=== PATIENT | female | born 1985 | race Caucasian/White ===

== ENCOUNTER 2021-02-13 16:19 | Outpatient (RCR) | payer OTHER, SELFPAY | END 2021-03-13 23:59 | LOC: DC 16:19 | PROVIDERS: PCP Family Medicine; Visit Provider Obstetrics & Gynecology | DX: O24.414 Gestational diabetes mellitus in pregnancy, insulin controlled (principal); Z3A.00 Weeks of gestation of pregnancy not specified | CPT/HCPCS: G0108 ==

== ENCOUNTER 2021-03-19 15:42 | Outpatient (RCR) | payer OTHER, SELFPAY | END 2021-04-13 23:59 | LOC: NS 15:42 | PROVIDERS: PCP Family Medicine; Visit Provider Obstetrics & Gynecology | DX: O24.414 Gestational diabetes mellitus in pregnancy, insulin controlled (principal); Z3A.00 Weeks of gestation of pregnancy not specified | CPT/HCPCS: 97802 ==

== ENCOUNTER 2021-07-22 02:25 | Inpatient (IN) | payer BC, SELFPAY ==
[2021-07-22] VITALS (96 sets, daily range): BP systolic 52–187; BP diastolic 29–99; PULSE 8–118; RESP 14–18; TEMP 36.3–37.1; O2SAT 80–100; BMI 39.7
[2021-07-22 01:26] LABS: Bedside Glucose 70 mg/dL (70-110)
[2021-07-22] MEDS: Lactated Ringers 1,000 ML 200 ML IV (02:47)
[2021-07-22] MEDS: Lactated Ringers 500 ML 999 ML IV (02:57)
[2021-07-22 03:03] LABS: Absolute Lymphocyte Count 1.79 X10^3/uL (0.83-4.51); Absolute Neutrophil Count 5.5 X10^3/uL (2.0-7.7); Basophil# 0.03 X10^3/uL; Basophil% 0.4 % (0-1); Eosinophil# 0.05 X10^3/uL; Eosinophils% 0.6 % (0-5); Hematocrit 38.3 % (37-47); Hemoglobin 12.8 g/dL (12.0-15.0); Lymphocyte # 1.79 X10^3/ul (0.83-4.51); Lymphocyte % 22.4 % (19-41); Mean Corp Hgb Conc 33.4 g/dL (32-36); Mean Corpuscular Hgb 28.4 pg (27.0-32.0); Mean Corpuscular Volume 85.1 fL (81-99); Mean Platelet Vol. 10.4 fl (6.2-12.0); Monocyte% 7.5 % (0-10); NRBC Flagged by Analyzer 0 % (0-5); Neutrophil # 5.48 X10^3/uL (2.7-7.7); Neutrophil % 68.6 % (47-70); Platelet Count 202 K/mm3 (150-450); RBC Distribution Width CV 14.3 % (11.6-14.6); RBC Distribution Width SD 44.2 fl (35.1-43.9)
[2021-07-22 03:06] LABS: Bedside Glucose 80 mg/dL (70-110)
[2021-07-22] MEDS: fentaNYL-bupivacaine (epidural) 100 ML BAG EPIDURAL (03:44)
[2021-07-22 04:41] LABS: Bedside Glucose 86 mg/dL (70-110)
[2021-07-22] MEDS: Oxytocin 30 units/NS 500 ml 30 UNITS/500 ML IV.SOLN 334 UNITS IV (05:12)
--- NOTE | 2021-07-22 05:38 | PCM.HP.OB ---
HPI - General General Date of Admission: 07/22/21 HPI Narrative TONG SUNSHINE, 35-year-old 4 para 3 who presented at 38-2/7 weeks gestation with EDC of 08/02/2021 complaining contractions. She has a history of 2 previous vaginal deliveries and 1 section. She denied any vaginal bleeding. She had good movement. The contractions woke her up and gotten progressively worse. She arrived to labor and delivery was found in labor. Past medical history is significant for depression. She had insulin controlled gestational diabetes this . She had vaginal bleeding early in the and received RhoGam. She also had pruritic urticarial papules and plaques of . She also is advanced maternal age. She also has a history of abnormal Pap smear 2014 Maternal Data Information Final JOSE: 08/02/21 Gestational age: 38 3/7 PFSH PFSH Home Medications Prenatabs FA 1 tab PO DAILY 11/14/16 [History Last Taken 07/21/21] Aspir-81 81 mg DAILY 07/22/21 [History Last Taken 07/21/21] sertraline 80 mg DAILY 07/22/21 [History Last Taken 07/21/21] Allergy/AdvReac Type Severity Reaction Status Date / Time No Known Allergies Allergy Verified 07/22/21 01:54 Social History Smoking Status: Never smoker History Elective abortions Hx Para 3 Spontaneous abortions Hx # Term Pregnancies Ectopic pregnancies Hx # Pregnancies Multiple births # of living children ROS Constitutional Constitutional: Denies fatigue, fever(s) or malaise Eyes Eyes: Denies change in vision ENT HEENT: Denies dizziness or headache(s) Cardiovascular Cardiovascular: Denies chest pain, dyspnea or lightheadedness Respiratory/Chest Respiratory/Chest: Denies cough or dyspnea Gastrointestinal Gastrointestinal: Denies change in bowel habits Genitourinary Genitourinary: Denies burning urination or genital lesions Integumentary Integumentary: Denies rash Neurologic Neurologic: Denies confusion, dizziness, headache(s), numbness or weakness Vital Signs Vital Signs Vital Signs: 07/22/21 00:47 07/22/21 00:50 07/22/21 03:00 Temperature 98.3 F Temperature Source Temporal Pulse Rate 89 87 93 Blood Pressure 139/89 H 187/94 H BP Systolic 139 187 BP Diastolic 89 94 Pulse Ox 97 07/22/21 03:02 07/22/21 03:07 07/22/21 03:12 Temperature 97.5 F L Temperature Source Temporal Pulse Rate 96 87 89 Blood Pressure 169/99 H BP Systolic 169 BP Diastolic 99 Pulse Ox 97 99 100 07/22/21 03:17 07/22/21 03:18 07/22/21 03:22 Temperature Temperature Source Pulse Rate 88 93 92 Blood Pressure 136/95 H BP Systolic 136 BP Diastolic 95 Pulse Ox 99 100 07/22/21 03:23 07/22/21 03:27 07/22/21 03:32 Temperature Temperature Source Pulse Rate 89 96 96 Blood Pressure BP Systolic BP Diastolic Pulse Ox 88 99 97 07/22/21 03:37 07/22/21 03:38 07/22/21 03:42 Temperature Temperature Source Pulse Rate 91 90 92 Blood Pressure 173/94 H BP Systolic 173 BP Diastolic 94 Pulse Ox 98 98 07/22/21 03:47 07/22/21 03:52 07/22/21 03:57 Temperature Temperature Source Pulse Rate 94 105 H 104 H Blood Pressure 126/67 H 141/72 H 134/72 H BP Systolic 126 141 134 BP Diastolic 67 72 72 Pulse Ox 99 99 99 07/22/21 04:02 07/22/21 04:03 07/22/21 04:07 Temperature Temperature Source Pulse Rate 101 H 102 H 98 Blood Pressure 116/56 L BP Systolic 116 BP Diastolic 56 Pulse Ox 100 100 07/22/21 04:10 07/22/21 04:15 07/22/21 04:18 Temperature Temperature Source Pulse Rate 100 105 H 113 H Blood Pressure 106/56 L BP Systolic 106 BP Diastolic 56 Pulse Ox 80 100 91 07/22/21 04:20 07/22/21 04:36 07/22/21 04:41 Temperature Temperature Source Pulse Rate 107 H 94 93 Blood Pressure BP Systolic BP Diastolic Pulse Ox 100 100 100 07/22/21 04:46 07/22/21 04:51 07/22/21 04:57 Temperature Temperature Source Pulse Rate 102 H 100 105 H Blood Pressure BP Systolic BP Diastolic Pulse Ox 100 100 99 07/22/21 05:02 07/22/21 05:04 07/22/21 05:11 Temperature Temperature Source Pulse Rate 97 89 76 Blood Pressure BP Systolic BP Diastolic Pulse Ox 94 88 82 Weight Weight: 89.358 kg Body Mass Index (BMI) 39.7 Physical Exam Const alert and no apparent distress General Appearance: cooperative HEENT normocephalic Resp normal respiratory effort Cardio regular rate GI soft to palpation GI Narrative: gravid, nontender, appropriate for gestational age Extremity no calf tenderness General Extremity: edema Skin no wounds Rashes: No rashes noted Psych activity/motor behavior normal Labs Labs Labs: Blood Type O NEGATIVE Antibody Screen NEGATIVE Hct 38.3 % (37-47) Hgb 12.8 g/dL (12.0-15.0) Group B Strep DNA POSITIVE (Negative) H Rhogam given: Yes Assessment & Plan (1) 38 weeks gestation of : (2) Active labor: PLAN: Patient admitted in labor for trial of labor after section. Pelvis clinically adequate. Estimated weight is less than 4000 g. Has had 2 previous vaginal deliveries before. Risk benefits and alternatives to trial of labor were discussed with the patient, her consent was signed in the office. Reviewed this today and she desires to proceed. GBS prophylaxis initiated. May have epidural as needed. Artificial rupture membranes was performed with return of moderate amount of clear fluid. IUPC was placed. (3) Previous delivery affecting : (4) Advanced maternal age during in third trimester: (5) Supervision of other high risk pregnancies, third trimester: (6) Gestational diabetes mellitus in , insulin controlled: (7) GBS (group B Streptococcus carrier), +RV culture, currently :
--- NOTE | 2021-07-22 05:42 | EX.PCM.OBRPT ---
Maternal Data Information Final JOSE: 08/02/21 Gestational age: 38 3/7 Vaginal Delivery Maternal Presentation Maternal Presentation: Active Labor Operative Information Date of Procedure: 07/22/21 Pre-Operative Diagnosis: labor Post-Operative Diagnosis: same Surgery / Procedure Performed: Type of Anesthesia: Epidural and Local with 1% Lidocaine (10 cc) Drain: Figueredo to straight drain (removed immediately before delivery) Estimated Blood Loss: 600 Time of Delivery: 05:10 Findings Description of Procedure: A vigorous male was delivered JERRI over a small second-degree perineal laceration. The remainder the was delivered with maternal pushing and gentle traction only in less than 15 seconds. The Pitocin infusion was initiated for active management of the third stage. The cord was clamped and cut after 1 minute. The infant was attended to by the waiting nursing staff. The placenta was delivered spontaneously and intact. The cervix and vagina were intact. The second-degree perineal laceration was repaired with 3-0 Vicryl suture in a running standard fashion. The left vaginal laceration was repaired with 3-0 Vicryl Rapide suture sponge and needle counts were correct. A vaginal sweep was completed by me. I was called back to see the patient because she was hypotensive. She felt lethargic. She denied headache, chest pain or shortness of breath. She had no pain other than abdominal cramping. I ordered a stat set of labs, 2 units of packed red blood cells to be typed and crossed and held, an attempt was made to start a second IV line by nursing. They have trouble getting a second line in. I then asked anesthesia to come to the room to help evaluate the patient. A second IV line was started. The patient had 2 bags of LR running at this time. Anesthesia also gave her a small amount of ephedrine to help with her blood pressure. Blood sugar, pulse and O2 sats were stable. Patient was given some oxygen because she was in shock. I ordered the 2 units of blood to be transfused because clinically the most likely situation where she was acutely anemic. After the fluid started to catch up with the patient and she was given ephedrine, her blood pressure recovered pretty quickly. The blood was canceled. I had ordered a CAT scan to rule out retroperitoneal hematoma. May cancel that as well if patient continues to do well and just do serial blood counts. Presentation: JERRI Amniotic Membrane Rupture Type: Spontaneous Amniotic Fluid Description: Clear Placental Delivery Description: Spontaneous Placenta Disposition: [facility] Cord Vessel Description: 3 Vessels Cord Entanglement: None A Gender: Male (1 minute): 7 (5 minute): 9 Delayed Cord Clamping: Yes Post Vaginal Delivery Medications Given After Delivery: IV Pitocin Episiotomy Description: None Laceration: 2nd degree (and left vaginal) Admit VTE Documentation VTE Present on Admission: No
[2021-07-22 05:57] LABS: Hematocrit 30.3 % (37-47); Hemoglobin 10.3 g/dL (12.0-15.0); Mean Corpuscular Hgb 29.7 pg (27.0-32.0); Mean Corpuscular Volume 87.3 fL (81-99); Mean Platelet Vol. 10.6 fl (6.2-12.0); Platelet Count 189 K/mm3 (150-450); RBC Distribution Width CV 14.5 % (11.6-14.6); RBC Distribution Width SD 46.1 fl (35.1-43.9); Red Blood Count 3.47 M/mm3 (4.2-5.4); White Blood Count 10.4 K/mm3 (4.4-11.0)
[2021-07-22 06:21] LABS: Bedside Glucose 101 mg/dL (70-110)
[2021-07-22 06:22] LABS: International Normalized Ratio 1.1; Prothrombin Time (Protime)PT. 13.3 SECONDS (11.7-14.9)
[2021-07-22 06:23] LABS: Fibrinogen 452 mg/dl (203-444); Partial Thromboplast Time 28.7 Seconds (24.1-36.2)
--- NOTE | 2021-07-22 06:44 | NURSING ---
Staff called to room to respond to low blood pressure. Patient post delivery at 0510. Patient has GDM. Following times reflect actual time. Staff at bedside: Juma Morataya RN 0550 BGT 101; Physician at bedside. Figueredo inserted. BP 52/29. CBC and coags drawn and sent to lab. Patient drowsy, wakes with stimulation. 0552 BP 79/41, HR 106, SpO2 99%. IV bolus of lactated ringers started. 0554 Ultrasound brought to room; hemorrhage cart at bedside. 0555 BP 58/32. Temperature 98 degrees F. SpO2 94%. Ultrasound done at bedside. 0557 BP 56/30 0558 patient placed in trendelenberg. Oxygen applied via nonrebreather mask. patient very drowsy and difficult to wake. [address] second IV. 0609 Zackery Mcclelland CRNA at bedside to evaluate patient per physician request. 0616 2nd 18 gauge IV placed per Zackery Mcclelland CRNA in left antecubital. respirations 24. 0617 10mg ephedrine given per Jerod BURNS 0619 Second IV LR bolus hung per second IV line via pressure bag. 2 units PRBC's ordered to be cross matched and transfused, CT ordered via Dr López. 0620 BP 95/56, HR 103, SpO2 100%. 0622 BP 103/57, HR 98, SpO2 100% via nonrebreather. 0623 Patient remains drowsy. Will answer questions with stimulation. Denies chest pain or headache upon questioning. Provider out of room. 0627 BP 114/57, HR 105, SpO2 100%. Patient appearing less drowsy, spontaneous waking and asking about . 0630 coagulation labs returned. Fundus firm. 0632 patient remains awake, interacting with support person and . BP 120/62, HR 97, SpO2 100%. 0634 Jerod BURNS out of room. oxygen discontinued. 0636 patient taken out of Trendelenburg and placed in low fowlers. Provider returned to bedside to review plan of care. 0637 BP 125/66, HR 91, SpO2 100% on room air. 0638 Provider out of room. Patient remains well appearing. Blood order and CT to be held at this time.
[2021-07-22] MEDS: Ibuprofen 600 MG Tablet PO ×2 (08:20→16:35)
[2021-07-22] MEDS: Benzocaine/Lanolin/Aloe Vera 1 SPRAY EACH TOPICAL (08:21)
[2021-07-22] MEDS: FLUoxetine 20 MG Capsule 80 MG PO (08:48)
[2021-07-22 13:10] LABS: Hematocrit 27.2 % (37-47); Hemoglobin 9.2 g/dL (12.0-15.0); Mean Corp Hgb Conc 33.8 g/dL (32-36); Mean Corpuscular Volume 85.8 fL (81-99); Mean Platelet Vol. 10.5 fl (6.2-12.0); Platelet Count 175 K/mm3 (150-450); RBC Distribution Width CV 14.6 % (11.6-14.6); RBC Distribution Width SD 45.5 fl (35.1-43.9); Red Blood Count 3.17 M/mm3 (4.2-5.4); White Blood Count 15.7 K/mm3 (4.4-11.0)
--- NOTE | 2021-07-22 13:13 | NURSING ---
Epidural catheter removed at this time. Tip intact, patient tolerated well.
--- NOTE | 2021-07-22 16:08 | CASEMGMT ---
Social Work Labor and Delivery Social work consult received and noted for maternal history fo depression, anxiety, OCD, and depression. Medical records reviewed. Spoke with RN caring for patient today. Patient is reported as tired and not sleeping for 20 hours. Based this report, will plan to see MOB on 07.23.2021 in order to allow MOB more time to get some sleep. Plan: See MOB on 07.23.2021 for assessment and determination of resource needs. -EKTA Buitrago, PERSONNEL ASSOCIATE
[2021-07-22] MEDS: Acetaminophen 500 MG Tablet 1000 MG PO (21:24)
[2021-07-23 03:22] VITALS: BP 140/76; PULSE 89; RESP 18; TEMP 36.8
[2021-07-23 05:55] LABS: Bedside Glucose 96 mg/dL (70-110)
[2021-07-23 06:10] LABS: Hematocrit 26.2 % (37-47); Hemoglobin 8.8 g/dL (12.0-15.0); Mean Corp Hgb Conc 33.6 g/dL (32-36); Mean Corpuscular Hgb 29.5 pg (27.0-32.0); Mean Corpuscular Volume 87.9 fL (81-99); Mean Platelet Vol. 10.6 fl (6.2-12.0); Platelet Count 176 K/mm3 (150-450); RBC Distribution Width CV 14.9 % (11.6-14.6); Red Blood Count 2.98 M/mm3 (4.2-5.4); White Blood Count 11.7 K/mm3 (4.4-11.0)
[2021-07-23] MEDS: Ibuprofen 600 MG Tablet PO ×2 (07:02→13:56)
[2021-07-23 07:48] VITALS: BP 128/77; PULSE 87; RESP 16; TEMP 36.4; O2SAT 98
[2021-07-23] MEDS: FLUoxetine 20 MG Capsule 80 MG PO (11:35)
[2021-07-23] MEDS: Senna/Docusate Sodium 1 Tablet PO (11:35)
[2021-07-23 11:54] LABS: Hematocrit 26.9 % (37-47); Hemoglobin 8.9 g/dL (12.0-15.0); Mean Corp Hgb Conc 33.1 g/dL (32-36); Mean Corpuscular Hgb 28.9 pg (27.0-32.0); Mean Corpuscular Volume 87.3 fL (81-99); Mean Platelet Vol. 10.3 fl (6.2-12.0); Platelet Count 183 K/mm3 (150-450); RBC Distribution Width CV 15.2 % (11.6-14.6); RBC Distribution Width SD 47.9 fl (35.1-43.9); Red Blood Count 3.08 M/mm3 (4.2-5.4); White Blood Count 12.5 K/mm3 (4.4-11.0)
--- NOTE | 2021-07-23 13:08 | PCM.PN.OB ---
Subjective Subjective Patient doing well. Pain well controlled. She is ambulating voiding without difficulty. She denies chest pain, shortness of breath, presyncope, lightheadedness, dizziness. Lochia is normal. She is breast-feeding. She desires to go home today. No leg pain. Objective Data Objective Data Vital Signs: Vital Signs Temp Pulse Resp BP Pulse Ox 97.6 F L 87 16 128/77 H 98 07/23/21 07:48 07/23/21 07:48 07/23/21 07:48 07/23/21 07:48 07/23/21 07:48 Oxygen Delivery Method Room Air Weight: 197 lb Body Mass Index (BMI) 39.7 Intake & Output: Intake and Output for Last 24 Hours 07/21/21 07/22/21 07/23/21 23:59 23:59 23:59 Intake Total 2105.00 / 2105.00 Output Total 400 / 400 Balance 1705.00 / 1705.00 Lab / Micro Data Result Diagrams: 07/23/21 11:40 Labs: Laboratory Results - last 24 hr 07/22/21 13:00: WBC 15.7 H, RBC 3.17 L, Hgb 9.2 L, Hct 27.2 L, MCV 85.8, MCH 29.0, MCHC 33.8, RDW Std Deviation 45.5 H, RDW Coeff of Jerel 14.6, Plt Count 175, MPV 10.5 07/23/21 05:47: POC Glucose 96 07/23/21 05:50: WBC 11.7 H, RBC 2.98 L, Hgb 8.8 L, Hct 26.2 L, MCV 87.9, MCH 29.5, MCHC 33.6, RDW Std Deviation 48.0 H, RDW Coeff of Jerel 14.9 H, Plt Count 176, MPV 10.6 07/23/21 11:40: WBC 12.5 H, RBC 3.08 L, Hgb 8.9 L, Hct 26.9 L, MCV 87.3, MCH 28.9, MCHC 33.1, RDW Std Deviation 47.9 H, RDW Coeff of Jerel 15.2 H, Plt Count 183, MPV 10.3 Micro: Microbiology 07/22/21 03:00 Nasal Secretion SARS-CoV-2 Antigen (Rapid) - Final Physical Exam Const alert and no apparent distress General Appearance: comfortable Resp normal respiratory effort Assessment & Plan (1) Active labor: (2) Previous delivery affecting : (3) Advanced maternal age during in third trimester: (4) Supervision of other high risk pregnancies, third trimester: (5) Gestational diabetes mellitus in , insulin controlled: (6) , delivered: PLAN: - Pt doing well and desires discharge today. Hgb stable and no symptoms of anemia. Recommend iron supplementation. Reviewed discharge instructions
--- NOTE | 2021-07-23 13:14 | PCM.DC ---
Discharge Instructions Diet Discharge Diet: No restrictions Activity Discharge Activity: May Shower May resume sexual activity in: 6 weeks Ice area for (Minutes): 15 Weight Bearing Status: Weight bearing as tolerated Lifting Restrictions: nothing heavier than baby Additional Activity Instructions:: Take Iron with a half a glass of orange juice at night every other day, and avoid calcium containing supplements at time of taking iron Dressing / Incision Call your doctor if you observe: Fever of 101 or Higher, Coldness, Increased Pain, Numbness or Tingling, Change in Color, Inability to urinate, Inability to have a bowel movement, Using more than 1 pad per hour, Shortness of breath, Dizziness, Fainting spells, Swelling in the ankles, Chest pain, Increased palpitations (irregular heartbeat), Calf discomfort and Uncontrolled pain Follow Up Care When: 6 week Test Results: Test results from this visit will be discussed in further detail at your follow-up appointment, if applicable. Discharge Plan Admission Admit Date/Time: 07/22/21 02:25 Primary Reason for Your Visit: delivery Attending Provider: Dina López Primary Care Provider: Suresh Aceves Discharge Orders/Prescriptions Prescriptions: New ferrous sulfate 325 mg (65 mg iron) tablet 325 mg PO QODAY Qty: 60 RF: 0 docusate sodium [Stool Softener] 100 mg capsule 100 mg PO BID Qty: 60 RF: 0 Continued Prenatabs FA 1 TABLET tablet 1 tab PO DAILY RF: 0 fluoxetine 20 mg capsule 80 mg DAILY RF: 0 Discontinued Aspir-81 81 mg DAILY RF: 0 Referrals / Follow Up: Suresh Aceves DO [Primary Care Provider] - Disposition Disposition (needs filled in before D/C Order can be placed): Home, Self Care
[2021-07-23 13:49] VITALS: BP 133/81; PULSE 97; RESP 16; TEMP 36.3
--- NOTE | 2021-07-23 16:05 | CASEMGMT ---
Social Work Labor and Delivery MOB was seen and assessed today. Assessment note to follow. Resources given and okay for MOB and baby to discharge from SW standpoint. -EKTA Buitrago, FLORICULTURIST
== END 2021-07-23 17:49 | disposition home or self-care (01) | DRG 806 ==
LOC: WPOUT 02:27 → WP 02:27
PROVIDERS: Advanced Practice Midwife; Obstetrics & Gynecology; Admitting Provider Obstetrics & Gynecology; PCP Family Medicine; Visit Provider Obstetrics & Gynecology
PROC: (CPT 59514; principal; 2021-07-28 11:45)
DX: O34.219 Maternal care for unspecified type scar from previous cesarean delivery (principal); Z37.0 Single live birth; O99.43 Diseases of the circulatory system complicating the puerperium; I95.9 Hypotension, unspecified; O24.424 Gestational diabetes mellitus in childbirth, insulin controlled; Z3A.38 38 weeks gestation of pregnancy; O70.1 Second degree perineal laceration during delivery; O99.820 Streptococcus B carrier state complicating pregnancy; O99.344 Other mental disorders complicating childbirth; F32.A Depression, unspecified; Z79.899 Other long term (current) drug therapy; O26.86 Pruritic urticarial papules and plaques of pregnancy (PUPPP)
CPT/HCPCS: 59025; 59050; 82962; 85025; 85027; 85384; 85461; 85610; 85730; 86850; 86900; 86901; 86920; 86922; 87426; 90384; 99218; J7120; G0378; J2790

== ENCOUNTER 2022-03-30 13:21 | Outpatient (RCR) | payer BC, SELFPAY | END 2022-04-13 23:59 | LOC: NS 13:21 | PROVIDERS: PCP Family Medicine; Referring Provider Family Medicine; Visit Provider Family Medicine | DX: Z71.3 Dietary counseling and surveillance (principal); E66.9 Obesity, unspecified | CPT/HCPCS: 97802 ==

== ENCOUNTER 2023-04-12 10:08 | Outpatient (RCR) | payer BC, SELFPAY | END 2023-04-13 23:59 | LOC: NS 10:08 | PROVIDERS: PCP Family Medicine; Referring Provider Family Medicine; Visit Provider Family Medicine | DX: Z71.3 Dietary counseling and surveillance (principal); E66.09 Other obesity due to excess calories; Z68.35 Body mass index [BMI] 35.0-35.9, adult | CPT/HCPCS: 97802 ==

== ENCOUNTER 2023-05-12 14:00 | Outpatient (RCR) | payer BC, SELFPAY | END 2023-05-13 23:59 | LOC: NS 14:00 | PROVIDERS: PCP Family Medicine; Referring Provider Family Medicine; Visit Provider Family Medicine | DX: Z71.3 Dietary counseling and surveillance (principal); E66.09 Other obesity due to excess calories; Z68.35 Body mass index [BMI] 35.0-35.9, adult | CPT/HCPCS: 97803 ==

== ENCOUNTER 2024-07-10 11:25 | Emergency (ER) | payer BC, SELFPAY ==
[2024-07-10 11:26] VITALS: BP 163/104; PULSE 83; RESP 16; TEMP 36.4; O2SAT 97
--- NOTE | 2024-07-10 12:04 | EX.ED.VIS.PS ---
HPI HPI - Psych History of Present Illness Chief Complaint: Suicidal Informant: patient and family Narrative Narrative: 46-year-old female following with Dr. Wolf for depression, attempted to commit suicide this morning by taking the propranolol she is prescribed. This occurred about 2 hours prior to evaluation, around 10 AM according to family who intervene and stopped her from taking the pills. She states she had already taken 6 of them, 10 mg each. She is prescribed them 3 times daily, as they are the immediate release form that she is prescribed for anxiety as needed. She states she was taking them in hopes that her heart would stop and she would . She states she feels weak all over, she has had no syncopal episodes or trouble breathing. She has a headache right now. She denies any coingestants including [id number] medications, alcohol, or illicit substance. She states she took her usual morning medications of fluoxetine and lamotrigine as prescribed and did not take more than that. [facility] Medical History History of depression MDD (major depressive disorder) , delivered Anxiety Obsessive compulsive disorder Gestational diabetes depression Depression Gestational diabetes mellitus in , insulin controlled Home Medications ?Medication ?Instructions ?Recorded ?Last Taken ?Type fluoxetine 40 mg capsule (Prozac) 80 mg (2 x 40 mg) PO QDAY 90 days 03/02/24 Unknown Rx #180 caps lamotrigine 100 mg tablet 100 mg PO QDAY 90 days #90 tabs 03/02/24 Unknown Rx (Lamictal) rosuvastatin 20 mg tablet 20 mg PO QHS 05/18/24 Unknown History propranolol 10 mg tablet 10 mg PO TID PRN anxiety #60 tabs 07/07/24 Unknown Rx Allergy/AdvReac Type Severity Reaction Status Date / Time sertraline AdvReac Mild Increased Verified 07/10/24 11:32 depression Surgical History [place] teeth extracted Previous section Previous delivery affecting Social History Smoking Status: Never smoker alcohol intake: never substance use type: does not use what type of physical activity do you participate in: walking frequency: 5-6 times per week ROS ROS ED Constitutional Constitutional ED: Reports malaise; Denies chills or fever(s) Eyes Eyes: Denies change in vision or diplopia ENT ENT ED: Denies rhinorrhea or sore throat Cardiovascular Cardiovascular: Denies chest pain or palpitations Respiratory/Chest Respiratory/Chest: Denies cough or dyspnea Gastrointestinal Gastrointestinal: Reports nausea and other Details: Nauseated earlier but gone now ; Denies abdominal pain, diarrhea or vomiting Genitourinary Genitourinary ED: Denies dysuria or hematuria Musculoskeletal Musculoskeletal: Denies back pain or neck pain Integumentary Denies abscess or rash Neurologic Neurologic: Reports headache(s); Denies paresthesias or weakness Psychiatric Psychiatric: Reports depression, suicidal ideation and suicidal thoughts; Denies homicidal ideation EXAM Physical Exam Const Vital Signs: 07/10/24 11:26 07/10/24 13:00 07/10/24 14:00 Temperature 97.5 F L Temperature Source Temporal Pulse Rate 83 72 83 Respiratory Rate 16 16 14 Blood Pressure 163/104 H 138/68 H Blood Pressure Mean 123 91 Pulse Ox 97 96 99 Oxygen Delivery Method Room Air Room Air Positive well nourished and well developed General Appearance ED: well developed and NAD HEENT Reports moist mucous membranes normocephalic and atraumatic Eyes PERRL and EOMs intact bilaterally General Eye ED: Negative for scleral icterus Neck no lymphadenopathy and supple Resp normal respiratory effort and clear to auscultation bilaterally Cardio no murmurs Rate: regular rate Rhythm: regular rhythm GI non-tender and non-distended Auscultation: normoactive bowel sounds Palpation: soft Back/Spine no CVA tenderness and normal ROM Extremity normal to inspection General Extremety ED: Negative for edema General Extremity: Negative for edema Neuro oriented x3, CN's II-XII intact bilaterally, no sensory deficits noted and gait normal Sensorium / Orientation: alert Motor Exam: strength 5/5 throughout Psych mental status grossly normal, thought process normal, cooperative, activity/motor behavior normal and denies homicidal ideation Speech: slow and soft Mood & Affect: depressed Thought Content: suicidality Skin Lesions: no lesions Rashes: no rashes MDM MDM MDM Narrative Medical decision making narrative: Patient took 60 mg of propranolol hydrochloride, immediate release form. This is still well within the therapeutic range. She is not bradycardic and her EKG is normal, pulse in the 80s 2 hours after taking the pills. Given all of this, I did do a metabolic test while we the monitored her, testing for coingestions including alcohol, illicit drugs, acetaminophen, salicylates. This was all negative. With observation she developed no bradycardia. She is medically cleared for psychiatric evaluation. Social work saw her in the emergency department with whom I spoke, they agree with placement, we are able to get accepting to [place]. Lab Data Attestation: I reviewed the patient's lab results. Labs: Laboratory Results - last 24 hr 07/10/24 07/10/24 12:34 13:20 WBC 12.1 H RBC 4.92 Hgb 13.8 Hct 41.4 MCV 84.1 MCH 28.0 MCHC 33.3 RDW Std Deviation 39.7 RDW Coeff of Jerel 13.0 Plt Count 347 MPV 9.1 Immature Gran % (Auto) 0.400 Neut % (Auto) 79.3 H Lymph % (Auto) 15.5 L Emmet % (Auto) 4.1 Eos % (Auto) 0.3 Baso % (Auto) 0.4 Absolute Neuts (auto) 9.6 H Absolute Lymphs (auto) 1.88 Nucleated RBC % 0 Sodium 139 Potassium 3.8 Chloride 107 Carbon Dioxide 26.0 Anion Gap 6 BUN 10 Creatinine 0.50 L Est GFR (MDRD) Af Amer 177 Est GFR (MDRD) Non-Af 147 BUN/Creatinine Ratio 20.2 H Glucose 110 H Calcium 9.0 Total Bilirubin 0.30 AST 13 L ALT 23 Alkaline Phosphatase 52 Total Protein 7.3 Albumin 3.9 Globulin 3.4 Albumin/Globulin Ratio 1.1 Serum , Qual NEGATIVE Salicylates < 1.7 L Urine Opiates Screen NEGATIVE Urine Methadone Screen NEGATIVE Acetaminophen < 2.0 L Ur Barbiturates Screen NEGATIVE Ur Phencyclidine Scrn NEGATIVE Ur Amphetamines Screen NEGATIVE MDMA (Ecstasy) Screen NEGATIVE U Benzodiazepines Scrn NEGATIVE Urine Cocaine Screen NEGATIVE U Cannabinoids Screen NEGATIVE Ur Drug Screen Comment Ethyl Alcohol < 3.0 Management Discussion w/another healthcare provider: Behavioral health Discharge Plan Triage Chief Complaint: Suicidal ED Provider: Mohan Sorensen Dx/Rx/DC Orders Clinical Impression: Suicide gesture, MDD (major depressive disorder) Prescriptions: No Action fluoxetine [Prozac] 40 mg capsule 80 mg PO QDAY 90 Days Qty: 180 1RF lamotrigine [Lamictal] 100 mg tablet 100 mg PO QDAY 90 Days Qty: 90 1RF rosuvastatin 20 mg tablet 20 mg PO QHS propranolol 10 mg tablet 10 mg PO TID PRN (Reason: anxiety) Qty: 60 1RF Primary Care Provider: Ash Lozoya Referrals: Ash Lozoya MD [Primary Care Provider] - Print Language: [place] Disposition Disposition: Psychiatric Hospital or Unit
[2024-07-10] MEDS: Ibuprofen 600 MG Tablet PO (12:24)
[2024-07-10 12:42] LABS: Absolute Lymphocyte Count 1.88 X10^3/uL (0.83-4.51); Absolute Neutrophil Count 9.6 X10^3/uL (2.0-7.7); Basophil# 0.05 X10^3/uL; Basophil% 0.4 % (0-1); Eosinophil# 0.04 X10^3/uL; Eosinophils% 0.3 % (0-5); Hematocrit 41.4 % (37-47); Hemoglobin 13.8 g/dL (12.0-15.0); Lymphocyte # 1.88 X10^3/ul (0.83-4.51); Lymphocyte % 15.5 % (19-41); Mean Corp Hgb Conc 33.3 g/dL (32-36); Mean Corpuscular Volume 84.1 fL (81-99); Mean Platelet Vol. 9.1 fl (6.2-12.0); Monocyte% 4.1 % (0-10); NRBC Flagged by Analyzer 0 % (0-5); Neutrophil % 79.3 % (47-70); Platelet Count 347 K/mm3 (150-450); RBC Distribution Width SD 39.7 fl (35.1-43.9); Red Blood Count 4.92 M/mm3 (4.2-5.4); White Blood Count 12.1 K/mm3 (4.4-11.0)
[2024-07-10 12:55] LABS: Internal QC Validated? YES +Cl - CLEAR BKGD
[2024-07-10 12:56] LABS: Pregnancy, Serum, hCG Quali. NEGATIVE Negative
[2024-07-10 13:00] VITALS: BP 138/68; PULSE 72; RESP 16; O2SAT 96
[2024-07-10 13:02] LABS: ALB/GLOB Ratio 1.1 RATIO (0.9-2.4); AST(SGOT) 13 U/L (15-37); Alanine Aminotransfer ALT/SGPT 23 U/L (13-56); Albumin, Serum 3.9 g/dL (3.2-5.0); Alkaline Phosphatase 52 U/L (45-117); Anion Gap 6 (5-15); BUN 10 mg/dL (7-18); BUN/Creat Ratio 20.2 RATIO (10-20); Chloride 107 mmol/L (98-107); EST Glomerular Filtration Rate 147 mL/min (>60); Est Glom Filt Rate - Afr Amer 177 mL/min (>60); Globulin 3.4 g/dL (2.2-4.2); Glucose 110 mg/dL (74-106); Potassium 3.8 mmol/L (3.5-5.1); Protein, Total 7.3 g/dL (6.4-8.2); Sodium Level 139 mmol/L (136-145)
[2024-07-10 13:04] LABS: Acetaminophen (Tylenol) Level < 2.0 ug/mL (10.0-30.0); Alcohol, Blood (Medical)-Serum < 3.0 mg/dL; Salicylate < 1.7 mg/dL (2.8-20.0)
[2024-07-10 13:39] LABS: Amphetamine Urine NEGATIVE (<1000 ng/mL); Barbiturate Urine VISTA NEGATIVE (< 200 ng/mL); Benzodiazepine Urine VISTA NEGATIVE (< 200 ng/mL); Cocaine Urine VISTA NEGATIVE (< 300 ng/mL); Ecstacy Urine VISTA NEGATIVE (< 500 ng/mL); Methadone Urine VISTA NEGATIVE (< 300 ng/mL); PCP Urine VISTA NEGATIVE (< 25 ng/mL); THC Urine VISTA NEGATIVE (< 50 ng/mL); Vista UDS pH Range 7
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
[2024-07-10 14:00] VITALS: PULSE 83; RESP 14; O2SAT 99
[2024-07-10 14:28] VITALS: PULSE 82; RESP 14; O2SAT 99
--- NOTE | 2024-07-10 14:30 | EKG12_ITS ---
Test Reason : CP Blood Pressure : */* mmHG Vent. Rate : 80 BPM Atrial Rate : 80 BPM P-R Int : 174 ms QRS Dur : 82 ms QT Int : 378 ms P-R-T Axes : 26 8 40 degrees QTcB Int : 435 ms Normal sinus rhythm Normal ECG Confirmed by ANDREW QUINN, ADELITA ([id number]), associate professor physician HIRAL WHITE ([id number]) on 07/12/2024 6:23:14 AM Referred By: BB/ANDREW Confirmed By: ADELITA MORALES MD
--- NOTE | 2024-07-10 15:25 | ED.RN ---
ACCEPTED @ [facility] @ [id number]
--- NOTE | 2024-07-10 15:40 | ED.RN ---
PHYSICIANS CALLED AND TRIED TO OUT SOURCE THE TRIP, SAID NO ONE WAS ABLE TO TAKE IT.
[2024-07-10 18:18] VITALS: BP 129/83; PULSE 88; RESP 18; TEMP 36.4; O2SAT 98
[2024-07-10 18:28] VITALS: BMI 34.5
--- NOTE | 2024-07-10 21:35 | CM.ED ---
Social Work Referral sent to [facility]. Patient was accepted at same. Patient and family notified. Plan: Inpatient psychiatric admission.
[2024-07-10 22:28] VITALS: BP 127/78; PULSE 78; RESP 16; TEMP 36.6; O2SAT 97
--- NOTE | 2024-07-11 08:57 | CM.ED ---
Social work This SW received a call from Amee Paredes, patient's mother, this morning. Amee stated knowing patient was in [facility] ED yesterday and sent to [place]. Amee reported receiving a voicemail from patient today stating that patient did not have patient's clothing. This SW explained the process that occurs when a patient arrives who is a safety risk to self (personal belongings are removed and locked up); this SW explained that patient's transportation to [place] would have received patient's belongings. This SW encouraged Amee to call [place] to see if patient could have more of patient's clothing as this could be what patient was referring to on the voicemail. Amee stated understanding and reported no further needs at this time. Celestina Lala, NURSE MIDWIFE, COMPOSITION ROOFER
== END 2024-07-11 01:53 ==
LOC: ED 12:18
PROVIDERS: Emergency Provider Emergency Medicine; PCP Family Medicine; Visit Provider Emergency Medicine
DX: T44.7X2A Poisoning by beta-adrenoreceptor antagonists, intentional self-harm, initial encounter (principal); F32.9 Major depressive disorder, single episode, unspecified; Z79.899 Other long term (current) drug therapy
CPT/HCPCS: 36415; 80053; 80143; 80179; 80307; 82077; 84703; 85025; 93005; 99284

== ENCOUNTER → 2024-09-01 | Outpatient (CLI) | payer BC, SELFPAY ==
[2024-09-01 18:04] LABS: Free T3 2.7 pg/mL (2.18-3.98)
== END | disposition home or self-care (01) ==
LOC: LAB 15:46
PROVIDERS: PCP Family Medicine; Referring Provider Student in an Organized Health Care Education/Training Program; Visit Provider Student in an Organized Health Care Education/Training Program
DX: F32.9 Major depressive disorder, single episode, unspecified (principal)
CPT/HCPCS: 36415; 84439; 84443; 84481

== ENCOUNTER → 2024-11-20 | Outpatient (CLI) | payer BC, SELFPAY ==
--- NOTE | 2024-11-20 06:37 | MRI_ITS ---
PROCEDURE: BRAIN W/WO CONTRAST 11/20/2024 REASON FOR EXAM: DIZZINESS TECHNIQUE: Routine brain MRI without and with intravenous contrast. Multiplanar and multisequence images were obtained. CONTRAST: Clariscan VOLUME: 16 mL COMPARISON: None. FINDINGS: There is a normal sulcal pattern and gyral configuration. There is no evidence of acute intracranial hemorrhage or infarction. The rizvi-white differentiation is well preserved. There is no evidence of restricted diffusion. The ventricles and basilar cisterns are normal. There are normal flow voids demonstrated in the recognized intracranial vessels. The cerebellum and brainstem are unremarkable. The cerebellar pontine angles are normal. The craniovertebral junction is normal. The sella and suprasellar regions are normal. The orbits and retro-orbital regions are unremarkable. The nasal septum is midline. The paranasal sinuses are clear. The mastoid air cells are clear. There is normal bone marrow signal in the skull base and calvarium. MRI/Brain W/WO Contrast IMPRESSION: Normal MR imaging of the brain with and without IV contrast. Reading Location: [place] [id number]
--- OUTSIDE RECORDS SUMMARY | 2024-11-20 07:19 | XMS RPT_ITS | CCD ---
Author Organization [facility] ion [facility] Care Team Providers Care Bingo Cashier Name Role Phone Unavailable Primary Care Provider UnavailSuresh Snyder DO Primary Care Provider [phone] Ash King MD Primary Care Provider Unavailable Primary Care Provider UnavailAsh Lamb MD Primary Care Provider DR SURESH ACEVES DO Primary Care Physician DR SURESH ACEVES DO Primary Care Unavailab LEANDRO oClón Attending Lucina vailable CHRISTINE, ASH Primary Care Unavailable DAVEY HSU Admitting Unavailable RYAN ANDINO Attending Unavailable CHRISTINE, ASH Primary Care Unavailable ROLY WILDER Admitting Unavailable CHRISTIANO NEGRETE Attending Unavailable CHRISTINE, ASH Attending Unavailable CHRISTINE, ASH Primary Care Unavailable CHRISTINE, ASH Primary Care Unavailable O'COLLEEN CHARMAINE Attending Unavailable CHRISTINE, ASH Primary Care Unavailable O'COLLEENCHARMAINE Attending Unavailable CHRISTINE, ASH Primary Care Unavailable EMS, MARIA VICTORIA Attending Unavailable LEONEL PERALES Attending Unavailable CHRISTINE, ASH Primary Care Unavailable CHRISTINE, ASH Primary Care Unavailable BRIDENTHAL, PRISCILLA Attending Unavailable CHRISTINE, ASH Attending Unavailable CHRISTINE, ASH Primary Care Unavailable CHRISTINE, ASH Primary Care Unavailable BRIDENTHAL, PRISCILLA Attending Unavailable CHRISTINE, ASH Primary Care Unavailable EMS, MARIA VICTORIA Attending Unavailable CHRISTINE, ASH Primary Care Unavailable EMS, MARIA VICTORIA Attending Unavailable Christine, Ash Stephane Primary Care Provider [phone] SELF Referring Unavailable ASA BETANCUR Referring Unavailable ASA BETANCUR Attending Unavailable Mohan Sorensen Attending Unavailable Christine, Ash Primary Care Unavailable Seese, Roque L Attending Unavailable [facility] Primary Care Unavailable Roque Wolf Attending Unavailable [facility] Primary Care Unavailable Roque Wolf Attending Unavailable [facility] Ash Referring Unavailable [facility] Primary Care Unavailable [facility], Ash Primary Care Unavailable Roque Wolf Attending Unavailable [facility] Primary Care Unavailable Roque Wolf Attending Unavailable [facility] Primary Care Unavailable Christine, Ash Referring Unavailable Roque Wolf Attending Unavailable [facility] Primary Care Unavailable Roque Wolf Referring Unavailable Roque Wolf Attending Unavailable Prasanna Alberto Attending UnavailPrasanna Head [facility] Allergies Allergy Classification Reported Allergen(s) Allergy Type Date of Onset Reaction(s) Facility (19 sources) Sertraline; Translations: [SERTRALINE] Drug Allergy 4 Other, Other: See Comments [facility] (1 source) Cetirizine Drug Allergy 4 [facility] (1 source) Cetirizine Drug Allergy 4 [facility] (1 source) Sertraline Drug Allergy 5 [facility] Medications Current Medications Medication Drug Class(es) Dates Sig (Normalized) Sig (Original) acetaminophen 325 mg oral capsule (1 source) Start: 03-09-2019 Tylenol 325 mg oral capsule Dose : 650 mg =, Oral, q4h, PRN Pain, scale 1-3, 0 Refill(s) Start Date: 03/09/19 Status: Ordered amoxicillin 500 mg oral capsule (2 sources) Penicillin-class Antibacterial Start: 09-05-2023 End: 09-15-2023 take 1 capsule by mouth twice daily amoxicillin (AMOXIL) 500 mg capsule Take 1 capsule by mouth two times a day for 10 days. 20 capsule 0 09/05/2023 09/15/2023 Active Comment on above: Take 1 capsule by mo [facility] two times a day for 10 days. benzonatate 200 mg oral capsule (5 sources) Non-narcotic Antitussive Start: 10-25-2023 End: 11-04-2023 take 1 capsule by mouth three times daily as needed for cough benzonatate (Tessalon) 200 MG capsule Take 1 capsule (200 mg) by mouth 3 times daily as needed for cough for up to 10 days. Do not crush or chew. 30 capsule 0 10/25/2023 11/04/2023 Active cephalexin 500 mg oral capsule (5 sources) Cephalosporin Antibacterial Start: 10-25-2023 End: 11-04-2023 take 1 capsule by mouth three times daily cephalexin (Keflex) 500 MG capsule Take 1 capsule (500 mg) by mouth 3 times daily for 10 days. 30 capsule 0 10/25/2023 11/04/2023 Active docusate sodium 100 mg oral capsule (1 source) Start: 07-23-2021 take 1 capsule by mouth twice daily Docusate Sodium (Stool Softener) 100 mg capsule Active 100 MG PO TWICE A DAY 60 July 23, 2021 1:00am FLUoxetine 40 mg oral capsule (20 sources) Serotonin Reuptake Inhibitor Start: 08-30-2023 End: 02-20-2024 take 2 capsules by mouth once daily FLUoxetine (PROzac) 40 MG capsule Indications: Depression , Obsessive Compulsive Disorder Take 2 capsules (80 mg) by mouth daily. 60 capsule 1 2023 Active Start: 07-28-2023 End: 01-24-2024 take 1 capsule by mouth once daily FLUoxetine (PROzac) 40 MG capsule Indications: Severe episode of recurrent major depressive disorder, without psychotic features (HCC) Take 1 capsule (40 mg) by mouth daily. 30 capsule 5 07/28/2023 08/05/2023 Discontinued (Dose adjustment) Start: 12-21-2022 take 1 capsule by [facility] once daily FLUoxetine (PROzac) 40 MG capsule Indications: Severe episode of recurrent major depressive disorder, without psychotic features (HCC) take 1 capsule by mouth TOGETHER with 20 milligram capsule FOR A TOTAL DOSE OF 60 milligrams once daily 30 capsule 1 12/21/2022 Active Start: 12-21-2022 End: 03-03-2023 take 1 capsule by mouth once daily FLUoxetine (PROzac) 20 MG capsule Indications: Severe episode of recurrent major depressive disorder, without psychotic features (HCC) take 1 capsule by mouth TOGETHER with 40 milligram capsule FOR A TOTAL DOSE OF 60 milligrams once daily 30 capsule 1 12/21/2022 03/03/2023 Discontinued (Therapy completed) Start: 06-29-2022 End: 08-21-2022 take 1 capsule by mouth once daily FLUoxetine (PROzac) 20 MG capsule Indications: Severe episode of recurrent major depressive disorder, without psychotic features (HCC) Take 1 capsule (20 mg) by mouth daily. Take with 40 mg for total of 60 mg daily 30 capsule 1 06/29/2022 08/21/2022 Discontinued (Dose adjustment) Start: 07-22-2021 Fluoxetine Act salo 80 MG DAILY July 22, 2021 1:00am Start: 03-05-2019 End: 10-20-2022 take 1 capsule by mouth once daily FLUoxetine (PROzac) 40 MG capsule Indications: Severe episode of recurrent major depressive disorder, without psychotic features (HCC) Take 1 capsule (40 mg) by mouth daily. Take with 20 mg for total of 60 mg daily 30 capsule 1 06/29/2022 08/28/2022 Active fluoxetine HCl ( PROZAC ORAL) Take 80 mg by mouth. Active fluoxetine HCl ( PROZAC ORAL) Take 60 mg by mouth. 0 Active fluoxetine HCl ( PROZAC ORAL) Take 80 mg by mouth. 0 Active Comment on above: Take 80 mg by mouth. Take 60 mg by mouth. ibuprofen 600 mg oral tablet (1 source) Nonsteroidal Anti-inflammatory Drug Start: 9 Motrin Dose : 600 mg = 1 tab(s), Oral, q6h, PRN Pain, scale 1-3, 0 Refill(s) Start Date: 03/09/19 Status: Ordered lamoTRIgine 100 mg oral tablet (9 sources) Mood Stabilizer, Anti-epileptic Agent Start: take 1 tablet by mouth once lamoTRIgine (LAMICTAL) 100 mg tablet Take 1 tablet by mouth every afternoon. 03/17/2024 Active Start: 01-03-2024 End: 03-03-2024 take 1 tablet by mouth once daily lamoTRIgine (LaMICtal) 100 MG tablet Take 1 tablet (100 mg) by mouth daily. 30 tablet 1 01/03/2024 Active Start: 10-15-2023 End: 11-14-2023 take 2 tablets by mouth once daily lamoTRIgine (LaMICtal) 25 MG tablet Take 2 tablets (50 mg) by mouth daily. 60 tablet 0 10/15/2023 11/14/2023 Active melatonin 5 mg oral tablet (1 source) Start: 08-30-2023 End: 09-29-2023 take 1 tablet by mouth once daily as needed melatonin 5 MG tablet Indications: Insomnia Take 1 tablet (5 mg) by mouth Nightly as needed (Insomnia). 30 tablet 0 08/30/2023 09/29/2023 Active metFORMIN hydrochloride 850 mg oral tablet (1 source) Biguanide Start: 03-05-2019 metFORMIN 850 mg oral tablet Dose : 850 mg = 1 tab(s), Oral, BID, # 180 tab(s), 0 Refill(s) Start Date: 03/05/19 Status: Ordered methylPREDNISolone (1 source) Corticosteroid Start: 08-06-2022 End: 08-13-2022 methylPREDNISolone (Medrol Dospak) 4 MG tablets Take as directed on package. 21 tablet 0 08/06/2022 08/13/2022 Active Multivitamins (1 source) Start: 03-05-2019 take 1 tablet by mouth once daily Multivitamins Dose = 1 tab(s), Oral, qDay, 0 Refill(s) Start Date: 03/05/19 Status: Ordered Vit,[id number] (Prenatabs Fa) 1 TABLET tablet (1 source) Start: 11-14-2016 take 1 tablet by mouth once daily Vit,[id number] (Prenatabs Fa) 1 TABLET tablet Active 1 TABLET PO DAILY November 14, 2016 12:00am QUEtiapine 25 mg oral tablet (1 source) Atypical Antipsychotic Start: 09-07-2023 End: 10-07-2023 take 1 tablet by mouth once daily QUEtiapine (SEROquel) 25 MG tablet Indications: Obsessive-compulsive disorder, unspecified type , Severe episode of recurrent major depressive disorder, without psychotic features (HCC) Take 1 tablet (25 mg) by mouth Nightly. 30 tablet 0 09/07/2023 10/07/2023 Active rosuvastatin calcium 20 mg oral tablet (15 sources) HMG-CoA Reductase Inhibitor Start: 08-03-2023 End: 05-01-2024 take 1 tablet by mouth once rosuvastatin (CRESTOR) 20 mg tablet Take 1 tablet by mouth every afternoon. 08/03/2023 Active Comment on above: Take 1 tablet by rigoberto th every afternoon. Completed/Discontinued Medications Medication Drug Class(es) Dates Sig (Normalized) Sig (Original) Aspir-81 (1 source) Start: 07-22-2021 End: 07-23-2021 Aspir-81 Discontinued 81 MG DAILY July 22, 2021 1:00am July 23, 2021 2:10pm cetirizine hydrochloride 10 mg oral tablet (3 sources) Histamine-1 Receptor Antagonist End: 03-03-2023 cetirizine (ZyrTEC) 10 MG tablet Take by mouth. 0 03/03/2023 Discontinued (Therapy completed) cholecalciferol 0.25 mg oral capsule (18 sources) Vitamin D End: 07-06-2024 Cholecalciferol, Vitamin D3, 250 mcg (10,000 unit) cap Take by mouth. 07/06/2024 Discontinued (Course of therapy completed) Comment on above: Take by mouth. ferrous sulfate 325 mg oral tablet (4 sources) Start: 07-23-2021 End: 08-06-2022 take 1 tablet by mouth every other day FeroSul 325 (65 Fe) MG tablet Take 1 tablet by mouth every other day. 0 07/23/2021 08/06/2022 Discontinued (Therapy completed) fluticasone propionate 0.05 mg/actuat metered dose nasal spray (6 sources) Corticosteroid Start: 10-15-2022 End: 08-02-2023 take 1 spray(s) nasal route twice daily fluticasone (Flonase) 50 MCG/ACT nasal spray SPRAY 1 SPRAY INTO EACH NOSTRIL TWICE A DAY 0 10/15/2022 08/02/2023 Discontinued (Therapy completed) hydrOXYzine pamoate 25 mg oral capsule (8 sources) Antihistamine Start: 09-03-2023 End: 10-25-2023 take 1 capsule by mouth once daily as needed for anxiety hydrOXYzine pamoate (Vistaril) 25 MG capsule Indications: Obsessive-compuls salo disorder, unspecified type Take 1 capsule (25 mg) by mouth daily as needed for anxiety. 0 09/03/2023 10/25/2023 Discontinued (Therapy completed) Start: 08-02-2023 End: 08-17-2023 take 1 tablet by mouth three times daily hydrOXYzine HCl (Atarax) 25 MG tablet Indications: Anxiety Take 1 tablet (25 mg) by mouth 3 times daily for 15 days. 45 tablet 0 08/02/2023 08/17/2023 Active meclizine hydrochloride 25 mg oral tablet (3 sources) Antiemetic Start: 09-30-2022 End: 03-03-2023 take 1 tablet by mouth three times daily as needed for dizziness meclizine (Antivert) 25 MG tablet Take 1 tablet (25 mg) by mouth 3 times daily as needed for dizziness. 30 tablet 0 09/30/2022 03/03/2023 Discontinued (Therapy completed) Multiple Vitamin (multivitamin) capsule (3 sources) End: 03-03-2023 take 1 capsule by mouth once daily Multiple Vitamin (multivitamin) capsule Take 1 capsule by mouth daily. 0 03/03/2023 Discontinued (Therapy completed) take 1 capsule by mouth once sergio ly Multiple Vitamin (multivitamin) capsule Take 1 capsule by mouth daily. 0 Active nystatin, bulk, 100 million unit powd (2 sources) Start: 02-13-2022 End: 07-23-2022 nystatin, bulk, 100 million unit powd 1 application three times daily. 1 Each 1 02/13/2022 07/23/2022 Discontinued (Other) Start: 02-13-2022 nystatin, bulk , 100 million unit powd 1 application three times daily. 1 Each 1 02/13/2022 Active Comment on above: 1 application three times daily. phentermine hydrochloride 37.5 mg oral tablet (4 sources) Sympathomimetic Amine Anorectic Start: End: take 35-35.9 tablets by mouth once daily before breakfast phentermine (Adipex-P) 37.5 MG tablet Indications: Class 2 obesity due to excess calories without serious comorbidity with body mass index (BMI) of 35.0 to 35.9 in adult Take 1 tablet (37.5 mg) by mouth every morning (before breakfast). 30 tablet 0 03/19/2023 08/02/2023 Discontinued (Therapy completed) vit calc,iron,folic ( VITAMIN ORAL) (4 sources) End: 023 vit calc,iron,folic ( VITAMIN ORAL) Take by mouth. 0 07/23/2022 Discontinued (Other) vit conor c,iron,folic ( VITAMIN ORAL) Take by mouth. 0 Active Comment on above: Take by mouth. Probiotic Product (PROBIOTIC DAILY PO) (7 sources) End: 08-02-2023 Probiotic Product (PROBIOTIC DAILY PO) Take by mouth. 0 08/02/2023 Discontinued (Therapy completed) Probiotic Produc t (PROBIOTIC DAILY PO) Take by mouth. 0 Active Semaglutide-Weight Managemen t (Wegovy) 0.25 MG/0.5ML solution auto-injector (6 sources) Start: 10-27-2023 End: 02-02-2024 Semaglutide-Weight Managemen t (Wegovy) 0.25 MG/0.5ML solution auto-injector Inject 0.5 mL (0.25 mg) under the skin every 7 days. 2 mL 10/27/2023 02/02/2024 Discontinued (Cost of medication) Start: 10-27-2023 Semaglutide-We ight Management (Wegovy) 0.25 MG/0.5ML solution auto-injector Inject 0.5 mL (0.25 mg) under the skin every 7 days. 2 mL 0 10/27/2023 Active Start: 03-03-2023 Semaglutide-We ight Management (Wegovy) 0.25 MG/0.5ML solution auto-injector Inject 0.5 mL (0.25 mg) under the skin every 7 days. 2 mL 0 03/03/2023 Active Problems Active Problems Problem Classification Problem Date Documented Date Episodic/Chronic Anxiety disorders (20 sources) Obsessive-compulsive disorder; Translations: [Obsessive-compulsiv e disorder, unspecified] Onset: 11-26-2021 03-30-2022 Chronic Conditions associated with dizziness or vertigo (20 sources) Meniere's disease; Translations: [Meniere's disease, unspecified ear] Onset: 10-22-2017 03-30-2022 Chronic Conditions associated with dizziness or vertigo (19 sources) Benign paroxysmal positional vertigo; Translations: [Benign paroxysmal vertigo, unspecified ear] Onset: 09-30-2022 09-30-2022 Episodic Disorders of lipid metabolism (20 sources) Hypercholesterolemia ; Translations: [Pure hypercholesterolemia , unspecified] Onset: 09-19-2017 Resolved: 05-02-2024 03-30-2022 Chronic Genitourinary symptoms and ill-defined conditions (2 sources) Urgent desire to urinate; Translations: [Urgency of urination] 07-06-2024 Episodic Malaise and fatigue (19 sources) Fatigue; Translations: [Chronic fatigue, unspecified] Onset: 09-30-2022 09-30-2022 Chronic Menstrual disorders (1 source) Mid-cycle bleeding; Translations: [Ovulation bleeding] 09-07-2023 Chronic Mood disorders (20 sources) Severe recurrent major depression without psychotic features; Translations: [Major depressive disorder, recurrent severe without psychotic features] Onset: 11-26-2021 Chronic Other female genital disorders (1 source) Abnormal uterine bleeding; Translations: [Abnormal uterine and vaginal bleeding, unspecified] Chronic Other nutritional; endocrine; and metabolic disorders (17 sources) Obesity; Translations: [Obesity, unspecified] Onset: 03-03-2023 07-30-2023 Chronic Residual codes; unclassified (17 sources) Hypersomnia; Translations: [Hypersomnia, unspecified] Onset: 09-30-2022 09-30-2022 Chronic Residual codes; unclassified (1 source) Gestation period, 38 weeks; Translations: [38 weeks gestation of ] 07-31-2021 Episodic Unclassified (1 source) Breast feeding (infant) (observable entity) 03-07-2019 Comment on above: System added from do cumentation. Breast feeding Status documented as Yes on Admission Unclassified (1 source) Streptococcus agalactiae (organism) 03-05-2019 Past or Other Problems Problem Classification Problem Date Documented Date Episodic/Chronic Diabetes mellitus without complication (16 sources) Prediabetes; Translations: [Prediabetes] Onset: 10-25-2023 10-25-2023 Episodic Diabetes or abnormal glucose tolerance complicating ; childbirth; or the puerperium (10 sources) Gestational diabetes mellitus, class A>2< ; Translations: [Gestational diabetes mellitus in , insulin controlled] Onset: 01-30-2021 03-04-2021 Episodic Headache; including migraine (1 source) Acute headache; Translations: [Acute nonintractable headache, unspecified headache type] Episodic Hemorrhage during ; abruptio placenta; placenta previa (4 sources) Antepartum hemorrhage; Translations: [Hemorrhage in early , unspecified] Onset: 01-30-2021 Resolved: 07-23-2022 01-30-2021 Episodic Impulse control disorders, NEC (2 sources) Homicidal ideations; Translations: [Homicidal ideations] Onset: 08-08-2023 Episodic Malaise and fatigue (4 sources) Malaise and fatigue; Translations: [Other malaise] Onset: 09-07-2023 Episodic Mood disorders (17 sources) Mood disorders Onset: 09-30-2022 Resolved: 10-25-2023 09-30-2022 Other complications of ; puerperium affecting management of mother (16 sources) Advanced maternal age ; Translations: [Advanced maternal age during in third trimester] Onset: 07-30-2023 Resolved: 08-02-2023 07-31-2021 Episodic Other complications of (4 sources) Maternal obesity complicating , childbirth and the puerperium, antepartum; Translations: [Obesity complicating , second trimester] Onset: 02-03-2021 Resolved: 07-23-2022 02-03-2021 Chronic Other complications of (4 sources) Multigravida of advanced maternal age; Translations: [Supervision of elderly multigravida, third trimester] Onset: 01-30-2021 Resolved: 07-23-2022 05-15-2021 Episodic Other complications of (19 sources) High risk ; Translations: [Supervision of high risk , unspecified, second trimester] Onset: 04-10-2021 Resolved: 08-02-2023 04-29-2021 Episodic Other complications of (3 sources) Pruritic urticarial papules and plaques of ; Translations: [Pruritic urticarial papules and plaques of (PUPPP)] Onset: 06-11-2021 06-11-2021 Episodic Other complications of (15 sources) Group B Streptococcus carrier; Translations: [Streptococcus B carrier state complicating ] Onset: 07-30-2023 Resolved: 08-02-2023 07-31-2021 Episodic Other complications of (1 source) Pruritic urticarial papules and plaques of (PUPPP); Translations: [Other specified complications of , unspecified as to episode of care or not applicable] Onset: 06-11-2021 Resolved: 07-23-2022 07-23-2022 Episodic Other connective tissue disease (1 source) Dysfunction of posterior tibial tendon of right foot; Translations: [Posterior tibial tendinitis, right leg] Episodic Other injuries and conditions due to external causes (2 sources) Personal history of other (healed) physical injury and trauma; Translations: [Personal history of other (healed) physical injury and trauma] Onset: 09-24-2023 Episodic Other nutritional; endocrine; and metabolic disorders (3 sources) Obesity caused by energy imbalance; Translations: [Other obesity due to excess calories] Onset: 02-03-2021 Resolved: 02-03-2021 03-03-2023 Chronic Other nutritional; endocrine; and metabolic disorders (20 sources) H/O: hypothyroidism; Translations: [Personal history of other endocrine, nutritional and metabolic disease] Onset: 10-22-2017 03-30-2022 Episodic Other screening for suspected conditions (not mental disorders or infectious disease) (20 sources) Patient encounter status; Translations: [Encounter for screening for diabetes mellitus] Onset: 08-02-2023 08-02-2023 Episodic Other upper respiratory infections (14 sources) Streptococcal sore throat; Translations: [Streptococcal pharyngitis] Onset: 10-25-2023 Resolved: 02-02-2024 09-05-2023 Episodic Previous (8 sources) ; Translations: [Maternal care for unspecified type scar from previous delivery] Onset: 01-30-2021 Resolved: 07-23-2022 02-03-2021 Episodic Residual codes; unclassified (20 sources) Family history of malignant neoplasm of breast in first degree relative; Translations: [Family history of malignant neoplasm of breast] Onset: 11-26-2021 03-30-2022 Episodic Residual codes; unclassified (20 sources) Family history of malignant neoplasm of cervix uteri; Translations: [Family history of malignant neoplasm of other genital organs] Onset: 11-26-2021 03-30-2022 Episodic Residual codes; unclassified (20 sources) Family history of diabetes mellitus; Translations: [Family history of diabetes mellitus] Onset: 11-26-2021 03-30-2022 Episodic Residual codes; unclassified (1 source) Personal history of other complications of , childbirth and the puerperium; Translations: [Personal history of other complications of , childbirth and the puerperium] Onset: 07-27-2024 Episodic Screening and history of mental health and substance abuse codes (7 sources) H/O: depression; Translations: [Personal history of other mental and behavioral disorders] Onset: 01-30-2021 Resolved: 07-23-2022 02-03-2021 Episodic Suicide and intentional self-inflicted injury (12 sources) Suicidal thoughts; Translations: [Suicidal ideations] Onset: 08-08-2023 Resolved: 02-02-2024 08-08-2023 Episodic Unclassified (1 source) Labor finding; Translations: [Active labor] 07-31-2021 Urinary tract infections (2 sources) Cystitis, unspecified without hematuria; Translations: [Cystitis, unspecified without hematuria] Onset: 08-25-2023 Episodic Results Test Name Value Interpretation Reference Range Facility MR/BMSSusanneBPon 10-09-2024 MR/BMSSusanne[address], [place] [address] OFFICE VISIT Date of Service: 10/09/24 MR#: [id number] Acct: [id number] Name: TONG SUNSHINE Rep #: [id number] : 1985 Provider: Dr. Roque Herrera se, Age/Sex: 38/F Location: [facility] Status: Signed Intake Vital Signs 09/12/24 14:02 10/09/24 15:22 Height 4 ft 11 in 4 ft 11 in BP Intake Visit Reasons: Follow up Allergies sertraline Adverse Reaction (Mild, Verified 08/15/24 15:25) [facility] History History of depression MDD (major depressive disorder) , delivered Anxiety Obsessive compulsive disorder Gestational diabetes depression Depression Gestational diabetes mellitus in , insulin controlled Surgical History [place] teeth extracted Previous section Previous delivery affecting Social History Smoking Status: Never smoker alcohol intake: never substance use type: does not use what type of physical activity do you participate in: walking frequency: 5-6 times per week HPI History of Present Illness History provided by: patient Chief complaint: OCD/anxiety HPI: Tong Sunshine is a 38 year old female who presents today for follow up evaluation via virtual visit. Patient reports that she has been feeling pretty good. Has been feeling somewhat dizzy and nauseous over the past few days. Has felt that Auvelity is easier to tolerate since backing down to once a day. Does not take any type of control, but does feel like her mood shifts in the luteal phase of her menstrual cycle. Anxiety has been fairly good. Has had some OCD flares. Has been doing some OCD therapy, including exposure therapy. Sleep has been pretty good. Appetite is somewhat reduced but is able to eat by forcing self. Weight has stayed stable. Motivation and energy is improved. This tele-medicine visit was performed via audio/video technology. Review of Systems Constitutional Denies: fever(s), chills, change in weight or fatigue Eyes Denies: change in vision or blurry vision Ears, Nose, Mouth, Throat Denies: throat pain, neck pain or change in hearing Cardiovascular Denies: chest pain, palpitations or dyspnea Respiratory Denies: dyspnea, cough or wheezing Gastrointestinal Denies: abdominal pain, nausea, vomiting or diarrhea Genitourinary Denies: dysuria or urinary frequency Musculoskeletal Denies: back pain, neck pain, joint pain or muscle weakness Integumentary/Breast Denies: rash or new lesions Neurological Denies: headache(s), dizziness or confusion Endocrine Denies: fatigue or excessive sweating Hematologic/Lymphatic Denies: easy bruising or easy bleeding Allergic/Immunologic Denies: wheezing Exam Mental Status Exam - Psych Appearance casually dressed and no apparent distress Attitude cooperative and calm Activity/Motor Behavior MSE activity/motor behavior finding no adventitious movements Speech regular rate, regular volume and regular prosody Mood OK Affect congruent Thought Process linear, logical and coherent Thought Content no delusions and no hallucinations Suicidal Ideation none Homicidal Ideation none Attention intact Concentration intact Sensorium/Orientation awake, alert and oriented x3 Memory/Cognition other (appropriate for stated age) Insight fair Judgement good Assessment Plan Assessment Plan (1) MDD (major depressive disorder): Plan: - continue fluoxetine 80 mg every day - continue lamotrigine - Has found Auvelity beneficial however can only tolerate once a day, as such we will continue taking daily but ideally would like to try to titrate in the future if possible ??? PMDD? (2) History of depression: Plan: Stable Coding Level of Care Code Est Sync Audio-Video Mod 30min Diagnoses MDD (major depressive disorder) F32.9 History of depression Z87.59; Z86.59 10/10/24 0632 Date Roque Bentleyignkim Signature: Date (if applicable) CC: [facility] MR/BMS.BPon 09-12-2024 MR/BMS.BP [address], [address] [place] [address] OFFICE VISIT Date of Service: 09/12/24 MR#: [id number] Acct: [id number] Name: TONG SUNSHINE Rep #: [id number] : 1985 Provider: Dr. Roque Herrera se, DO Age/Sex: 38/F Location: [facility] [place].BP Status: Signed Intake Vital Signs 08/15/24 15:21 09/12/24 14:02 Height 4 ft 11 in 4 ft 11 in Weight: 173 lb BMI 34.9 BP 130/87 H Blood Pressure Location Lt brachial Position Sitting Respiration 16 Pulse 90 Pulse Source Monitor BP Intake Visit Reasons: 1 M FU Accompanied by: Self Allergies sertraline Adverse Reaction (Mild, Verified 08/15/24 15:25) Increased depression Medications ???Medication ???Instructions ???Recorded ???Confirmed ???Type rosuvastatin 20 mg tablet 20 mg PO QHS 05/18/24 09/12/24 His tory fluoxetine 40 mg capsule (Prozac) 80 mg (2 x 40 mg) PO QDAY 90 days 08/15/24 09/12/24 Rx #180 caps lamotrigine 100 mg tablet 100 mg PO QDAY 90 days #90 tabs 09/12/24 Rx (Lamictal) magnesium glycinate 300 mg PO 08/15/24 09/12/24 Histor y dextromethorphan IR 45 1 tab PO BID 30 days #60 ea 09/12/24 Rx mg-bupropion ER 105 mg biphasic tablet (Auvelity) dietary supplement cap PO 09/12/24 09/12/24 History PFSH Medical History History of depression MDD (major depressive disorder) , delivered Anxiety Obsessive compulsive disorder Gestational diabetes depression Depression Gestational diabetes mellitus in , insulin controlled Surgical History [place] teeth extracted Previous section Previous delivery affecting Social History Smoking Status: Never smoker alcohol intake: never substance use type: does not use what type of physical activity do you participate in: walking frequency: 5-6 times per week HPI History of Present Illness History provided by: patient HPI: Tong Sunhsine is a 38 year old female who presents today for follow up evaluation. Patient reports that she has been doing not great. Does feel like she has been functioning, but motivation and energy has been low. Does feel like she often times wishes to withdraw from things. Yesterday had an episode where she just cried for an hour without any significant reason. Initially noticed some benefit from wellbutrin, but it has not seemed to continue to provide benefit past the first week or 2. Is able to fall asleep fairly easily. Gets about 4 hours before waking up, so energy has been low. Has been eating too much per self report, and has gained weight. Review of Systems Constitutional Denies: fever(s), chills, change in weight or fatigue Eyes Denies: change in vision or blurry vision Ears, Nose, Mouth, Throat Denies: throat pain, neck pain or change in hearing Cardiovascular Denies: chest pain, palpitations or dyspnea Respiratory Denies: dyspnea, cough or wheezing Gastrointestinal Reports: constipation; Denies: abdominal pain, nausea, vomiting or diarrhea Genitourinary Denies: dysuria or urinary frequency Musculoskeletal Denies: back pain, neck pain, joint pain or muscle weakness Integumentary/Breast Denies: rash or new lesions Neurological Denies: headache(s), dizziness or confusion Endocrine Denies: fatigue or excessive sweating Hematologic/Lymphatic Denies: easy bruising or easy bleeding Allergic/Immunologic Denies: wheezing Exam Mental Status Exam - Psych Appearance casually dressed and no apparent distress Attitude cooperative and calm Activity/Motor Behavior MSE activity/motor behavior finding no adventitious movements Speech regular rate, regular volume and regular prosody Mood depressed and anxious Affect congruent Thought Process linear, logical and coherent Thought Content no delusions and no hallucinations Suicidal Ideation none Homicidal Ideation none Attention intact Concentration intact Sensorium/Orientation awake, alert and oriented x3 Memory/Cognition other (appropriate for stated age) Insight fair Judgement good Assessment Plan Assessment Plan (1) MDD (major depressive disorder): Plan: - continue fluoxetine 80 mg every day - continue lamotrigine -We will change Wellbutrin to Auvelity in time to better control mood symptoms -Aware of the risk benefits and possible side effects of medications (2) History of depression: Plan: Stable Medications: New dextromethorphan-buprop ion 45-105 mg ER (Auvelity) 1 TAB PO BID 60 ea 1RF 30 days F32.9 - Major depressive disorder, single episode, unspecified Discontinued (more content not included)... Normal [facility] Free T3on 09-01-2024 Free T3 [Mass/Vol] 2.7 pg/mL Normal 2.18-3.98 [facility] Comment on above: Performed By: #### L 501.09709, L501.9520, L506.0400 ####[facility] [address] [place], [place], [id number] T4 Free Directon 09-01-2024 T4 FREE DIRECT 1.10 ng/dL Normal 0.76-1.46 [facility] Comment on above: Performed By: #### L 501.49970, L501.9520, L506.0400 ####[facility] [id number] [facility] [place], [place], [id number] Thyroid Stim Hormone (TSH)on 09-01-2024 TSH 1.090 uIU/mL Normal 0.300-4.200 [facility] Comment on above: Performed By: #### L 501.63070, L501.9520, L506.0400 ####[facility] [id number] [place], [address] MR/BMS.BPon 08-15-2024 MR/BMS.BP [facility] [address] [place] [address], [address] [place], [place] [address] OFFICE VISIT Date of Service: 08/15/24 MR#: [id number] Acct: [id number] Name: TONG SUNSHINE Rep #: [id number] : 1985 Provider: Dr. Roque Herrera se, DO Age/Sex: 38/F Location: [facility] [place].BP Status: Signed Intake Vital Signs 05/18/24 07:08 07/26/24 08:37 08/15/24 15:21 Height 4 ft 11 in 4 ft 11 in 4 ft 11 in Weight: 173 lb BMI 34.9 BP 130/87 H Blood Pressure Location Lt brachial Position Sitting Respiration 16 Pulse 90 Pulse Source Monitor BP Intake Visit Reasons: 3 M FU Accompanied by: Self Allergies sertraline Adverse Reaction (Mild, Verified 08/15/24 15:25) Increased depression Medications ???Medication ???Instructions ???Recorded ???Confirmed ???Type rosuvastatin 20 mg tablet 20 mg PO QHS 05/18/24 08/15/24 His tory bupropion HCl 150 mg 24 hr tablet, 150 mg PO QAM 30 days #30 tabs 0 08/15/24 08/15/24 Rx extended release fluoxetine 40 mg capsule (Prozac) 80 mg (2 x 40 mg) PO QDAY 90 days 08/15/24 08/15/24 Rx #180 caps lamotrigine 100 mg tablet 100 mg PO QDAY 90 days #90 tabs 08/15/24 Rx (Lamictal) magnesium glycinate 300 mg PO 08/15/24 08/15/24 Histor y [facility] Medical History History of depression MDD (major depressive disorder) , delivered Anxiety Obsessive compulsive disorder Gestational diabetes depression Depression Gestational diabetes mellitus in , insulin controlled Surgical History [place] teeth extracted Previous section Previous delivery affecting Social History Smoking Status: Never smoker alcohol intake: never substance use type: does not use what type of physical activity do you participate in: walking frequency: 5-6 times per week HPI History of Present Illness History provided by: patient HPI: Tong Sunshine is a 38 year old female who presents today for follow up evaluation. Has completely discontinued Vraylar secondary to side effects. Has been feeling nervous all day which has been going on since hospitalization. Has been functioning, but doesn't have much in the way of motivation. Denies any current suicidal ideation. Has found it hard to sit still and also difficulty with concentration/focus. Does have concern that fluoxetine may have lost some efficacy over time as usually she has a level of decompensation when tapering off her SSRI. Has been trying to build a social support network through her christianity. Has been following through [facility]. Review of Systems Constitutional Denies: fever(s), chills, change in weight or fatigue Eyes Denies: change in vision or blurry vision Ears, Nose, Mouth, Throat Denies: throat pain, neck pain or change in hearing Cardiovascular Denies: chest pain, palpitations or dyspnea Respiratory Denies: dyspnea, cough or wheezing Gastrointestinal Reports: constipation; Denies: abdominal pain, nausea, vomiting or diarrhea Genitourinary Denies: dysuria or urinary frequency Musculoskeletal Denies: back pain, neck pain, joint pain or muscle weakness Integumentary/Breast Denies: rash or new lesions Neurological Denies: headache(s), dizziness or confusion Endocrine Denies: fatigue or excessive sweating Hematologic/Lymphatic Denies: easy bruising or easy bleeding Allergic/Immunologic Denies: wheezing Exam Mental Status Exam - Psych Appearance casually dressed and no apparent distress Attitude cooperative and calm Activity/Motor Behavior MSE activity/motor behavior finding no adventitious movements Speech regular rate, regular volume and regular prosody Mood other (Nervous) Affect congruent Thought Process linear, logical and coherent Thought Content no delusions and no hallucinations Suicidal Ideation none Homicidal Ideation none Attention intact Concentration intact Sensorium/Orientation awake, alert and oriented x3 Memory/Cognition other (appropriate for stated age) Insight good Judgement good Assessment Plan Assessment Plan (1) MDD (major depressive disorder): Plan: - continue fluoxetine 80 mg every day - continue lamotrigine -Has discontinued Vraylar about 1 week ago ??? We will add Wellbutrin 150 mg every day as an adjunct to treatment for depression ??? Could consider adjusting fluoxetine in the future pending response ??? Briefly discussed Auvelity as a possible option (2) History of depression: Plan: Stable Medications: New bupropion HCl XL 150 mg PO QAM 30 tabs 2RF 30 days F32.9 - Major depressi (more content not included)... Normal [facility] MR/BMS.BPon 07-26-2024 MR/BMS.[address] [place] [address] OFFICE VISIT Date of Service: 07/26/24 MR#: [id number] Acct: [id number] Name: TONG SUNSHINE Rep #: [id number] : 1985 Provider: Dr. Roque Herrera se, DO Age/Sex: 38/F Location: [facility] [place].[facility] Status: Signed Intake Vital Signs 07/10/24 11:26 07/26/24 08:37 Height 4 ft 11 in 4 ft 11 in BP Intake Visit Reasons: Hospital FU Allergies sertraline Adverse Reaction (Mild, Verified 07/10/24 11:32) Increased depression PFSH Medical History History of depression MDD (major depressive disorder) , delivered Anxiety Obsessive compulsive disorder Gestational diabetes depression Depression Gestational diabetes mellitus in , insulin controlled Surgical History [place] teeth extracted Previous section Previous delivery affecting Social History Smoking Status: Never smoker alcohol intake: never substance use type: does not use what type of physical activity do you participate in: walking frequency: 5-6 times per week HPI History of Present Illness History provided by: patient Chief complaint: med concerns HPI: Tong Sunshine is a 38 year old female who presents today for follow up evaluation via virtual visit. Patient was recently admitted to [facility] after having endorsed being suicidal. Was labeled bipolar, hypomania. Was started on olanzapine and felt like she had more energy and restless. Started at 2.5 mg and titrated to 5 mg. Admits that she would wake up feeling anxious on medication. Was having some tremors on medication, but because she didn't want to be there forever continued to take so she could be discharged. Took aripiprazole short term, and felt that she tolerated well, but eventually discontinued. Denies any current SI/HI or AVH. This tele-medicine visit was performed via audio/video technology. Review of Systems Constitutional Denies: fever(s), chills, change in weight or fatigue Eyes Denies: change in vision or blurry vision Ears, Nose, Mouth, Throat Denies: throat pain, neck pain or change in hearing Cardiovascular Denies: chest pain, palpitations or dyspnea Respiratory Denies: dyspnea, cough or wheezing Gastrointestinal Reports: constipation; Denies: abdominal pain, nausea, vomiting or diarrhea Genitourinary Denies: dysuria or urinary frequency Musculoskeletal Denies: back pain, neck pain, joint pain or muscle weakness Integumentary/Breast Denies: rash or new lesions Neurological Denies: headache(s), dizziness or confusion Endocrine Denies: fatigue or excessive sweating Hematologic/Lymphatic Denies: easy bruising or easy bleeding Allergic/Immunologic Denies: wheezing Exam Mental Status Exam - Psych Appearance casually dressed and no apparent distress Attitude cooperative and calm Activity/Motor Behavior MSE activity/motor behavior finding no adventitious movements Speech regular rate, regular volume and regular prosody Mood OK Affect congruent Thought Process linear, logical and coherent Thought Content no delusions and no hallucinations Suicidal Ideation none Homicidal Ideation none Attention intact Concentration intact Sensorium/Orientation awake, alert and oriented x3 Memory/Cognition other (appropriate for stated age) Insight good Judgement good Assessment Plan Assessment Plan (1) MDD (major depressive disorder): Plan: - continue fluoxetine 80 mg every day - continue lamotrigine - will stop olanzapine secondary to side effects - start vraylar 1.5 mg every day - Patient was informed of the risk, benefits, and possible side effects of antipsychotics medications. Side effects of these medications can include but are not limited to orthostatic hypotension (low blood pressure), weight gain, metabolic side effects, extrapyramidal side effects, and tardive dyskinesia. If you notice any abnormal movements including involuntary movement of muscles of face, lips, torso or legs please contact the office immediately. - Bipolar? - still concern for OCD (2) History of depression: Plan: Stable Medications: New cariprazine (Vraylar) 1.5 mg PO QDAY 30 caps 2RF F32.9 - Major depressive disorder, single episode, unspecified Refilled fluoxetine (Prozac) 80 mg (2 x 40 mg) PO QDAY 90 days 180 caps 1RF F32.9 - Major depressive disorder, single episode, unspecified lamotrigine (Lamictal) 100 mg PO QDAY 90 days 90 tabs 1RF Discontinued propranolol Discontinued Reason: Order Completed 10 mg PO TID PRN 60 tabs 1RF anxiety Visit Details Com (more content not included)... Normal [facility] 12 Lead EKGon 07-10-[address] [facility] [address] [place] [address] 12 Lead EKG 07/10/24 1141 MR#: [id number] Acct: [id number] Name: TONG SUNSHINE Rep #: [id number] : 1985 38 From: Daniel Clancy MD Attending Dr: Status: DEP ER Ordering Dr: Mohan Sorensen MD Date: 07/10/24 Location: ED Sex: F C Admitted: Test Reason : CP Blood Pressure : */* mmHG Vent. Rate : 80 BPM Atrial Rate : 80 BPM P-R Int : 174 ms QRS Dur : 82 ms QT Int : 378 ms P-R-T Axes : 26 8 40 degrees QTcB Int : 435 ms Normal sinus rhythm Normal ECG Confirmed by ANDREW QUINN, ADELITA ([id number]), fashion editor HIRAL WHITE ([id number]) on 07/12/2024 6:23:14 AM Referred By: RICA/ANDREW Confirmed By: ADELITA CLANCY MD 07/12/24 0623 Date Daniel Clancy MD CC: Dr. Mohan Sorensen MD; Dr. Ash King MD Signed Normal [facility] Acetaminophen (Tylenol) Tyree rios 07-10-2024 Acetaminophen [Mass/Vol] ug/mL Low 10.0-30.0 [facility] Comment on above: Performed By: #### L 501.8300, L501.8400, L505.5000, L501.9100, L700.6800, L500.4050, L100.0100 #### [facility] [address] [place], [place], [id number] Alcohol, Blood (Medical)-Ser umon 07-10-2024 SERUM ETOH < 3.0 Normal [facility] Comment on above: Result Comment: The serum:whole blood ethanol ratio is approximately 1.14 and varies slightly with hematocrit. Medical Alcohol reference interval and critical value in non-tolerant individuals; 50 - 100 Impairment 100 Intoxication 100 - 250 Severe Poisoning 250 - 400 Deep/possible fatal coma Performed By: #### L 501.8300, L501.8400, L505.5000, L501.9100, L700.6800, L500.4050, L100.0100 #### [facility] [address] [place], [place], [id number] CBC W/Diff, Automatedon 06-15 Absolute Lymph 1.88 X10 3/uL Normal 0.83-4.51 [facility] Comment on above: Performed By: #### L 501.8300, L501.8400, L505.5000, L501.9100, L700.6800, L500.4050, L100.0100 #### [facility] [address] [place], [place], [id number] Absolute Neut 9.6 X10 3/uL High 2.0-7.7 [facility] Comment on above: Performed By: #### L 501.8300, L501.8400, L505.5000, L501.9100, L700.6800, L500.4050, L100.0100 #### [facility] [address] [place], [address] Basophils/100 WBC (Bld) 0.4 % Normal 0-1 [facility] Comment on above: Performed By: #### L 501.8300, L501.8400, L505.5000, L501.9100, L700.6800, L500.4050, L100.0100 #### [facility] [address] [place], [address] Eosinophils/100 WBC (Bld) 0.3 % Normal 0-5 [facility] Comment on above: Performed By: #### L 501.8300, L501.8400, L505.5000, L501.9100, L700.6800, L500.4050, L100.0100 #### [facility] [address] [place], [address] Erythrocyte distribution width (RBC) [Ratio] 13.0 % Normal 11.6-14.6 [facility] Comment on above: Performed By: #### L 501.8300, L501.8400, L505.5000, L501.9100, L700.6800, L500.4050, L100.0100 #### [facility] [address] [place], [address] Hematocrit (Bld) [Volume fraction] 41.4 % Normal 37-47 [facility] Comment on above: Performed By: #### L 501.8300, L501.8400, L505.5000, L501.9100, L700.6800, L500.4050, L100.0100 #### [facility] [address] [place], [address] Hemoglobin (Bld) [Mass/Vol] 13.8 g/dL Normal 12.0-15.0 [facility] Comment on above: Performed By: #### L 501.8300, L501.8400, L505.5000, L501.9100, L700.6800, L500.4050, L100.0100 #### [facility] [address] [place], [address] IG% 0.400 Normal 0.0-0.9 [facility] Comment on above: Result Comment: IG% - Immature Granulocytes (promyelocytes, myelocytes and metamyelocytes) > 1% indicates that a LEFT SHIFT is Present. Performed By: #### L 501.8300, L501.8400, L505.5000, L501.9100, L700.6800, L500.4050, L100.0100 #### [facility] [address] [place], [address] Lymphocytes/100 WBC (Bld) 15.5 % Low 19-41 [facility] Comment on above: Performed By: #### L 501.8300, L501.8400, L505.5000, L501.9100, L700.6800, L500.4050, L100.0100 #### [facility] [address] [place], [address] MCH (RBC) [Entitic mass] 28.0 pg Normal 27.0-32.0 [facility] Comment on above: Performed By: #### L 501.8300, L501.8400, L505.5000, L501.9100, L700.6800, L500.4050, L100.0100 #### [facility] [address] [place], [address] MCHC (RBC) [Mass/Vol] 33.3 g/dL Normal 32-36 [facility] Comment on above: Performed By: #### L 501.8300, L501.8400, L505.5000, L501.9100, L700.6800, L500.4050, L100.0100 #### [facility] [address] [place], [address] MCV (RBC) [Entitic vol] 84.1 fL Normal 81-99 [facility] Comment on above: Performed By: #### L 501.8300, L501.8400, L505.5000, L501.9100, L700.6800, L500.4050, L100.0100 #### [facility] [address] [place], [address] Monocytes/100 WBC (Bld) 4.1 % Normal 0-10 [facility] Comment on above: Performed By: #### L 501.8300, L501.8400, L505.5000, L501.9100, L700.6800, L500.4050, L100.0100 #### [facility] [address] [place], [address] Neutrophils/100 WBC (Bld) 79.3 % High 47-70 [facility] Comment on above: Performed By: #### L 501.8300, L501.8400, L505.5000, L501.9100, L700.6800, L500.4050, L100.0100 #### [facility] [address] [place], [address] Nucleated RBC (Bld) [#/Vol] 0 10*3/uL Normal 0-5 [facility] Comment on above: Performed By: #### L 501.8300, L501.8400, L505.5000, L501.9100, L700.6800, L500.4050, L100.0100 #### [facility] [address] [place], [address] Platelet mean volume (Bld) [Entitic vol] 9.1 fL Normal 6.2-12.0 [facility] Comment on above: Performed By: #### L 501.8300, L501.8400, L505.5000, L501.9100, L700.6800, L500.4050, L100.0100 #### [facility] [address] [place], [address] Platelets (Bld) [#/Vol] 347 10*3/uL Normal 150-450 [facility] Comment on above: Performed By: #### L 501.8300, L501.8400, L505.5000, L501.9100, L700.6800, L500.4050, L100.0100 #### [facility] [address] [place], [address] RBC (Bld) [#/Vol] 4.92 10*6/uL Normal 4.2-5.4 [facility] Comment on above: Performed By: #### L 501.8300, L501.8400, L505.5000, L501.9100, L700.6800, L500.4050, L100.0100 #### [facility] [address] [place], [address] RDW SD 39.7 fl Normal 35.1-43.9 [facility] Comment on above: Performed By: #### L 501.8300, L501.8400, L505.5000, L501.9100, L700.6800, L500.4050, L100.0100 #### [facility] [address] [place], [address] WBC (Bld) [#/Vol] 12.1 10*3/uL High 4.4-11.0 [facility] Comment on above: Performed By: #### L 501.8300, L501.8400, L505.5000, L501.9100, L700.6800, L500.4050, L100.0100 #### [facility] [address] [place], [address] Comprehensive Metabolic Prof [facility] 07-10-2024 Albumin [Mass/Vol] 3.9 g/dL Normal 3.2-5.0 [facility] Comment on above: Performed By: #### L 501.8300, L501.8400, L505.5000, L501.9100, L700.6800, L500.4050, L100.0100 #### [facility] [address] [place], [address] Albumin/Globulin [Mass ratio] 1.1 {ratio} Normal 0.9-2.4 [facility] Comment on above: Performed By: #### L 501.8300, L501.8400, L505.5000, L501.9100, L700.6800, L500.4050, L100.0100 #### [facility] [address] [place], [address] ALK P 52 U/L Normal 45-117 [facility] Comment on above: Performed By: #### L 501.8300, L501.8400, L505.5000, L501.9100, L700.6800, L500.4050, L100.0100 #### [facility] [address] [place], [address] ALT [Catalytic activity/Vol] 23 U/L Normal 13-56 [facility] Comment on above: Performed By: #### L 501.8300, L501.8400, L505.5000, L501.9100, L700.6800, L500.4050, L100.0100 #### [facility] [address] [place], [address] AST [Catalytic activity/Vol] 13 U/L Low 15-37 [facility] Comment on above: Performed By: #### L 501.8300, L501.8400, L505.5000, L501.9100, L700.6800, L500.4050, L100.0100 #### [facility] [address] [place], [address] Bilirubin [Mass/Vol] 0.30 mg/dL Normal 0.20-1.00 [facility] Comment on above: Result Comment: For patients on eltrombopag therapy, use of Dimension Mosca TBIL is not recommended. Performed By: #### L 501.8300, L501.8400, L505.5000, L501.9100, L700.6800, L500.4050, L100.0100 #### [facility] [address] [place], [address] BUN/CRE 20.2 RATIO High 10-20 [facility] Comment on above: Performed By: #### L 501.8300, L501.8400, L505.5000, L501.9100, L700.6800, L500.4050, L100.0100 #### [facility] [address] [place], [address] CA,Total 9.0 mg/dL Normal 8.5-10.1 [facility] Comment on above: Performed By: #### L 501.8300, L501.8400, L505.5000, L501.9100, L700.6800, L500.4050, L100.0100 #### [facility] [address] [place], [address] Chloride [Moles/Vol] 107 mmol/L Normal 98-107 [facility] Comment on above: Performed By: #### L 501.8300, L501.8400, L505.5000, L501.9100, L700.6800, L500.4050, L100.0100 #### [facility] [address] [place], [address] CO2 [Moles/Vol] 26.0 mmol/L Normal 21.0-32.0 [facility] Comment on above: Performed By: #### L 501.8300, L501.8400, L505.5000, L501.9100, L700.6800, L500.4050, L100.0100 #### [facility] [address] [place], [place], [id number] Creatinine [Mass/Vol] 0.50 mg/dL Low 0.55-1.02 [facility] Comment on above: Result Comment: The validity of the calculated GFR GFRAA in patients over 70 years has not been determined. Clinical correlation is essential. Performed By: #### L 501.8300, L501.8400, L505.5000, L501.9100, L700.6800, L500.4050, L100.0100 #### [facility] [address] [place], [place], [id number] (724) EST GFR - AA 177 mL/min Normal >60 [facility] Comment on above: Result Comment: Afri can [place] GFR Calc Performed By: #### L 501.8300, L501.8400, L505.5000, L501.9100, L700.6800, L500.4050, L100.0100 #### [facility] [address] [place], [address] GAP 6 Normal 5-15 [facility] Comment on above: Performed By: #### L 501.8300, L501.8400, L505.5000, L501.9100, L700.6800, L500.4050, L100.0100 #### [facility] [address] [place], [place], [id number] (244) GFR/1.73 sq M.predicted among non-blacks MDRD (S/P/Bld) [Vol rate/Area] 147 mL/min/{1.73_m2} Normal >60 [facility] Comment on above: Result Comment: Non- GFR Calc Performed By: #### L 501.8300, L501.8400, L505.5000, L501.9100, L700.6800, L500.4050, L100.0100 #### [facility] [address] [place], [address] Globulin (S) [Mass/Vol] 3.4 g/dL Normal 2.2-4.2 [facility] Comment on above: Performed By: #### L 501.8300, L501.8400, L505.5000, L501.9100, L700.6800, L500.4050, L100.0100 #### [facility] [address] [place], [address] Glucose [Mass/Vol] 110 mg/dL High 74-106 [facility] Comment on above: Result Comment: Fast ing Glucose result from 100 to 125 mg/dL suggests IMPAIRED HOMEOSTASIS per A.D.A. criteria. Performed By: #### L 501.8300, L501.8400, L505.5000, L501.9100, L700.6800, L500.4050, L100.0100 #### [facility] [address] [place], [address] Potassium [Moles/Vol] 3.8 mmol/L Normal 3.5-5.1 [facility] Comment on above: Performed By: #### L 501.8300, L501.8400, L505.5000, L501.9100, L700.6800, L500.4050, L100.0100 #### [facility] [address] [place], [address] Sodium [Moles/Vol] 139 mmol/L Normal 136-145 [facility] Comment on above: Performed By: #### L 501.8300, L501.8400, L505.5000, L501.9100, L700.6800, L500.4050, L100.0100 #### [facility] [address] [place], [address] T PROT 7.3 g/dL Normal 6.4-8.2 [facility] Comment on above: Performed By: #### L 501.8300, L501.8400, L505.5000, L501.9100, L700.6800, L500.4050, L100.0100 #### [facility] [address] [place], [address] Urea nitrogen [Mass/Vol] 10 mg/dL Normal 7-18 [facility] Comment on above: Performed By: #### L 501.8300, L501.8400, L505.5000, L501.9100, L700.6800, L500.4050, L100.0100 #### [facility] [address] [facility] [place], [address] Emergency Department Summary on 07-10-2024 Emergency Department Summary [facility] Medical Records Department [address] [place] [address] Emergency Department Summary 07/10/24 MR#: [id number] Acct: [id number] Name: TONG SUNSHINE Rep #: [id number] : 1985 38 From: Mohan Sorensen MD PCP: Dr. Ash King MD Status:REG ER Location: ED HPI HPI - Psych History of Present Illness Chief Complaint: Suicidal Informant: patient and family Narrative Narrative: 46-year-old female following with Dr. Wolf for depression, attempted to commit suicide this morning by taking the propranolol she is prescribed. This occurred about 2 hours prior to evaluation, around 10 AM according to family who intervene and stopped her from taking the pills. She states she had already taken 6 of them, 10 mg each. She is prescribed them 3 times daily, as they are the immediate release form that she is prescribed for anxiety as needed. She states she was taking them in hopes that her heart would stop and she would . She states she feels weak all over, she has had no syncopal episodes or trouble breathing. She has a headache right now. She denies any coingestants including [id number]-[id number] medications, alcohol, or illicit substance. She states she took her usual morning medications of fluoxetine and lamotrigine as prescribed and did not take more than that. [facility] Medical History History of depression MDD (major depressive disorder) , delivered Anxiety Obsessive compulsive disorder Gestational diabetes depression Depression Gestational diabetes mellitus in , insulin controlled Home Medications ???Medication ???Instructions ???Recorded ???Last Taken ???Type fluoxetine 40 mg capsule (Prozac) 80 mg (2 x 40 mg) PO QDAY 90 days 03/02/24 Unknown Rx #180 caps lamotrigine 100 mg tablet 100 mg PO QDAY 90 days #90 tabs 03/02/24 Unknown Rx (Lamictal) rosuvastatin 20 mg tablet 20 mg PO QHS 05/18/24 Unknown History propranolol 10 mg tablet 10 mg PO TID PRN anxiety #60 tabs 07/07/24 Unknown Rx Allergy/AdvReac Type Severity Reaction Status Date / Time sertraline AdvReac Mild Increased Verified 07/10/24 11:32 depression Surgical History Nerstrand teeth extracted Previous section Previous delivery affecting Social History Smoking Status: Never smoker alcohol intake: never substance use type: does not use what type of physical activity do you participate in: walking frequency: 5-6 times per week ROS ROS ED Constitutional Constitutional ED: Reports malaise; Denies chills or fever(s) Eyes Eyes: Denies change in vision or diplopia ENT ENT ED: Denies rhinorrhea or sore throat Cardiovascular Cardiovascular: Denies chest pain or palpitations Respiratory/Chest Respiratory/Chest: Denies cough or dyspnea Gastrointestinal Gastrointestinal: Reports nausea and other Details: Nauseated earlier but gone now ; Denies abdominal pain, diarrhea or vomiting Genitourinary Genitourinary ED: Denies dysuria or hematuria Musculoskeletal Musculoskeletal: Denies back pain or neck pain Integumentary Denies abscess or rash Neurologic Neurologic: Reports headache(s); Denies paresthesias or weakness Psychiatric Psychiatric: Reports depression, suicidal ideation and suicidal thoughts; Denies homicidal ideation EXAM Physical Exam Const Vital Signs: 07/10/24 11:26 07/10/24 13:00 07/10/24 14:00 Temperature 97.5 F L Temperature Source Temporal Pulse Rate 83 72 83 Respiratory Rate 16 16 14 Blood Pressure 163/104 H 138/68 H Blood Pressure Mean 123 91 Pulse Ox 97 96 99 Oxygen Delivery Method Room Air Room Air Positive well nourished and well developed General Appearance ED: well developed and NAD HEENT Reports moist mucous membranes normocephalic and atraumatic Eyes PERRL and EOMs intact bilaterally General Eye ED: Negative for scleral icterus Neck no lymphadenopathy and supple Resp normal respiratory effort and clear to auscultation bilaterally Cardio no murmurs Rate: regular rate Rhythm: regular rhythm GI non-tender and non-distended Auscultation: normoactive bowel sounds Palpation: soft Back/Spine no CVA tenderness and normal ROM Extremity normal to inspection General Extremety ED: Negative for edema General Extremity: Negative for edema Neuro oriented x3, CN's II-XII intact bilaterally, no sensory deficits noted and gait normal Sensorium / Orientation: alert Motor Exam: strength 5/5 throughout Psych mental status grossly normal, thought process normal, cooperative, activity/motor behavior normal and denies homicidal ideation Speech: (more content not included)... Normal [facility] ,Serum,hCG Quali.on 07-10-2024 HCG, SERUM QUAL Negative Normal [facility] Comment on above: Performed By: #### L 501.8300, L501.8400, L505.5000, L501.9100, L700.6800, L500.4050, L100.0100 #### [facility] [address] [place], [address] Salicylateon 07-10-2024 SALICYLATE < 1.7 Low 2.8-20.0 [facility] Comment on above: Performed By: #### L 501.8300, L501.8400, L505.5000, L501.9100, L700.6800, L500.4050, L100.0100 #### [facility] [address] [place], [place], [id number] Urine Drug Screen (VISTA)on 07-10-2024 AMPHETAMINES Negative Normal <1000 ng/mL [facility] Comment on above: Performed By: #### L 501.8300, L501.8400, L505.5000, L501.9100, L700.6800, L500.4050, L100.0100 #### [facility] [address] [place], [address] BARBITIURATES Negative Normal < 200 ng/mL [facility] Comment on above: Performed By: #### L 501.8300, L501.8400, L505.5000, L501.9100, L700.6800, L500.4050, L100.0100 #### [facility] [address] [place], [place], [facility] BENZODIAZIPINE Negative Normal < 200 ng/mL [facility] Comment on above: Performed By: #### L 501.8300, L501.8400, L505.5000, L501.9100, L700.6800, L500.4050, L100.0100 #### [facility] [place], [place], [facility] COCAINE Negative Normal < 300 ng/mL [facility] Comment on above: Performed By: #### L 501.8300, L501.8400, L505.5000, L501.9100, L700.6800, L500.4050, L100.0100 #### [facility] [place], [place], [facility] ECSTACY Negative Normal < 500 ng/mL [facility] Comment on above: Performed By: #### L 501.8300, L501.8400, L505.5000, L501.9100, L700.6800, L500.4050, L100.0100 #### [facility] [address] [place], [place], [facility] METHADONE Negative Normal < 300 ng/mL [facility] Comment on above: Performed By: #### L 501.8300, L501.8400, L505.5000, L501.9100, L700.6800, L500.4050, L100.0100 #### [facility] [address] [place], [address] OPIATES Negative Normal < 300 ng/mL [facility] Comment on above: Performed By: #### L 501.8300, L501.8400, L505.5000, L501.9100, L700.6800, L500.4050, L100.0100 #### [facility] [address] [place], [address] PCP Negative Normal < 25 ng/mL [facility] Comment on above: Performed By: #### L 501.8300, L501.8400, L505.5000, L501.9100, L700.6800, L500.4050, L100.0100 #### [facility] [address] [place], [address] THC Negative Normal < 50 ng/mL [facility] Comment on above: Performed By: #### L 501.8300, L501.8400, L505.5000, L501.9100, L700.6800, L500.4050, L100.0100 #### [facility] [address] [place], [address] VISTA UDS PH 7 Normal [facility] Comment on above: Performed By: #### L 501.8300, L501.8400, L505.5000, L501.9100, L700.6800, L500.4050, L100.0100 #### [facility] [address] [place], [address] Bacteria Ur Culton 5 Bacteria identified Cx Nom (U) ORGANISM ID: 1 10,000 -<50,000 CFU/ml Normal urogenital thuy Streptococcus agalactiae (Group B streptococcus) was identified in this specimen, which is clinically relevant if the individual is . Normal [facility] Comment on above: Performed By: #### 6 30-4 #### [facility] CLIA [id number] [address] [place] [address] [place] [address] [place] CNOVon 07-06-2024 CNOV Office Visit ([place] ) TONG SUNSHINE ([id number]) 1985 F Date Time Provider Department 07/06/24 6:05 PM JOVANI FLOR During your visit today, we recorded the following information about you: Temperature Pulse Respiration Blood pressure 97.9 degrees 88/minute 18/minute 150/89 Weight Height 77.5 kg 1.499 m Jovani Flor PA-C 07/06/2024 7:06 PM Signed Subjective Tong Sunshine is a 38 year old female with a past medical history of Meniere's disease, OCD, and anxiety who presents to express care today for evaluation of fatigue, urinary frequency, and urinary urgency x 6 days. No fevers. Review of Systems Constitutional: Negative for chills, diaphoresis and fever. Genitourinary: Positive for frequency and urgency. Negative for difficulty urinating, dysuria and flank pain. Skin: Negative for rash and wound. All other systems reviewed and are negative. Objective LMP 08/19/2023 Physical Exam Vitals reviewed. Constitutional: General: She is not in acute distress. Appearance: Normal appearance. She is normal weight. She is not ill-appearing or toxic-appearing. Comments: The patient appears to be non-toxic, in no acute distress, and resting comfortably on the table. HENT: Head: Normocephalic and atraumatic. Eyes: Extraocular Movements: Extraocular movements intact. Cardiovascular: Rate and Rhythm: Normal rate and regular rhythm. Heart sounds: Normal heart sounds. No murmur heard. No friction rub. No gallop. Pulmonary: Effort: Pulmonary effort is normal. No respiratory distress. Breath sounds: Normal breath sounds. No wheezing. Abdominal: Tenderness: There is no right CVA tenderness or left CVA tenderness. Musculoskeletal: General: Normal range of motion. Cervical back: Normal range of motion. Skin: General: Skin is warm and dry. Findings: No erythema or rash. Neurological: General: No focal deficit present. Mental Status: She is alert and oriented to person, place, and time. Mental status is at baseline. Psychiatric: Mood and Affect: Mood normal. Behavior: Behavior normal. Thought Content: Thought content normal. Assessment and Plan UA shows no signs of infection. Urine culture obtained. Results discussed with patient. Patient counseled regarding suspected diagnosis and advised to follow-up with primary care as needed for any new or worsening symptoms. ASSESSMENT/PLAN: 1. Fatigue, unspecified type - ICD9: 780.79, ICD10: R53.83 (primary diagnosis) - UA DIP, URINE (POC) - BACTERIAL CULTURE, URINE 2. Urinary urgency - ICD9: 788.63, ICD10: R39.15 - BACTERIAL CULTURE, URINE 3. Urinary frequency - ICD9: 788.41, ICD10: R35.0 - BACTERIAL CULTURE, URINE Medical Decision Making: Problems: Low: Acute, uncomplicated illness or injury Risk: Minimal: Minimal risk from testing/treatment Moderate: Drug management Medical Decision Making Level: 3 - Low I spent a total of 20 minutes on the date of the service which included preparing to see the patient, noyr-sj-ysae patient care, completing clinical documentation, performing a medically appropriate examination, counseling and educating the patient/family/caregive r, and ordering medications, tests, or procedures. FAVIOLA Bran Ariana P, PA-C 07/06/2024 6:49 PM Signed Please follow-up with your primary care provider as needed. Referring Provider: SELF [200] Allergies As of Date: 07/06/2024 Noted Allergy Reaction SERTRALINE 08/02/2023 14 - Other: See Comments Comments: SI thoughts. Date Reviewed: 07/06/2024 Reviewed by: Jovani Flor PA-C - Fully Assessed Reason for Visit: UTI [116] Cmt: Extremely tired, lower back pain that wraps around to pelvis going on since Wednesday, frequency, urgency, no hx of kidney stones, possibly odor, has taken ibuprofen, mood changes of anxiety and depression[place] [facility] [place] [facility] [place] has CGM due to being prediabetic, has done UTI test at home + for leuks and neg for nitrates Primary Visit Diagnosis:Fatigue, unspecified type [R53.83] Other Visit Diagnoses:Urinary urgency [R39.15] Urinary frequency [R35.0] Order(s):UA DIP, URINE (POC) [3194356] Order #: [id number]. #:[id number] BACTERIAL CULTURE, URINE [SQURCUL] Order #: [id number]. #:[id number] Prescriptions as of 07/06/2024 - lamoTRIgine (LAMICTAL) 100 mg tablet Take 1 tablet by mouth every afternoon. - rosuvastatin (CRESTOR) 20 mg tablet Take 1 tablet by mouth every afternoon. - fluoxetine HCl (PROZAC ORAL) Take 80 mg by mouth. Problem List As Of Date 07/06/2024 Noted Resolved with care elsewhere, antepar*01/30/2021 07/23/2022 History of depression [Z86.59] 01/30/2021 07/23/2022 Multigravida of advanced maternal age in third *01/30/2021 07/23/2022 with history of section, ant*01/30/2021 07/23/2022 Gestat (more content not included)... Normal [facility] UA DIP, URINE (POC)on 2024 BILIRUBIN UA (POCT) Negative Negative [facility] CLARITY UA (POCT) Clear [facility] COLOR UA (POCT) Light yellow [facility] GLUCOSE UA (POCT) Negative Negative mg/dL [facility] Hemoglobin Ql (U) Trace-intact Abnormal Negative [facility] Interpretation and review of laboratory results Abnormal [facility] KETONE UA (POCT) Negative Negative mg/dL [facility] LEUKOCYTES UA (POCT) Negative Negative [facility] NITRITE UA (POCT) Negative Negative [facility] PH UA (POCT) 7.0 4.5 - 8.0 [facility] Protein Ql (U) Negative Negative mg/dL [facility] SPECIFIC GRAVITY UA (POCT) 1.010 1.005 - 1.030 [facility] UROBILINOGEN UA (POCT) 0.2 Normal E.U./dL [facility] Location:[facility], [address] [place] [address], [address] [place] [address] POINT OF CARE [facility] MR/BMSSusanneBPon 05-18-2024 MR/BMS.BP [facility] [address] [place] [address], [address] [place] [address] OFFICE VISIT Date of Service: 05/18/24 MR#: [id number] Acct: [id number] Name: TONG SUNSHINE Rep #: [id number] : 1985 Provider: Dr. Roque Herrera se, DO Age/Sex: 38/F Location: [facility] [place] Status: Signed Intake Vital Signs 03/02/24 07:52 05/18/24 07:08 Height 4 ft 11 in 4 ft 11 in BP 129/84 H Blood Pressure Location Rt brachial Position Sitting Respiration 16 Pulse 78 Pulse Source Monitor BP Intake Visit Reasons: Follow up Accompanied by: Self Allergies sertraline Adverse Reaction (Mild, Verified 05/18/24 07:12) Increased depression Medications ???Medication ???Instructions ???Recorded ???Confirmed ???Type fluoxetine 40 mg capsule (Prozac) 80 mg (2 x 40 mg) PO QDAY 90 days 03/02/24 05/18/24 Rx #180 caps lamotrigine 100 mg tablet 100 mg PO QDAY 90 days #90 tabs 03/02/24 05/18/24 Rx (Lamictal) rosuvastatin 20 mg tablet 20 mg PO QHS 05/18/24 05/18/24 [facility] History (Updated 03/06/24 @ 06:[address] Roque Wolf DO) History of depression MDD (major depressive disorder) , delivered Anxiety Obsessive compulsive disorder Gestational diabetes depression Depression Gestational diabetes mellitus in , insulin controlled Surgical History Nerstrand teeth extracted Previous section Previous delivery affecting Social History Smoking Status: Never smoker alcohol intake: never substance use type: does not use what type of physical activity do you participate in: walking frequency: 5-6 times per week HPI History of Present Illness History provided by: patient HPI: Tong Sunshine is a 38 year old female who presents today for follow up evaluation. Patient reports that she has been doing pretty good. Has had a few stretches where she feels sad which she thinks is partially related to weather. Has not been crying which is good for her. Will be following at [facility] in [place] for therapy. Sleep has been fair, getting about 7 hours at night. Feels like fluoxetine and lamotrigine are working well without any significant side effects. Will be going to [place] for [place]. Review of Systems Constitutional Denies: fever(s), chills, change in weight or fatigue Eyes Denies: change in vision or blurry vision Ears, Nose, Mouth, Throat Denies: throat pain, neck pain or change in hearing Cardiovascular Denies: chest pain, palpitations or dyspnea Respiratory Denies: dyspnea, cough or wheezing Gastrointestinal Reports: constipation; Denies: abdominal pain, nausea, vomiting or diarrhea Genitourinary Denies: dysuria or urinary frequency Musculoskeletal Denies: back pain, neck pain, joint pain or muscle weakness Integumentary/Breast Denies: rash or new lesions Neurological Denies: headache(s), dizziness or confusion Endocrine Denies: fatigue or excessive sweating Hematologic/Lymphatic Denies: easy bruising or easy bleeding Allergic/Immunologic Denies: wheezing Exam Mental Status Exam - Psych Appearance casually dressed and no apparent distress Attitude cooperative and calm Activity/Motor Behavior MSE activity/motor behavior finding no adventitious movements Speech regular rate, regular volume and regular prosody Mood OK Affect congruent Thought Process linear, logical and coherent Thought Content no delusions and no hallucinations Suicidal Ideation none Homicidal Ideation none Attention intact Concentration intact Sensorium/Orientation awake, alert and oriented x3 Memory/Cognition other (appropriate for stated age) Insight good Judgement good Assessment Plan Assessment Plan (1) MDD (major depressive disorder): Plan: - largely stable with prozac and lamotrigine - still concern for OCD (2) History of depression: Plan: Stable Coding Level of Care Code Off vis,est,level 4 Diagnoses MDD (major depressive disorder) F32.9 History of depression Z87.59; Z86.59 12/11/04 737 Date Roque Moreno Signature: Date (if applicable) CC: Normal [facility] Office Visiton 05-02-2024 Follow-up visit [id number] Tnog Sunshine 1985 F Date Provider Department Center 05/02/2024 [id number] KING [facility] Family History Problem Relation Age of Onset Diabetes type II Brother Cancer Father Comments: age 71 fall 2020 of Bile duct [place] Diabetes Mother 60.00 Comments: acutely during CABG, age 60 in 2013 Breast cancer Sister 29.00 Coronary artery disease Mother Hypertension Sister Diabetes type II Sister Comments: diet controlled Family Status - Relation Status Age at Brother Alive Father Mother 61 Sister Alive Level of Service:03545 [place] OFFICE/OUTPATIENT ESTABLISHED MOD MDM 30 MIN Reason for Visit and Comments: Depression [32] - Managed by psychiatrist Anxiety [9] - Managed by psychiatrist Other [0] - Prediabetes Asking for information to help prevent diabetes Hyperlipidemia [182] - Pt wants to know if she can cut cholesterol med in half Medication Check [[id number]] - Pt has form to be filled out for work Health Maintenance [872] - Pap- sees [facility] - pap not done this year - last appt 08/2023 Mammogram- [facility] ordered but not done Flu vaccine- refuse 3rd covid vaccine- not done Normal [facility] Progress Noteon 05-02-2024 Progress Note Remission, continue fluoxetine 80 mg daily and Lamictal 100 mg daily Normal [facility] Progress Note Remission, continue fluoxetine 80 mg daily and Lamictal 100 mg daily Normal [facility] Progress Note Remission, continue fluoxetine 80 mg daily and Lamictal 100 mg daily Normal [facility] Progress Note Controlled, continue rosuvastatin 20 mg daily [facility] Progress Note 05/02/2024 Tong Sunshine (: 1985) is a 38 y.o. female , Established patient, here for evaluation of the following chief complaint(s): Depression (Managed by psychiatrist ), Anxiety (Managed by psychiatrist ), Other (Prediabetes /Asking for information to help prevent diabetes ), Hyperlipidemia (Pt wants to know if she can cut cholesterol med in half), Medication Check (Pt has form to be filled out for work), and Health Maintenance (Pap- sees [facility] - pap not done this year - last appt 08/2023/Mammogram- [facility] ordered but not done/Flu vaccine- refuse/3rd covid vaccine- not done) ASSESSMENT/PLAN: 1. Hypercholesterolemia Assessment & Plan: Controlled, continue rosuvastatin 20 mg daily Orders: - rosuvastatin (Crestor) 20 MG tablet; Take 1 tablet (20 mg) by mouth daily., Starting Tu05/02/2024, Normal 2. Severe episode of recurrent major depressive disorder, without psychotic features (HCC) Assessment & Plan: Remission, continue fluoxetine 80 mg daily and Lamictal 100 mg daily 3. Obsessive-compulsive disorder, unspecified type Assessment & Plan: Remission, continue fluoxetine 80 mg daily and Lamictal 100 mg daily 4. Anxiety Assessment & Plan: Remission, continue fluoxetine 80 mg daily and Lamictal 100 mg daily Follow up in about 6 months (around 10/30/2024) for annual. SUBJECTIVE/OBJECTIVE: MALA Kuhn comes in today for 6-month follow-up on her hyperlipidemia, depression anxiety and obsessive-compulsive disorder. Cholesterol seems to be well-controlled on her rosuvastatin and she is seeing psychiatry for her depression and anxiety and OCD. These seem to be well-controlled on her current medications Review of Systems Constitutional: Negative for chills and fever. Respiratory: Negative for shortness of breath. Cardiovascular: Negative for chest pain and palpitations. Gastrointestinal: Negative for abdominal pain, blood in stool, constipation and diarrhea. Genitourinary: Negative for dyspareunia, dysuria, frequency, hematuria and urgency. Neurological: Negative for weakness and numbness. Psychiatric/Behavioral: Negative for dysphoric mood. The patient is not nervous/anxious. Vitals: 05/02/24 0724 BP: 113/74 Pulse: 78 SpO2: 98% Weight: 162 lb 9.6 oz (73.8 kg) Height: 4' 11 (1.499 m) Physical Exam Vitals and nursing note reviewed. Constitutional: General: She is not in acute distress. Appearance: Normal appearance. She is obese. HENT: Head: Normocephalic. Right Ear: Tympanic membrane, ear canal and external ear normal. Left Ear: Tympanic membrane, ear canal and external ear normal. Mouth/Throat: Mouth: Mucous membranes are moist. Pharynx: Oropharynx is clear. Eyes: Extraocular Movements: Extraocular movements intact. Pupils: Pupils are equal, round, and reactive to light. Neck: Thyroid: No thyromegaly. Vascular: No carotid bruit. Cardiovascular: Rate and Rhythm: Normal rate and regular rhythm. Heart sounds: Normal heart sounds. No murmur heard. Pulmonary: Effort: Pulmonary effort is normal. Breath sounds: Normal breath sounds. Abdominal: General: Bowel sounds are normal. Palpations: Abdomen is soft. Musculoskeletal: General: Normal range of motion. Cervical back: Normal range of motion. Lymphadenopathy: Cervical: No cervical adenopathy. Skin: General: Skin is warm and dry. Neurological: General: No focal deficit present. Mental Status: She is alert and oriented to person, place, and time. Psychiatric: Mood and Affect: Mood normal. An electronic signature was used to authenticate this note. Ash King MD 05/02/2024 8:31 AM [facility] Progress Note Patient verified by last name and date of . Normal [facility] 36on 04-24-2024 [address] Chuck alvarez 04/25/24 7:15 arrive 15 min early with ins card and id Normal [facility] MR/BMS.BPon 03-02-2024 MR/BMS.BP [facility] [address] [place] [address], [address] [place] [address] OFFICE VISIT Date of Service: 03/02/24 MR#: [id number] Acct: [id number] Name: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 [address] [place] Hematocrit (Bld) [Volume fraction] 42.5 % Normal 36.0-46.0 [facility] Comment on above: Order Comment: Speci men Type: BLOOD SPECIMEN Ordering Facility: [facility] Address: [address] [place] [address] Performed By: #### 5 8410-2 #### [facility] CLIA [id number] [address] [place] [address] [place] Hemoglobin (Bld) [Mass/Vol] 14.2 g/dL Normal 11.5-15.5 [facility] Comment on above: Order Comment: Speci men Type: BLOOD SPECIMEN Ordering Facility: [facility] Address: [address] [place] [address] Performed By: #### 5 8410-2 #### [facility] CLIA [id number] [address] [place] [address] [place] MCH (RBC) [Entitic mass] 28.6 pg Normal 26.0-34.0 [facility] Comment on above: Order Comment: Speci men Type: BLOOD SPECIMEN Ordering Facility: [facility] Address: [address] [place] [address] Performed By: #### 5 8410-2 #### [facility] CLIA [id number] [address] [place] [address] [place] MCHC (RBC) [Mass/Vol] 33.4 g/dL Normal 30.5-36.0 [facility] Comment on above: Order Comment: Speci men Type: BLOOD SPECIMEN Ordering Facility: [facility] Address: [address] [place] [address] Performed By: #### 5 8410-2 #### [facility] CLIA [id number] [address] [place] [address] [place] MCV (RBC) [Entitic vol] 85.5 fL Normal 80.0-100.0 [facility] Comment on above: Order Comment: Speci men Type: BLOOD SPECIMEN Ordering Facility: [facility] Address: [address] [place] [address] Performed By: #### 5 8410-2 #### [facility] CLIA [id number] [address] [place] [address] [place] Nucleated RBC (Bld) [#/Vol] 10*3/uL Normal <0.01 [facility] Comment on above: Order Comment: Speci men Type: BLOOD SPECIMEN Ordering Facility: [facility] Address: [address] [place] [address] Performed By: #### 5 8410-2 #### [facility] CLIA [id number] [address] [place] [address] [place] Platelet mean volume (Bld) [Entitic vol] 10.1 fL Normal 9.0-12.7 [facility] Comment on above: Order Comment: Speci men Type: BLOOD SPECIMEN Ordering Facility: [facility] Address: [address] [place] [address] Performed By: #### 5 8410-2 #### [facility] CLIA [id number] [address] [place] [address] [place] Platelets (Bld) [#/Vol] 333 10*3/uL Normal 150-400 [facility] Comment on above: Order Comment: Speci men Type: BLOOD SPECIMEN Ordering Facility: [facility] Address: [address] [place] [address] Performed By: #### 5 8410-2 #### [facility] CLIA [id number] [address] [place] [address] [place] RBC (Bld) [#/Vol] 4.97 10*6/uL Normal 3.90-5.20 [facility] Comment on above: Order Comment: Speci men Type: BLOOD SPECIMEN Ordering Facility: [facility] Address: [address] [place] [address] Performed By: #### 5 8410-2 #### [facility] CLIA [id number] [address] [place] [address] [place] WBC (Bld) [#/Vol] 12.40 10*3/uL High 3.70-11.[address] [facility] Comment on above: Order Comment: Speci men Type: BLOOD SPECIMEN Ordering Facility: [facility] Address: [address] [place] [address] Performed By: #### 5 8410-2 #### [facility] CLIA [id number] [address] [place] [address] [place] CNOVon 09-07-2023 CNOV Office Visit (OBGYWM ) TONG SUNSHINE ([id number]) 1985 F Date Time Provider Department 09/07/23 3:40 PM ASA BETANCUR OBGYWM During your visit today, we recorded the following information about you: Blood pressure Weight Height Last Period 126/80 76.7 kg 1.499 m 08/19/23 Asa Betancur MD 09/07/2023 3:56 PM Signed Fire Systems Inspector offered: Patient declines. Tong is a 37 year old who presents for an annual gynecologic exam. Patient reports feeling fatigued and not sleeping well. Her pcp put her back on an antidepressant. She has recently been hospitalized for depression. Menses: cycles every 28-30 and 5-7 days of flow. Over the past year she's began to have intermenstrual spotting. Contraception: vasectomy HPV vaccine: No Last Pap: 02/06/2021 normal HPV: 02/04/2021 negative History of abnormal pap: Yes - abnormal in her early 20's Last mammogram: never OB History T4 L4 SAB0 IAB0 Ectopic0 Multiple0 Live Births4 [employer] Officer History LMP: 08/19/2023, Having periods Age at Menarche: Age at First : Age at Menopause: [employer] Officer History Comments: Sexual Activity: Yes; Male Contraception: Vasectomy PAST MEDICAL HISTORY Diagnosis Date Abnormal glandular Papanicolaou smear of cervix 2014 Anxiety state/depression Gestational diabetes History of depression 01/30/2021 01/31/2021 Discussed r/b/a to medications. SW 01/30/2021 Pt has a history of depression/anxiety/OCD diagnosed 4 years ago and treated by a nurse practitioner in psychiatry Leeanne Cronin. She states that she had tried to change her medication 1 month ago and had suicidal thoughts that required a hospitalization. Denies any suicidal thoughts since then. Does admit to depression after her OCD (obsessive compulsive disorder) depression PAST SURGICAL HISTORY Procedure Laterality Date DELIVERY ONLY REVISE MEDIAN N/CARPAL TUNNEL SURG Bilateral 02/2022 VAGINOSCOPY FAMILY HISTORY Problem Relation Age of Onset Diabetes Mother Depression Mother Anxiety disorder Mother Heart Mother Heart Father Anxiety disorder Father Depression Father COPD Father Emphysema Father Hypertension Sister Hypertension Brother Diabetes Brother Diabetes Maternal Grandmother Schizophrenia Maternal Grandfather Heart Attack Paternal Grandmother Hypertension Paternal Grandfather Stroke Paternal Grandfather No Known Problems Daughter No Known Problems Daughter No Known Problems Son SOCIAL HISTORY Social History Tobacco Use Smoking status: Never Smokeless tobacco: Never Vaping Use Vaping Use: Never used Substance Use Topics Alcohol use: Not Currently Drug use: Never REVIEW OF SYSTEMS Abdomen: No abdominal pain, nausea, vomiting, diarrhea, or constipation. No bloating, early satiety, indigestion, or increased flatulence. Bladder: No dysuria, gross hematuria, urinary urgency, or incontinence; positive urinary frequency. Breast: No breast lumps, nipple d/c, overlying skin changes, redness or skin retraction. Allergies and current medication updated:Yes EXAM: BP 126/80 Ht 4' 11 (1.50m) Wt 169 lb (76.7kg) LMP 08/19/2023 BMI 34.12 kg/(m2). GENERAL: pleasant, female in no apparent distress BREAST: soft, non-tender, symmetric, no dominant mass, normal nipple-areolar complex, no lymphadenopathy, and no nipple discharge CHEST: Normal inspiratory effort ABDOMEN: soft, non-tender, and no masses PELVIC: external genitalia normal, normal Bartholin's glands, urethra, Hypericum's glands, no vulvar lesions, no cervical lesions, good vaginal support, physiologic discharge present, normal appearing perineal body and perianal region BIMANUAL: uterus normal size, shape and consistency, no adnexal masses, and non-tender RECTOVAGINAL: deferred. NEURO: alert and oriented x3,exam grossly non-focal EXTREMITIES: normal ASSESSMENT/PLAN: 1) Health maintenance: Pap/HPV up to date. Mammogram ordered. Nutrition, exercise and routine health maintenance exams reviewed. 2) Contraception: vasectomy. Contraceptive options reviewed and information provided. 3) Fatigue - likely due to depression. Labs ordered. 4) Follow up one year or sooner as needed 5) Intermenstrual spotting - check pelvic US Asa Betancur MD Allergies As of Date: 09/07/2023 Noted Allergy Reaction SERTRALINE 08/02/2023 14 - Other: See Comments Comments: SI thoughts. Date Reviewed: 09/07/2023 Reviewed by: Asa Betancur MD - Fully Assessed Reason for Visit: Well Woman [[id number]] Primary Visit Diagnosis:Encounter for gynecological examination (general) (routine) without abnormal findings [Z01.419] Other Visit Diagnoses:Encounter for screening mammogram for breast cancer [Z12.31] Other fatigue [R53.83] Intermenstrual spotting [N92.3] Order(s):GLORIA SCREENING [[id number]] Order #: [id number] (more content not included)... Normal [facility] TSH BLDon 09-07-2023 TSH Qn 1.090 m[IU]/L 0.270 - 4.200 mIU/L [facility] TSH SerPl-aCncon 09-07-2023 TSH Qn 1.090 m[IU]/L Normal 0.270-4.200 [facility] Comment on above: Order Comment: Speci men Type: BLOOD SPECIMEN Ordering Facility: [facility] Address: [address] [place] [address] Result Comment: If t he patient is , TSH reference range varies by gestational period: First Trimester (weeks 9-12): 0.180-2.990 mIU/L Second Trimester: 0.110-3.980 mIU/L Third Trimester: 0.480-4.710 mIU/L Bayron Winn et al. A Practical Approach for the Verifications and Determination of Site- and Trimester-Specific Reference Intervals for Thyroid Function tests in . Thyroid, 2019:29:3:412-420. Louis Kruse, et al. 2017 Guidelines of the [place] Thy[employer] for the Diagnosis and Management of Thyroid Disease during and the . Thyroid, 2017:27:3:315-389. Performed By: #### 3 016-3 #### [facility] CLIA [id number] [address] [place], [place] [address] [address] [place] VITAMIN D 25 HYDROXYon 09-06 25-hydroxyvitamin D3 [Mass/Vol] 52.5 ng/mL 31.0 - 80.0 ng/mL [facility] 36on 09-06-2023 36 noted Normal [facility] 36 Spoke with patient, rescheduled for 09/17/2023, patient stated she has been using her Mac computer to complete visits, recommended patient to download [employer]4 Mobile olivia and try it that way. Normal [facility] CNOVon 09-05-2023 [facility] TONG SUNSHINE ([id number]) 1985 F Date Time Provider Department 09/05/23 8:45 AM MACHO KLINE [facility] During your visit today, we recorded the following information about you: Temperature Pulse Respiration Blood pressure 98.2 degrees 85/minute 18/minute 124/84 Weight 76.7 kg Eliud MachoFABIAN mullins.SIDNEY 09/05/2023 9:10 AM Signed Subjective HPI Nontoxic-appearing female presents urgent care chief plaint pharyngitis fatigue. Duration of symptoms 1 day. Associated symptoms listed above. States individuals in her house recently tested positive for strep throat. Patient states she did have a UTI. Finished antibiotics on Wednesday of last week. Sore throat started 1 day ago. Was on Keflex. No difficulty swallowing and secretions decreased range of motion of neck. Denies any fever body aches chills productive cough chest pain shortness of breath pleuritic pain hemoptysis nausea vomiting abdominal pain change in bowel or bladder habits. Past medical history prescription medication use and allergies reviewed. .Patient presents with: Sore Throat: Fatigue x1 day, strep exposure PAST MEDICAL HISTORY Diagnosis Date Abnormal glandular Papanicolaou smear of cervix 2014 Anxiety state/depression Gestational diabetes History of depression 01/30/2021 01/31/2021 Discussed r/b/a to medications. SW 01/30/2021 Pt has a history of depression/anxiety/OCD diagnosed 4 years ago and treated by a nurse practitioner in psychiatry Leeanne Cronin. She states that she had tried to change her medication 1 month ago and had suicidal thoughts that required a hospitalization. Denies any suicidal thoughts since then. Does admit to depression after her OCD (obsessive compulsive disorder) depression PAST SURGICAL HISTORY Procedure Laterality Date DELIVERY ONLY REVISE MEDIAN N/CARPAL TUNNEL SURG Bilateral 02/2022 VAGINOSCOPY ALLERGIES Sertraline MEDICATIONS rosuvastatin (CRESTOR) 20 mg tablet Take 1 tablet by mouth every afternoon. Cholecalciferol, Vitamin D3, 250 mcg (10,000 unit) cap Take by mouth. fluoxetine HCl (PROZAC ORAL) Take 80 mg by mouth. FAMILY HISTORY Problem Relation Age of Onset Diabetes Mother Depression Mother Anxiety disorder Mother Heart Mother Heart Father Anxiety disorder Father Depression Father COPD Father Emphysema Father Hypertension Sister Hypertension Brother Diabetes Brother Diabetes Maternal Grandmother Schizophrenia Maternal Grandfather Heart Attack Paternal Grandmother Hypertension Paternal Grandfather Stroke Paternal Grandfather No Known Problems Daughter No Known Problems Daughter No Known Problems Son Social History Tobacco Use Smoking status: Never Smokeless tobacco: Never Vaping Use Vaping Use: Never used Substance Use Topics Alcohol use: Not Currently Drug use: Never BP 124/84 Pulse 85 Temp 36.8 ?C (98.2 ?F) Resp 18 Wt 76.7 kg (169 lb 1.5 oz) LMP 07/13/2022 SpO2 98% BMI 34.15 kg/m? Review of Systems Constitutional: Positive for malaise/fatigue. Negative for chills and fever. HENT: Positive for sore throat. Negative for congestion, ear discharge, ear pain and sinus pain. Eyes: Negative for blurred vision, pain, discharge and redness. Respiratory: Negative for cough, hemoptysis, sputum production, shortness of breath, wheezing and stridor. Cardiovascular: Negative for chest pain. Gastrointestinal: Negative for abdominal pain, diarrhea, nausea and vomiting. Musculoskeletal: Positive for myalgias. Skin: Negative for itching and rash. Neurological: Negative for dizziness and headaches. Objective Physical Exam Constitutional: General: She is not in acute distress. Appearance: She is not diaphoretic. HENT: Head: Normocephalic. Jaw: No trismus, tenderness, swelling or pain on movement. Mouth/Throat: Mouth: Mucous membranes are moist. Pharynx: Oropharynx is clear. Uvula midline. Posterior oropharyngeal erythema present. No pharyngeal swelling, oropharyngeal exudate or uvula swelling. Tonsils: No tonsillar exudate or tonsillar abscesses. Eyes: Conjunctiva/sclera: Conjunctivae normal. Pupils: Pupils are equal, round, and reactive to light. Cardiovascular: Rate and Rhythm: Normal rate and regular rhythm. Heart sounds: Normal heart sounds. Pulmonary: Effort: Pulmonary effort is normal. No tachypnea, accessory muscle usage or respiratory distress. Breath sounds: Normal breath sounds. No stridor. No wheezing, rhonchi or rales. Abdominal: General: There is no distension. Palpations: Abdomen is soft. Tenderness: There is no abdominal tenderness. There is no guarding or rebound. Musculoskeletal: Cervical back: Normal range of motion and neck supple. No edema, erythema, rigidity or tenderness. No pain with movement. Normal range (more content not included)... Normal [facility] STREP A MOLECULAR (POC)on Procedural Control Valid [facility] Strep A (POCT) Positive Abnormal Negative [facility] 36on 09-03-2023 36 Please cancel this day's appt - could not hear pt. Please call and schedule her for in 2 weeks. Thank you. [facility] 36 Call to pt as unable to hear for telehealth. Wednesday pt felt pretty good as well as Wednesday. Yesterday mid morning anxiety and today she is anxious. Patient feels she has nervous anxiety. She is very tired today. Is not sleeping very well. Melatonin helped her to get to sleep last night. She is now functioning and out of the bed however. Today she took a hydroxyzine from prior rx and is more comfortable with that then clonazepam. Intrusive thoughts are better. Still feels in a brain fog and it is hard to concentrate. No SI/ HI. Taken clonazepam once since discharge. She is leery of clonazepam. And it numbs her and she uses hydroxyzine instead from prior rx - this is agreeable to stop clonazapm and use vistaril (interactions reviewed). Patient is staring counseling September 21. Patient is reading the body keeps the score - feels she has been in fight or flight for yrs. Consider buspirone in time to come discussed. Agreed that further acclimating to prozac is appropriate given recent titration and amount of such. Pt to schedule for 2 weeks and to call prn. [facility] CARECOORDon 08-30-2023 CARECOORD limehouse worker met wi th patient. She denied suicidal ideations. She denied access to weapons. She is going home. Her will pick her up. She will follow up with Jaimee. [facility] GROUPNOTEon 08-30-2023 GROUPNOTE Department: [facility] Group Topic: Self-awareness Group Date: 08/30/2023 Start Time: 1300 End Time: 1350 Facilitators: BRYAN Dennison Number of Participants: 4 Group Name: dual diagnosis Treatment Modality: Psychoeducation and Skills Training Purpose: enhance coping skills and increase insight or knowledge Summary: review of the Abdelrahman Window. Patients answered question for each window: What parts of your personality do people know about? What parts are you hiding? I don't know, but you Do? I don't know and you don;t know? Name: Tong Sunshine Date of : 1985 MR: [id number] Mental Status Exam: Appearance: Appropriately dressed and groomed Mood: Euthymic Affect: Congruent with mood Behavior: Pleasant Alertness: Alert Speech: Appropriate Cognition: Intact Thought Process: Goal-directed Thought Content: No evidence of psychosis/delusions Level/Quality of Participation: active Interactions with others: gave feedback Interventions utilized were Psychoeducation and Modeling/skills training Patient's Response to Intervention: Pt was Actively Engaged and Receptive. Pt was Able to verbalize current knowledge/experience, Able to verbalize/acknowledge new learning, Able to retain information and Capable of insight. Pt reported they learned, more self-awareness Progress Towards Goal(s): Moderate Additional Comments: na Next Step: Continue with current services Patients Problems: Patient Active Problem List Diagnosis Family history of breast cancer in sister Family history of cervical cancer Family history of diabetes mellitus Hypercholesterolemia Severe episode of recurrent major depressive disorder, without psychotic features (HCC) Meniere disease History of hypothyroidism Obsessive-compulsive disorder BPPV (benign paroxysmal positional vertigo) Chronic fatigue Hypersomnolence Obesity, unspecified Anxiety Suicidal ideation OCD (obsessive compulsive disorder) [facility] GROUPNOTE Department: [facility] ACTIVITIES THERAPY Group Topic: Other Group Date: 08/30/2023 Start Time: 1025 End Time: 1110 Facilitators: Rosa Allred Number of Participants: 7 Group Name: Leisure Treatment Modality: Activity Therapy Purpose: enhance coping skills, express feelings, and reinforce self-care Summary: Chat pack- Patient will focus on game playing activities a game that is organized and meant to enhance the therapeutic experience patient will learn games ,skills and techniques Q&A. Object of game is to prompt conversations a fun way to get participants to engage with the group, enhance coping skills and encourage listening skills. Name: Tong Sunshine Date of : 1985 MR: [id number] Appearance: Appropriately dressed and groomed Affect: Appropriate Behavior: Pleasant Alertness: Alert Speech: Appropriate Level/Quality of Participation: active Interactions with others: supportive Interventions utilized were Building rapport and engagement Patient's Response to Intervention: Patient actively engaged in group promoting relaxation. Will continue to offer groups and encourage participation face mask worn at all times during patient interations. Patients Problems: Patient Active Problem List Diagnosis Family history of breast cancer in sister Family history of cervical cancer Family history of diabetes mellitus Hypercholesterolemia Severe episode of recurrent major depressive disorder, without psychotic features (HCC) Meniere disease History of hypothyroidism Obsessive-compulsive disorder BPPV (benign paroxysmal positional vertigo) Chronic fatigue Hypersomnolence Obesity, unspecified Anxiety Suicidal ideation OCD (obsessive compulsive disorder) [facility] GROUPNOTE Department: [facility] ACTIVITIES THERAPY Group Topic: Other Group Date: 08/30/2023 Start Time: 809 End Time: 849 Facilitators: Rosa Allred Number of Participants: 7 Group Name:Setting Goals Treatment Modality: Activity Therapy Purpose: enhance coping skills, express feelings, and reinforce self-care Summary: Patient will focus on setting daily goals identifying positive steps to wellness resources and steps to complete. Discussion benefits of receiving support and encouragement. Name: Tong Sunshine Date of : 1985 MR: [id number] Appearance: Appropriately dressed and groomed Affect: Appropriate Behavior: Pleasant Alertness: Alert Speech: Appropriate Level/Quality of Participation: active Interactions with others: supportive Interventions utilized were Building rapport and engagement Patient's Response to Intervention: Patient actively engaged in group promoting relaxation. Patient actively engaged connects group material with personal experience. Patient participated in group answering questions appropriately. Patient actively engaged in group social on task supportive of peers. Patient meet expectations of group setting a goal to reinforce self care. Will continue to offer groups and encourage participation face mask worn at all times during patient interations. Patient's Response to Intervention: Patient meet expectations of group setting a goal to reinforce self care. Will continue to offer groups and encourage participation face mask worn at all times during patient interations. Patients Problems: Patient Active Problem List Diagnosis Family history of breast cancer in sister Family history of cervical cancer Family history of diabetes mellitus Hypercholesterolemia Severe episode of recurrent major depressive disorder, without psychotic features (HCC) Meniere disease History of hypothyroidism Obsessive-compulsive disorder BPPV (benign paroxysmal positional vertigo) Chronic fatigue Hypersomnolence Obesity, unspecified Anxiety Suicidal ideation OCD (obsessive compulsive disorder) [facility] IDNon 08-30-2023 IDN Problem: Potential f or Harm to Self or Others Goal: Cooperates with admission process Outcome: Adequate for Discharge Goal: Participates in unit activities Outcome: Adequate for Discharge Goal: Patient/Family participate in treatment and discharge plans Outcome: Adequate for Discharge Goal: Identifies deescalation techniques Outcome: Adequate for Discharge Goal: Understands least restrictive measures Outcome: Adequate for Discharge Goal: Identifies stressors that lead to harmful behaviors Outcome: Adequate for Discharge Goal: Denies harm toward self or others Outcome: Adequate for Discharge [facility] Nursing Noteon 08-30-2023 Nursing Note Pt denies Si,Hi,AVH. Pt compliant with care. Attends group, social with peers. Euthymic mood, pleasant and calm. No concerns and eager for discharge. [facility] Progress Noteon 08-30-2023 Progress Note Pt calm and cooperat salo on the unit. Mood is brighter and affect is appropriate. Voicing no SI and social with her peers. Compliant with medications and prn Melatonin po given with good effect. Pt looking forward to being hopefully discharged in the morning. Emotional support given. [facility] GROUPNOTEon 08-29-2023 GROUPNOTE Department: [facility] ACTIVITIES THERAPY Group Topic: Other Group Date: 08/29/2023 Start Time: 1404 End Time: 1420 Facilitators: Pham Nascimento Number of Participants: 2 Group Name: Gentle Stretch Treatment Modality: Recreation Therapy Purpose: reinforce self-care and mind/body connection Summary: Gentle Stretch - To allow Patients the opportunity to engage in gentle stretching from a chair. During the intervention Patients are encouraged to be present in the movements as a means to connect mind and body. Patients are expected to practice self-care by not pushing they're limits and instead working within them. Support is offered as needed to meet this expectation. Name: Tong Sunshine Date of : 1985 MR: [id number] Appearance: Good eye contact Affect: Appropriate Behavior: Pleasant Alertness: Alert Speech: Appropriate Level/Quality of Participation: attentive Interactions with others: supportive Interventions utilized were Modeling/skills training Patient's Response to Intervention: Patient was able to meet expectations for group without support required. Patient denied any discomfort following the intervention. Patient reported improvement compared to the start of group and the ability to respect physical limits. Patient supported in practicing another form of self care today. Continue to engage Patient in groups to address stated treatment goals and objectives. Patients Problems: Patient Active Problem List Diagnosis Family history of breast cancer in sister Family history of cervical cancer Family history of diabetes mellitus Hypercholesterolemia Severe episode of recurrent major depressive disorder, without psychotic features (HCC) Meniere disease History of hypothyroidism Obsessive-compulsive disorder BPPV (benign paroxysmal positional vertigo) Chronic fatigue Hypersomnolence Obesity, unspecified Anxiety Suicidal ideation OCD (obsessive compulsive disorder) [facility] GROUPNOTE Department: [facility] ACTIVITIES THERAPY Group Topic: Other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 ([facility])[address] [place] [address] DRUGS OF ABUSEon 08-25-2023 AMPHETAMINE SCREEN Negative Normal [facility] Comment on above: Performed By: #### L [id number] ####Funeral Sales Manager: IKER PARRA ([phone])[facility] ([facility])[address] [place] [address] BARBITURATES SCREEN Negative Normal [facility] Comment on above: Performed By: #### L [id number] ####Funeral Sales Manager: IKER PARRA ([phone])[facility] ([facility])[address] [place] [address] [place] BENZODIAZEPINE SCREEN Negative Normal [facility] Comment on above: Performed By: #### L [id number] ####Funeral Sales Manager: IKER PARRA ([id number])[facility] ([facility])[address] [place] [address] [place] COCAINE METAB. SCREEN Negative Normal [facility] Comment on above: Performed By: #### L [id number] ####Funeral Sales Manager: IKER PARRA ([phone])[facility] ([facility])[address] [place] [address] METHADONE SCREEN Negative Normal [facility] Comment on above: Performed By: #### L [id number] ####Funeral Sales Manager: IKER PARRA ([phone])[facility] ([facility])[address] [place] [address] OPIATES SCREEN Negative Normal [facility] Comment on above: Performed By: #### L [id number] ####Funeral Sales Manager: IKER PARRA ([phone])[facility] ([facility])[address] [place] [address] OXYCODONE SCREEN Negative Normal [facility] Comment on above: Performed By: #### L [id number] ####Funeral Sales Manager: IKER PARRA ([id number])[facility] ([facility])[address] [place] [address] PHENCYCLIDINE SCREEN Negative Normal [facility] Comment on above: Result Comment: VILMA R COMMENTS: The expected value for all of the drugs listed above is Negative. The following drugs or drug groups have been screened for by Immunoassay at the following thresholds: Amphetamine class (1000 ng/mL) Barbiturates (200 ng/mL) Benzodiazepines (200 ng/mL) Cocaine (300 ng/mL) Methadone (300 ng/mL) Opiates (300 ng/mL) Oxycodone (100 ng/mL) PCP (25 ng/mL) NOTE: These results are for medical treatment only. Analysis performed using non-forensic procedures. POSITIVE results are NOT confirmed by a more specific alternative method unless requested. If confirmation is needed, request confirmation under separate order. Performed By: #### L [id number] ####Funeral Sales Manager: IKER PARRA ([phone])[facility] ([facility])[address] [place] [address] ECG 12-LEADon 08-25-2023 ECG 12-LEAD IMPRESSION: Sinus tachycardia Electronically Signed On 08-25-2023 21:17:49 EDT by Car Jimenez [facility] ED Nursing Noteon 08-25-2023 ED Nursing Note Pt is leaving. Jyothi Rashid 08/25/23 1626 [facility] ED Nursing Note Protective Services and Transportation Dept at the pt bedside with a wheel chair to transport the pt to [address] Jyothi Rashid 08/25/23 1626 [facility] ED Nursing Note Report called to [place] [id number]. Eugenia Snow RN 08/25/23 1601 [facility] ED Nursing Note Nursing staff Haja Christopher is in the room talking with the pt. Jyothi Rashid 08/25/23 1502 [facility] ED Nursing Note EKG Dept at the pt's bedside. Jyothi Rashid 08/25/23 1445 [facility] ED Nursing Note Lunch ordered. Meggan Clup 08/25/23 1242 [facility] ED Nursing Note equine pharmacology technician Meggna Christopher orde red the pt a dietary tray. Jyothi Nogueiraoway 08/25/23 1245 [facility] ED Nursing Note Nursing staff Malena Day walked visitor's x 2 to the pt's room. Jyothi Rashid 08/25/23 1133 [facility] ED Provider Noteon ED Provider Note Emergency Department Encounter [facility] EMERGENCY DEPT Patient: Tong Sunshine : 1985 Date of Evaluation: 08/25/2023 ED Supervising Physician: Maverick Boone MD I independently examined and evaluated Tong Sunshine. This will serve as my Supervisory note and shared attestation. I did perform a substantive portion of the visit including all aspects of the Medical Decision Making. I wore appropriate PPE for the entirety of this encounter. In brief, Tong Sunshine is a 37 y.o. that presents to the emergency department with suicidal ideation. She has a history of depression. She also reports not eating despite having an appetite. Additionally, she reports a headache and not feeling well. She denies any current plan. Focused exam: Zlpviod-egfv-pjqtheovk, no acute distress, nontoxic-appearing HEENT- atraumatic, normocephalic Neck- no meningismus, no obvious masses Respiratory- bilateral breath sounds, no respiratory distress Cardiovascular-tachycar dic, well perfused Abdomen- soft, non-tender, no rebound or guarding MSK- normal muscle bulk, no gross deformities Skin- non-diaphoretic, no obvious rashes or lesions Neuro- alert, answering questions appropriately, CN2-12 grossly intact, moving all extremities Psych- calm, cooperative. Sad affect. EKG interpreted by me: 08-25-2023. Time 1447. Rate 103 sinus tachycardia. Normal axis. TX interval 156, QRS 83, QTc 461. No STEMI. Medical conditions affecting care: Depression Discussion of care with other providers, I discussed the case with: Psych Escalation of care, appropriate for: Admission to psych Brief ED course/MDM: 37-year-old female with suicidal ideation in the setting of depression. Her lab work was unremarkable. I had a low suspicion for medical cause of her presentation. She did have finding suggestive of urinary tract infection. She was nontoxic-appearing. I had a low suspicion for sepsis. I recognize that her SIRS criteria are positive. However, I believe her tachycardia was related to her mental health. I ordered Keflex for her. Psychiatry evaluated the patient. She will be admitted to psych for further care. All diagnostic, treatment, and disposition decisions were made by myself in conjunction with the Resident. I also supervised sigala portions of any procedures performed by the Resident. For all further details of the patient's emergency department visit, please see their documentation. (Comment: Please note this report has been produced using speech recognition software and may contain errors related to that system including errors in grammar, punctuation, and spelling, as well as words and phrases that may be inappropriate. If there are any questions or concerns please feel free to contact the dictating provider for clarification.) Maverick Boone MD [employer] Maverick Boone MD 08/25/23 1512 [facility] ED Provider Note EMERGENCY DEPARTMENT ENCOUNTER Pt Name: Tong Sunshine Birthdate 1985 Date of evaluation: 08/25/2023 ED Provider: Jed Hall, DO CHIEF COMPLAINT Chief Complaint Patient presents with ? Depression Pt states that she has had worsening depression over the past 3 days, pt states that she has thoughts of hopelessness and is unable to care for herself or her children at this time. Pt states, I don't really care to live. Pt denies HI. HISTORY OF PRESENT ILLNESS (Location/Symptom, Timing/Onset, Context/Setting, Quality, Duration, Modifying Factors, Severity) Note limiting factors. I wore appropriate PPE for the entirety of this encounter. HPI Tong Sunshine is a 37 y.o. female who presents to the emergency department for SI. Patient reports she was recently discharged with a change in her medication, including abilify and prozac. She reports she has been taking them as prescribed. She reports after her last discharge last week, she started having increasing anxiety, which progressed to insomnia and SI. Reports no plan or intent. Reports she has attempted in the past (a few weeks ago, about 5-6 cuts on left wrist over ulnar side of wrist, scars present). Does have intrusive thoughts that God wants someone to hurt her children. Denies HI. Reports no new changes in her home life since her last visit. Reports no other needs at this time. Nursing Notes were reviewed. Limitations to history: None Outside historians: None REVIEW OF SYSTEMS Review of Systems Constitutional: Negative. HENT: Negative. Respiratory: Negative. Cardiovascular: Negative. Gastrointestinal: Negative. Genitourinary: Negative. Neurological: Negative. Psychiatric/Behavioral: Positive for suicidal ideas. PAST MEDICAL HISTORY Past Medical History: Diagnosis Date ? Bulging lumbar disc 2006 ? 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 Family history of breast cancer in sister ? Family history of cervical cancer ? Family history of diabetes mellitus parents ? History of depression 2010 ? Hx gestational diabetes 2018 ? Hypercholesterolemia ? Meniere disease Dr Foss, ENT in [place] ? depression 2016 rx per OB ? Visit for routine rn gynecology exam Angela Lowe SURGICAL HISTORY Past Surgical History: Procedure Laterality Date ? CARPAL TUNNEL RELEASE Bilateral 2021 Dr. Ivan ? SECTION (HISTORICAL) ? WISDOM TOOTH EXTRACTION CURRENT MEDICATIONS Previous Medications ARIPIPRAZOLE (ABILIFY) 2 MG TABLET Take 1 tablet (2 mg) by mouth daily. FAMCICLOVIR (FAMVIR) 500 MG TABLET Take 1 tablet (500 mg) by mouth 2 times daily for 13 doses. FLUOXETINE (PROZAC) 40 MG CAPSULE Take 2 capsules (80 mg) by mouth daily. ROSUVASTATIN (CRESTOR) 20 MG TABLET Take 1 tablet (20 mg) by mouth daily. ALLERGIES Sertraline FAMILY HISTORY Family History Problem Relation Name Age of Onset ? Diabetes type II Brother ? Cancer Father age 71 fall 2020 of Bile duct CA ? Diabetes Mother 60.00 acutely during CABG, age 60 in 2014 ? Breast cancer Sister 29.00 ? Coronary artery disease Mother ? Hypertension Sister ? Diabetes type II Sister diet controlled SOCIAL HISTORY Social History Socioeconomic History ? Marital status: Tobacco Use ? Smoking status: Never ? Smokeless tobacco: Never Substance and Sexual Activity ? Alcohol use: Never Alcohol/week: 0.0 standard drinks of alcohol ? Drug use: Never Social History Narrative . to Ruddy since 04/28. (Raised in [place] and met on [place]). One son Anthony 02/26, first daughter, Patricia born 11/28. second dtr, Malou in 2018. Second son Shakeel born in 08/05. 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 Social Determinants of Health Financial Resource Strain: Low Risk (08/08/2023) Overall Financial Resource Strain (CARDIA) ? Difficulty of Paying Living Expenses: Not hard at all Food Insecurity: No Food Insecurity (08/08/2023) Hunger Vital Sign ? Worried About Running Out of Food in the Last Year: Never true ? Ran Out of Food in the Last Year: Never true Transportation Needs: No Transportation Needs (08/08/2023) PRAPARE - Transportation ? Lack of Transportation (Medical): No ? Lack of Transportation (Non-Medical): No Physical Activity: Sufficiently Active (08/08/2023) Exercise Vital Sign ? Days of Exercise per Week: 5 days ? Minutes of Exercise per Session: 30 min Stress: Stress Concern Present (08/08/2023) [employer] [place] [employer] - Occupational Stress Questionnaire ? Feeling of Stress : To some extent Social Connections: Moderately Isolated (08/08/2023) Social Connection and Isolation Panel [NHANES] ? Frequency of Communication with Friends and Family: Once a week ? Frequency of Social Gatherings with Friends and Family: Once a week ? Attends Hindu Services: More than 4 times per year (more content not included)... Normal [facility] ETHANOLon 08-25-2023 ETHANOL IN SER/PLAS <0.010 Normal 0.000-0.010 [facility] Comment on above: Result Comment: ORDE R COMMENTS: NOTE: This result is for medical treatment only. Analysis performed using non-forensic procedures. Performed By: #### L AB17, LAB46 ####Funeral Sales Manager: IKER PARRA ([phone])[facility] ([facility])[address] [place] [address] HCG QUALITATIVE URINEon 08-12 Beta HCG ( test) Ql (U) Negative Normal Negative [facility] Comment on above: Result Comment: Qiana french note: Very dilute urine specimens, as indicated by a low specific gravity, may not contain account executive sales representative levels of hCG. If is still suspected, a first morning urine specimen should be collected 48 hours later and tested. ORDER COMMENTS: is the most common reason for HCG in urine, although choriocarcinoma, hydatidiform mole, and certain nontrophoblastic malignancies also result in detectable urinary HCG levels. Sensitivity = 20mIU/mL. Performed By: #### L [id number] ####Funeral Sales Manager: IKER PARRA ([phone])[facility] [place] [address] IDNon 08-25-2023 IDN Problem: Potential f or Harm to Self or Others Goal: Cooperates with admission process 08/25/20231744 by Sonja Fuller RN Outcome: Progressing 08/25/2023 1710 by Sonja Fuller RN Outcome: Progressing Goal: Participates in unit activities Outcome: Progressing Goal: Patient/Family participate in treatment and discharge plans Outcome: Progressing Goal: Identifies deescalation techniques Outcome: Progressing Goal: Understands least restrictive measures 08/25/2023 174 by Sonja Fuller RN Outcome: Progressing 08/25/2023 1710 by Sonja Fuller RN Outcome: Progressing Goal: Identifies stressors that lead to harmful behaviors 08/25/2023 174 by Sonja Fuller RN Outcome: Progressing 08/25/2023 1710 by Sonja Fuller RN Outcome: Progressing Goal: Denies harm toward self or others 08/25/2023 174 by Sonja Fuller RN Outcome: Progressing 08/25/2023 1710 by Sonja Fuller RN Outcome: Progressing Normal [facility] IDN Problem: Potential f or Harm to Self or Others Goal: Cooperates with admission process Outcome: Progressing Goal: Participates in unit activities Outcome: Progressing Goal: Patient/Family participate in treatment and discharge plans Outcome: Progressing Goal: Identifies deescalation techniques Outcome: Progressing Goal: Understands least restrictive measures Outcome: Progressing Goal: Identifies stressors that lead to harmful behaviors Outcome: Progressing Goal: Denies harm toward self or others Outcome: Progressing Normal [facility] Progress Noteon 08-25-2023 Progress Note Pt arrived on unit f rom [facility] ED. Pt oriented to room and unit. Pt ate dinner. Skin assessment completed; no open areas. Pt has 5 faint healed scars on Left wrist from past self injury. Pt denies active SI; no intent. Pt states, ' I just wish I wouldn't wake up. Pt reports poor sleep; maybe 6 hrs a night but broken. Pt states, I haven't been showering or eating. Pt lost 6 lbs since 08/18; dietary consult ordered. and her in- laws are supportive. Affect blunted; sad facial expression; pt reports anxiety/depressive symptoms are high. Pt states, I have been taking my prozac and abilify daily but it's not working. Pt admits she had thoughts yesterday to overdose on meds and was researching how to complete. Much support offered; pt receptive. Pt out in milieu calling . [facility] SARS-COV-2 ANTIGENon 024 SARS-COV-2 ANTIGEN SARS-COV-2 ANTIGEN -BINAX Reference Negative Negative A negative result does not rule out the possibility of SARS-CoV-2 infection. NAAT-based methods should be considered for symptomatic patients presenting greater than seven days after onset of symptoms. Method: Lateral flow immunoassay. Fact sheets for healthcare providers and patients can be found at the following sites: https://www.fda.gov/med ia/466100/download https://www.fda.gov/med ia/330558/download [facility] Comment on above: Performed By: #### L [id number] ####Funeral Sales Manager: IKER PARRA ([phone])[address] 36on 08-23-2023 36 Spoke w pnt. She is a current pnt w Charmaine Lundberg. She'd like a MD psychiatrist. She just had a hospital stay where she was DX w OCD. She is scheduled w Dr Boone on 10/01/23 at 1100. She is keeping her appt w Charmaine this month. [facility] 36 Name of Caller: Tong Sunshine Contact Reason for Appointment: patient is considering switching to another provider within . Patient was seen in-patient with Dr. Andino. Can we check to see who he recommends the patient to see? Patient is open to seeing a resident, Dr. Andino's recommendation, and Dr. Fran Garcia if appropriate for her concerns with OCD and anxiety. Please contact patient to advise and assist with scheduling. Office Name: Medication Refills need, if any: n/a Medication Name: n/a [facility] GROUPNOTEon 08-19-2023 GROUPNOTE Department: [facility] ACTIVITIES THERAPY Group Topic: Other Group Date: 08/19/2023 Start Time: 1330 End Time: 1400 Facilitators: Leo Mathis Number of Participants: 5 Group Name: Trivia Treatment Modality: Leisure Development Purpose: express feelings, improve communication skills, and reinforce self-care Summary: Pts will engage in trivia surrounding several areas of pop culture. After each question and answer, pts are encouraged to discuss their relation to the topic, where they were when such and such happened, when they first heard a song, their first impressions of a movie etc. Name: Tong Sunshine Date of : 1985 MR: [id number] Appearance: Appropriately dressed and groomed Mood: Euthymic Affect: Appropriate Behavior: Pleasant Alertness: Alert Speech: Appropriate Level/Quality of Participation: active Interactions with others: supportive Interventions utilized were Building rapport and engagement and Empathic listening Patient's Response to Intervention: Pt voiced improvement Next Step: Continue with current services Patients Problems: Patient Active Problem List Diagnosis Family history of breast cancer in sister Family history of cervical cancer Family history of diabetes mellitus Hypercholesterolemia Severe episode of recurrent major depressive disorder, without psychotic features (HCC) Meniere disease History of hypothyroidism Obsessive-compulsive disorder BPPV (benign paroxysmal positional vertigo) Chronic fatigue Hypersomnolence Obesity, unspecified Anxiety Suicidal ideation [facility] Nursing Noteon 08-19-2023 Nursing Note Patient was discharg e at this time all paperwork and belongings went with picked up Normal [facility] Nursing Note Went over follow up and discharge orders with patient stating understanding on all reports no SI, hI or A/V 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 Asked by Nursing to see pt regarding pt withcold sores requesting relief. The pt has no other complaints. Pharmacy does not have anything topical for treatment of oralabial herpes simplex. We will initiate Famvir 500 mg twice daily for 7 days and order benzocaine ointment for topical relief of pain. Nonbillable visit [facility] CARECOORDon 08-18-2023 CAR[place]OORD Call received from Jenny Murrieta of [facility]. She confirms case has been screened in for intake. Requested confirmation of the 's phone number so she can follow-up with children in the community. [facility] GROUPNOTEon 08-18-2023 GROUPNOTE Department: [facility] ACTIVITIES THERAPY Group Topic: Other Group Date: 08/18/2023 Start Time: 929 End Time: 1000 Facilitators: Leo Mathis Number of Participants: 3 Group Name: Jukebox Treatment Modality: Leisure Development Purpose: express feelings, improve communication skills, and reinforce self-care Summary: Pts will choose a song from a given list. Pts will share how the song has impacted their life or how the song is meaningful to them. Pts will have the opportunity to listen, sing, or otherwise perform the song with the therapist if they desire. Name: Tong Sunshine Date of : 1985 MR: [id number] Appearance: Appropriately dressed and groomed Mood: Euthymic Affect: Appropriate Behavior: Pleasant Alertness: Alert Speech: Appropriate Level/Quality of Participation: active Interactions with others: supportive Interventions utilized were Building rapport and engagement and Empathic listening Patient's Response to Intervention: Pt voiced improvement Next Step: Continue with current services Patients Problems: Patient Active Problem List Diagnosis Family history of breast cancer in sister Family history of cervical cancer Family history of diabetes mellitus Hypercholesterolemia Severe episode of recurrent major depressive disorder, without psychotic features (HCC) Meniere disease History of hypothyroidism Obsessive-compulsive disorder BPPV (benign paroxysmal positional vertigo) Chronic fatigue Hypersomnolence Obesity, unspecified Anxiety Suicidal ideation [facility] GROUPNOTE Department: [facility] Dual Diagnosis Unit 6 Group Topic: Defense Mechanisms Group Date: 08/18/2023 Start Time: 1030 End Time: 111 Facilitators: BRYAN Farah Number of Participants: 4 Group Name: Dual Diagnosis Treatment Modality: Cognitive Behavioral Therapy Purpose: enhance coping skills Summary: The group members each introduced themselves and shared one goal they were working on today. The group read a meditation from the Language of Letting Go book on denial and how safety and loving kindness can help a person with acceptance. The group read the children's story There is No Such thing as a Dragon which teaches that denial of issues or problems can cause them to grow and become more unmanageable. Each group member was asked what they believed the dragon represented in their life. The group discussed why it is hard to see our own problems and why we use denial to cope with life. Name: Tong Sunshine Date of : 1985 MR: [id number] Mental Status Exam: Appearance: Appropriately dressed and groomed Mood: Anxious and Depressed Affect: Full Behavior: Cooperative Alertness: Alert Speech: Appropriate Cognition: Intact Thought Process: Goal-directed Thought Content: No evidence of psychosis/delusions Level/Quality of Participation: attentive Interactions with others: gave feedback Interventions utilized were Building rapport and engagement, Empathic listening, and Cognitive Behavioral Therapy (CBT) Patient's Response to Intervention: Pt came to group and was attentive. Pt reported that the dragon represented her mental health issues Progress Towards Goal(s): Minimal Additional Comments: N/A Next Step: Continue with current services Patients Problems: Patient Active Problem List Diagnosis Family history of breast cancer in sister Family history of cervical cancer Family history of diabetes mellitus Hypercholesterolemia Severe episode of recurrent major depressive disorder, without psychotic features (HCC) Meniere disease History of hypothyroidism Obsessive-compulsive disorder BPPV (benign paroxysmal positional vertigo) Chronic fatigue Hypersomnolence Obesity, unspecified Anxiety Suicidal ideation [facility] IDNon 08-18-2023 IDN Problem: Potential f or Harm to Self or Others Goal: Participates in unit activities Outcome: Progressing Goal: Patient/Family participate in treatment and discharge plans Outcome: Progressing Goal: Identifies deescalation techniques Outcome: Progressing Goal: Understands least restrictive measures Outcome: Progressing Goal: Identifies stressors that lead to harmful behaviors Outcome: Progressing Goal: Notifies staff when experiencing harmful thoughts toward self/others Outcome: Progressing Goal: Denies harm toward self or others Outcome: Progressing Goal: Free from restraint events Outcome: Progressing Problem: Ineffective Coping Goal: Identifies ineffective coping skills Outcome: Progressing Goal: Identifies healthy coping skills Outcome: Progressing Goal: Demonstrates healthy coping skills Outcome: Progressing Goal: Participates in unit activities Outcome: Progressing Problem: Anxiety Goal: Attempts to manage anxiety with help Outcome: Progressing Goal: Verbalizes ways to manage anxiety Outcome: Progressing Goal: Implements measures to reduce anxiety Outcome: Progressing Problem: Problem Interventions Goal: Dietary Supplements Outcome: Progressing [facility] Nursing Noteon 08-18-2023 Nursing Note Patient was in her room, working on a [employer], at the time of assessment. Patient appears friendly, calm, cooperative, and med compliant. Patient denies SI, HI, AVH at this time. Patient reports eating breakfast and states she had a hard time falling asleep. Patient reports sleeping well once she was able to fall asleep. Patient reports that she felt jittery yesterday after taking an increased dose of Prozac. Patient reports It lasted about two hours, but then I was fine. Patient instructed to seek staff if she feels jittery with this dose. Patient states she feels she may be ready to go home today as she thinks about everything she needs to start getting done with work and around the house. Patient stated she will speak to her doctor to see what he thinks. Patient denies needs or concerns at this time but is encouraged to seek staff should one arise. Will continue to monitor. [facility] Progress Noteon 08-18-2023 Progress Note Pt was in common are a when approached by RN during assessment. Pt appeared anxious but was cooperative during interaction. Pt denies any SI/HI and denies AH/VH at this time. Pt states she's been eating and sleeping fine. Pt is med compliant. Pt did request PRN klonopin for anxiety. PRN klonopin was administered. Pt is encouraged to see staff with any questions or concerns. Plan of care ongoing. No further concerns at this time. [facility] Progress Note Pt is calm and cooperative. She is social out on the unit. She is compliant with medications. She denies SI/HI/AVH and pain. She voices no complaints. She reports sleeping well and a good appetite. She reported some anxiety at start of shift but it resolved without the need for additional prn medication. Will continue to monitor and provide support as needed. [facility] CARECOORDon 08-17-2023 [facility] limehouse worker met wi th patient. It was explained that treatment team believed a B call would need to be made based on patient's intrusive thoughts of wanting to harm her children. During previous admission several years ago a similar action was taken. She states at that point in time she had a paymaster of purses come out of the house once and then followed up with several phone calls. She states her case was subsequently closed. She confirms that children in the home are: Bobby aged 8, Patricia age 6, and age 4, and Shakeel age 2. They are currently being cared for by their father, grandmother and another family member while patient is hospitalized. She states her Ruddy [phone] is not specifically supportive of mental health and asked if social work could in fact call to inform him of the above. limehouse worker will make that phone call., [facility] was informed of the above. Attempted to contact patient's . VM left requesting a call back. [facility] IDNon 08-17-2023 IDN Problem: Potential f or Harm to Self or Others Goal: Participates in unit activities Outcome: Progressing Goal: Patient/Family participate in treatment and discharge plans Outcome: Progressing Goal: Identifies deescalation techniques Outcome: Progressing Goal: Understands least restrictive measures Outcome: Progressing Goal: Identifies stressors that lead to harmful behaviors Outcome: Progressing Goal: Notifies staff when experiencing harmful thoughts toward self/others Outcome: Progressing Goal: Denies harm toward self or others Outcome: Progressing Goal: Free from restraint events Outcome: Progressing Problem: Ineffective Coping Goal: Identifies ineffective coping skills Outcome: Progressing Goal: Identifies healthy coping skills Outcome: Progressing Goal: Demonstrates healthy coping skills Outcome: Progressing Goal: Participates in unit activities Outcome: Progressing Problem: Anxiety Goal: Attempts to manage anxiety with help Outcome: Progressing Goal: Verbalizes ways to manage anxiety Outcome: Progressing Goal: Implements measures to reduce anxiety Outcome: Progressing [facility] IDN Problem: Potential f or Harm to Self or Others Goal: Participates in unit activities Outcome: Progressing Problem: Potential for Harm to Self or Others Goal: Denies harm toward self or others Outcome: Progressing Problem: Ineffective Coping Goal: Demonstrates healthy coping skills Outcome: Progressing Problem: Anxiety Goal: Implements measures to reduce anxiety Outcome: Progressing [facility] IDN Problem: Potential f or Harm to Self or Others Goal: Participates in unit activities Outcome: Progressing Goal: Patient/Family participate in treatment and discharge plans Outcome: Progressing Goal: Identifies deescalation techniques Outcome: Progressing Goal: Understands least restrictive measures Outcome: Progressing Goal: Identifies stressors that lead to harmful behaviors Outcome: Progressing Goal: Notifies staff when experiencing harmful thoughts toward self/others Outcome: Progressing Goal: Denies harm toward self or others Outcome: Progressing Goal: Free from restraint events Outcome: Progressing Problem: Anxiety Goal: Attempts to manage anxiety with help Outcome: Progressing Goal: Verbalizes ways to manage anxiety Outcome: Progressing Goal: Implements measures to reduce anxiety Outcome: Progressing Problem: Problem Interventions Goal: Dietary Supplements Outcome: Progressing [facility] Progress Noteon 08-17-2023 Progress Note Nutrition update completed. Chart reviewed. Patient continues as a level 1. [facility] Progress Note Pt was seen for morn ing assessment out in the common area while watching TV. Pt was pleasant and cooperative throughout the entire interaction and denied having any thoughts of SI/HI or AH/VH while speaking to this nurse. Pt was compliant with taking her scheduled morning dose of medication without issue and has not requested any prn medications so far today. Pt stated she slept pretty good last night and ate her entire breakfast tray. Pt has been seen sitting out in the common area watching TV and socializing with her peers. Pt was encouraged to seek out a staff member or come to the net front end developer with any questions or concerns throughout the day. Will continue to monitor the pt in order to maintain safety while on the unit. Proper PPE was worn throughout the entire pt interaction. Normal [facility] Progress Note Pt calm and cooperative. Compliant with medication. Denies SI/HI/AVH. Voices no complaints. She has slept well through the night. Will continue to monitor and provide support as needed. [facility] Behavioral Health Treatment Planon 08-16-2023 Behavioral Health Treatment Plan Denies SI/HI/AVH. Reports intrusive thoughts to harm her babies on Wednesday. Medication complaint. Follow up with Charmaine Lundberg. IOP encouraged. Normal [facility] GROUPNOTEon 08-16-2023 GROUPNOTE Department: [facility] ACTIVITIES THERAPY Group Topic: Other Group Date: 08/16/2023 Start Time: 1330 End Time: 1400 Facilitators: Rosa Allred Number of Participants: 3 Group Name: Setting Goals Treatment Modality: Activity Therapy Purpose: enhance coping skills and express feelings Summary: Patient will focus on setting daily goals identifying positive steps to wellness resources and steps to complete. Discussion benefits of receiving support and encouragement. Name: Tong Sunshine Date of : 1985 MR: [id number] Appearance: Appropriately dressed and groomed Affect: Appropriate Behavior: Pleasant Alertness: Alert Speech: Appropriate Level/Quality of Participation: active Interactions with others: supportive Interventions utilized were Building rapport and engagement and Empathic listening Patient's Response to Intervention: Patient meet expectations of group setting a goal to reinforce self care. Will continue to offer groups and encourage participation face mask worn at all times during patient interations. Patients Problems: Patient Active Problem List Diagnosis Family history of breast cancer in sister Family history of cervical cancer Family history of diabetes mellitus Hypercholesterolemia Severe episode of recurrent major depressive disorder, without psychotic features (HCC) Meniere disease History of hypothyroidism Obsessive-compulsive disorder BPPV (benign paroxysmal positional vertigo) Chronic fatigue Hypersomnolence Obesity, unspecified Anxiety Suicidal ideation Normal [facility] GROUPNOTE Department: [facility] Dual Diagnosis Unit 6 Group Topic: Check-in Group Date: 08/16/2023 Start Time: 1045 End Time: 1130 Facilitators: BRYAN Farah Number of Participants: 5 Group Name: Dual Diagnosis Treatment Modality: Cognitive Behavioral Therapy Purpose: enhance coping skills Summary: Group members were each given the opportunity to check in. Each group member shared their name, a goal they were working on while in the hospital, and how they are currently feeling about their progress toward that goal. Name: Tong Sunshine Date of : 1985 MR: [id number] Mental Status Exam: Appearance: Appropriately dressed and groomed Mood: Anxious and Depressed Affect: Full Behavior: Cooperative Alertness: Alert Speech: Appropriate Cognition: Intact Thought Process: Goal-directed Thought Content: No evidence of psychosis/delusions Level/Quality of Participation: attentive Interactions with others: gave feedback Interventions utilized were Building rapport and engagement, Empathic listening, and Cognitive Behavioral Therapy (CBT) Patient's Response to Intervention: Pt came to group and was attentive. Pt shared that she is struggling with obsessive thoughts. Pt reported that she plans on seeing a therapist after discharge. Progress Towards Goal(s): Minimal Additional Comments: N/A Next Step: Continue with current services Patients Problems: Patient Active Problem List Diagnosis Family history of breast cancer in sister Family history of cervical cancer Family history of diabetes mellitus Hypercholesterolemia Severe episode of recurrent major depressive disorder, without psychotic features (HCC) Meniere disease History of hypothyroidism Obsessive-compulsive disorder BPPV (benign paroxysmal positional vertigo) Chronic fatigue Hypersomnolence Obesity, unspecified Anxiety Suicidal ideation [facility] GROUPNOTE Department: [facility] ACTIVITIES THERAPY Group Topic: Art Therapy Group Date: 08/16/2023 Start Time: 0900 End Time: 1030 Facilitators: BRYAN Birmingahm Number of Participants: 4 Group Name: Art Therapy: Letting Go Boats; Acceptance Treatment Modality: Art Therapy and Patient-Centered Therapy Purpose: enhance coping skills, explore maladaptive thinking, express feelings, regain self-worth, and reinforce self-care Summary: Therapist facilitated group discussion of knowing what and when to let go (i.e. Acceptance). Therapist facilitated art therapy task: Create an origami boat symbolic of Letting Go and include what/who you would like to let go of that is not serving you well. Therapist facilitated processing of completed boat art work. Name: Tong Sunshine Date of : 1985 MR: [id number] Mental Status Exam: Appearance: Appropriately dressed and groomed Mood: Euthymic Affect: Appropriate Behavior: Pleasant, Cooperative, Engaging, and Interactive Alertness: Alert and tired and drowsy when not making art, especially when she finished art before other patients finished their art Speech: Appropriate Cognition: Intact Thought Process: Goal-directed Thought Content: No evidence of psychosis/delusions Level/Quality of Participation: active, attentive, cooperative, engaged, and motivated Interactions with others: Sociable and supportive Interventions utilized were Building rapport and engagement, Empathic listening, Psychoeducation, Art therapy, Motivational interviewing techniques, and Expressive therapy Patient's Response to Intervention: Patient appropriately participated in discussion of to let go of. Patient actively participated in creating boat art. Patient actively engaged processing their individual boat art with the group. Patient stated she will let go of obsessive thoughts and stated there is a stream in the park where she walks with her family and will let the boat go there. Progress Towards Goal(s): Moderate Additional Comments: None Next Step: Continue with current services Patients Problems: Patient Active Problem List Diagnosis Family history of breast cancer in sister Family history of cervical cancer Family history of diabetes mellitus Hypercholesterolemia Severe episode of recurrent major depressive disorder, without psychotic features (HCC) Meniere disease History of hypothyroidism Obsessive-compulsive disorder BPPV (benign paroxysmal positional vertigo) Chronic fatigue Hypersomnolence Obesity, unspecified Anxiety Suicidal ideation Normal [facility] Progress Noteon 08-16-2023 Progress Note Patient was observed watching TV in the day area this morning. Patient is calm and cooperative with staff. Takes scheduled medication without issue. Denies thoughts of SI/HI and hallucinations. Patient is hopeful that they will be discharged today. Will continue to monitor. Encouraged pt to seek staff with any concerns. Normal [facility] GROUPNOTEon 08-15-2023 GROUPNOTE Department: [facility] ACTIVITIES THERAPY Group Topic: Other Group Date: 08/15/2023 Start Time: 1230 End Time: 1257 Facilitators: Pham Nascimento Number of Participants: 4 Group Name: Gentle Stretch Treatment Modality: Recreation Therapy Purpose: reinforce self-care and mind/body connection Summary: Gentle Stretch - To allow Patients the opportunity to engage in gentle stretching from a chair. During the intervention Patients are encouraged to be present in the movements as a means to connect mind and body. Patients are expected to practice self-care by not pushing they're limits and instead working within them. Support is offered as needed to meet this expectation. Name: Tong Sunshine Date of : 1985 MR: [id number] Appearance: Good eye contact Affect: Flat Behavior: Cooperative Alertness: Alert Speech: Appropriate Level/Quality of Participation: attentive Interactions with others: na Interventions utilized were Modeling/skills training Patient's Response to Intervention: Patient was able to meet expectations for group without support required. Patient denied any discomfort following the intervention. Patient reported feeling the same compared to the start of group and the ability to respect physical limits. Patient supported in practicing another form of self care today. Continue to engage Patient in groups to address stated treatment goals and objectives. Patients Problems: Patient Active Problem List Diagnosis Family history of breast cancer in sister Family history of cervical cancer Family history of diabetes mellitus Hypercholesterolemia Severe episode of recurrent major depressive disorder, without psychotic features (HCC) Meniere disease History of hypothyroidism Obsessive-compulsive disorder BPPV (benign paroxysmal positional vertigo) Chronic fatigue Hypersomnolence Obesity, unspecified Anxiety Suicidal ideation Normal [facility] IDNon 08-15-2023 IDN Problem: Potential f or Harm to Self or Others Goal: Participates in unit activities Outcome: Progressing Goal: Patient/Family participate in treatment and discharge plans Outcome: Progressing Goal: Identifies deescalation techniques Outcome: Progressing Goal: Understands least restrictive measures Outcome: Progressing Goal: Identifies stressors that lead to harmful behaviors Outcome: Progressing Goal: Notifies staff when experiencing harmful thoughts toward self/others Outcome: Progressing Goal: Denies harm toward self or others Outcome: Progressing Goal: Free from restraint events Outcome: Progressing Problem: Ineffective Coping Goal: Identifies ineffective coping skills Outcome: Progressing Goal: Identifies healthy coping skills Outcome: Progressing Goal: Demonstrates healthy coping skills Outcome: Progressing Goal: Participates in unit activities Outcome: Progressing Problem: Anxiety Goal: Attempts to manage anxiety with help Outcome: Progressing Goal: Verbalizes ways to manage anxiety Outcome: Progressing Goal: Implements measures to reduce anxiety Outcome: Progressing Problem: Problem Interventions Goal: Dietary Supplements Outcome: Progressing Normal [facility] Progress Noteon 08-15-2023 Progress Note Pt was in common are a when approached by RN during assessment. Pt appeared anxious but was cooperative during interaction. Pt denies any SI/HI and denies any AH/VH at this time. Pt states she's been eating and sleeping good. Pt is med compliant. Pt requested to take PRN vistaril for anxiety over the klonopin this evening. Pt states she just feels better after taking the vistaril verses the klonopin for anxiety. PRN vistaril was administered. Pt is encouraged to see staff with any questions or concerns. Plan of are ongoing. No further concerns at this time. [facility] Progress Note Chief Complaints: Unspecified mood disorder, OCD Target Symptoms: Mood and anxiety symptoms Interval history: The patient was admitted on August 08, 2023. Her symptoms are severe in intensity and intermittent in nature. They have been present for the last several years. The patient states that she is not doing well today. She continues to have anxiety and depression but her intrusive thoughts are better. She slept fair. She is eating fair. She denied any current suicidal or homicidal ideations, intent or plan. She was withdrawn to her room this morning. She denied any symptoms of leti or psychosis. No binging, purging or restricting behavior. Labs: Admission on 08/08/2023 Component Date Value Ref Range Status SODIUM 08/08/2023 138 135 - 145 mmol/L Final POTASSIUM 08/08/2023 3.9 3.5 - 5.1 mmol/L Final CHLORIDE 08/08/2023 104 98 - 107 mmol/L Final CARBON DIOXIDE 08/08/2023 25 22 - 30 mmol/L Final ANION GAP 08/08/2023 9 3 - 13 mmol/L Final UREA NITROGEN 08/08/2023 9 7 - 17 mg/dL Final CREATININE 08/08/2023 0.47 (L) 0.52 - 1.04 mg/dL Final GLUCOSE 08/08/2023 125 (H) 70 - 100 mg/dL Final CALCIUM 08/08/2023 9.5 8.4 - 10.4 mg/dL Final AST (SGOT) 08/08/2023 24 15 - 46 U/L Final ALT 08/08/2023 21 0 - 34 U/L Final ALKALINE PHOSPHATASE 08/08/2023 63 38 - 126 U/L Final ALBUMIN 08/08/2023 4.8 3.5 - 5.0 g/dL Final BILIRUBIN, TOTAL 08/08/2023 0.6 0.2 - 1.3 mg/dL Final TOTAL PROTEIN 08/08/2023 8.8 (H) 6.3 - 8.2 g/dL Final eGFR 08/08/2023 >90.0 >60.0 mL/min/1.73m*2 Final Calculation based on the Chronic Kidney Disease Epidemiology Collaboration (CKD-EPI) equation refit without adjustment for race Auto WBC 08/08/2023 11.1 (H) 3.6 - 10.7 10*3/uL Final RBC 08/08/2023 5.33 (H) 3.8 - 5.20 10*6/uL Final Hemoglobin 08/08/2023 15.0 11.7 - 16.0 g/dL Final Hematocrit 08/08/2023 44.6 35.0 - 47.0 % Final MCV 08/08/2023 83.6 80.0 - 98.0 fL Final MCH 08/08/2023 28.0 26.0 - 34.0 pg Final MCHC 08/08/2023 33.5 32.0 - 36.0 % Final RDW 08/08/2023 13.6 11.5 - 14.5 % Final Platelets 08/08/2023 326 140 - 440 10*3/uL Final MPV 08/08/2023 7.6 7.4 - 12.4 fL Final nRBC 08/08/2023 0.0 0.0 - 2.0 /100 WBCs Final Neutrophils Relative 08/08/2023 74.9 40.0 - 80.0 % Final Lymphocytes Relative 08/08/2023 19.8 (L) 20.0 - 40.0 % Final Monocytes Relative 08/08/2023 4.6 2.0 - 10.0 % Final Eosinophils Relative 08/08/2023 0.1 (L) 1.0 - 6.0 % Final Basophils Relative 08/08/2023 0.6 0.0 - 2.0 % Final Neutrophils Absolute 08/08/2023 8.3 (H) 1.8 - 7.0 10*3/uL Final Lymphocytes Absolute 08/08/2023 2.2 1.0 - 4.3 10*3/uL Final Monocytes Absolute 08/08/2023 0.5 0.0 - 0.8 10*3/uL Final Eosinophils Absolute 08/08/2023 0.0 0.0 - 0.5 10*3/uL Final Basophils Absolute 08/08/2023 0.1 0.0 - 0.2 10*3/uL Final SARS-CoV-2 Antigen 08/08/2023 Negative Negative Final A negative result does not rule out the possibility of SARS-CoV-2 infection. NAAT-based methods should be considered for symptomatic patients presenting greater than seven days after onset of symptoms. Method: Lateral flow immunoassay. Fact sheets for healthcare providers and patients can be found at the following sites: https://www.fda.gov/med ia/756563/download https://www.fda.gov/med ia/713565/download AMPHETAMINE SCREEN 08/08/2023 Negative Final BARBITURATES SCREEN 08/08/2023 Negative Final BENZODIAZEPINE SCREEN 08/08/2023 Negative Final COCAINE METAB. SCREEN 08/08/2023 Negative Final METHADONE SCREEN 08/08/2023 Negative Final OPIATES SCREEN 08/08/2023 Negative Final OXYCODONE SCREEN 08/08/2023 Negative Final PHENCYCLIDINE SCREEN 08/08/2023 Negative Final Color, Urine 08/08/2023 Light Yellow Lt. Yellow Final Clarity, Urine 08/08/2023 Clear Clear Final pH, Urine 08/08/2023 7.5 5.0 - 8.0 pH Final Leukocytes, Urine 08/08/2023 25 (A) Negative Riki/uL Final Nitrite, Urine 08/08/2023 Negative Negative Final Protein, Urine 08/08/2023 Negative Negative mg/dL Final Glucose, Urine 08/08/2023 Normal Normal (<70) mg/dL Final Bilirubin, Urine 08/08/2023 Negative Negative mg/dL Final Ketones, Urine 08/08/2023 Trace (A) Negative mg/dL Final Urobilinogen, Urine 08/08/2023 Normal Normal (0-1) mg/dL Final Blood, Urine 08/08/2023 Negative Negative mg/dL Final RBC, Urine 08/08/2023 0-2 0 - 2 /HPF Final WBC, Urine 08/08/2023 3-5 0 - 5 /HPF Final Squamous Epithelial, Urine 08/08/2023 3-5 3 - 5 /HPF Final Bacteria, Urine 08/08/2023 Negative Negative /HPF Final Hyaline Casts, Urine 08/08/2023 Negative Negative /LPF Final SPECIFIC GRAVITY OF URINE (NUMERIC) 08/08/2023 1.012 1.005 - 1.030 Final Heart Rate 08/08/2023 97 bpm Final QRSD Interval 08/08/2023 85 ms Final QT Interval 08/08/2023 344 ms Final QTC Interval 08/08/2023 438 ms Final P [place] 08/08/2023 0 degrees Final QRS [place] 08/08/2023 64 degrees Final T Wave [place] 08/08/2023 0 degrees Final TX Interval 08/08/2023 150 ms Final HEMOGLOBIN A1C 08/09/2023 5.8 (H) <5.7 % Final Normal less than 5.7% Pre (more content not included)... Normal [facility] Progress Note Pt was withdrawn to room this morning. She was compliant with AM medications. She denies SI/HI and hallucinations. She voices no concerns at this time. [facility] GROUPNOTEon 08-14-2023 GROUPNOTE Department: [facility] ACTIVITIES THERAPY Group Topic: Music Therapy Group Date: 08/14/2023 Start Time: 1230 End Time: 1300 Facilitators: Deidre Mccoy Number of Participants: 3 Group Name: Music and art Treatment Modality: Music therapy Purpose: enhance coping skills Summary: Pt was given the opportunity to share a song that has been helpful to them in a difficult time or makes them feel better with the group. Pt was asked to give feedback to peer choices. Discussed how music can be used as a coping skill and for emotional regulation and expression while coloring mandalas Name: Tong Sunhsine Date of : 1985 MR: [id number] Mental Status Exam: Appearance: Appropriately dressed and groomed Mood: Euthymic Affect: Full Behavior: Pleasant and Cooperative Alertness: Alert Speech: Appropriate Cognition: Intact Thought Process: Goal-directed Thought Content: No evidence of psychosis/delusions Level/Quality of Participation: active Interactions with others: gave feedback Interventions utilized were Building rapport and engagement Patient's Response to Intervention: Patient completed task appropriately Progress Towards Goal(s): Moderate Next Step: Continue with current services Patients Problems: Patient Active Problem List Diagnosis Family history of breast cancer in sister Family history of cervical cancer Family history of diabetes mellitus Hypercholesterolemia Severe episode of recurrent major depressive disorder, without psychotic features (HCC) Meniere disease History of hypothyroidism Obsessive-compulsive disorder BPPV (benign paroxysmal positional vertigo) Chronic fatigue Hypersomnolence Obesity, unspecified Anxiety Suicidal ideation Normal [facility] IDNon 08-14-2023 IDN Problem: Potential f or Harm to Self or Others Goal: Participates in unit activities Outcome: Progressing Goal: Patient/Family participate in treatment and discharge plans Outcome: Progressing Goal: Identifies deescalation techniques Outcome: Progressing Goal: Understands least restrictive measures Outcome: Progressing Goal: Identifies stressors that lead to harmful behaviors Outcome: Progressing Goal: Notifies staff when experiencing harmful thoughts toward self/others Outcome: Progressing Goal: Denies harm toward self or others Outcome: Progressing Goal: Free from restraint events Outcome: Progressing Problem: Ineffective Coping Goal: Identifies ineffective coping skills Outcome: Progressing Goal: Identifies healthy coping skills Outcome: Progressing Goal: Demonstrates healthy coping skills Outcome: Progressing Goal: Participates in unit activities Outcome: Progressing Problem: Anxiety Goal: Attempts to manage anxiety with help Outcome: Progressing Goal: Verbalizes ways to manage anxiety Outcome: Progressing Goal: Implements measures to reduce anxiety Outcome: Progressing Problem: Problem Interventions Goal: Dietary Supplements Outcome: Progressing Normal [facility] IDN Problem: Potential f or Harm to Self or Others Goal: Participates in unit activities Outcome: Progressing Goal: Patient/Family participate in treatment and discharge plans Outcome: Progressing Goal: Identifies deescalation techniques Outcome: Progressing Goal: Understands least restrictive measures Outcome: Progressing Goal: Identifies stressors that lead to harmful behaviors Outcome: Progressing Goal: Notifies staff when experiencing harmful thoughts toward self/others Outcome: Progressing Goal: Denies harm toward self or others Outcome: Progressing Goal: Free from restraint events Outcome: Progressing Problem: Ineffective Coping Goal: Identifies ineffective coping skills Outcome: Progressing Goal: Identifies healthy coping skills Outcome: Progressing Goal: Demonstrates healthy coping skills Outcome: Progressing Goal: Participates in unit activities Outcome: Progressing Problem: Anxiety Goal: Attempts to manage anxiety with help Outcome: Progressing Goal: Verbalizes ways to manage anxiety Outcome: Progressing Goal: Implements measures to reduce anxiety Outcome: Progressing [facility] Progress Noteon 08-14-2023 Progress Note Pt was in common are a when approached by RN during assessment. Pt appeared anxious and depressed during interaction. Pt denies any SI/HI and denies any AH/VH at this time. Pt states she's been eating and sleeping good. Pt is med compliant. Pt requested PRN vistaril for anxiety this evening. Pt stated that she wanted the vistaril instead of the klonopin at this time for her anxiety. PRN vistaril was administered. Pt is encouraged to see staff with any questions or concerns. Plan of care ongoing. No further concerns at this time. [facility] Progress Note Chief Complaints: Unspecified mood disorder, OCD Target Symptoms: Mood and anxiety symptoms Interval history: The patient was admitted on August 08, 2023. Her symptoms are severe in intensity and intermittent in nature. They have been present for the last several years. The patient states that she thought that she was getting better but then she got worse. She states that yesterday when she was told that she is was going to be discharged she got extremely anxious. Her intrusive thoughts of harming her babies came back. She got upset with herself, as to why she is thinking that way. She said that she loves her 4 kids. She denied any current suicidal or homicidal ideations, intent or plan. She denied any symptoms of leti or psychosis. No obsessions or compulsions. No binging, purging or restricting behavior. Labs: Admission on 08/08/2023 Component Date Value Ref Range Status SODIUM 08/08/2023 138 135 - 145 mmol/L Final POTASSIUM 08/08/2023 3.9 3.5 - 5.1 mmol/L Final CHLORIDE 08/08/2023 104 98 - 107 mmol/L Final CARBON DIOXIDE 08/08/2023 25 22 - 30 mmol/L Final ANION GAP 08/08/2023 9 3 - 13 mmol/L Final UREA NITROGEN 08/08/2023 9 7 - 17 mg/dL Final CREATININE 08/08/2023 0.47 (L) 0.52 - 1.04 mg/dL Final GLUCOSE 08/08/2023 125 (H) 70 - 100 mg/dL Final CALCIUM 08/08/2023 9.5 8.4 - 10.4 mg/dL Final AST (SGOT) 08/08/2023 24 15 - 46 U/L Final ALT 08/08/2023 21 0 - 34 U/L Final ALKALINE PHOSPHATASE 08/08/2023 63 38 - 126 U/L Final ALBUMIN 08/08/2023 4.8 3.5 - 5.0 g/dL Final BILIRUBIN, TOTAL 08/08/2023 0.6 0.2 - 1.3 mg/dL Final TOTAL PROTEIN 08/08/2023 8.8 (H) 6.3 - 8.2 g/dL Final eGFR 08/08/2023 >90.0 >60.0 mL/min/1.73m*2 Final Calculation based on the Chronic Kidney Disease Epidemiology Collaboration (CKD-EPI) equation refit without adjustment for race Auto WBC 08/08/2023 11.1 (H) 3.6 - 10.7 10*3/uL Final RBC 08/08/2023 5.33 (H) 3.8 - 5.20 10*6/uL Final Hemoglobin 08/08/2023 15.0 11.7 - 16.0 g/dL Final Hematocrit 08/08/2023 44.6 35.0 - 47.0 % Final MCV 08/08/2023 83.6 80.0 - 98.0 fL Final MCH 08/08/2023 28.0 26.0 - 34.0 pg Final MCHC 08/08/2023 33.5 32.0 - 36.0 % Final RDW 08/08/2023 13.6 11.5 - 14.5 % Final Platelets 08/08/2023 326 140 - 440 10*3/uL Final MPV 08/08/2023 7.6 7.4 - 12.4 fL Final nRBC 08/08/2023 0.0 0.0 - 2.0 /100 WBCs Final Neutrophils Relative 08/08/2023 74.9 40.0 - 80.0 % Final Lymphocytes Relative 08/08/2023 19.8 (L) 20.0 - 40.0 % Final Monocytes Relative 08/08/2023 4.6 2.0 - 10.0 % Final Eosinophils Relative 08/08/2023 0.1 (L) 1.0 - 6.0 % Final Basophils Relative 08/08/2023 0.6 0.0 - 2.0 % Final Neutrophils Absolute 08/08/2023 8.3 (H) 1.8 - 7.0 10*3/uL Final Lymphocytes Absolute 08/08/2023 2.2 1.0 - 4.3 10*3/uL Final Monocytes Absolute 08/08/2023 0.5 0.0 - 0.8 10*3/uL Final Eosinophils Absolute 08/08/2023 0.0 0.0 - 0.5 10*3/uL Final Basophils Absolute 08/08/2023 0.1 0.0 - 0.2 10*3/uL Final SARS-CoV-2 Antigen 08/08/2023 Negative Negative Final A negative result does not rule out the possibility of SARS-CoV-2 infection. NAAT-based methods should be considered for symptomatic patients presenting greater than seven days after onset of symptoms. Method: Lateral flow immunoassay. Fact sheets for healthcare providers and patients can be found at the following sites: https://www.fda.gov/med ia/513221/download https://www.fda.gov/med ia/769645/download AMPHETAMINE SCREEN 08/08/2023 Negative Final BARBITURATES SCREEN 08/08/2023 Negative Final BENZODIAZEPINE SCREEN 08/08/2023 Negative Final COCAINE METAB. SCREEN 08/08/2023 Negative Final METHADONE SCREEN 08/08/2023 Negative Final OPIATES SCREEN 08/08/2023 Negative Final OXYCODONE SCREEN 08/08/2023 Negative Final PHENCYCLIDINE SCREEN 08/08/2023 Negative Final Color, Urine 08/08/2023 Light Yellow Lt. Yellow Final Clarity, Urine 08/08/2023 Clear Clear Final pH, Urine 08/08/2023 7.5 5.0 - 8.0 pH Final Leukocytes, Urine 08/08/2023 25 (A) Negative Riki/uL Final Nitrite, Urine 08/08/2023 Negative Negative Final Protein, Urine 08/08/2023 Negative Negative mg/dL Final Glucose, Urine 08/08/2023 Normal Normal (<70) mg/dL Final Bilirubin, Urine 08/08/2023 Negative Negative mg/dL Final Ketones, Urine 08/08/2023 Trace (A) Negative mg/dL Final Urobilinogen, Urine 08/08/2023 Normal Normal (0-1) mg/dL Final Blood, Urine 08/08/2023 Negative Negative mg/dL Final RBC, Urine 08/08/2023 0-2 0 - 2 /HPF Final WBC, Urine 08/08/2023 3-5 0 - 5 /HPF Final Squamous Epithelial, Urine 08/08/2023 3-5 3 - 5 /HPF Final Bacteria, Urine 08/08/2023 Negative Negative /HPF Final Hyaline Casts, Urine 08/08/2023 Negative Negative /LPF Final SPECIFIC GRAVITY OF URINE (NUMERIC) 08/08/2023 1.012 1.005 - 1.030 Final Heart Rate 08/08/2023 97 bpm Final QRSD Interval 08/08/2023 85 ms Final QT Interval 08/08/2023 344 ms Final QTC Interval 08/08/2023 438 ms Final P [place] 08/08/2023 0 degrees Final QRS [place] 08/08/2023 64 (more content not included)... Normal [facility] Progress Note Pt seen in her room this morning. Pt flat and depressed during assessment. States, when I was told I was gonna go home on Wednesday I just freaked out and started having the bad thoughts again. I just don't know what to do. Pt tearful when discussing this and stated she would talk with her who is her main source of support. Denies SI/HI/AVH. Med compliant. Pt received PRN vistaril for anxiety with morning medication. Pt encouraged to seek out staff with any needs or concerns. Will continue to monitor. Normal [facility] GROUPNOTEon 08-13-2023 GROUPNOTE Department: [facility] ACTIVITIES THERAPY Group Topic: Music Therapy Group Date: 08/13/2023 Start Time: 0930 End Time: 1000 Facilitators: Deidre Mccoy Number of Participants: 1 Group Name: Song Share Treatment Modality: Music therapy Purpose: enhance coping skills Summary: Pt was given the opportunity to share a song that has been helpful to them in a difficult time or makes them feel better with the group. Pt was asked to give feedback to peer choices. Discussed how music can be used as a coping skill and for emotional regulation and expression. Name: Tong Sunshine Date of : 1985 MR: [id number] Patients Problems: Patient Active Problem List Diagnosis Family history of breast cancer in sister Family history of cervical cancer Family history of diabetes mellitus Hypercholesterolemia Severe episode of recurrent major depressive disorder, without psychotic features (HCC) Meniere disease History of hypothyroidism Obsessive-compulsive disorder BPPV (benign paroxysmal positional vertigo) Chronic fatigue Hypersomnolence Obesity, unspecified Anxiety Suicidal ideation Normal [facility] GROUPNOTE Department: [facility] ACTIVITIES THERAPY Group Topic: Art Therapy Group Date: 08/13/2023 Start Time: 1400 End Time: 1530 Facilitators: BRYAN [place] Number of Participants: 6 Group Name: Art Therapy: Mindfulness; [place] Treatment Modality: Art Therapy, Leisure Development, Psychoeducation, and Skills Training Purpose: enhance coping skills, express feelings, increase insight or knowledge, reinforce self-care, and mindfulness Summary: Facilitated group: [place] Art as Healthy coping Mechanism. Therapist facilitated group discussion of art and mindfulness as a healthy coping mechanism using art quote prompts. Therapist educated group on art of Zentangle and facilitated art therapy task: make zentangle art to music. Therapist facilitated proceess of art making eperience and individual mike art. Name: Tong Sunshine Date of : 1985 MR: [id number] Mental Status Exam: Appearance: Appropriately dressed and groomed Mood: Euthymic Affect: Appropriate Behavior: Pleasant, Cooperative, Engaging, and Interactive Alertness: Alert Speech: Appropriate Cognition: Intact Thought Process: Goal-directed Thought Content: No evidence of psychosis/delusions Level/Quality of Participation: active, attentive, cooperative, engaged, and motivated Interactions with others: Sociable and supportive Interventions utilized were Building rapport and engagement, Empathic listening, Psychoeducation, Art therapy, and Expressive therapy Patient's Response to Intervention: Patient appropriately discussed mindfulness and art as a healthy coping mechanism. Patient actively engaged in creating zentangle art to music. Patient appropriately processed art making experience. Patient actively processed individual zentangle art. Patient stated he had difficulty controlling her thoughts while making zentangle art and that her mind wondered most while coloring. Therapist suggested making art without color and focusing on just making lines as this was when she found her mind wondered the least. Progress Towards Goal(s): Moderate Additional Comments: Group performed a second, brief art therapy activity after processing a need to express anger. Patient scribbled on newsprint paper with markers and then ripping then newsprint paper in pieces. Next Step: Continue with current services Patients Problems: Patient Active Problem List Diagnosis Family history of breast cancer in sister Family history of cervical cancer Family history of diabetes mellitus Hypercholesterolemia Severe episode of recurrent major depressive disorder, without psychotic features (HCC) Meniere disease History of hypothyroidism Obsessive-compulsive disorder BPPV (benign paroxysmal positional vertigo) Chronic fatigue Hypersomnolence Obesity, unspecified Anxiety Suicidal ideation [facility] GROUPNOTE Department: [facility] Dual Diagnosis Unit 6 Group Topic: Emotional Regulation Skill Group Date: 08/13/2023 Start Time: 1030 End Time: 1100 Facilitators: Prasanna Salgado [facility] Number of Participants: 2 Group Name: Dual Diagnosis Treatment Modality: Cognitive Behavioral Therapy Purpose: enhance coping skills and increase insight or knowledge Summary: Started group out with a daily reading from The Language of Letting Go book that was about the importance of self care through approaching feelings and emotions with a curious and non-judgmental attitude. Each group member introduced themselves and shared one goal they were working on today. Discussed worksheet on the path to self-care in the areas of physical, mental, emotional/social and spiritual. Group members were asked to give specific examples of new self-care activities they can try after discharge. Name: Tong Sunshine Date of : 1985 MR: [id number] Mental Status Exam: Appearance: Appropriately dressed and groomed Mood: Anxious Affect: Full Behavior: Cooperative Alertness: Alert Speech: Appropriate Cognition: Intact Thought Process: Goal-directed Thought Content: No evidence of psychosis/delusions Level/Quality of Participation: attentive Interactions with others: gave feedback Interventions utilized were Building rapport and engagement, Empathic listening, and Cognitive Behavioral Therapy (CBT) Patient's Response to Intervention: Pt was attentive while in group. Pt shared that one goal she is working on is getting ready for discharge PT shared that she wants to work on meditating for self care activity. Progress Towards Goal(s): Minimal Additional Comments: N/A Next Step: Continue with current services Patients Problems: Patient Active Problem List Diagnosis Family history of breast cancer in sister Family history of cervical cancer Family history of diabetes mellitus Hypercholesterolemia Severe episode of recurrent major depressive disorder, without psychotic features (HCC) Meniere disease History of hypothyroidism Obsessive-compulsive disorder BPPV (benign paroxysmal positional vertigo) Chronic fatigue Hypersomnolence Obesity, unspecified Anxiety Suicidal ideation Normal [facility] IDNon 08-13-2023 IDN Problem: Potential f or Harm to Self or Others Goal: Participates in unit activities Outcome: Progressing Goal: Patient/Family participate in treatment and discharge plans Outcome: Progressing Goal: Notifies staff when experiencing harmful thoughts toward self/others Outcome: Progressing Goal: Denies harm toward self or others Outcome: Progressing Problem: Anxiety Goal: Attempts to manage anxiety with help Outcome: Progressing Normal [facility] Progress Noteon 08-13-2023 Progress Note Patient largely withdrawn to room in bed. Patient tearful, states she is sad. When asked why she is sad, states she misses her kids. Endorses heightened anxiety. Denies current SI/HI/AVH. Compliant with scheduled medication, PRN Klonopin given for anxiety. Encouraged to notify staff of any needs, questions, or concerns. Normal [facility] Progress Note Pt approached this nurse to inquire about discharge. Pt states that MD educated pt that discharge would be today. This nurse to secure chat MD to F/U if discharge was planned for today. MD confirmed this and stated that order would be placed after med-rec was completed. During this time pt phoned multiple times w/ excitement of going home. When pts stated he was at the facility, pt stated that the urges and thoughts came back when I knew he was here. Pt voiced concerns that maybe discharge was happening too soon. This nurse to provide emotional support. Pt states that pt knows the urges and thoughts are wrong but that pt cannot stop them from occurring since finding out arrived. This nurse to message MD to notify that pt felt that pt was not ready. No discharge order is placed at this time. On-coming shift notified of encounter. Normal [facility] Progress Note Patient was observed socializing in day area this morning. Patient is calm and cooperative with staff. Takes scheduled medication without issue. Patient denies thoughts of SI/HI and hallucinations. Patient is hopeful that she will be discharged today. Patient signed ZOFIA for , Ruddy. Placed in chart. Will continue to monitor. Encouraged pt to seek staff with any concerns. Normal [facility] Progress Note Pt up on evenings watching TV & social with peers. Pleasant & cooperative on approach. A&Ox4. Denies any SI/HI & hallucination. No c/o pain or other discomfort voiced. Sleeping well through the night. Maintained on q 15 min checks. Normal [facility] GROUPNOTEon 08-12-2023 GROUPNOTE Department: [facility] ACTIVITIES THERAPY Group Topic: Music Therapy Group Date: 08/12/2023 Start Time: 1300 End Time: 1330 Facilitators: Deidre Mccoy Number of Participants: 2 Group Name: Dario Wilder Treatment Modality: Music Therapy Purpose: enhance coping skills Summary: Pt was given the opportunity to share a song that has been helpful to them in a difficult time or makes them feel better with the group. Pt was asked to give feedback to peer choices. Discussed how music can be used as a coping skill and for emotional regulation and expression. Name: Tong Sunshine Date of : 1985 MR: [id number] Mental Status Exam: Appearance: Appropriately dressed and groomed Mood: Euthymic Affect: Full Behavior: Pleasant Alertness: Alert Speech: Appropriate Cognition: Intact Thought Process: Goal-directed Thought Content: No evidence of psychosis/delusions Level/Quality of Participation: active Interactions with others: gave feedback Interventions utilized were Building rapport and engagement Patient's Response to Intervention: Pt was given the opportunity to share a song that has been helpful to them in a difficult time or makes them feel better with the group. Pt was asked to give feedback to peer choices. Discussed how music can be used as a coping skill and for emotional regulation and expression. Progress Towards Goal(s): Moderate Next Step: Continue with current services Patients Problems: Patient Active Problem List Diagnosis Family history of breast cancer in sister Family history of cervical cancer Family history of diabetes mellitus Hypercholesterolemia Severe episode of recurrent major depressive disorder, without psychotic features (HCC) Meniere disease History of hypothyroidism Obsessive-compulsive disorder BPPV (benign paroxysmal positional vertigo) Chronic fatigue Hypersomnolence Obesity, unspecified Anxiety Suicidal ideation Normal [facility] HCG QUALITATIVE URINEon 07-16 Beta HCG ( test) Ql (U) Negative Normal Negative [facility] Comment on above: Result Comment: Plea se note: Very dilute urine specimens, as indicated by a low specific gravity, may not contain account executive sales representative levels of hCG. If is still suspected, a first morning urine specimen should be collected 48 hours later and tested. ORDER COMMENTS: is the most common reason for HCG in urine, although choriocarcinoma, hydatidiform mole, and certain nontrophoblastic malignancies also result in detectable urinary HCG levels. Sensitivity = 20mIU/mL. Performed By: #### L [id number] ####Funeral Sales Manager: IKER PARRA ([phone])[facility] ([address] IDNon 08-12-2023 IDN Consuming supplement s w/good appetite for meals. Normal [facility] Nursing Noteon 08-12-2023 Nursing Note Patient was in her room, awake, at the time of assessment. Patient appears slightly anxious, cooperative, and med compliant. Patient denies Si, Hi, Avh at this time. Patient stated she feels she may be ready for discharge tomorrow or Wednesday, depending on what her doctor thinks. Patient stated she began spotting when she came into the ER but since, the spotting has stopped and she hasn't had a cycle. Patient reports she is scared she may be . HCG urine ordered. Patient denies needs or concerns at this time but is encouraged to seek staff should one arise. Will continue to monitor. 1030: PT aware her urine test is negative. Normal [facility] Progress Noteon 08-12-2023 Progress Note Nutrition Assessment Type and Reason for Visit: Reassess Nutrition Recommendations/Plan: Will stop the Ensure Max and the Frankie fruit punch. Will assign level 1 referring to optomechanical technician to monitor. Malnutrition Assessment: Malnutrition Status: No malnutrition Nutrition Assessment: Per chart: 08/11 reports good appetite. Per pt.: has consumed the meals and supplements, ready for supplements stopped, good appetite, ready to go home Estimated Daily Nutrient Needs: Energy Requirements Based On: Kcal/kg Weight Used for Energy Requirements: Mobile Weight for Energy Calculation (kg): 44 kg Total Energy Requirements (kcals/day): 1100 - 1320 kcals Weight Used for Protein Requirements: Mobile Weight in Kg Used for Protein Requirements: 44 kg Estimated Total Protein (g/day): 53 - 57 gms protein Estimated Daily Total Fluid (ml/day): 1100 - 1320 mls Nutrition Related Findings: weight loss post , gestational DM, elevated HgbA1c/WBC, wound on left wrist self inflicted Wound Type: (shallow laceration left wrist) Current Nutrition Therapies: Adult diet Regular Current Oral Intake Average Meal Intake: 76-100% Average Supplements Intake: 76-100% Additional Calorie Sources Additional Calorie Sources: 1 Frankie bid, 1 Ensure Max @ 2p daily Anthropometric Measures: Height: 149.9 cm (4' 11) Current Body Weight: 73.5 kg (162 lb) Weight Source: Not Specified Admission Body Weight: 73.5 kg (162 lb) Usual Body Weight: 72.6 kg (160 lb) ([facility] 04/02/23 = 173# (post )) % Weight Change (Calculated): 1.3 Mobile Body Weight (lbs) (Calculated): 95 lbs Mobile Body Weight (Kg) (Calculated): 43 kg % Mobile Body Weight (Calculated): 170.5 % BMI (kg/m2) (Calculated): 32.7 Weight Adjustment For: No Adjustment BMI Categories: Obese Class 1 (BMI 30.0-34.9) Nutrition Diagnosis: Altered nutrition-related lab values, Unintended weight loss, In context of social or environmental circumstances, Increased nutrient needs, Overweight/Obese (08/08 Creat. .47, low, Glu 125, WBC 11.1, elevated, 08/09 HgbA1c 5.8, elevated) related to psychological cause or life stress, acute injury/trauma as evidenced by weight loss, wounds, lab values, BMI (est. 6% loss of UBW over 4 months getting closer to UBW pre-) Nutrition Interventions: Nutrition Education/Counseling: No recommendation at this time Coordination of Nutrition Care: Continue to monitor while inpatient, Coordination of Care (will assign level 1 referring to optomechanical technician to monitor) Plan of Care discussed with: pt. Goals: Previous Goal Met: Goal(s) Achieved Goals: PO intake 75% or greater Specify Other Goals: of supplement Nutrition Monitoring and Evaluation: Behavioral-Environmenta l Outcomes: Beliefs and Attitutes, Readiness for Change, Knowledge or Skill Food/Nutrient Intake Outcomes: Supplement Intake, Food and Nutrient Intake Physical Signs/Symptoms Outcomes: Biochemical Data, Hemodynamic Status, Meal Time Behavior, Nutrition Focused Physical Findings, Skin, Weight, GI Status, Fluid Status or Edema Discharge Planning: Assist with food insecurity, Continue current diet Karen Park RD Contact: via [employer] chat or office *[phone] [facility] GROUPNOTEon 08-11-2023 GROUPNOTE Department: [facility] ACTIVITIES THERAPY Group Topic: Other Group Date: 08/11/2023 Start Time: 1605 End Time: 1630 Facilitators: Pham Nascimento Number of Participants: 4 Group Name: Leisure Education Treatment Modality: Recreation Therapy Purpose: Build Leisure Awareness, Decrease Barriers Summary: Leisure Pyramid - Patients are challenged to fill in a block pyramid with various healthy leisure activities. Patients are given word challenges along the way, which simulate the difficulties that can arise when trying to think of heathy options for engagement and coping. Discussion focuses on the challenges and benefits of leisure pursuits. Name: Tong Sunshine Date of : 1985 MR: [id number] Appearance: Good eye contact Affect: Appropriate Behavior: Pleasant Alertness: Alert Speech: Appropriate Level/Quality of Participation: observed Interactions with others: na Interventions utilized were Building rapport and engagement and Empathic listening Patient's Response to Intervention: Patient came in toward the end of group and listened during closing. Patient was given strategies to decrease barriers to making positive choices in leisure pursuits. Continue to engage patient in groups to address stated treatment goals and objectives. Patients Problems: Patient Active Problem List Diagnosis Family history of breast cancer in sister Family history of cervical cancer Family history of diabetes mellitus Hypercholesterolemia Severe episode of recurrent major depressive disorder, without psychotic features (HCC) Meniere disease History of hypothyroidism Obsessive-compulsive disorder BPPV (benign paroxysmal positional vertigo) Chronic fatigue Hypersomnolence Obesity, unspecified Anxiety Suicidal ideation Normal [facility] GROUPNOTE Department: [facility] ACTIVITIES THERAPY Group Topic: Art Therapy Group Date: 08/11/2023 Start Time: 1400 End Time: 1530 Facilitators: BRYAN [place] Number of Participants: 6 Group Name: Art Therapy: Self Esteem; Mirror Frame Treatment Modality: Art Therapy, [place] Therapy, and Patient-Centered Therapy Purpose: enhance coping skills, explore maladaptive thinking, express feelings, and regain self-worth Summary: Facilitated group: Self-Esteem/Beauty Mirror Frame. Therapist engaged group in processingfinding oneself beautiful quotes. Therapist facilitated art therapy task: decorate a frame for a mirror paper insert. Therapist facilitated processing of art making experience. Therapist facilitated processing of completed mirror frame art. Name: Tong Sunshine Date of : 1985 MR: [id number] Mental Status Exam: Appearance: Appropriately dressed and groomed Mood: Euthymic Affect: Appropriate Behavior: Pleasant, Cooperative, Engaging, and Interactive Alertness: Alert Speech: Appropriate Cognition: Intact Thought Process: Goal-directed Thought Content: No evidence of psychosis/delusions Level/Quality of Participation: attentive, cooperative, engaged, and motivated Interactions with others: Sociable and supportive Interventions utilized were Building rapport and engagement, Empathic listening, Art therapy, Motivational interviewing techniques, and Expressive therapy Patient's Response to Intervention: Patient appropriately participated in discussion of finding oneself beautiful. Patient actively participated in creating mirror frame art. Patient appropriately engaged in processing their art making experience. Patient actively engaged in processing their mirror frame art with the group. Progress Towards Goal(s): Moderate Additional Comments: None Next Step: Continue with current services Patients Problems: Patient Active Problem List Diagnosis ? Family history of breast cancer in sister ? Family history of cervical cancer ? Family history of diabetes mellitus ? Hypercholesterolemia ? Severe episode of recurrent major depressive disorder, without psychotic features (HCC) ? Meniere disease ? History of hypothyroidism ? Obsessive-compulsive disorder ? BPPV (benign paroxysmal positional vertigo) ? Chronic fatigue ? Hypersomnolence ? Obesity, unspecified ? Anxiety ? Suicidal ideation Normal [facility] GROUPNOTE Department: [facility] [email or web address] THERAPY Group Topic: Other Group Date: 08/11/2023 Start Time: 0930 End Time: 1000 Facilitators: Leo Mathis Number of Participants: 5 Group Name: Jukebox Treatment Modality: Leisure Development Purpose: express feelings, improve communication skills, and reinforce self-care Summary: Pts will choose a song from a given list. Pts will share how the song has impacted their life or how the song is meaningful to them. Pts will have the opportunity to listen, sing, or otherwise perform the song with the therapist if they desire. Name: Tong Sunshine Date of : 1985 MR: [id number] Appearance: Appropriately dressed and groomed Mood: Euthymic Affect: Appropriate Behavior: Pleasant Alertness: Alert Speech: Appropriate Level/Quality of Participation: active Interactions with others: supportive Interventions utilized were Building rapport and engagement and Empathic listening Patient's Response to Intervention: Pt voiced improvement Next Step: Continue with current services Patients Problems: Patient Active Problem List Diagnosis Family history of breast cancer in sister Family history of cervical cancer Family history of diabetes mellitus Hypercholesterolemia Severe episode of recurrent major depressive disorder, without psychotic features (HCC) Meniere disease History of hypothyroidism Obsessive-compulsive disorder BPPV (benign paroxysmal positional vertigo) Chronic fatigue Hypersomnolence Obesity, unspecified Anxiety Suicidal ideation Normal [facility] GROUPNOTE Department: [facility] Dual Diagnosis Unit 6 Group Topic: Acceptance Group Date: 08/11/2023 Start Time: 1030 End Time: 1130 Facilitators: BRYAN Farah Number of Participants: 4 Group Name: Dual Diagnosis Treatment Modality: Cognitive Behavioral Therapy Purpose: increase insight or knowledge Summary: The group members each introduced themselves and shared one goal they were working on today. The group read a meditation from the Language of Letting Go book on acceptance of thoughts, feelings, and life circumstances. The group was asked what area is the hardest to move into acceptance, some group members offered answers. The group was given a Feelings Wheel and discussed ways to use it as a tool to identify and cope with feelings and emotions. Group members shared where they get stuck and group members gained insight into how to use the wheel to trigger opposite emotions as a way to get unstuck. Name: Tong Sunshine Date of : 1985 MR: [id number] Mental Status Exam: Appearance: Appropriately dressed and groomed Mood: Anxious Affect: Full Behavior: Cooperative Alertness: Alert Speech: Appropriate Cognition: Intact Thought Process: Goal-directed Thought Content: No evidence of psychosis/delusions Level/Quality of Participation: attentive Interactions with others: gave feedback Interventions utilized were Building rapport and engagement, Empathic listening, and Cognitive Behavioral Therapy (CBT) Patient's Response to Intervention: Pt came to group and was attentive. Pt shared that one goal she is working on today is to feel less anxious Pt reports that she struggles with acceptance of thoughts Progress Towards Goal(s): Minimal Additional Comments: N/A Next Step: Continue with current services Patients Problems: Patient Active Problem List Diagnosis Family history of breast cancer in sister Family history of cervical cancer Family history of diabetes mellitus Hypercholesterolemia Severe episode of recurrent major depressive disorder, without psychotic features (HCC) Meniere disease History of hypothyroidism Obsessive-compulsive disorder BPPV (benign paroxysmal positional vertigo) Chronic fatigue Hypersomnolence Obesity, unspecified Anxiety Suicidal ideation Normal [facility] GROUPNOTE Department: [facility] ACTIVITIES THERAPY Group Topic: Other Group Date: 08/10/2023 Start Time: 1600 End Time: 1635 Facilitators: Pham Nascimento Number of Participants: 5 Group Name: Recovery Strategies Treatment Modality: Recreation Therapy Purpose: reinforce self-care Summary: Self Care Plan -To allow Patients the opportunity to create a plan of self care that focuses on mental, physical and spiritual/emotional wellness. Name: Tong Sunshine Date of : 1985 MR: [id number] Appearance: Good eye contact Affect: Appropriate Behavior: Pleasant Alertness: Alert Speech: Appropriate Level/Quality of Participation: engaged Interactions with others: supportive Interventions utilized were Empathic listening Patient's Response to Intervention: Patient came in after group had started, she engaged fully in intervention and was able to identify multiple healthy strategies for self-care. Patient reports wanting to get back to morning routine of waking early to have down time and get exercise in her day. Patient was able to talk about their support system and goal they would like to work towards. Continue to engage patient in groups to address stated treatment goals and objectives. Patients Problems: Patient Active Problem List Diagnosis Family history of breast cancer in sister Family history of cervical cancer Family history of diabetes mellitus Hypercholesterolemia Severe episode of recurrent major depressive disorder, without psychotic features (HCC) Meniere disease History of hypothyroidism Obsessive-compulsive disorder BPPV (benign paroxysmal positional vertigo) Chronic fatigue Hypersomnolence Obesity, unspecified Anxiety Suicidal ideation [facility] IDNon 08-11-2023 IDN Problem: Potential f or Harm to Self or Others Goal: Participates in unit activities Outcome: Progressing Goal: Patient/Family participate in treatment and discharge plans Outcome: Progressing Goal: Identifies deescalation techniques Outcome: Progressing Goal: Understands least restrictive measures Outcome: Progressing Goal: Identifies stressors that lead to harmful behaviors Outcome: Progressing Goal: Notifies staff when experiencing harmful thoughts toward self/others Outcome: Progressing Goal: Denies harm toward self or others Outcome: Progressing Goal: Free from restraint events Outcome: Progressing Problem: Anxiety Goal: Attempts to manage anxiety with help Outcome: Progressing Goal: Verbalizes ways to manage anxiety Outcome: Progressing Goal: Implements measures to reduce anxiety Outcome: Progressing Normal [facility] IDN Problem: Potential f or Harm to Self or Others Goal: Participates in unit activities Outcome: Progressing Goal: Patient/Family participate in treatment and discharge plans Outcome: Progressing Goal: Identifies deescalation techniques Outcome: Progressing Goal: Understands least restrictive measures Outcome: Progressing Goal: Identifies stressors that lead to harmful behaviors Outcome: Progressing Goal: Notifies staff when experiencing harmful thoughts toward self/others Outcome: Progressing Goal: Denies harm toward self or others Outcome: Progressing Goal: Free from restraint events Outcome: Progressing Problem: Ineffective Coping Goal: Identifies ineffective coping skills Outcome: Progressing Goal: Identifies healthy coping skills Outcome: Progressing Goal: Demonstrates healthy coping skills Outcome: Progressing Goal: Participates in unit activities Outcome: Progressing Problem: Anxiety Goal: Attempts to manage anxiety with help Outcome: Progressing Goal: Verbalizes ways to manage anxiety Outcome: Progressing Goal: Implements measures to reduce anxiety Outcome: Progressing Problem: Problem Interventions Goal: Dietary Supplements Outcome: Progressing [facility] Progress Noteon 08-11-2023 Progress Note Pt out in day area watching tv when approached by RN. Pt friendly and cooperative during assessment. Denies SI/HI/AVH. Pt reports still having episodes of depression, but denies it being severe enough to be suicidal. Pt med compliant. Pt encouraged to seek out staff with any needs or concerns. Will continue to monitor. [facility] Progress Note Patient observed in her room for assessment and morning medications. Patient is cooperative and compliant with all medications. Patient denies SI/HI/AVH. Patient endorses anxiety and depression but reports mild symptoms. Patient report a good appetite and sleeping well at night. Patient agrees to seek out staff for any needs or concerns. 1010: patient request prn vistaril for anxiety. [facility] Progress Note Pt seen in the day a msasimo watching tv. Pt calm and cooperative during assessment. Denies SI/HI/AVH. Med compliant. Pt reports feeling better. Pt encouraged to seek out staff with any needs or concerns. [facility] GROUPNOTEon 08-10-2023 GROUPNOTE Department: [facility] t Dual Diagnosis Unit 6 Group Topic: Self-awareness Group Date: 08/10/2023 Start Time: 1030 End Time: 1100 Facilitators: BRYAN Dennison Number of Participants: 4 Group Name: dual diagnosis Treatment Modality: Cognitive Behavioral Therapy, Psychoeducation, and Skills Training Purpose: enhance coping skills, increase insight or knowledge, and reinforce self-care Summary: Group discussion on the basics of CBT. Reviewed worksheet, 'The Cognitive Model'. Explored how our interpretations of events impact emotions and behavior. Discussed the development of Core Beliefs (world/self/others) and emotions of fear/shame/guilt. Name: Tong Sunshine Date of : 1985 MR: [id number] Mental Status Exam: Appearance: Appropriately dressed and groomed Mood: Euthymic Affect: Congruent with mood Behavior: Pleasant Alertness: Alert Speech: Appropriate Cognition: Intact Thought Process: Goal-directed Thought Content: No evidence of psychosis/delusions Level/Quality of Participation: active Interactions with others: gave feedback Interventions utilized were Cognitive Behavioral Therapy (CBT) Patient's Response to Intervention: Pt was Actively Engaged and Receptive. Pt was Able to verbalize current knowledge/experience, Able to verbalize/acknowledge new learning, Able to retain information and Capable of insight. Pt reported a negative core belief they have is, I am in danger Progress Towards Goal(s): Moderate Additional Comments: na Next Step: Continue with current services Patients Problems: Patient Active Problem List Diagnosis Family history of breast cancer in sister Family history of cervical cancer Family history of diabetes mellitus Hypercholesterolemia Severe episode of recurrent major depressive disorder, without psychotic features (HCC) Meniere disease History of hypothyroidism Obsessive-compulsive disorder BPPV (benign paroxysmal positional vertigo) Chronic fatigue Hypersomnolence Obesity, unspecified Anxiety Suicidal ideation [facility] IDNon 08-10-2023 IDN Problem: Potential f or Harm to Self or Others Goal: Participates in unit activities Outcome: Progressing Goal: Patient/Family participate in treatment and discharge plans Outcome: Progressing Goal: Identifies deescalation techniques Outcome: Progressing Goal: Understands least restrictive measures Outcome: Progressing Goal: Identifies stressors that lead to harmful behaviors Outcome: Progressing Goal: Notifies staff when experiencing harmful thoughts toward self/others Outcome: Progressing Goal: Denies harm toward self or others Outcome: Progressing Goal: Free from restraint events Outcome: Progressing Problem: Ineffective Coping Goal: Identifies ineffective coping skills Outcome: Progressing Goal: Identifies healthy coping skills Outcome: Progressing Goal: Demonstrates healthy coping skills Outcome: Progressing Goal: Participates in unit activities Outcome: Progressing Problem: Anxiety Goal: Attempts to manage anxiety with help Outcome: Progressing Goal: Verbalizes ways to manage anxiety Outcome: Progressing Goal: Implements measures to reduce anxiety Outcome: Progressing Normal [facility] IDN Problem: Potential f or Harm to Self or Others Goal: Participates in unit activities Outcome: Progressing Goal: Patient/Family participate in treatment and discharge plans Outcome: Progressing Goal: Identifies deescalation techniques Outcome: Progressing Goal: Understands least restrictive measures Outcome: Progressing Goal: Identifies stressors that lead to harmful behaviors Outcome: Progressing Goal: Notifies staff when experiencing harmful thoughts toward self/others Outcome: Progressing Goal: Denies harm toward self or others Outcome: Progressing Goal: Free from restraint events Outcome: Progressing Problem: Ineffective Coping Goal: Identifies ineffective coping skills Outcome: Progressing Goal: Identifies healthy coping skills Outcome: Progressing Goal: Demonstrates healthy coping skills Outcome: Progressing Goal: Participates in unit activities Outcome: Progressing Problem: Anxiety Goal: Attempts to manage anxiety with help Outcome: Progressing Goal: Verbalizes ways to manage anxiety Outcome: Progressing Goal: Implements measures to reduce anxiety Outcome: Progressing Problem: Problem Interventions Goal: Dietary Supplements Outcome: Progressing Normal [facility] IDN Problem: Potential f or Harm to Self or Others Goal: Identifies stressors that lead to harmful behaviors Outcome: Progressing Goal: Notifies staff when experiencing harmful thoughts toward self/others Outcome: Progressing Goal: Denies harm toward self or others Outcome: Progressing Problem: Anxiety Goal: Attempts to manage anxiety with help Outcome: Progressing Normal [facility] Progress Noteon 08-10-2023 Progress Note Patient observed in her room for assessment and morning medications. Patient is cooperative and compliant with all medications. Patient denies SI/HI/AVH. Patient endorses anxiety and depression but reports mild symptoms. Patient report a good appetite and sleeping well at night. Patient agrees to seek out staff for any needs or concerns. Normal [facility] Progress Note Pt up on evenings watching TV with peers. Pleasant & cooperative on approach. A&Ox4. Denied SI/HI & Hallucinations. No c/o pain or other discomfort voiced. Sleeping well through the night. Remains on q 15 min checks. Normal [facility] CARECOORDon 08-09-2023 [facility] Psycho-Social Assessment (Social Work) Date: 08/09/2023 Patient Name: Tong Sunshine : 1985 Identifying Information: Patient is a 37 yr old m/w/f presented to ED with Presenting Problem: Patient presents to the ED complaining of suicidal ideations with some thoughts of harming others. She had recent become preoccupied with an article she had read about a woman who killed her children and she was wondering if that is what she was supposed to do. Patient has 4 children at home ages 8 through 2. Patient is not currently in formal mental health treatment and her primary care doctor has been prescribing. Psychiatric History: Patient was at [facility] in January 2021 with similar issues of intrusive thoughts about hurting her children relating to her lutheran preoccupation at the time. Patient's follow-up after her admission in 2020 was with [facility] psychiatry and Charmaine Richardson. Patient eventually just started seeing her PCP and change meds around on her own. Substance Abuse/Use: Denies any illegal substance abuse. Medical/Self-care Issues: Patient has M?ni?re's disease, reports prior to admission she had been having difficulty getting out of bed and doing daily functions. Legal/Trauma/ History: Denies any legal issues. Trauma history. Patient relates childhood growing up in [place] as she could not relate her feelings with her mother who she felt was struggling herself most of the time. Patient does not identify this as a trauma. Never served in the . Family Constellation/Childhood History: Patient grew up in [place] with her parents. Patient did go to a [employer] in [place] before meeting her and moving to [place]. Patient and her have 4 children ages 8, 6, 4, 2. Patient reports both of her parents are now . Education/Work: Patient has college degree in speech therapy .. 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 Reports works 3 days a week. Cultural/Spirituality/L eisure: Patient considers herself a Jew. Patient struggled in 2020 and again prior to this admission with her camelia in God and the messages in the Bible relating to sacrificing children. Support Systems/Collateral Information: Patient's is Ruddy Sunshine at [phone]. C-SSRS Actual Attempt (Past 3 Months): No Actual Attempt (Lifetime): No Interrupted Attempts (Past 3 Months): Yes (pt reports talking about overdosing and injeterjected and she scratched wrist) Interrupted Attempts (Lifetime): Yes Aborted or Self-Interrupted Attempt (Past 3 Months): No Aborted or Self-Interrupted Attempt (Lifetime): No Preparatory Acts or Behavior (Past 3 Months): No Preparatory Acts or Behavior (Lifetime): No Has subject engaged in non-suicidal self-injurious behavior? (Past 3 Months): Yes Has subject engaged in non-suicidal self-injurious behavior? (Lifetime): No Suicidal Ideation: Suicidal thoughts with method (but without specific plan or intent to act) Activating Events (Recent): Recent loss(es) or other significant negative event(s) (legal, financial, relationship, etc.) Describe:: patient had switched her medications and provider and starting having symptoms that led to inpt admit. Treatment History: Previous psychiatric diagnoses and treatments (Pt had been with [facility] provider and then was going to pcp, meds changed) Other Risk Factors: Pt has unresolved trauma from childhood, Clinical Status (Recent): Major depressive episode, Highly impulsive behavior Protective Factors (Recent): Identifies reasons for living, Responsibility to family or others and/or living with family, Engaged in work or school, Supportive social network or family Plan: Stabilize patient psychiatrically. Patient will have follow-up appointments with [facility] psychiatry and Charmaine Richardson. Patient also interested in [facility]'s IOP program. Patient did sign in with social work today voluntarily. Comment: Please note this report has been produced using speech recognition software and may contain errors related to that system including errors in grammar, punctuation, and spelling, as well as words and phrases that may be inappropriate. If there are any questions or concerns please feel free to contact the dictating provider for clarification. Normal [facility] HEMOGLOBIN A1Con 08-09-2023 Glucose [Mass/Vol] 120 mg/dL Normal [facility] Comment on above: Order Comment: If no t done within last 12 months Performed By: #### L [id number] ####Funeral Sales Manager: IKER PARRA ([id number])[address] HbA1c (Bld) [Mass fraction] 5.8 % High <5.7 [facility] Comment on above: Order Comment: If no t done within last 12 months Result Comment: Norm al less than 5.7% Prediabetes 5.7% to 6.4% Diabetes 6.5% or higher --HgbA1C levels may not be accurate in patients who have renal disease, received recent blood transfusions, are anemic, or who have dyshemoglobinemia. Performed By: #### L [id number] ####Funeral Sales Manager: IKER PARRA ([id number])[address] IDNon 08-09-2023 IDN Will admit to consum ing > 50% of supplements. 1 FP Frankie bid 10a/HS, 1 raúl. Ensure Max @ 2p Normal [facility] IDN Problem: Potential f or Harm to Self or Others Goal: Participates in unit activities Outcome: Progressing Goal: Patient/Family participate in treatment and discharge plans Outcome: Progressing Goal: Identifies deescalation techniques Outcome: Progressing Goal: Understands least restrictive measures Outcome: Progressing Goal: Identifies stressors that lead to harmful behaviors Outcome: Progressing Goal: Notifies staff when experiencing harmful thoughts toward self/others Outcome: Progressing Goal: Denies harm toward self or others Outcome: Progressing Goal: Free from restraint events Outcome: Progressing Problem: Ineffective Coping Goal: Identifies ineffective coping skills Outcome: Progressing Goal: Identifies healthy coping skills Outcome: Progressing Goal: Demonstrates healthy coping skills Outcome: Progressing Goal: Participates in unit activities Outcome: Progressing Problem: Anxiety Goal: Attempts to manage anxiety with help Outcome: Progressing Goal: Verbalizes ways to manage anxiety Outcome: Progressing Goal: Implements measures to reduce anxiety Outcome: Progressing [facility] Progress Noteon 08-09-2023 Progress Note Nutrition Assessment Type and Reason for Visit: Initial, Positive Nutrition Screen Nutrition Recommendations/Plan: Will initiate: 1 FP Frankie bid 10a/HS, 1 Ensure Max @ 2p daily. Will monitor po intake. Malnutrition Assessment: Malnutrition Status: No malnutrition Nutrition Assessment: Per chart: had baby 03/03/. 08/08 obsession over work and spiritual situations, decreased appetite, shallow self inflicted w/scissors laceration left wrist. Per pt.: fair appetite today, pre- weight is 160#, has been having trouble eating in the a.m. then it picks up as the day progresses, willing to try supplements Estimated Daily Nutrient Needs: Energy Requirements Based On: Kcal/kg Weight Used for Energy Requirements: Mobile Weight for Energy Calculation (kg): 44 kg Total Energy Requirements (kcals/day): 1100 - 1320 kcals Weight Used for Protein Requirements: Mobile Weight in Kg Used for Protein Requirements: 44 kg Estimated Total Protein (g/day): 53 - 57 gms protein Estimated Daily Total Fluid (ml/day): 1100 - 1320 mls Nutrition Related Findings: weight loss post , gestational DM, elevated HgbA1c/WBC, wound on left wrist self inflicted Wound Type: (shallow laceration left wrist) Current Nutrition Therapies: Adult diet Regular Current Oral Intake Average Meal Intake: 26-50% Anthropometric Measures: Height: 149.9 cm (4' 11) Current Body Weight: 73.5 kg (162 lb) Weight Source: Not Specified Admission Body Weight: 73.5 kg (162 lb) Usual Body Weight: 72.6 kg (160 lb) ([facility] 04/02/23 = 173# (post )) % Weight Change (Calculated): 1.3 Mobile Body Weight (lbs) (Calculated): 95 lbs Mobile Body Weight (Kg) (Calculated): 43 kg % Mobile Body Weight (Calculated): 170.5 % BMI (kg/m2) (Calculated): 32.7 Weight Adjustment For: No Adjustment BMI Categories: Obese Class 1 (BMI 30.0-34.9) Nutrition Diagnosis: Altered nutrition-related lab values, Unintended weight loss, In context of social or environmental circumstances, Increased nutrient needs, Overweight/Obese (08/08 Creat. .47, low, Glu 125, WBC 11.1, elevated, 08/09 HgbA1c 5.8, elevated) related to psychological cause or life stress, acute injury/trauma as evidenced by weight loss, wounds, lab values, BMI (est. 6% loss of UBW over 4 months getting closer to UBW pre-) Nutrition Interventions: Nutrition Education/Counseling: Counseling initiated (discussed how Frankie may help w/ wound healing) Coordination of Nutrition Care: Continue to monitor while inpatient, Coordination of Care Plan of Care discussed with: pt. Goals: Goals: PO intake 50% or greater, other (specify) Specify Other Goals: of supplement Nutrition Monitoring and Evaluation: Behavioral-Environmenta l Outcomes: Beliefs and Attitutes, Readiness for Change, Knowledge or Skill Food/Nutrient Intake Outcomes: Supplement Intake, Food and Nutrient Intake Physical Signs/Symptoms Outcomes: Biochemical Data, Hemodynamic Status, Meal Time Behavior, Nutrition Focused Physical Findings, Skin, Weight, GI Status, Fluid Status or Edema Discharge Planning: Assist with food insecurity, Continue current diet, Continue Oral Nutrition Supplement Karen Park RD Contact: via [facility] chat or office *[phone] [facility] Progress Note ACTIVITY THERAPY ASSESSMENT Met with patient for activity therapy assessment. Reviewed diagnosis, presenting complaint, current living situation, cultural/spiritual preferences, education level, vocational status and mental status at time of this assessment. Diagnosis (per chart review): ocd, depression, anxiety Presenting Problem: Suicidal Ideation Does the patient identify any cultural/spiritual influences that may impact patient participation with programs offered by the Activities team? Yes If Yes, describe: jainism Review of Recreation Therapy Involvement/Interests Identify types of leisure activities patient reports doing in their free time? Cook, bake, clean, organize, time with kids and , write Is patient satisfied with current leisure lifestyle? Yes Leisure Barriers: mental health symptoms (depression, anxiety) and time constraints Review of Music Therapy Involvement/Interests Favorite Band/Artist: pippa jara Musical Preferences: Country and jainism Music Experiences/Skills: None Identified Use of Music: Dances to Music Level of recent/current engagement in musical activities identified above: Almost everyday Music Triggers/Adverse reactions: None Identified Review of Other Diversionary Activities/Interests Identify any additional activities/hobbies/even ts in which patient participates on a regular basis: None Identified Is patient able to identify the wellness benefits of engaging in recreation, music, or other diversionary activities? Yes If Yes, describe: usually feel a little bit more energetic If No, is patient willing to consider participating in programming offered by the Activities team to experience the potential wellness benefits? na Was Patient provided information on unit programming, including types of activities and program schedule for the unit? Yes Activities Therapy Treatment Plan Goal(s): Symptom Management Objective(s): Pt will identify 2 coping strategies to use when symptomatic. Intervention: Pt will be offered 1 music or recreation therapy group daily and 2 general milieu therapy groups daily. Signature Pham Nascimento, FEATHER EDGER [facility] Progress Note Patient resting in b ed upon RN arrival. Pt compliant with taking AM medications. Pt stated she was feeling anxious, PRN Vistaril given. When RN asked pt what brought her to the hospital, pt stated Im just not myself. Emotional support provided by RN. Pt denies SI, HI, A/VH, and pain. Patient stated This is what happens when I stop taking my medication. I think I am fine, so I stop taking it. RN educated pt on the importance of taking medications consistently. Pt verbalized understanding. Pt agreed to seek staff with any problems. [facility] Progress Note Pt is calm and cooperative. She is compliant with her medications. She denies SI/HI. Endorses depression and anxiety and some hallucinations she didn't describe. She is guarded and withdrawn. She has been asleep through the night. Will continue to monitor and provide support as needed. [facility] CBC WITH AUTO DIFFERENTIALon 02-25-2024 Basophils (Bld) [#/Vol] 0.1 10*3/uL Normal 0.0-0.2 [facility] Comment on above: Performed By: #### L [id number] ####Funeral Sales Manager: IKER PARRA ([id number])[facility])[address] [place] [address] Basophils/100 WBC (Bld) 0.6 % Normal 0.0-2.0 [facility] Comment on above: Performed By: #### L [id number] ####Funeral Sales Manager: IKER PARRA ([id number])[facility])[address] [place] [address] Eosinophils (Bld) [#/Vol] 0.0 10*3/uL Normal 0.0-0.5 [facility] Comment on above: Performed By: #### L [id number] ####Funeral Sales Manager: IKER PARRA ([id number])[facility] ([facility])[address] [place] [address] Eosinophils/100 WBC (Bld) 0.1 % Low 1.0-6.0 [facility] Comment on above: Performed By: #### L [id number] ####Funeral Sales Manager: IKER PARRA ([id number])[facility])[address] [place] [address] Erythrocyte distribution width (RBC) [Ratio] 13.6 % Normal 11.5-14.5 [facility] Comment on above: Performed By: #### L [id number] ####Funeral Sales Manager: IKER PARRA ([id number])[facility])[address] [place] [address] ERYTHROCYTE MEAN CORPUSCULAR HEMOGLOBIN CONCENTRATION (G/DL) BY AUTOMATED 33.5 % Normal 32.0-36.0 [facility] Comment on above: Performed By: #### L [id number] ####Funeral Sales Manager: IKER PARRA ([id number])[facility])[address] [place] [address] Hematocrit (Bld) [Volume fraction] 44.6 % Normal 35.0-47.0 [facility] Comment on above: Performed By: #### L [id number] ####Funeral Sales Manager: IKER PARRA ([id number])[facility])[address] [place] [address] Hemoglobin (Bld) [Mass/Vol] 15.0 g/dL Normal 11.7-16.0 [facility] Comment on above: Performed By: #### L [id number] ####Funeral Sales Manager: IKER PARRA ([id number])[facility])[address] [place] [address] Lymphocytes (Bld) [#/Vol] 2.2 10*3/uL Normal 1.0-4.3 [facility] Comment on above: Performed By: #### L [id number] ####Funeral Sales Manager: IKER PARRA ([id number])[facility])[address] [place] [address] Lymphocytes/100 WBC (Bld) 19.8 % Low 20.0-40.0 [facility] Comment on above: Performed By: #### L [id number] ####Funeral Sales Manager: IKER PARRA ([id number])[facility])[address] [place] [address] MCH (RBC) [Entitic mass] 28.0 pg Normal 26.0-34.0 [facility] Comment on above: Performed By: #### L [id number] ####Funeral Sales Manager: IKER PARRA ([id number])[facility])[address] [place] [address] MCV (RBC) [Entitic vol] 83.6 fL Normal 80.0-98.0 [facility] Comment on above: Performed By: #### L [id number] ####Funeral Sales Manager: IKER PARRA ([id number])[facility])[address] [place] [address] Monocytes (Bld) [#/Vol] 0.5 10*3/uL Normal 0.0-0.8 [facility] Comment on above: Performed By: #### L [id number] ####Funeral Sales Manager: IKER PARRA ([id number])[facility])[address] [place] [address] Monocytes/100 WBC (Bld) 4.6 % Normal 2.0-10.0 [facility] Comment on above: Performed By: #### L [id number] ####Funeral Sales Manager: IKER PARRA ([id number])[facility])[address] [place] [address] Neutrophils (Bld) [#/Vol] 8.3 10*3/uL High 1.8-7.0 [facility] Comment on above: Performed By: #### L [id number] ####Funeral Sales Manager: IKER PARRA ([id number])[facility])[address] [place] [address] Neutrophils/100 WBC (Bld) 74.9 % Normal 40.0-80.0 [facility] Comment on above: Performed By: #### L [id number] ####Funeral Sales Manager: IKER PARRA ([id number])[facility])[address] [place] [address] NRBC (PER 100 WBCS) BY AUTOMATED COUNT 0.0 /100 WBCs Normal 0.0-2.0 [facility] Comment on above: Performed By: #### L [id number] ####Funeral Sales Manager: IKER PARRA ([id number])[facility])[address] [place] [address] Platelet mean volume (Bld) [Entitic vol] 7.6 fL Normal 7.4-12.4 [facility] Comment on above: Performed By: #### L [id number] ####Funeral Sales Manager: IKER PARRA ([id number])[facility])[address] [place] [address] Platelets (Bld) [#/Vol] 326 10*3/uL Normal 140-440 [facility] Comment on above: Performed By: #### L [id number] ####Funeral Sales Manager: IKER PARRA ([id number])[facility] ([facility])[address] [place] [address] RBC (Bld) [#/Vol] 5.33 10*6/uL High 3.8-5.20 [facility] Comment on above: Performed By: #### L [id number] ####Funeral Sales Manager: IKER PARRA ([phone])[facility] ([facility])[address] [place] [address] WBC (Bld) [#/Vol] 11.1 10*3/uL High 3.6-10.7 [facility] Comment on above: Performed By: #### L [id number] ####Funeral Sales Manager: IKER PARRA ([phone])[facility] ([facility])[address] [place] [address] COMPLETE URINALYSISon 2023 BACTERIA (#/HPF) IN URINE Negative Normal Negative [facility] Comment on above: Performed By: #### L [id number] ####Funeral Sales Manager: IKER PARRA ([phone])[facility] ([facility])[address] [place] [address] BILIRUBIN, TOTAL PRESENCE IN URINE Negative Normal Negative [facility] Comment on above: Performed By: #### L [id number] ####Funeral Sales Manager: IKER PARRA ([id number])[facility] ([facility])[address] [place] [address] Clarity (U) Clear Normal Clear [facility] Comment on above: Performed By: #### L [id number] ####Funeral Sales Manager: IKER PARRA ([phone])[facility])[address] [place] [address] Color (U) Light Yellow Normal Lt. Yellow [facility] Comment on above: Performed By: #### L [id number] ####Funeral Sales Manager: IKER PARRA ([phone])[facility] ([facility])[address] [place] [address] GLUCOSE (MG/DL) IN URINE Normal Normal Normal (<70) [facility] Comment on above: Performed By: #### L [id number] ####Funeral Sales Manager: IKER PARRA ([phone])[facility])[address] [place] [address] HEMOGLOBIN PRESENCE IN URINE Negative Normal Negative [facility] Comment on above: Performed By: #### L [id number] ####Funeral Sales Manager: IKER PARRA ([phone])[facility] ([facility])[address] [place] [address] HYALINE CASTS (#/LPF) IN URINE SEDIMENT BY MICROSCOPY Negative Normal Negative [facility] Comment on above: Performed By: #### L [id number] ####Funeral Sales Manager: IKER PARRA ([phone])[facility] ([facility])[address] [place] [address] Ketones Ql (U) Trace Abnormal Negative [facility] Comment on above: Performed By: #### L [id number] ####Funeral Sales Manager: IKER PARRA ([phone])[facility] ([facility])[address] [place] [address] LEUKOCYTE ESTERASE PRESENCE IN URINE BY TEST STRIP 25 Riki/uL Abnormal Negative [facility] Comment on above: Performed By: #### L [id number] ####Funeral Sales Manager: IKER PARRA ([phone])[facility] ([facility])[address] [place] [address] NITRITE PRESENCE IN URINE Negative Normal Negative [facility] Comment on above: Performed By: #### L [id number] ####Funeral Sales Manager: IKER PARRA ([phone])[facility] ([facility])[address] [place] [address] pH (U) 7.5 [pH] Normal 5.0-8.0 [facility] Comment on above: Performed By: #### L [id number] ####Funeral Sales Manager: IKER PARRA ([id number])[facility] ([facility])[address] [place] [address] Protein (U) [Mass/Vol] Negative Normal Negative [facility] Comment on above: Performed By: #### L [id number] ####Funeral Sales Manager: IKER PARRA ([phone])[facility])[address] [place] [address] RBC (#/HPF) IN URINE SEDIMENT 0-2 Normal 0-2 [facility] Comment on above: Performed By: #### L [id number] ####Funeral Sales Manager: IKER PARRA ([phone])[facility])[address] [place] [address] Specific gravity (U) [Rel density] 1.012 Normal 1.005-1.030 [facility] Comment on above: Performed By: #### L [id number] ####Funeral Sales Manager: IKER PARRA ([phone])[facility])[address] [place] [address] SQUAMOUS EPITHELIAL CELLS (#/HPF) IN URINE SEDIMENT 3-5 Normal 3-5 [facility] Comment on above: Performed By: #### L [id number] ####Funeral Sales Manager: IKER PARRA ([phone])[facility])[address] [place] [address] UROBILINOGEN (MG/DL) IN URINE Normal Normal Normal (0-1) [facility] Comment on above: Performed By: #### L [id number] ####Funeral Sales Manager: IKER PARRA ([phone])[facility])[address] [place] [address] WBC (LEUKOCYTE) (#/HPF) IN URINE SEDIMENT 3-5 Normal 0-5 [facility] Comment on above: Performed By: #### L [id number] ####Funeral Sales Manager: IKER PARRA ([id number])[facility])[address] [place] [address] COMPREHENSIVE METABOLIC PANE Rios 08-08-2023 Albumin [Mass/Vol] 4.8 g/dL Normal 3.5-5.0 [facility] Comment on above: Performed By: #### L [id number] ####Funeral Sales Manager: IKER PARRA ([id number])[facility] [place] [address] [place] ALP [Catalytic activity/Vol] 63 U/L Normal 38-126 [facility] Comment on above: Performed By: #### L [id number] ####Funeral Sales Manager: IKER PARRA ([phone])[facility] ([facility])[address] [place] [address] [place] ALT [Catalytic activity/Vol] 21 U/L Normal 0-34 [facility] Comment on above: Performed By: #### L [id number] ####Funeral Sales Manager: IKER PARRA ([phone])[facility] ([facility])[address] [place] [address] Anion gap [Moles/Vol] 9 mmol/L Normal 3-13 [facility] Comment on above: Performed By: #### L [id number] ####Funeral Sales Manager: IKER PARRA ([phone])[facility] ([facility])[address] [place] [address] AST [Catalytic activity/Vol] 24 U/L Normal 15-46 [facility] Comment on above: Performed By: #### L [id number] ####Funeral Sales Manager: IKER PARRA ([phone])[facility] ([facility])[address] [place] [address] Bilirubin [Mass/Vol] 0.6 mg/dL Normal 0.2-1.3 [facility] Comment on above: Performed By: #### L [id number] ####Funeral Sales Manager: IKER PARRA ([phone])[facility] ([facility])[address] [place] [address] [place] Calcium [Mass/Vol] 9.5 mg/dL Normal 8.4-10.4 [facility] Comment on above: Performed By: #### L [id number] ####Funeral Sales Manager: IKER PARRA ([phone])[facility] ([facility])[address] [place] [address] [place] Chloride [Moles/Vol] 104 mmol/L Normal 98-107 [facility] Comment on above: Performed By: #### L [id number] ####Funeral Sales Manager: IKER PARRA ([id number])[facility])[address] [place] [address] CO2 [Moles/Vol] 25 mmol/L Normal 22-[address] [facility] Comment on above: Performed By: #### L [id number] ####Funeral Sales Manager: IKER PARRA ([phone])[facility])[address] [place] [address] Creatinine [Mass/Vol] 0.47 mg/dL Low 0.52-1.04 [facility] Comment on above: Performed By: #### L [id number] ####Funeral Sales Manager: IKER PARRA ([id number])[facility])[address] [place] [address] GLOMERULAR FILTRATION RATE ML/MIN/1.73 SQ M.PREDICTED >90.0 Normal >60.0 [facility] Comment on above: Result Comment: Calc ulation based on the Chronic Kidney Disease Epidemiology Collaboration (CKD-EPI) equation refit without adjustment for race Performed By: #### L [id number] ####Funeral Sales Manager: IKER PARRA ([id number])[facility])[address] [place] [address] Glucose [Mass/Vol] 125 mg/dL High 70-100 [facility] Comment on above: Performed By: #### L [id number] ####Funeral Sales Manager: IKER PARRA ([id number])[address] Potassium [Moles/Vol] 3.9 mmol/L Normal 3.5-5.1 [facility] Comment on above: Performed By: #### L [id number] ####Funeral Sales Manager: IKER PARRA ([phone])[facility])[address] [place] [address] Protein [Mass/Vol] 8.8 g/dL High 6.3-8.2 [facility] Comment on above: Performed By: #### L [id number] ####Funeral Sales Manager: IKER [id number])[facility] [place] [address] Sodium [Moles/Vol] 138 mmol/L Normal 135-145 [facility] Comment on above: Performed By: #### L [id number] ####Funeral Sales Manager: IKER PARRA ([id number])[facility] [place] [address] Urea nitrogen [Mass/Vol] 9 mg/dL Normal 7-17 [facility] Comment on above: Performed By: #### L [id number] ####Funeral Sales Manager: IKER PARRA ([phone])[facility] ([facility])[address] [place] [address] DRUGS OF ABUSEon 08-08-2023 AMPHETAMINE SCREEN Negative Normal [facility] Comment on above: Performed By: #### L [id number] ####Funeral Sales Manager: IKER PARRA ([id number])[facility] ([facility])[address] [place] [address] BARBITURATES SCREEN Negative Normal [facility] Comment on above: Performed By: #### L [id number] ####Funeral Sales Manager: IKER PARRA ([id number])[facility] ([facility])[address] [place] [address] BENZODIAZEPINE SCREEN Negative Normal [facility] Comment on above: Performed By: #### L [id number] ####Funeral Sales Manager: IKER PARRA ([id number])[facility] ([facility])[address] [place] [address] COCAINE METAB. SCREEN Negative Normal [facility] Comment on above: Performed By: #### L [id number] ####Funeral Sales Manager: IKER PARRA ([phone])[facility] ([facility])[address] [place] [address] METHADONE SCREEN Negative Normal [facility] Comment on above: Performed By: #### L [id number] ####Funeral Sales Manager: IKER PARRA ([id number])[facility] ([facility])[address] [place] [address] OPIATES SCREEN Negative Normal [facility] Comment on above: Performed By: #### L [id number] ####Funeral Sales Manager: IKER PARRA ([id number])[facility] ([facility])[address] [place] [address] OXYCODONE SCREEN Negative Normal [facility] Comment on above: Performed By: #### L [id number] ####Funeral Sales Manager: IKER PARRA ([id number])[facility] ([facility])[address] [place] [address] PHENCYCLIDINE SCREEN Negative Normal [facility] Comment on above: Result Comment: ORDE R COMMENTS: The expected value for all of the drugs listed above is Negative. The following drugs or drug groups have been screened for by Immunoassay at the following thresholds: Amphetamine class (1000 ng/mL) Barbiturates (200 ng/mL) Benzodiazepines (200 ng/mL) Cocaine (300 ng/mL) Methadone (300 ng/mL) Opiates (300 ng/mL) Oxycodone (100 ng/mL) PCP (25 ng/mL) NOTE: These results are for medical treatment only. Analysis performed using non-forensic procedures. POSITIVE results are NOT confirmed by a more specific alternative method unless requested. If confirmation is needed, request confirmation under separate order. Performed By: #### L [id number] ####Funeral Sales Manager: IKER PARRA ([phone])[facility] ([facility])[address] [place] [address] ECG 12-LEADon 08-08-2023 ECG 12-LEAD IMPRESSION: Sinus rhythm Consider anterior infarct Nonspecific T abnormalities, lateral leads Electronically Signed On 08-08-2023 20:51:50 EST by [facility] ED Nursing Noteon 08-08-2023 ED Nursing Note PATIENT ON HER WAY T O T[place] SHE GAVE PERMISSION TO TAKE PURSE AND CELL PHONE WITH HIM Yulisa Fox 08/08/23 1620 [facility] ED Nursing Note Patient waiting to b e transfered Yulisa Fox 08/08/23 1612 [facility] ED Nursing Note Patient is using her cell phone in the room to use [employer] to call off work. Family is in room with her I gave her permission to do so. Fran Amaya RN 08/08/23 1607 [facility] ED Nursing Note Report given to Chelsy serra RN. Fran Amaya RN 08/08/23 1552 [facility] ED Nursing Note In for transport Fran Amaya RN 08/08/23 1549 [facility] ED Nursing Note EVELIA River is in the lianne m talking with the pt and the visitor's. Jyothi Rashid 08/08/23 1454 [facility] ED Nursing Note is in the r oom talking with the pt. Jyothi Rashid 08/08/23 1448 [facility] ED Nursing Note EKG Dept at the pt's bedside. Jyothi Rashid 08/08/23 1429 [facility] ED Nursing Note Visitor requesting water for the pt/Protective Services at the bedside giving the pt water. Jyothi Rashid 08/08/23 1423 [facility] ED Nursing Note is leaving t he pt's room. Registration Dept has entered the room and his talking with the pt and the pt's visitor's. Jyothi Rashid 08/08/23 1418 [facility] ED Nursing Note is in the ro om talking with the pt. Nursing staff Fran Hannon is standing with the visitor's x [address]. Jyothi Rashid 08/08/23 1408 [facility] ED Nursing Note equine pharmacology technicianella Hannon assisted the pt's visitor's x 2 to the pt's room. Jyothi Rashid 08/08/23 1345 [facility] ED Nursing Note The was changed into hospital gowns and slippers. The pt has 1 (one) belonging bag and was wanded by Protective Services. Jyothi Rashid 08/08/23 1344 [facility] ED Nursing Note equine pharmacology technician Lulu Hannon assisted the pt to Rm 50 from the bathroom. Jyothi Rashid 08/08/23 1341 [facility] ED Nursing Note equine pharmacology technician Lulu kempd the pt to the bathroom from Rm 47. Jyothi Herminia Rachid 08/08/23 1339 Normal [facility] ED Nursing Note Pt sitting in Rm 47 with the equine pharmacology technician Lulu Hannon who is drawing the pt's labs/blood. Nursing staff Mirtha Guo is in the room talking with the pt Jyothi J. Rachid 08/08/23 1336 Jyothi Rashid 08/08/23 1424 Normal [facility] ED Provider Noteon ED Provider Note EMERGENCY DEPARTMENT ENCOUNTER Pt Name: Tong Sunshine Birthdate 1985 Date of evaluation: 08/08/2023 ED Provider: Vincent Grijalva, DO CHIEF COMPLAINT Chief Complaint Patient presents with ? Suicidal Pt came from home via self and family. Pt states that she started to have an obsession with work and anxiety 3 weeks ago and then within the past 3-4 days increased depression and SI thoughts. Pt stated that she felt triggered when she read an article about a mom killing her kids. Pt is afraid she'll hurt her kids. Pt then took scissors and started to make shallow lacerations on her L wrist. Pt is not currently bleeding. Pt is A&OX3 and alert. Pt has even and unlabored breathing. HISTORY OF PRESENT ILLNESS (Location/Symptom, Timing/Onset, Context/Setting, Quality, Duration, Modifying Factors, Severity) Note limiting factors. I wore appropriate PPE for the entirety of this encounter. HPI Tong Sunshine is a 37 y.o. with a past medical history of with a past medical history of hyperlipidemia, OCD, M?ni?re's disease presents to the ED with concern for suicidal ideations. Patient states suicidal ideation started increasing with the past couple days. She is also endorsing vague homicidal ideations in which she states that she read an article regarding a Jew woman killing her children and she was wondered could she do the same thing to be crazy. Patient denies any recent suicidal attempts. She did states she did cut her wrists with a scissors today. Patient does have previous suicide attempt in which she tried to overdose in her 20s and 30s. Patient does admit to previous hospitalizations for psychiatric issues in the past. Patient states that she was recently restarted on her Seroquel due to troubles with her sleep. She is also endorsing decreased appetite. Patient states that she weaned herself off Prozac. Patient also presented story regarding her being coming more anxious having to deal with a transgender student. 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 She states that she developed increased anxiety having to treat as a transgender student as part of her job duties. Patient denies any history of alcohol tobacco or illicit drug use. She denies access to firearms in the home. Nursing Notes were reviewed. Limitations to history: None Outside historians: None REVIEW OF SYSTEMS Review of Systems Pertinent positives and negatives as per HPI. PAST MEDICAL HISTORY Past Medical History: Diagnosis Date ? Bulging lumbar disc 2006 ? 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 Family history of breast cancer in sister ? Family history of cervical cancer ? Family history of diabetes mellitus parents ? History of depression 2010 ? Hx gestational diabetes 2018 ? Hypercholesterolemia ? Meniere disease Dr Foss, ENT in [place] ? depression 2015 rx per OB ? Visit for routine rn gynecology exam Dr. Jain [place] SURGICAL HISTORY Past Surgical History: Procedure Laterality Date ? CARPAL TUNNEL RELEASE Bilateral 2021 Dr. Ivan ? SECTION (HISTORICAL) ? WISDOM TOOTH EXTRACTION CURRENT MEDICATIONS Previous Medications CHOLECALCIFEROL (VITAMIN D-3) 250 MCG (32412 UT) CAPSULE Take by mouth. FLUOXETINE (PROZAC) 20 MG CAPSULE Take 1 capsule (20 mg) by mouth daily. QUETIAPINE (SEROQUEL) 25 MG TABLET Take 1 tablet (25 mg) by mouth Nightly. ROSUVASTATIN (CRESTOR) 20 MG TABLET Take 1 tablet (20 mg) by mouth daily. ALLERGIES Sertraline FAMILY HISTORY Family History Problem Relation Name Age of Onset ? Diabetes type II Brother ? Cancer Father age 71 fall 2020 of Bile duct CA ? Diabetes Mother 60.00 acutely during CABG, age 60 in 2014 ? Breast cancer Sister 29.00 ? Coronary artery disease Mother ? Hypertension Sister ? Diabetes type II Sister diet controlled SOCIAL HISTORY Social History Socioeconomic History ? Marital status: Tobacco Use ? Smoking status: Never ? Smokeless tobacco: Never Substance and Sexual Activity ? Alcohol use: Never Alcohol/week: 0.0 standard drinks of alcohol ? Drug use: Never Social History Narrative . to Ruddy since 04/28. (Raised in [place] and met on [place]). One son Anthony 02/26, first daughter, Patricia born 11/28. second dtr, Malou in 2019. Second son Shakeel born in 08/05. 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 SCREENINGS PHYSICAL EXAM ED Triage Vitals [08/08/23 1324] Temp Heart Rate Resp BP 36.7 ?C (98 ?F) 102 16 (!) 144/95 SpO2 Temp Source Heart Rate Source Patient Position 97 % Skin -- Sitting BP Location FiO2 (%) -- -- Physical Exam Constitutional: General: She is not in acute distress. Appearance: Normal appearance. She is normal weight. She is not ill-appearing, toxic-appearing or diaphoretic. HENT: Head: Normocephalic and atraumatic. Right Ear: External ear (more content not included)... Normal [facility] ED Provider Note Emergency Department Encounter [facility] EMERGENCY DEPT Patient: Tong Sunshine : 1985 Date of Evaluation: 08/08/2023 ED Supervising Physician: James Reid MD I independently examined and evaluated Tong Sunshine. This will serve as my Supervisory note as the aerospace engineer of record and shared attestation. I did perform a substantive portion of the visit including all aspects of the Medical Decision Making. I wore appropriate PPE for the entirety of this encounter. In brief, Tong Sunshine is a 37 y.o. female that presents to the emergency department with concern for persevering on suicidal ideations and thoughts of potentially harming herself or others. She reports that she saw an article about someone who harmed her kids and is unsure if she would do something of that nature. Did superficially cut her wrist earlier today Focused exam: Patient is tearful during my examination. Is not internally stimulated although is depressed and affect. Does not have any lacerations on her arms or legs. Brief ED course/MDM: EMERGENCY DEPARTMENT COURSE and DIFFERENTIAL DIAGNOSIS/MDM: Vitals: Vitals: 08/08/23 1324 BP: (!) 144/95 Patient Position: Sitting Pulse: 102 Resp: 16 Temp: 36.7 ?C (98 ?F) TempSrc: Skin SpO2: 97% Weight: 73.5 kg (162 lb) The patient presented with a chief complaint of depression. The differential diagnosis associated with this patient's presentation includes primary psychiatric disorder, medication noncompliance, electrolyte derangements, anemia. Our workup consisted of ordering/reviewing psychiatric clearance blood work was ordered and otherwise is medically cleared has negative drug screen and ethanol level. Psychiatry did evaluate patient and do not feel comfortable discharging her at this time will be admitted to their service. Diagnoses as of 08/09/23 0735 Suicidal ideation Homicidal ideation Diagnostic tests considered but not performed: External records reviewed: Diagnostics interpreted by me: Discussions with other clinicians: Chronic conditions impacting care: Social determinants of health affecting care: ED Medications managed: Medications Tdap (BoostRIX) vaccine 0.5 mL (0.5 mL IntraMUSCular Given 08/08/23 1427) Prescription drugs considered: Disposition and plan: Pression, anxiety, admission to psychiatry All diagnostic, treatment, and disposition decisions were made by myself in conjunction with the Resident/OLIVIA. I also supervised sigala portions of any procedures performed by the Resident/OLIVIA. For all further details of the patient's emergency department visit, please see their documentation. (Comment: Please note this report has been produced using speech recognition software and may contain errors related to that system including errors in grammar, punctuation, and spelling, as well as words and phrases that may be inappropriate. If there are any questions or concerns please feel free to contact the dictating provider for clarification.) James Reid MD [facility] James Reid MD 08/09/23 0736 [facility] IDNon 08-08-2023 IDN Problem: Potential f or Harm to Self or Others Goal: Participates in unit activities Outcome: Progressing Goal: Patient/Family participate in treatment and discharge plans Outcome: Progressing Goal: Identifies deescalation techniques Outcome: Progressing Goal: Understands least restrictive measures Outcome: Progressing Goal: Identifies stressors that lead to harmful behaviors Outcome: Progressing Goal: Notifies staff when experiencing harmful thoughts toward self/others Outcome: Progressing Goal: Denies harm toward self or others Outcome: Progressing Goal: Free from restraint events Outcome: Progressing Problem: Ineffective Coping Goal: Identifies ineffective coping skills Outcome: Progressing Goal: Identifies healthy coping skills Outcome: Progressing Goal: Demonstrates healthy coping skills Outcome: Progressing Goal: Participates in unit activities Outcome: Progressing Problem: Anxiety Goal: Attempts to manage anxiety with help Outcome: Progressing Goal: Verbalizes ways to manage anxiety Outcome: Progressing Goal: Implements measures to reduce anxiety Outcome: Progressing Normal [facility] Progress Noteon 08-08-2023 Progress Note Pt arrived from ED v ia w/c escorted by protective services and nursing telephone instrument supervisor. Pt is calm and cooperative in assessment and conversation. Alert & Oriented x4. Pt arrives to unit with one shirt. No s/s of distress noted. Denies SI/HI, but does endorse a desire to no longer be alive and some shame. No reported/noted hallucinations. Pt ambulating independently. Oriented to unit and consents signed. Orders obtained from Dr. Hsu. Safety and privacy maintained. Pt. Reports past psychiatric admission to [place] approximately 2.5 years ago. She reports currently seeing a nurse practitioner for her mental health, but did not note any counseling. Encouraged pt. To reach out to staff with any issues/concerns. Normal [facility] SARS-COV-2 ANTIGENon 024 SARS-COV-2 ANTIGEN SARS-COV-2 ANTIGEN -BINAX Reference Negative Negative A negative result does not rule out the possibility of SARS-CoV-2 infection. NAAT-based methods should be considered for symptomatic patients presenting greater than seven days after onset of symptoms. Method: Lateral flow immunoassay. Fact sheets for healthcare providers and patients can be found at the following sites: https://www.fda.gov/med ia/258116/download https://www.fda.gov/med ia/914204/download [facility] Comment on above: Performed By: #### L [id number] ####Funeral Sales Manager: IKER PARRA ([id number])[facility] ([address] [id number] 08-06-2023 [id number] Spoke to pt x2. Lack ing motivation and interest. Feels more depression. Reviewed that med changes / adjunct may not be immediate. Discussed options at length. Ultimately it was agreed that patient would continue prozac at 40mg (picked up 20mg and will hold). Patient will start seroquel 25mg nightly. Discussed risks / benefits with plan including the potential for metabolic issues with seroquel and in the setting of an elevation noted last cmp - will plan to monitor as well as pt has PCP follow up forthcoming. Discussed other options however patient had benefit with seroquel in the past and patient is feeling hopeless with how she is feeling. Reviewed taking proper precautions with sedation with seroquel and asking for assistance from . Reviewed potential for synergistic effects of meds (prozac / seroquel). Patient will stop Mg and hydroxyzine due to potential for additive effects of sedation. Denied risk of harm. Reviewed to monitor for movement issues. [facility] [id number] 08-05-2023 [id number] Call to pt. Reviewed timeline with resuming prozac - comparing report from visit with that PCP visit. 0 mg to 20-40 mg within about 2 weeks (20mg for about 3 days?). Patient describing feeling worse with also apparently physical issues since 40mg dose was resumed. Patient starts feeling better around 4p. It is possible that patient is not tolerating the prior increase she had made (?) as medication was rather quickly increased. It was agreed that she would reduce prozac to 20mg and call on Wednesday (sooner prn / after hours help reviewed). It is likely that we will start seroquel on Wednesday. It was agreed to 1st assess for any improvement with prozac to 20mg prior to introducing another agent given suspicion that it is culprit to worse feelings. Feels exhaustion and fatigue at 8p. Takes prozac at about 8a. No SI / HI. Consent obtained to order prozac 20mg (and stop 40mg dose) - rx to pharm. [facility] [phone] Call to pt. Lm on #2 (recd message that she was unable to get through via [employer]). [facility] [phone] Call to pt. Lm on vm. Normal [facility] 08-05-2023 36 Patient called to return missed call. [facility] 08-03-2023 36 Message released to patient as written. CBC- normal cell counts. Lipid panel- total cholesterol elevated 272, HDL good at 54, triglycerides elevated at 121, LDL cholesterol elevated at 193, recommend starting rosuvastatin 20 mg daily, low fat, low cholesterol diet and rechecking in 4 weeks CMP-glucose slightly elevated at 121, otherwise normal electrolytes, normal kidney and liver functioning. Recommend checking hemoglobin A1c next visit (will give us an idea of what the glucose has been over a 3 month period) Patient's further questions if applicable: Patient verbalized understanding and is agreeable to starting the rosuvastatin 20 MG medication and would like this sent to [facility]. Patient has also been scheduled for a Nurse Visit to repeat their labs in 4 weeks on 09/01/23 at 8:00 AM. FYI Please advise. Were all questions from office addressed or relayed to the patient from encounter: Yes Normal [facility] 36 ----- Message from FABIAN Florentino [employer]PER[employer] sent at 08/03/2023 6:49 AM EST ----- CBC- normal cell counts. Lipid panel- total cholesterol elevated 272, HDL good at 54, triglycerides elevated at 121, LDL cholesterol elevated at 193, recommend starting rosuvastatin 20 mg daily, low fat, low cholesterol diet and rechecking in 4 weeks CMP-glucose slightly elevated at 121, otherwise normal electrolytes, normal kidney and liver functioning. Recommend checking hemoglobin A1c next visit (will give us an idea of what the glucose has been over a 3 month period) Left a message to return call. Directions for CAC in the event patient calls back: If the patient is agreeable to starting the new medication, please: 1. Verify what pharmacy RX will be sent to. 2. Schedule patient for nurse visit to repeat labs in 4 weeks. 3. Route this TE back to the office clinical pool so we can place lab orders and send in rx. If the patient is not agreeable to starting the new medication then no nurse visit is needed. Thanks! [facility] CBC panel Auto (Bld)on 08-03 Erythrocyte distribution width (RBC) [Ratio] 12.6 % 11.0 - 15.0 % [facility] Hematocrit (Bld) [Volume fraction] 44.8 % 35.0 - 45.0 % [facility] Hemoglobin (Bld) [Mass/Vol] 15.0 g/dL 11.7 - 15.5 g/dL [facility] MCH (RBC) [Entitic mass] 29.2 pg 27.0 - 33.0 pg [facility] MCHC (RBC) [Mass/Vol] 33.5 g/dL 32.0 - 36.0 g/dL [facility] MCV (RBC) [Entitic vol] 87.2 fL 80.0 - 100.0 fL [facility] Platelet mean volume (Bld) [Entitic vol] 9.8 fL 7.5 - 12.5 fL [facility] Platelets (Bld) [#/Vol] 338 10*3/uL [facility] RBC (Bld) [#/Vol] 5.14 10*6/uL [facility] WBC (Bld) [#/Vol] 9.7 10*3/uL [facility] Comprehensive metabolic 1998 panelon 08-03-2023 Albumin [Mass/Vol] 4.5 g/dL 3.6 - 5.1 g/dL [facility] Albumin/Globulin [Mass ratio] 1.6 {ratio} [facility] ALP [Catalytic activity/Vol] 52 U/L 31 - 125 U/L [facility] ALT [Catalytic activity/Vol] 13 U/L 6 - 29 U/L [facility] AST [Catalytic activity/Vol] 14 U/L 10 - 30 U/L [facility] Bilirubin [Mass/Vol] 0.3 mg/dL 0.2 - 1 .2 mg/dL [facility] Calcium [Mass/Vol] 9.5 mg/dL 8.6 - 10. 2 mg/dL [facility] Chloride [Moles/Vol] 104 mmol/L 98 - 11 0 mmol/L [facility] CO2 [Moles/Vol] 27 mmol/L 20 - 32 mmol/L [facility] Creatinine [Mass/Vol] 0.51 mg/dL 0.50 - 0.97 mg/dL [facility] GFR/1.73 sq M.predicted among non-blacks MDRD (S/P/Bld) [Vol rate/Area] 122 mL/min/{1.73_m2} > OR = 60 mL/min/1.73m 2 [facility] Globulin (S) [Mass/Vol] 2.8 g/dL [facility] Glucose [Mass/Vol] 121 mg/dL High 65 - 99 mg/dL [facility] Comment on above: Fasting reference interval For someone without known diabetes, a glucose value between 100 and 125 mg/dL is consistent with prediabetes and should be confirmed with a follow-up test. Potassium [Moles/Vol] 4.3 mmol/L 3.5 - 5.3 mmol/L [facility] Protein [Mass/Vol] 7.3 g/dL 6.1 - 8.1 g/dL [facility] Sodium [Moles/Vol] 139 mmol/L 135 - 146 mmol/L [facility] Urea nitrogen [Mass/Vol] 10 mg/dL 7 - 25 mg/dL [facility] Urea nitrogen/Creatinine [Mass ratio] SEE NOTE: [facility] Comment on above: Not Reported: BUN an d Creatinine are within reference range. Lipid 1996 panelon 4 Cholesterol [Mass/Vol] 272 mg/dL High NINF - 200 mg/dL [facility] Cholesterol in HDL [Mass/Vol] 54 mg/dL > OR = 50 [facility] Cholesterol in LDL [Mass/Vol] 193 mg/dL High mg/dL (calc) [facility] Comment on above: LDL-C levels > or = 190 mg/dL may indicate familial hypercholesterolemia (FH). Clinical assessment and measurement of blood lipid levels should be considered for all first degree relatives of patients with an FH diagnosis. LDL Cholesterol (LDL-C) levels > or = 300 mg/dL may indicate homozygous familial hypercholesterolemia (HoFH). Untreated, these extremely high LDL-C levels can result in premature CV events and mortality. Patients should be identified early and provided appropriate interventions to reduce the cumulative LDL-C burden from . For questions about testing for familial hypercholesterolemia, please call [employer] Services at [phone]. Marlo Higginbotham, et al. J National Lipid Association Recommendations for Patient-Centered Management of Dyslipidemia: Part 1 Journal of Clinical Lipidology 2015;9(2), 129-169. Zackery Kiran et al. (2014). Homozygous familial hypercholesterolaemia: new insights and guidance for clinicians to improve detection and clinical management. Heart Journal, 35(32), 1832-1438. Reference range: <100 Desirable range <100 mg/dL for primary prevention; <70 mg/dL for patients with CHD or diabetic patients with > or = 2 CHD risk factors. LDL-C is now calculated using the Chen calculation, which is a validated novel method providing better accuracy than the Friedewald equation in the estimation of LDL-C. Cristi VILLAFANA et al. JOSHUA. 2013;310(19): 7794-7572 (http://education.[employer]/faq/QNE727) Cholesterol non HDL [Mass/Vol] 218 mg/dL High [facility] Comment on above: For patients with di abetes plus 1 major ASCVD risk factor, treating to a non-HDL-C goal of <100 mg/dL (LDL-C of <70 mg/dL) is considered a therapeutic option. Cholesterol.total/Ch olesterol in HDL [Mass ratio] 5.0 {ratio} High [facility] Triglyceride [Mass/Vol] 121 mg/dL [facility] - 150 mg/dL [facility] No Panel Informationon 08-03 Interpretation and review of laboratory results Abnormal [facility] Office Visiton 08-03-2023 Follow-up visit [id number] Tong Sunshine 1985 F Date Provider Department Center 08/03/2023 [id number]-OCHARMAINE RICHARDSON [facility] None Family History Problem Relation Age of Onset Diabetes type II Brother Cancer Father Comments: age 71 fall 2020 of Bile duct CA Diabetes Mother 60.00 Comments: acutely during CABG, age 60 in 2013 Breast cancer Sister 29.00 Coronary artery disease Mother Hypertension Sister Diabetes type II Sister Comments: diet controlled Family Status - Relation Status Age at Brother Alive Father Mother 61 Sister Alive Level of Service:97850 [place] OFFICE/OUTPATIENT ESTABLISHED MOD MDM 30 MIN Reason for Visit and Comments: Follow-up [470209] Anxiety [9] Normal [facility] Progress Noteon 08-03-2023 Progress Note Date of visit - 08/03 Tong Sunshine 1985 Hx in brief: Patient last seen in 2021. Dx - MDD; OCD. She was continued on prozac at that time. She had been taking an 80mg dose. Patient has h/o psychiatric admission - December and January of 2021. Subjective: Chief Complaint Patient presents with Follow-up Anxiety I was doing really well Interim hx / visit report: Patient was doing well and happy since last being seen. Only occasionally was she feeling down in dumps but was generally fine. Patient was on 80mg of prozac after her last child was born. She got down to 40mg and in April wondered if she needed the medication any longer. Patient then tapered prozac to 20mg and then would forget to take it. She noted no general difference until about 2 weeks ago. She started feeling anxiety and that OCD started flaring. Patient has been on 40mg for 2 weeks. She feels fight or flight and heart racing as well as fear, anxiety, and OCD feeling. Noted relapse in sx at prozac 20mg. Yesterday patient had a physical with PCP. No SI or harm thoughts. Intrusive thoughts are generally related to camelia and historically are such. Recently there was an issue in that context to where patient was having intrusive thoughts and was spiraling. Patient has lost 20lb since last summer - she has been exercising and eating healthy. Patient feels tired, weak, and has lost appetite. Things are good in marriage outside of mental health. No plans for any additional pregnancies. Patient feels a lot of pressure from to be happy / a rock. Mood today - very very anxious. Patient feels depressed about anxiety. 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 Patient has a feeling of doom when she awakes. 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 Ivan SECTION (HISTORICAL) WISDOM TOOTH EXTRACTION Allergies Allergen Reactions Sertraline Other SI thoughts. Objective: Mental Status Exam: Appearance - attire appropriate; well groomed; appearing as stated age and healthy Demeanor - cooperative; engaged; pleasant; appears to be forthcoming Activity - wnl; not restless / hyperactive Eye Contact - good Speech / language - wnl Mood - reports on mood per above Affect - full Thought Process - patient is organized in presenting thoughts Thought Content - wnl / forward thinking Evidence of paranoia / delusions / hallucinations? no Evidence of suicidal and / or homicidal ideations? no Judgement - good Insight - good Orientation / level of consciousness - alert and oriented x4 Attention / concentration - pt is attentive to visit Memory and cognition (not formally assessed / tested) - no obvious deficits noted during visit Gait - normal / balanced / steady Fund of Knowledge - adequate ASSESSMENT/PLAN: 1. Recurrent major depressive disorder, in full remission (HCC) 2. Obsessive-compulsive disorder, unspecified type Patient recently resumed prozac (about 3 weeks ago) and then recently increased it to 40mg per above. Primary care has provided a recent prescription for 40mg. I related that titrations are indicated with prozac and that full effect may not yet be present - and it is possible that with aggressive titrations that there are potential side effects (worse sx, anxiousness, insomnia, etc). It was agreed that patient would continue prozac at 40mg for another week and that we would consider introducing seroquel which she had previously taken. Patient will call next week and sooner prn. Patient also ordered hydroxyzine via PCP - we reviewed the class and indications for that medication as well as the potential for sedation. Patient provided informed consent to continue treatment with the above noted medications as in med list. Hydroxyzine for ocd and prozac for both dx. Patient to call with any question or concern prior to next visit. Patient to report to the nearest emergency department or call 911 in an emergency. FOLLOW-UP: Follow up in about 4 weeks (around 08/31/2023).; prn Current Outpatient Medications: cholecalciferol (Vitamin D-3) 250 M (more content not included)... [facility] [id number] 08-02-2023 [id number] Patient had asked ab out earlier visit - I note cancellation tomorrow that could accommodate a 1 hr visit. Please call patient and see if tomorrow is of interest. Thank you. [facility] 36on 08-02-2023 36 Noted. [facility] Office Visiton 08-02-2023 Follow-up visit [id number] Tong Sunshine 1985 F Date Provider Department Center 08/02/2023 [id number]-[id number] GOODEN [facility] Family History Problem Relation Age of Onset Diabetes type II Brother Cancer Father Comments: age 71 fall 2020 of Bile duct CA Diabetes Mother 60.00 Comments: acutely during CABG, age 60 in 2014 Breast cancer Sister 29.00 Coronary artery disease Mother Hypertension Sister Diabetes type II Sister Comments: diet controlled Family Status - Relation Status Age at Brother Alive Father Mother 61 Sister Alive Level of Service:60714 [place] PERIODIC PREVENTIVE MED EST PATIENT 18-39 YRS Reason for Visit and Comments: Annual Exam [83] Health Maintenance [872] - Hep B-declined HIV/Hep C-declined Pap-needs to neil Covid-declined PHQ-completed DM Screen-today Anxiety [9] Normal [facility] PATINSon 08-02-2023 PATINS Counseling [facility] Progress Noteon 08-02-2023 Progress Note Poorly controlled. J ust recently started back on fluoxetine 40 mg, denies any suicidal or homicidal ideation. Recommend continue fluoxetine 40 mg daily, will add hydroxyzine 25 mg every 8 hours as needed for anxiety, recommend reestablishing with counseling services and following up with psychiatry Normal [facility] Progress Note 08/02/2023 Tongmarilyn Sunshine (: 1985) is a 37 y.o. female , Established patient, here for evaluation of the following chief complaint(s): Annual Exam, Health Maintenance (Hep B-declined/HIV/Hep C-declined/Pap-needs to [facility]/Covid-declined/PHQ- completed/DM Screen-today), and Anxiety ASSESSMENT/PLAN: 1. Annual physical exam 2. Anxiety Assessment & Plan: Poorly controlled. Just recently started back on fluoxetine 40 mg, denies any suicidal or homicidal ideation. Recommend continue fluoxetine 40 mg daily, will add hydroxyzine 25 mg every 8 hours as needed for anxiety, recommend reestablishing with counseling services and following up with psychiatry Orders: - hydrOXYzine HCl (Atarax) 25 MG tablet; Take 1 tablet (25 mg) by mouth 3 times daily for 15 days., Starting 08/02/2023, Until Wed08/17/2023, Normal 3. Screening for diabetes mellitus - Comprehensive metabolic panel 4. Screening for deficiency anemia - CBC 5. Screening for cholesterol level - Lipid panel Follow up for 3 month [facility], as directed pending test results. SUBJECTIVE/OBJECTIVE: HPI - Tong Sunshine (: 1985) is a 37 y.o. female , Established patient, here for the evaluation of the following chief complaint(s): Annual Exam, Health Maintenance (Hep B-declined/HIV/Hep C-declined/Pap-needs to [facility]/Covid-declined/PHQ- completed/DM Screen-today), and Anxiety Patient presents for annual exam. 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 has vasectomy. Patient follows with [facility] and needs to schedule her Pap. Reports menses regular. Reports that she has had increased anxiety over the past month or so and obsessive compulsive thoughts. States that she has a history of anxiety depression and was previously on Prozac 60 mg and previously established with psychiatry. Also was seeing a counselor. Was doing very well over the past year or so and self tapered discontinued her Prozac. Reports she was doing pretty well up until about a month or so ago so she restarted the Prozac 20 mg for a few days and then asked to increase it to 40 mg daily states she has been taking 40 mg daily for about a week and a half and states she continues to struggle with anxiety and intrusive thoughts. Denies any suicidal or homicidal ideation. Reports that she has scheduled to see psychiatry this . Prior to Admission medications Medication Sig Start Date End Date Taking? Authorizing Provider cholecalciferol (Vitamin D-3) 250 MCG (76872 UT) capsule Take by mouth. Yes Historical Provider, FLUoxetine (PROzac) 40 MG capsule Take 1 capsule (40 mg) by mouth daily. 07/28/23 01/24/24 Yes Ash King MD fluticasone (Flonase) 50 MCG/ACT nasal spray SPRAY 1 SPRAY INTO EACH NOSTRIL TWICE A DAY 10/15/22 Historical Provider, phentermine (Adipex-P) 37.5 MG tablet Take 1 tablet (37.5 mg) by mouth every morning (before breakfast). 03/19/23 04/18/23 FABIAN Arreola CNP Probiotic Product (PROBIOTIC DAILY PO) Take by mouth. Historical Provider, FLUoxetine (PROzac) 20 MG capsule Take 1 capsule (20 mg) by mouth daily. 04/23/23 07/28/23 Priscilla Gooden APRN - [employer] Review of Systems Constitutional: Negative. HENT: Negative. Eyes: Negative for visual disturbance. Last eye exam- about 1 year ago Respiratory: Negative. Cardiovascular: Negative. Gastrointestinal: Positive for nausea. Negative for abdominal pain, constipation, diarrhea and vomiting. Genitourinary: Negative for difficulty urinating and menstrual problem (regular, LMP 07/18/2023). Musculoskeletal: Negative. Skin: Negative. Neurological: Positive for dizziness (occasional) and headaches (2-3 times per week- tension type- acetaminophen or ibuprofen). Negative for syncope and light-headedness. Psychiatric/Behavioral: The patient is nervous/anxious. Reports that anxiety Was seeing psychiatrist couple years ago. Prozac to 20 mg back in April 2023. States that the anxiety was starting to no si/hi. Reports that she is not sleeping well at all. Reports that she is fearful. 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 Vitals: 08/02/23 0733 BP: 137/81 Pulse: 90 Resp: 16 Temp: 37.1 ?C (98.7 ?F) TempSrc: Infrared SpO2: 97% Weight: 168 lb (76.2 kg) Height: 4' 11 (1.499 m) Physical Exam Constitutional: General: She is not in acute distress. Appearance: Normal appearance. She is obese. She is not ill-appearing. HENT: Head: Normocephalic and atraumatic. Right Ear: Tympanic membrane, ear canal and external ear normal. There is no impacted cerumen. Left Ear: Tympanic membrane, ear canal and external ear normal. There is no impacted cerumen. Nose: Nose normal. No congestion or rhinorrhea. Mouth/Throat: Mouth: Mucous membranes are moist. Pharynx: Oropharynx is clear. Uvula midline. No oropharyngeal exudate or posterior oropharyngeal erythema. Eyes: Conjunctiva/s (more content not included)... Normal [facility] Progress Note Patient was identifi ed by name and Date of . HM: Hep B-declined HIV/Hep C-declined Pap-needs to [facility] ([facility] we[place]) [facility] Covid-declined PHQ-completed DM Screen-today Normal [facility] 36on 07-30-2023 36 Called patient no answer left detailed VM to call and schedule appt, 2nd attempt to contact, letter sent. [facility] [phone] 07-29-2023 [id number] Please assist teodoro higginbotham in scheduling a 1 hour in person visit. Thank you. [facility] 3607-29-2023 36 Please reach out to patient again. [facility] 36 Patient scheduled 08/05/23 at 7:30 am for 1-hour. [facility] 3607-28-2023 36 Prescription Request : Last medication check: 03/03/23 Last physical exam: na(advised she needs to schedule GEE) Next scheduled appointment: GUERRERO Last date of refill on this medication 04/23/[address] 07-01-2023 36 lm to pre-visit plan for appointment with Dr King on 07/02/23 11:30. Please ask patient to arrive 15 minutes early with Photo ID, insurance card Fasting: yes If you speak with pt please ask the following questions- COPY AND PASTE THE FOLLOWING QUESTIONS THEN ANSWER THEM AND SEND BACK TO ME Is your address, phone number, and insurance the same? (Verify with chart) Any changes to your allergies? (Verify with chart) BRING A LIST OF ALL MEDICATIONS AND THE DOSES TO VISIT What pharmacy do you use? Any surgeries since you were seen last? Do you a smoker/vape/ chew? Do you drink alcohol? If yes what and how many (approx) per week? Please answer the following with: no, sometime, most of the time, or all the time In the last 2 weeks: have you felt down or depressed? have you had little interest or little pleasure in things? Any problems falling or staying asleep, or sleeping too much? Feel tired or have little energy? Poor appetite or overeating? Feel bad about yourself-or feel that you are a failure or let others down? Trouble concentrating? Move or speak so slowly that other people have noticed, or being so restless that you can't set still? Thoughts that you would be better off or of hurting yourself? Please answer the following with- not hard, somewhat hard, hard, very hard Of the problems marked- how hard has it made for you to work, take care of things at home, or get along with others? Have you had or are you interested in receiving any of the following? Hep b vaccine- Hiv or hep c screening- Pap- 3rd covid vaccine- On average how many days per week do you engage in moderate to strenuous exercise? For how many minutes? Any problems paying for the very basic- food, housing, medical care, heat? Any worries about running out of food before you have money to buy more? Do you have reliable transportation? In the last 12 months have you had any problems paying your rent or mortgage on time? In the last 12 months have you been homeless or slept in a custodial? How many places have you lived in the last 12 months? Normal [facility] SHS Comp Metabolic Panelon 01-16 ALT [Catalytic activity/Vol] 21 U/L Normal 0-34 [facility] Comment on above: Result Comment: The ALT test is performed by an updated assay method. Please note that the reference intervals have been changed and are now sex specific. Performed By: #### C MP3, QWNT5, ETOH4, HEMDF #### [facility] [address], [place] Calcium [Mass/Vol] 9.5 mg/dL Normal 8.4-10.4 [facility] Comment on above: Performed By: #### C MP3, QWNT5, ETOH4, HEMDF #### [facility] [address] [place] [address] ALP [Catalytic activity/Vol] 56 U/L Normal 38-126 [facility] Comment on above: Performed By: #### C MP3, QWNT5, ETOH4, HEMDF #### [facility] [address] [place] [address] Anion gap [Moles/Vol] 10 mmol/L Normal 3-13 [facility] Comment on above: Performed By: #### C MP3, QWNT5, ETOH4, HEMDF #### [facility] [address] [place] [address] AST [Catalytic activity/Vol] 25 U/L Normal 15-46 [facility] Comment on above: Performed By: #### C MP3, QWNT5, ETOH4, HEMDF #### [facility] [address], [place] Bilirubin [Mass/Vol] 0.3 mg/dL Normal 0.2-1.3 [facility] Comment on above: Performed By: #### C MP3, QWNT5, ETOH4, HEMDF #### [facility] [address], [place] CO2 [Moles/Vol] 20 mmol/L Low 22-30 [facility] Comment on above: Performed By: #### C MP3, QWNT5, ETOH4, HEMDF #### [facility] [address], [place] Creatinine [Mass/Vol] 0.40 mg/dL Low 0.52-1.25 [facility] Comment on above: Performed By: #### C MP3, QWNT5, ETOH4, HEMDF #### [facility] [address], [place] eGFR OTHER > 90.0 Normal >60 [facility] Comment on above: Result Comment: KDIG O guidelines provide the following GFR categories: Stage GFR(ml/min/1.73 m2) Terms G1 >=90 Normal or high G2 60-89 Mildly decreased* G3a 45-59 Mildly to moderately decreased G3b 30-44 Moderately to severely decreased G4 15-29 Severely decreased G5 <15 Kidney failure *Relative to young adult level. In the absence of evidence of kidney damage, neither GFR category G1 nor G2 fulfill the criteria for CKD. The CKD-EPI equation is validated in individuals 18 years of age and older. Currently the best equation for estimating glomerular filtration rate (GFR) from serum creatinine in children is the Bedside Russo equation. It is less accurate in patients with extremes of muscle mass, restriction of dietary protein, ingestion of creatine, extra-renal metabolism of creatinine, or treatment with medications that affect renal tubular creatinine secretion. Performed By: #### C MP3, QWNT5, ETOH4, HEMDF #### [facility] [address], [place] GFR/1.73 sq M.predicted among blacks MDRD (S/P/Bld) [Vol rate/Area] mL/min/{1.73_m2} Normal >60 [facility] Comment on above: Performed By: #### C MP3, QWNT5, ETOH4, HEMDF #### [place] [address], [place] Glucose [Mass/Vol] 131 mg/dL High 70-100 [facility] Comment on above: Performed By: #### C MP3, QWNT5, ETOH4, HEMDF #### [place] [address], [place] Protein [Mass/Vol] 7.4 g/dL Normal 6.3-8.2 [facility] Comment on above: Performed By: #### C MP3, QWNT5, ETOH4, HEMDF #### [place] [address], [place] Urea nitrogen [Mass/Vol] 13 mg/dL Normal 7-20 [facility] Comment on above: Performed By: #### C MP3, QWNT5, ETOH4, HEMDF #### [place] [address], [place] Potassium [Moles/Vol] 3.7 mmol/L Normal 3.5-5.1 [facility] Comment on above: Performed By: #### C MP3, QWNT5, ETOH4, HEMDF #### [place] [address], [place] Sodium [Moles/Vol] 136 mmol/L Normal 135-145 [facility] Comment on above: Performed By: #### C MP3, QWNT5, ETOH4, HEMDF #### [place] [address], [place] Albumin [Mass/Vol] 4.0 g/dL Normal 3.5-5.0 [facility] Comment on above: Performed By: #### C MP3, QWNT5, ETOH4, HEMDF #### [place] [address], [place] Chloride [Moles/Vol] 107 mmol/L Normal 98-107 [facility] Comment on above: Performed By: #### C MP3, QWNT5, ETOH4, HEMDF #### [facility] [address], [place] Complete Urinalysison 2020 Appearance (U) Clear Normal Clear [facility] Comment on above: Result Comment: . Performed By: #### C UA2, DRGA4 #### [facility] [address] Bacteria LM.HPF (Urine sed) [#/Area] Negative Normal Negative [facility] Comment on above: Result Comment: . Performed By: #### C UA2, DRGA4 #### [place] [address] [place], [place] Bilirubin,Urine Negative Normal Negative [facility] Comment on above: Result Comment: . Performed By: #### C UA2, DRGA4 #### [place] [address], [place] Color (U) Yellow Normal Lt. Yellow [facility] Comment on above: Result Comment: . Performed By: #### C UA2, DRGA4 #### [place] [address], [place] Glucose Ql (U) Normal Normal Normal (<70) [facility] Comment on above: Result Comment: . Performed By: #### C UA2, DRGA4 #### [place] [address], [place] Ketone,Urine Negative Normal Negative [facility] Comment on above: Result Comment: . Performed By: #### C UA2, DRGA4 #### [facility] [address], [place] Leukocytes,Urine Negative Normal Negative [facility] Comment on above: Result Comment: . Performed By: #### C UA2, DRGA4 #### [place] [address], [place] Mucous Threads Few Normal Negative [facility] Comment on above: Result Comment: . Performed By: #### C UA2, DRGA4 #### [facility] [address] Nitrites,Urine Negative Normal Negative [facility] Comment on above: Result Comment: . Performed By: #### C UA2, DRGA4 #### [place] [address], [place] Occult Blood,Urine Negative Normal Negative [facility] Comment on above: Result Comment: . Performed By: #### C UA2, DRGA4 #### [place] [address], [place] pH,Urine 6.0 Normal 5.0-8.0 [facility] Comment on above: Result Comment: . Performed By: #### C UA2, DRGA4 #### [place] [address], [place] Protein (U) [Mass/Vol] 10 mg/dL Abnormal Negative [facility] Comment on above: Result Comment: . Performed By: #### C UA2, DRGA4 #### [place] [address], [place] RBC, Urine 0 - 2 Normal 0-2 [facility] Comment on above: Result Comment: . Performed By: #### C UA2, DRGA4 #### [place] [address], [place] Specific [place],Urine 1.020 Normal 1.005 - 1.030 [facility] Comment on above: Result Comment: . Performed By: #### C UA2, DRGA4 #### [place] [address], [place] Squamous Epithelial 3 - 5 Normal 3-5 [facility] Comment on above: Result Comment: . Performed By: #### C UA2, DRGA4 #### [place] [address], [place] Urobilinogen,Urine Normal Normal Normal (0-1) [facility] Comment on above: Result Comment: . Performed By: #### C UA2, DRGA4 #### [place] [address], [place] WBC, Urine 3 - 5 Normal 0-5 [facility] Comment on above: Result Comment: . Performed By: #### C UA2, DRGA4 #### [facility] [address] [place] [facility] [place] [address] Drugs of Abuseon 01-16-2021 Phencyclidine (PCP), Ur Negative Normal [facility] Comment on above: Result Comment: The expected value for all of the drugs listed above is Negative. The following drugs or drug groups have been screened for by Immunoassay at the following thresholds: Amphetamine class (1000 ng/mL), Barbiturates (200 ng/mL), Benzodiazepines (200 ng/mL), Cocaine (300 ng/mL), Methadone (300 ng/mL), Opiates (300 ng/mL), Oxycodone (100 ng/mL), and PCP (25 ng/mL). NOTE: These results are for medical treatment only. Analysis performed using non-forensic procedures. POSITIVE results are NOT confirmed by a more specific alternative method unless requested. If confirmation is needed, request confirmation under separate order. Performed By: #### C UA2, DRGA4 #### [place] [address] [facility] [place], [place] Methadone, Ur Negative Normal [facility] Comment on above: Performed By: #### C UA2, DRGA4 #### [place] [address] [facility] [place], [place] Opiates, Ur Negative Normal [facility] Comment on above: Performed By: #### C UA2, DRGA4 #### [place] [address] [place] [address] Cocaine, Ur Negative Normal [facility] Comment on above: Performed By: #### C UA2, DRGA4 #### [place] [address] [place] [address] Amphetamines, Ur Negative Normal [facility] Comment on above: Performed By: #### C UA2, DRGA4 #### [place] [address] [place] [address] Benzodiazepines, Ur Negative Normal [facility] Comment on above: Performed By: #### C UA2, DRGA4 #### [place] [address] [place] [address] Barbiturates, Ur Negative Normal [facility] Comment on above: Performed By: #### C UA2, DRGA4 #### [facility] [address] [place] [address] Oxycodone/Oxymorphin e,Ur Negative Normal [facility] Comment on above: Performed By: #### C UA2, DRGA4 #### [facility] [address] [place] [address] ED [facility] Patient: Tong Sunshine : 1985 Date of Evaluation: 01/16/2021 ED OLIVIA Provider: NIALL Reyes EDcare was supervised by Dr. Shankar Delaney MD who independently examined and evaluated the patient. Please see their attestation note for further details. Chief Complaint Chief Complaint Patient presents with ? Suicidal denies plan, reports thoughts of SI. Pt states her psychiatrist sent in her in for medical clearance to [facility]. ? Depression x couple weeks, reports recently at [facility] and recently d/c but not feeling better ? Anxiety x couple weeks ? Other OCD related thoughts x couple weeks. [place]OT[place]BUE I was wearing a N95 mask, gloves, surgical mask for the entirety of this encounter. Does this patient come from an ECF, SNF, Rehab, Fci or other Congregate setting: no (If yes to above patient needs a Covid-19 test) Tong Sunshine is a 35 y.o. female whopresents to the emergency department for suicidal ideations. Patient states that she was admitted to [facility] with Dr. Jones at taking care of her. Patient states that she was discharged. However states that she continues to have suicidal ideations anxiety and decreased mood. Patient states that her psychiatrist is Dr. Charmaine Richardson who did send the patient over for medical clearance to be admitted to [facility]. Patient states that she is on Prozac and Seroquel. And has been taking these medications as regularly prescribed. Patient states that she is about 12 weeks has been taking vitamins is denying any abdominal cramping abdominal pain no vaginal bleeding. Did ask about homicidal ideations patient denies homicidal ideations however she does states that she has OCD related thoughts. Patient is not able to elaborate on these thoughts. Patient denies fevers, fatigue, chills, sweats, headaches, dizziness, lightheadedness, chest pain, palpitations, leg swelling, shortness of breath, abdominal pain, nausea, vomiting, constipation, diarrhea, dysuria, hematuria. ROS: At least 10 systems reviewed and otherwise acutely negative except as in the [place]OTZEBUE. Past History Past Medical History: Diagnosis Date ? Bulging lumbar disc 2007 ? Family history of breast cancer in sister ? Family history of cervical cancer ? Family history of diabetes mellitus parents ? History of depression 2010 ? Hx gestational diabetes 2018 ? Hypercholesterolemia ? Meniere disease Dr Foss, ENT in [place] ? depression 2016 rx per OB ? Visit for routine rn gynecology exam Dr. Jain [place] Past Surgical History: Procedure Laterality Date ? SECTION ? WISDOM TOOTH EXTRACTION Social History Socioeconomic History ? Marital status: Spouse name: None ? Number of children: None ? Years of education: None ? Highest education level: None Occupational History ? None Tobacco Use ? Smoking status: Never Smoker ? Smokeless tobacco: Never Used Vaping Use ? Vaping Use: Never used Substance and Sexual Activity ? Alcohol use: Never Alcohol/week: 0.0 standard drinks ? Drug use: Never ? Sexual activity: Yes Partners: Male Other Topics Concern ? None Social History Narrative to Ruddy since 04/28. (Raised in [place] and met on [place]). One son Anthony 02/26, first daughter, Patricia born 11/28. second dtr, Malou. 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 Social Determinants of Health Financial Resource Strain: Low Risk ? Difficulty of Paying Living Expenses: Not hard at all Food Insecurity: No Food Insecurity ? Worried About Running Out of Food in the Last Year: Never true ? Ran Out of Food in the Last Year: Never true Transportation Needs: ? Lack of Transportation (Medical): ? Lack of Transportation (Non-Medical): Physical Activity: ? Days of Exercise per Week: ? Minutes of Exercise per Session: Stress: ? Feeling of Stress : Social Connections: ? Frequency of Communication with Friends and Family: ? Frequency of Social Gatherings with Friends and Family: ? Attends Hindu Services: ? Active Member of Clubs or Organizations: ? Attends Club or Organization Meetings: ? Marital Status: Intimate Partner Violence: ? Fear of Current or Ex-Partner: ? Emotionally Abused: ? Physically Abused: ? Sexually Abused: Medications/Allergies Previous Medications CHOLECALCIFEROL (VITAMIN D3) 50 MCG (1999 UT) CAPS Take 2,000 Units by mouth daily FLUOXETINE (PROZAC) 20 MG CAPSULE Take 3 capsules by mouth daily MV-MIN-[id number] FUM-FA-DHA ( 1 PO) Take 1 Dose by mouth daily QUETIAPINE (SEROQUEL) 25 MG TABLET Take 0.5 tablets by mouth every evening No Known Allergies Physical Exam ED Triage Vitals BP Temp Temp Source Pulse Resp SpO2 Height Weight 01/16/21 1708 01/16/21 1708 01/16/21 1 (more content not included)... Normal [facility] ED Provider Note Patient: Tong Escalona er : 1985 Date of Evaluation: 01/16/2021 ED Provider: Shankar Delaney MD I saw the patient as the Clinician in Triage and performed a brief history and physical exam, established acuity, and ordered appropriate tests. Initial history and brief exam is performed. Initial workup is ordered to develop basic plan of care, and patient will be taken to the main emergency department for further evaluation and treatment. Patient will be seen by OLIVIA and/or my physician partner who will evaluate the patient. If seen by the OLIVIA, and reviewed with me, I will manage the patient in a supervisory role and will be available for co-management. Brief HPI: In brief, Tong Sunshine is a 35 y.o. female that presents for concern for her mental health. She states she is having worsening depression. She is increased anxiety. She is having suicidal ideation. She states that she has severe OCD and cannot control her OCD related thoughts. States this is progressively worsened since her most recent hospitalization at [facility] for similar problems. Denies recent physical illness such as fevers chills cough cold. She is but was told that recently when she was having vaginal bleeding that she had a threatened miscarriage. She is not currently having any vaginal bleeding or abdominal pain. Focused Physical exam: Awake and alert. Afebrile. Nontoxic. Lungs clear to auscultation. Heart regular rate and rhythm. Abdomen soft nondistended without focal tenderness rebound or guarding. Ambulatory with normal gait. Neurologic exam has no focal deficits Plan: Medical clearance laboratory studies are obtained, and patient is medically clear for admission to psychiatry. Please see subsequent provider note for further details and disposition. Comment: Please note this report has been produced using speech recognition software and may contain errors related to that system including errors in grammar, punctuation, and spelling as well as words and phrases that may be inappropriate. If there are any questions or concerns please feel free to contact the dictating provider for clarification Shankar Delaney MD [employer] Shankar Delaney MD 01/17/21 1225 Normal [facility] Ethanol Serum/Plasmaon 01-16 Ethanol-Serum/Plasma < 0.010 Normal 0.000-0.010 [facility] Comment on above: Result Comment: NOTE : This result is for medical treatment only. Analysis performed using non-forensic procedures. Performed By: #### C MP3, QWNT5, ETOH4, HEMDF #### [address] Hemogram w/ Autodiffon 01-16 Abs Baso Cnt 0.1 10*3/uL Normal 0.0-0.2 [facility] Comment on above: Performed By: #### C MP3, QWNT5, ETOH4, HEMDF #### [address] Abs Neutrophile Cnt 12.6 10*3/uL High 1.8-7.0 [facility] Comment on above: Performed By: #### C MP3, QWNT5, ETOH4, HEMDF #### [address] Basophils/100 WBC (Bld) 0.4 % Normal 0.0-2.0 [facility] Comment on above: Performed By: #### C MP3, QWNT5, ETOH4, HEMDF #### [address] Eosinophils (Bld) [#/Vol] 0.1 10*3/uL Normal 0.0-0.5 [facility] Comment on above: Performed By: #### C MP3, QWNT5, ETOH4, HEMDF #### [place] [address], [place] Eosinophils/100 WBC (Bld) 0.4 % Low 1.0-6.0 [facility] Comment on above: Performed By: #### C MP3, QWNT5, ETOH4, HEMDF #### [place] [address] [place], [place] Erythrocyte distribution width (RBC) [Ratio] 13.6 % Normal 11.5-14.5 [facility] Comment on above: Performed By: #### C MP3, QWNT5, ETOH4, HEMDF #### [place] [address], [place] Granulocytes/100 WBC (Bld) 82.6 % High 40.0-80.0 [facility] Comment on above: Performed By: #### C MP3, QWNT5, ETOH4, HEMDF #### [place] [address], [place] Hematocrit (Bld) [Volume fraction] 40.6 % Normal 35.0-47.0 [facility] Comment on above: Performed By: #### C MP3, QWNT5, ETOH4, HEMDF #### [place] [address], [place] Hemoglobin (Bld) [Mass/Vol] 13.7 g/dL Normal 11.7-16.0 [facility] Comment on above: Performed By: #### C MP3, QWNT5, ETOH4, HEMDF #### [place] [address], [place] Lymphocytes (Bld) [#/Vol] 1.9 10*3/uL Normal 1.0-4.3 [facility] Comment on above: Performed By: #### C MP3, QWNT5, ETOH4, HEMDF #### [place] [address] [place], [place] Lymphocytes/100 WBC (Bld) 12.6 % Low 20.0-40.0 [facility] Comment on above: Performed By: #### C MP3, QWNT5, ETOH4, HEMDF #### [place] [address], [place] MCH (RBC) [Entitic mass] 28.9 pg Normal 26.0-34.0 [facility] Comment on above: Performed By: #### C MP3, QWNT5, ETOH4, HEMDF #### [place] [address] MCHC 33.8 % Normal 32.0-36.0 [facility] Comment on above: Performed By: #### C MP3, QWNT5, ETOH4, HEMDF #### [place] [address] [place], [place] MCV (RBC) [Entitic vol] 85.6 fL Normal 79.0-98.0 [facility] Comment on above: Performed By: #### C MP3, QWNT5, ETOH4, HEMDF #### [place] [address] [place], [place] Monocytes (Bld) [#/Vol] 0.6 10*3/uL Normal 0.0-0.8 [facility] Comment on above: Performed By: #### C MP3, QWNT5, ETOH4, HEMDF #### [place] [address] [place], [place] Monocytes/100 WBC (Bld) 4.0 % Normal 2.0-10.0 [facility] Comment on above: Performed By: #### C MP3, QWNT5, ETOH4, HEMDF #### [place] [address], [place] Platelet mean volume (Bld) [Entitic vol] 7.6 fL Normal 7.4-10.4 [facility] Comment on above: Performed By: #### C MP3, QWNT5, ETOH4, HEMDF #### [place] [address] [place], [place] Platelets (Bld) [#/Vol] 298 10*3/uL Normal 140-440 [facility] Comment on above: Performed By: #### C MP3, QWNT5, ETOH4, HEMDF #### [facility] [address], [place] RBC (Bld) [#/Vol] 4.74 10*6/uL Normal 3.80-5.20 [facility] Comment on above: Performed By: #### C MP3, QWNT5, ETOH4, HEMDF #### [facility] [address], [place] WBC (Bld) [#/Vol] 15.2 10*3/uL High 3.6-10.7 [facility] Comment on above: Performed By: #### C MP3, QWNT5, ETOH4, HEMDF #### [facility] [address], [place] [id number] 01-16-2021 SARS-CoV-2 (COVID-19) RNA ES+probe Ql (Unsp spec) SARS-CoV-2 --> Status: F Not Detected. Expected Result: Not Detected _ Real-time, RT-PCR performed on the [employer] System by [facility]. Negative results do not preclude SARS-CoV-2 infection and should not be used as the sole basis for treatment or other patient management decisions. This assay was developed by [employer] and distributed under an Emergency Use Authorization (EUA) granted by the FDA for the qualitative detection of SARS-CoV-2 nucleic acid. Expected Result: Not Detected _ Real-time, RT-PCR performed on the [employer] System by the [facility]. Negative results do not preclude SARS-CoV-2 infection and should not be used as the sole basis for treatment or other patient management decisions. This assay was developed by [employer] and distributed under an Emergency Use Authorization (EUA) granted by the FDA for the qualitative detection of SARS-CoV-2 nucleic acid. Normal [facility] Comment on above: Performed By: #### C OVID ####[facility], [place] hCG Quantitativeon hCG Quantitative 78068 m[IU]/mL Normal [facility] Comment on above: Result Comment: Fema les < 5 Values in should double every 2 to 3 days for the first 6 weeks.Elevated concentrations of human chorionic gonadotropin (hCG) measured in the first trimester of are observed in normal , but may serve as an indication of chorionic carcinoma, hydatiform mole, or multiple .Decreasing hCG concentrations indicate threatened or missed , recent termination of , ectopic , gestosis or intrauterine . Carolann- and postmenopausal females may have detectable hCG concentrations (< or = to 14 mIU/mL) due to pituitary production of hCG. Serum follicle-stimulating hormone measurement may aid in ruling-out in this population. Cutoffs of greater than 20 to 45 mIU/mL have been suggested and are method dependent. False-elevations (called phantom human chorionic gonadotropin: hCG) may occur with patients who have human antianimal or heterophilic antibodies. Some specimens may not dilute linearly due to abnormal forms of hCG. Elevated hCG concentrations not associated with are found in patients with other diseases such as tumors of the germ cells, ovaries, bladder, pancreas, stomach, lungs, and liver. This test is not intended to detect or monitor tumors or gestational trophoblastic disease. Performed By: #### C MP3, QWNT5, ETOH4, HEMDF #### [facility] [address] [place] [id number] hCG Quantitativeon 1 hCG Quantitative 32825 m[IU]/mL Normal [facility] Comment on above: Result Comment: Fema les < 5 Values in should double every 2 to 3 days for the first 6 weeks.Elevated concentrations of human chorionic gonadotropin (hCG) measured in the first trimester of are observed in normal , but may serve as an indication of chorionic carcinoma, hydatiform mole, or multiple .Decreasing hCG concentrations indicate threatened or missed , recent termination of , ectopic , gestosis or intrauterine . Carolann- and postmenopausal females may have detectable hCG concentrations (< or = to 14 mIU/mL) due to pituitary production of hCG. Serum follicle-stimulating hormone measurement may aid in ruling-out in this population. Cutoffs of greater than 20 to 45 mIU/mL have been suggested and are method dependent. False-elevations (called phantom human chorionic gonadotropin: hCG) may occur with patients who have human antianimal or heterophilic antibodies. Some specimens may not dilute linearly due to abnormal forms of hCG. Elevated hCG concentrations not associated with are found in patients with other diseases such as tumors of the germ cells, ovaries, bladder, pancreas, stomach, lungs, and liver. This test is not intended to detect or monitor tumors or gestational trophoblastic disease. Performed By: #### Q WNT5 #### [facility] [address], [place] RHOGAM GELon 01-07 RHOGAM GEL Antibody Screen Gel : NEG La Screen for Rhogam: NT Normal [facility] Comment on above: Performed By: #### R GLADIS ####[facility] Hemoglobin A1Con 01-06-2021 Glucose [Mass/Vol] 120 mg/dL Normal [facility] Comment on above: Performed By: #### L IPD2, QWNT5, HA1C2 ####[place] [address] [place], [place] HbA1c (Bld) [Mass fraction] 5.8 % Abnormal [facility] Comment on above: Result Comment: Norm al less than 5.7% Prediabetes 5.7% to 6.4% Diabetes 6.5% or higher --HgbA1C levels may not be accurate in patients who have renal disease, received recent blood transfusions, are anemic, or who have dyshemoglobinemia. Performed By: #### L IPD2, QWNT5, HA1C2 ####[place] [place], [place] Lipid Panelon 01-06-2021 Chol/HDL 4 Normal [facility] Comment on above: Result Comment: Ref Range: < 3 Low Risk for CHD 3-6 Mod Risk for CHD > 6 High Risk for CHD Performed By: #### L IPD2, QWNT5, HA1C2 #### [facility] [address], [place] Cholesterol in HDL [Mass/Vol] 49 mg/dL Normal 40-60 [facility] Comment on above: Performed By: #### L IPD2, QWNT5, HA1C2 #### [facility] [address], [place] Low Density Lipoprotein 127 mg/dL Abnormal <100 [facility] Comment on above: Performed By: #### L IPD2, QWNT5, HA1C2 #### [facility] [address], [place] Triglyceride [Mass/Vol] 70 mg/dL Normal <150 [facility] Comment on above: Performed By: #### L IPD2, QWNT5, HA1C2 #### [facility] [address], [place] Cholesterol [Mass/Vol] 190 mg/dL Normal < 200 [facility] Comment on above: Performed By: #### L IPD2, QWNT5, HA1C2 #### [facility] [address], [place] hCG Quantitativeon 1 hCG Quantitative 41180 m[IU]/mL Normal [facility] Comment on above: Result Comment: Fema les < 5 Values in should double every 2 to 3 days for the first 6 weeks.Elevated concentrations of human chorionic gonadotropin (hCG) measured in the first trimester of are observed in normal , but may serve as an indication of chorionic carcinoma, hydatiform mole, or multiple .Decreasing hCG concentrations indicate threatened or missed , recent termination of , ectopic , gestosis or intrauterine . Carolann- and postmenopausal females may have detectable hCG concentrations (< or = to 14 mIU/mL) due to pituitary production of hCG. Serum follicle-stimulating hormone measurement may aid in ruling-out in this population. Cutoffs of greater than 20 to 45 mIU/mL have been suggested and are method dependent. False-elevations (called phantom human chorionic gonadotropin: hCG) may occur with patients who have human antianimal or heterophilic antibodies. Some specimens may not dilute linearly due to abnormal forms of hCG. Elevated hCG concentrations not associated with are found in patients with other diseases such as tumors of the germ cells, ovaries, bladder, pancreas, stomach, lungs, and liver. This test is not intended to detect or monitor tumors or gestational trophoblastic disease. Performed By: #### L IPD2, QWNT5, HA1C2 ####[facility] [id number] [place], [place] RHIG RHOGAMon 01-05-2021 RHIG RHOGAM RHIG RHOGAM: [id number] issued 01/04/21 22:31 GWB Normal [facility] Comment on above: Performed By: #### R HIG #### [address] [place] [address] ABO Rh Blood Typeon 01-05-20 ABO and Rh group Nom (Bld) ABO Group: O Rh, Gel: NEG Normal [facility] Comment on above: Performed By: #### A DRU #### [facility] Acetaminophenon 01-04-2021 Acetaminophen [Mass/Vol] ug/mL Normal 10.0-30.0 [facility] Comment on above: Performed By: #### Q WNT5, CMP3, ETOH4, ACET4, HEMDF, CVCCL, SAL33 #### [facility] [address] [place] [address] Comp Metabolic Panelon 01-04 ALP [Catalytic activity/Vol] 65 U/L Normal 38-126 [facility] Comment on above: Performed By: #### Q WNT5, CMP3, ETOH4, ACET4, HEMDF, CVCCL, SAL33 #### [facility] [address] [place] [address] ALT [Catalytic activity/Vol] 14 U/L Normal 0-34 [facility] Comment on above: Result Comment: The ALT test is performed by an updated assay method. Please note that the reference intervals have been changed and are now sex specific. Performed By: #### Q WNT5, CMP3, ETOH4, ACET4, HEMDF, CVCCL, SAL33 #### [facility] [address] [place] [address] Anion gap [Moles/Vol] 9 mmol/L Normal 3-13 [facility] Comment on above: Performed By: #### Q WNT5, CMP3, ETOH4, ACET4, HEMDF, CVCCL, SAL33 #### [facility] [address] [place] [address] AST [Catalytic activity/Vol] 26 U/L Normal 15-46 [facility] Comment on above: Performed By: #### Q WNT5, CMP3, ETOH4, ACET4, HEMDF, CVCCL, SAL33 #### [facility] [address] [place] [address] Calcium [Mass/Vol] 9.5 mg/dL Normal 8.4-10.4 [facility] Comment on above: Performed By: #### Q WNT5, CMP3, ETOH4, ACET4, HEMDF, CVCCL, SAL33 #### [facility] [address] [place] [address] CO2 [Moles/Vol] 20 mmol/L Low 22-[address] [facility] Comment on above: Performed By: #### Q WNT5, CMP3, ETOH4, ACET4, HEMDF, CVCCL, SAL33 #### [facility] [address] [place] [address] Glucose [Mass/Vol] 93 mg/dL Normal 70-100 [facility] Comment on above: Performed By: #### Q WNT5, CMP3, ETOH4, ACET4, HEMDF, CVCCL, SAL33 #### [facility] [address] [place] [address] Protein [Mass/Vol] 8.7 g/dL High 6.3-8.2 [facility] Comment on above: Performed By: #### Q WNT5, CMP3, ETOH4, ACET4, HEMDF, CVCCL, SAL33 #### [facility] [address] [place] [address] Urea nitrogen [Mass/Vol] 10 mg/dL Normal 7-20 [facility] Comment on above: Performed By: #### Q WNT5, CMP3, ETOH4, ACET4, HEMDF, CVCCL, SAL33 #### [facility] [address] [place] [address] Bilirubin [Mass/Vol] 0.6 mg/dL Normal 0.2-1.3 [facility] Comment on above: Performed By: #### Q WNT5, CMP3, ETOH4, ACET4, HEMDF, CVCCL, SAL33 #### [facility] [address] [place] [address] Creatinine [Mass/Vol] 0.46 mg/dL Low 0.52-1.25 [facility] Comment on above: Performed By: #### Q WNT5, CMP3, ETOH4, ACET4, HEMDF, CVCCL, SAL33 #### [facility] [address] [place] [address] eGFR OTHER > 90.0 Normal >60 [facility] Comment on above: Result Comment: KDIG O guidelines provide the following GFR categories: Stage GFR(ml/min/1.73 m2) Terms G1 >=90 Normal or high G2 60-89 Mildly decreased* G3a 45-59 Mildly to moderately decreased G3b 30-44 Moderately to severely decreased G4 15-29 Severely decreased G5 <15 Kidney failure *Relative to young adult level. In the absence of evidence of kidney damage, neither GFR category G1 nor G2 fulfill the criteria for CKD. The CKD-EPI equation is validated in individuals 18 years of age and older. Currently the best equation for estimating glomerular filtration rate (GFR) from serum creatinine in children is the Bedside Russo equation. It is less accurate in patients with extremes of muscle mass, restriction of dietary protein, ingestion of creatine, extra-renal metabolism of creatinine, or treatment with medications that affect renal tubular creatinine secretion. Performed By: #### Q WNT5, CMP3, ETOH4, ACET4, HEMDF, CVCCL, SAL33 #### [facility] [address] [place] [address] GFR/1.73 sq M.predicted among blacks MDRD (S/P/Bld) [Vol rate/Area] mL/min/{1.73_m2} Normal >60 [facility] Comment on above: Performed By: #### Q WNT5, CMP3, ETOH4, ACET4, HEMDF, CVCCL, SAL33 #### [facility] [address] [place] [address] Albumin [Mass/Vol] 4.7 g/dL Normal 3.5-5.0 [facility] Comment on above: Performed By: #### Q WNT5, CMP3, ETOH4, ACET4, HEMDF, CVCCL, SAL33 #### [facility] [address] [place] [address] Chloride [Moles/Vol] 106 mmol/L Normal 98-107 [facility] Comment on above: Performed By: #### Q WNT5, CMP3, ETOH4, ACET4, HEMDF, CVCCL, SAL33 #### [facility] [address] [place] [address] Potassium [Moles/Vol] 3.7 mmol/L Normal 3.5-5.1 [facility] Comment on above: Performed By: #### Q WNT5, CMP3, ETOH4, ACET4, HEMDF, CVCCL, SAL33 #### [facility] [address] [place] [address] Sodium [Moles/Vol] 135 mmol/L Normal 135-145 [facility] Comment on above: Performed By: #### Q WNT5, CMP3, ETOH4, ACET4, HEMDF, CVCCL, SAL33 #### [facility] [address] [place] [address] Complete Urinalysison 2020 Appearance (U) Turbid Abnormal Clear [facility] Comment on above: Result Comment: . Performed By: #### R HIG #### [address] [address] Bacteria LM.HPF (Urine sed) [#/Area] Negative Normal Negative [facility] Comment on above: Result Comment: . Performed By: #### R HIG #### [address] [address] Bilirubin,Urine Negative Normal Negative [facility] Comment on above: Result Comment: . Performed By: #### R HIG #### [address] [address] Color (U) Yellow Normal Lt. Yellow [facility] Comment on above: Result Comment: . Performed By: #### R HIG #### [address] [address] Glucose Ql (U) Normal Normal Normal (<70) [facility] Comment on above: Result Comment: . Performed By: #### R HIG #### [address] [address] Ketone,Urine 100 mg/dL Abnormal Negative [facility] Comment on above: Result Comment: . Performed By: #### R HIG #### [address] [address] Leukocytes,Urine 75 Riki/uL Abnormal Negative [facility] Comment on above: Result Comment: . Performed By: #### R HIG #### [place] [address] Mucous Threads Few Normal Negative [facility] Comment on above: Result Comment: . Performed By: #### R HIG #### [place] [address] Nitrites,Urine Negative Normal Negative [facility] Comment on above: Result Comment: . Performed By: #### R HIG #### [place] [address] Occult Blood,Urine > 1.0 Abnormal Negative [facility] Comment on above: Result Comment: . Performed By: #### R HIG #### [place] [address] pH,Urine 6.0 Normal 5.0-8.0 [facility] Comment on above: Result Comment: . Performed By: #### R HIG #### [place] [address] Protein (U) [Mass/Vol] 30 mg/dL Abnormal Negative [facility] Comment on above: Result Comment: . Performed By: #### R HIG #### [place] [address] RBC LM.HPF (Urine sed) [#/Area] /[HPF] Abnormal 0-2 [facility] Comment on above: Result Comment: . Performed By: #### R HIG #### [place] [address] Specific [place],Urine 1.019 Normal 1.005 - 1.030 [facility] Comment on above: Result Comment: . Performed By: #### R HIG #### [place] [address] Squamous Epithelial 6 - 10 Abnormal 3-5 [facility] Comment on above: Result Comment: . Performed By: #### R HIG #### [place] [address] Urobilinogen,Urine Normal Normal Normal (0-1) [facility] Comment on above: Result Comment: . Performed By: #### R HIG #### [address] [address] WBC, Urine 6 - 10 Abnormal 0-5 [facility] Comment on above: Result Comment: . Performed By: #### R HIG #### [address] [address] Drugs of Abuseon 01-04-2021 Phencyclidine (PCP), Ur Negative Normal [facility] Comment on above: Result Comment: The expected value for all of the drugs listed above is Negative. The following drugs or drug groups have been screened for by Immunoassay at the following thresholds: Amphetamine class (1000 ng/mL), Barbiturates (200 ng/mL), Benzodiazepines (200 ng/mL), Cocaine (300 ng/mL), Methadone (300 ng/mL), Opiates (300 ng/mL), Oxycodone (100 ng/mL), and PCP (25 ng/mL). NOTE: These results are for medical treatment only. Analysis performed using non-forensic procedures. POSITIVE results are NOT confirmed by a more specific alternative method unless requested. If confirmation is needed, request confirmation under separate order. Performed By: #### R HIG #### [address] [address] Methadone, Ur Negative [facility] Comment on above: Performed By: #### R HIG #### [address] [address] Opiates, Ur Negative Normal [facility] Comment on above: Performed By: #### R HIG #### [address] [address] Benzodiazepines, Ur Negative Normal [facility] Comment on above: Performed By: #### R HIG #### [address] [address] Cocaine, Ur Negative Normal [facility] Comment on above: Performed By: #### R HIG #### [address] [address] Barbiturates, Ur Negative Normal [facility] Comment on above: Performed By: #### R HIG #### [address] [address] Amphetamines, Ur Negative Normal [facility] Comment on above: Performed By: #### R HIG #### [address] [address] Oxycodone/Oxymorphin e,Ur Negative Normal [facility] Comment on above: Performed By: #### R HIG #### [address] [address] ED Provider Noteon ED Provider Note Emergency Department Encounter [facility] ED Patient: Tong Sunshine : 1985 Date of Evaluation: 01/04/2021 ED Supervising Physician: Shankar Delaney MD I independently examined and evaluated Tong Sunshine. I wore a KN95 mask for the entirety of this patient encounter. In brief, Tong Sunshine is a 35 y.o. female that presents to the emergency department with a complaint of worsening depression, despondence. She is 10 weeks . She is . States shortly after arrival here she began to have vaginal bleeding which made her very upset and more depressed. Denies any abdominal pain at this time. Denies any fevers or chills Focused exam: Awake and alert. Afebrile. Nontoxic. Lungs clear to auscultation. Heart regular rate and rhythm. Abdomen soft nondistended without focal tenderness. Brief ED course/MDM: We will obtain baseline laboratory studies and transvaginal ultrasound to evaluate vaginal bleeding early in . Will assess medical laboratory studies for psychiatric clearance and anticipate psychiatry evaluation and admission. All diagnostic, treatment, and disposition decisions were made by myself in conjunction with the OLIVIA. For all further details of the patient's emergency department visit, please see their documentation. (Please note that portions of this note may have been completed with a voice recognition program. Efforts were made to edit the dictations but occasionally words are mis-transcribed.) Shankar Delaney MD [employer] Shankar Delaney MD 01/05/21 1449 Normal [facility] ED Provider Note [facility] ED eMERGENCY dEPARTMENT eNCOUnter Pt Name: Tong Sunshine Birthdate 1985 Date of evaluation: 01/04/2021 Provider: Darek Harris, 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 [employer]UR[employer] This patient was seen in conjunction with Dr. Delaney CHIEF COMPLAINT Chief Complaint Patient presents with ? Depression HISTORY OF PRESENT ILLNESS (Location/Symptom, Timing/Onset,Context/Se tting, Quality, Duration, Modifying Factors, Severity) Note limiting factors. HPI Tong Sunshine is a 35 y.o. female who presents to the emergency department with worsening severe depression. Patient states that she has had depression in the past she has battled issues with anxiety, depression and OCD for years. She was on Prozac switch to Zoloft by her provider at [place], Charmaine Richardson, placed back on Prozac. She has been increasingly despondent, having thoughts of harming herself by overdosing on medications. The tells me that he had to call EMS once because she alleges that she overdosed on medicines, he states he was unsure if she did so called EMS patient had to be hospitalized at that time. Patient states shortly after arrival to the emergency department she started having vaginal bleeding tells me she is about 10 weeks , 4 para 3 Ab0. Denies abdominal pain or cramping or any other complaints. Nursing Notes were reviewed. REVIEW OF SYSTEMS (2+ for4; 10+ for level 5) Review of Systems Constitutional: Negative for activity change, appetite change, chills and fever. HENT: Negative for congestion, ear discharge, ear pain, hearing loss, postnasal drip, rhinorrhea and sore throat. Eyes: Negative for discharge and redness. Respiratory: Negative for chest tightness, shortness of breath and wheezing. Cardiovascular: Negative for chest pain and palpitations. Gastrointestinal: Negative for abdominal pain, blood in stool, diarrhea, nausea and vomiting. Genitourinary: Positive for pelvic pain and vaginal bleeding. Negative for difficulty urinating, dyspareunia, dysuria, flank pain, genital sores, hematuria, urgency and vaginal discharge. Musculoskeletal: Negative for arthralgias and myalgias. Skin: Negative for color change. Neurological: Negative for dizziness, tremors, syncope, weakness, light-headedness and headaches. Psychiatric/Behavioral: Positive for agitation, dysphoric mood and suicidal ideas. Negative for confusion and self-injury. The patient is not nervous/anxious and is not hyperactive. All other systems reviewed and are negative. PAST MEDICAL HISTORY Past Medical History: Diagnosis Date ? Bulging lumbar disc 2006 ? Family history of breast cancer in sister ? Family history of cervical cancer ? Family history of diabetes mellitus parents ? History of depression 2010 ? Hx gestational diabetes 2018 ? Hypercholesterolemia ? Meniere disease Dr Foss, ENT in [place] ? depression 2016 rx per OB ? Visit for routine rn gynecology exam Dr. Jain, [place] SURGICALHISTORY Past Surgical History: Procedure Laterality Date ? SECTION ? WISDOM TOOTH EXTRACTION CURRENT MEDICATIONS Previous Medications CHOLECALCIFEROL (VITAMIN D3) 50 MCG (1999 [place]) CAPS Take 2,000 Units by mouth daily FLUOXETINE (PROZAC) 20 MG CAPSULE Take 1 capsule by mouth daily MV-MIN-FE FUM-FA-DHA ( 1 PO) Take 1 Dose by mouth daily Patient has no known allergies. FAMILY HISTORY Family History Problem Relation Age of Onset ? Diabetes Mother 60 acutely during CABG, age 60 ? Coronary Art Dis Mother ? COPD Father smoker ? Coronary Art Dis Father CABG in 50s ? Breast Cancer Sister at age 29 ? Cervical Cancer Sister age 40 ? Diabetes Sister diet controlled ? Other Brother SOCIAL HISTORY Social History Socioeconomic History ? Marital status: Spouse name: None ? Number of children: None ? Years of education: None ? Highest education level: None Occupational History ? None Tobacco Use ? Smoking status: Never Smoker ? Smokeless tobacco: Never Used Vaping Use ? Vaping Use: Never used Substance and Sexual Activity ? Alcohol use: Never Alcohol/week: 0.0 standard drinks ? Drug use: Never ? Sexual activity: Yes Partners: Male Other Topics Concern ? None Social History Narrative to [place]dy since 04/28. (Raised in [place] and met on [employer] service). One son Anthony 02/26, first daughter, Patricia born 11/28. second dtr, Malou. 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 Social Determinants of Health Financial Resource Strain: Low Risk ? Difficulty of Paying Living Expenses: Not hard at all Food Insecurity: No Food Insecurity ? Worried About Running Out of Food in the Last Year: Never true ? Ran Out of Food in the Last Year: Never true Transportation Needs: ? Lack of Transportation (Medical): ? Lack of Transpo (more content not included)... Normal [facility] Ethanol Serum/Plasmaon 01-04 Ethanol-Serum/Plasma < 0.010 Normal 0.000-0.010 [facility] Comment on above: Result Comment: NOTE : This result is for medical treatment only. Analysis performed using non-forensic procedures. Performed By: #### Q WNT5, CMP3, ETOH4, ACET4, HEMDF, CVCCL, SAL33 #### [facility] [address] [place] [address] Hemogram w/ Autodiffon 01-04 Abs Baso Cnt 0.1 10*3/uL Normal 0.0-0.2 [facility] Comment on above: Performed By: #### Q WNT5, CMP3, ETOH4, ACET4, HEMDF, CVCCL, SAL33 #### [facility] [address] [place] [address] Abs Neutrophile Cnt 11.8 10*3/uL High 1.8-7.0 [facility] Comment on above: Performed By: #### Q WNT5, CMP3, ETOH4, ACET4, HEMDF, CVCCL, SAL33 #### [facility] [address] [place] [address] Basophils/100 WBC (Bld) 0.5 % Normal 0.0-2.0 [facility] Comment on above: Performed By: #### Q WNT5, CMP3, ETOH4, ACET4, HEMDF, CVCCL, SAL33 #### [facility] [address] [place] [address] Eosinophils (Bld) [#/Vol] 0.0 10*3/uL Normal 0.0-0.5 [facility] Comment on above: Performed By: #### Q WNT5, CMP3, ETOH4, ACET4, HEMDF, CVCCL, SAL33 #### [facility] [address] [place] [address] Eosinophils/100 WBC (Bld) 0.2 % Low 1.0-6.0 [facility] Comment on above: Performed By: #### Q WNT5, CMP3, ETOH4, ACET4, HEMDF, CVCCL, SAL33 #### [facility] [address] [place] [address] Erythrocyte distribution width (RBC) [Ratio] 13.3 % Normal 11.5-14.5 [facility] Comment on above: Performed By: #### Q WNT5, CMP3, ETOH4, ACET4, HEMDF, CVCCL, SAL33 #### [facility] [address] [place] [address] Granulocytes/100 WBC (Bld) 75.0 % Normal 40.0-80.0 [facility] Comment on above: Performed By: #### Q WNT5, CMP3, ETOH4, ACET4, HEMDF, CVCCL, SAL33 #### [facility] [address] [place] [address] Hematocrit (Bld) [Volume fraction] 43.4 % Normal 35.0-47.0 [facility] Comment on above: Performed By: #### Q WNT5, CMP3, ETOH4, ACET4, HEMDF, CVCCL, SAL33 #### [facility] [address] [place] [address] Hemoglobin (Bld) [Mass/Vol] 14.9 g/dL Normal 11.7-16.0 [facility] Comment on above: Performed By: #### Q WNT5, CMP3, ETOH4, ACET4, HEMDF, CVCCL, SAL33 #### [facility] [address] [place] [address] Lymphocytes (Bld) [#/Vol] 3.1 10*3/uL Normal 1.0-4.3 [facility] Comment on above: Performed By: #### Q WNT5, CMP3, ETOH4, ACET4, HEMDF, CVCCL, SAL33 #### [facility] [address] [place] [address] Lymphocytes/100 WBC (Bld) 19.5 % Low 20.0-40.0 [facility] Comment on above: Performed By: #### Q WNT5, CMP3, ETOH4, ACET4, HEMDF, CVCCL, SAL33 #### [facility] [address] [place] [address] MCH (RBC) [Entitic mass] 29.6 pg Normal 26.0-34.0 [facility] Comment on above: Performed By: #### Q WNT5, CMP3, ETOH4, ACET4, HEMDF, CVCCL, SAL33 #### [facility] [address] [place] [address] MCHC 34.4 % Normal 32.0-36.0 [facility] Comment on above: Performed By: #### Q WNT5, CMP3, ETOH4, ACET4, HEMDF, CVCCL, SAL33 #### [facility] [address] [place] [address] MCV (RBC) [Entitic vol] 85.9 fL Normal 79.0-98.0 [facility] Comment on above: Performed By: #### Q WNT5, CMP3, ETOH4, ACET4, HEMDF, CVCCL, SAL33 #### [facility] [address] [place] [address] Monocytes (Bld) [#/Vol] 0.8 10*3/uL Normal 0.0-0.8 [facility] Comment on above: Performed By: #### Q WNT5, CMP3, ETOH4, ACET4, HEMDF, CVCCL, SAL33 #### [facility] [address] [place] [address] Monocytes/100 WBC (Bld) 4.8 % Normal 2.0-10.0 [facility] Comment on above: Performed By: #### Q WNT5, CMP3, ETOH4, ACET4, HEMDF, CVCCL, SAL33 #### [facility] [address] [place] [address] Platelet mean volume (Bld) [Entitic vol] 8.0 fL Normal 7.4-10.4 [facility] Comment on above: Performed By: #### Q WNT5, CMP3, ETOH4, ACET4, HEMDF, CVCCL, SAL33 #### [facility] [address] [place] [address] Platelets (Bld) [#/Vol] 314 10*3/uL Normal 140-440 [facility] Comment on above: Performed By: #### Q WNT5, CMP3, ETOH4, ACET4, HEMDF, CVCCL, SAL33 #### [facility] [address] [place] [address] RBC (Bld) [#/Vol] 5.05 10*6/uL Normal 3.80-5.20 [facility] Comment on above: Performed By: #### Q WNT5, CMP3, ETOH4, ACET4, HEMDF, CVCCL, SAL33 #### [facility] [address] [place] [address] WBC (Bld) [#/Vol] 15.8 10*3/uL High 3.6-10.7 [facility] Comment on above: Performed By: #### Q WNT5, CMP3, ETOH4, ACET4, HEMDF, CVCCL, SAL33 #### [facility] [address] [place] [address] SARS-CoV-2 (LAB DEPT)on 12-13 SARS-CoV-2 (COVID-19) RNA ES+probe Ql (Unsp spec) see below Normal [facility] Comment on above: Result Comment: Not Detected Expected Result: Not Detected _ Isothermal nucleic acid amplification performed on the [employer] System by the [facility] Negative results do not preclude SARS-CoV-2 infection and should not be used as the sole basis for treatment or other patient management decisions. This assay was developed by [employer] and distributed under an Emergency Use Authorization (EUA) granted by the FDA for the qualitative detection of SARS-CoV-2 nucleic acid. Provider and patient fact sheets can be found at https://www.fda.gov/media/057760/download and https://www.fda.gov/media/998522/download. Performed By: #### Q WNT5, CMP3, ETOH4, ACET4, HEMDF, CVCCL, SAL33 #### [facility] [address] [place] [address] Salicylateson 01-04-2021 Salicylates < 1.0 Normal 0.0-20.0 [facility] Comment on above: Performed By: #### Q WNT5, CMP3, ETOH4, ACET4, HEMDF, CVCCL, SAL33 #### [facility] [address] [place] [address] US Transvaginalon 01-04-2021 US Transvaginal Patient Name: TONG SUNSHINE Ultrasound ACCESSION EXAM DATE/TIME PROCEDURE ORDERING PROVIDER [id number] 01/04/2021 21:19 EDT US MARI SIDNEY DAREK Ricki Transvaginal CPT code 27872 Reason For Exam (US Transvaginal) Pelvic pain, positive , vaginal bleeding Report FIRST TRIMESTER OBSTETRIC ULTRASOUND CLINICAL INDICATION: Positive test, vaginal bleeding Transvaginal ultrasound images of the pelvis were obtained. Comparisons available: None. FINDINGS: There is a single, live intrauterine with a pole length of 33 mm and mean gestational sac diameter of 38 mm, corresponding to a composite estimated gestational age of nine weeks, five days by this examination. heart motion is identified at 171 bpm. The uterus measures 12 x 8.3 x 7.5 cm. The cervix is unremarkable. The right ovary measures 2.6 x 1.9 x 2.1 cm. The left ovary measures 2.7 x 1.9 x 1.5 cm. Normal color and spectral Doppler blood flow is documented within both ovaries. There is no free fluid. No adnexal masses are seen. IMPRESSION: Single, live intrauterine with an estimated gestational age of 9 weeks, 5 days by ultrasound. Followup ultrasound is recommended at 18-20 weeks to evaluate anatomy. Report Dictated on Final Dictating Physician: MD DAVIS JONATHAN R Signed Date and Time: 01/04/2021 9:48 pm Signed by: MD DAVIS JONATHAN R Transcribed Date and Time: 01/04/2021 9:49 Normal [facility] hCG Quantitativeon hCG Quantitative 00756 m[IU]/mL Normal [facility] Comment on above: Result Comment: Fema les < 5 Values in should double every 2 to 3 days for the first 6 weeks.Elevated concentrations of human chorionic gonadotropin (hCG) measured in the first trimester of are observed in normal , but may serve as an indication of chorionic carcinoma, hydatiform mole, or multiple .Decreasing hCG concentrations indicate threatened or missed , recent termination of , ectopic , gestosis or intrauterine . Carolann- and postmenopausal females may have detectable hCG concentrations (< or = to 14 mIU/mL) due to pituitary production of hCG. Serum follicle-stimulating hormone measurement may aid in ruling-out in this population. Cutoffs of greater than 20 to 45 mIU/mL have been suggested and are method dependent. False-elevations (called phantom human chorionic gonadotropin: hCG) may occur with patients who have human antianimal or heterophilic antibodies. Some specimens may not dilute linearly due to abnormal forms of hCG. Elevated hCG concentrations not associated with are found in patients with other diseases such as tumors of the germ cells, ovaries, bladder, pancreas, stomach, lungs, and liver. This test is not intended to detect or monitor tumors or gestational trophoblastic disease. Performed By: #### Q WNT5, CMP3, ETOH4, ACET4, HEMDF, CVCCL, SAL33 #### [facility] [address] [place] [address] CBC AND DIFFERENTIALon 03-27 % AUTOMATED IMMATURE GRAN 0.3 % Normal 0.0 - 0.9 [facility] Comment on above: Order Comment: [facility] Keith [facility] Phys [id number] [place] [address] Result Comment: Ginette ture Granulocyte Count (IG) includes promyelocytes, myelocytes and metamyelocytes but does not include bands. Percent differential counts (%) should be interpreted in the context of the absolute cell counts (cells/L). Performed By: #### C BCDF #### [facility] [address] [place] [address] Basophils (Bld) [#/Vol] 0.04 10*3/uL Normal 0.00 - 0.10 [facility] Comment on above: Order Comment: Tiffanie [facility] Phys [id number] [place] [address] Performed By: #### C BCDF #### [facility] [address] [place] [address] Basophils/100 WBC (Bld) 0.3 % Normal 0.0 - 2.0 [facility] Comment on above: Order Comment: [facility] Keith RICHARDSON [facility] [facility] [facility] Phys [id number] [place] [address] Performed By: #### C BCDF #### [facility] [address] [place] [address] Eosinophils (Bld) [#/Vol] 0.07 10*3/uL Normal 0.00 - 0.70 [facility] Comment on above: Order Comment: Phys Keith [facility]ON [facility] [employer] [facility] Phys [address] [place] [address] Performed By: #### C BCDF #### [facility] [address] [place] [address] Eosinophils/100 WBC (Bld) 0.6 % Normal 0.0 - 6.0 [facility] Comment on above: Order Comment: Tiffanie [facility] [facility] Phys [address] [place] [address] Performed By: #### C BCDF #### [facility] [address] [place] [address] Erythrocyte distribution width (RBC) [Ratio] 13.0 % Normal 11.5 - 14.5 [facility] Comment on above: Order Comment: Tiffanie IRCHARDSON [facility] [facility] Phys [address] [place] [address] Performed By: #### C BCDF #### [facility] [address] [place] [address] Hematocrit (Bld) [Volume fraction] 42.1 % Normal 36.0 - 46.0 [facility] Comment on above: Order Comment: Tiffanie [facility] [employer] [facility] Phys [address] [place] [address] Performed By: #### C BCDF #### [facility] [address] [place] [address] Hemoglobin (Bld) [Mass/Vol] 13.6 g/dL Normal 12.0 - 16.0 [facility] Comment on above: Order Comment: Tiffanie [facility] [facility] [facility] Phys [address] [place] [address] Performed By: #### C BCDF #### [facility] [address] [place] [address] Lymphocytes (Bld) [#/Vol] 2.75 10*3/uL Normal 1.20 - 4.80 [facility] Comment on above: Order Comment: Tiffanie [facility] [facility] Phys [address] [place] [address] Performed By: #### C BCDF #### [facility] [address] [place] [address] Lymphocytes/100 WBC (Bld) 23.8 % Normal 13.0 - 44.0 [facility] Comment on above: Order Comment: Tiffanie [facility] Phys [address] [place] [address] Performed By: #### C BCDF #### [facility] [address] [place] [address] MCHC (RBC) [Mass/Vol] 32.3 g/dL Normal 32.0 - 36.0 [facility] Comment on above: Order Comment: Tiffanie [facility] Phys [address] [place] [address] Performed By: #### C BCDF #### [facility] [address] [place] [address] MCV (RBC) [Entitic vol] 87 fL Normal 80 - 100 [facility] Comment on above: Order Comment: Tiffanie [facility] Phys [id number] [place] [address] Performed By: #### C BCDF #### [facility] [address] [place] [address] Monocytes (Bld) [#/Vol] 0.69 10*3/uL Normal 0.10 - 1.00 [facility] Comment on above: Order Comment: Tiffanie [facility] Phys [address] [place] [address] Performed By: #### C BCDF #### [facility] [address] [place] [address] Monocytes/100 WBC (Bld) 6.0 % Normal 2.0 - 10.0 [facility] Comment on above: Order Comment: Phys Keith [facility] [employer] Phys [address] [place] [address] Performed By: #### C BCDF #### [facility] [address] [place] [address] Neutrophils (Bld) [#/Vol] 7.98 10*3/uL High 1.20 - 7.70 [facility] Comment on above: Order Comment: Tiffanie [facility] [employer] Phys [address] [place] [address] Performed By: #### C BCDF #### [facility] [address] [place] [address] Neutrophils/100 WBC (Bld) 69.0 % Normal 40.0 - 80.0 [facility] Comment on above: Order Comment: Tiffanie [facility] Phys [address] [place] [address] Performed By: #### C BCDF #### [facility] [address] [place] [address] Nucleated RBC/100 WBC (Bld) [Ratio] 0.0 /100 WBC Normal 0.0-0.0 [facility] Comment on above: Order Comment: Phys Keith MARSHILL [employer] Phys [address] [place] [address] Performed By: #### C BCDF #### [facility] [address] [place] [address] Platelets (Bld) [#/Vol] 388 10*3/uL Normal 150 - 450 [facility] Comment on above: Order Comment: Phys Keith [facility] [employer] Phys [address] [place] [address] Performed By: #### C BCDF #### [facility] [address] [place] [address] RBC (Bld) [#/Vol] 4.82 x10E12/L Normal 4.00 - 5.20 [facility] Comment on above: Order Comment: Phys Keith [facility]ON [employer] Phys [address] [place] [address] Performed By: #### C BCDF #### [facility] [address] [place] [address] WBC (Bld) [#/Vol] 11.6 10*3/uL High 4.4 - 11.3 [facility] Comment on above: Order Comment: Tiffanie [facility] [employer] Phys [address] [place] [address] Performed By: #### C BCDF #### [facility] [address] [place] [address] COMPREHENSIVE PANELon 2019 Albumin [Mass/Vol] 4.4 g/dL Normal 3.4 - 5.0 [facility] Comment on above: Order Comment: Tiffanie [facility]ON [employer] Phys [address] [place] [address] Performed By: #### C MP #### [facility] [address] [place] [address] ALP [Catalytic activity/Vol] 61 U/L Normal 33 - 110 [facility] Comment on above: Order Comment: Tiffanie [facility]ON [employer] Phys [address] [address] Performed By: #### C MP #### [facility] [address] [place] [address] ALT [Catalytic activity/Vol] 17 U/L Normal 7 - 45 [facility] Comment on above: Order Comment: Tiffanie [facility] [employer] Phys [address] [address] Result Comment: Ayana ents treated with Sulfasalazine may generate falsely decreased results for ALT. Performed By: #### C MP #### [facility] [address] [place] [address] Anion gap [Moles/Vol] 12 mmol/L Normal 10 - 20 [facility] Comment on above: Order Comment: Tiffanie [facility] [employer] Phys [address] [address] Performed By: #### C MP #### [facility] [address] [place] [address] AST [Catalytic activity/Vol] 19 U/L Normal 9 - 39 [facility] Comment on above: Order Comment: Tiffanie [facility] Phys [id number] [address] Performed By: #### C MP #### [facility] [address] [place] [address] Bilirubin [Mass/Vol] 0.4 mg/dL Normal 0.0 - 1.2 [facility] Comment on above: Order Comment: Tiffanie RICHAR[employer]ON [employer] Phys [address] [place] [address] Performed By: #### C MP #### [facility] [address] [place] [address] Calcium [Mass/Vol] 10.0 mg/dL Normal 8.6 - 10.6 [facility] Comment on above: Order Comment: Tiffanie [facility] [employer] Phys [address] [place] [address] Performed By: #### C MP #### [facility] [address] [place] [address] Chloride [Moles/Vol] 102 mmol/L Normal 98 - 107 [facility] Comment on above: Order Comment: Tiffanie [facility] Phys [address] [place] [address] Performed By: #### C MP #### [facility] [address] [place] [address] Creatinine [Mass/Vol] 0.61 mg/dL Normal 0.50 - 1.05 [facility] Comment on above: Order Comment: Tiffanie [facility] Phys [address] [place] [address] Performed By: #### C MP #### [facility] [address] [place] [address] GFR- AM. >60 Normal >60 [facility] Comment on above: Order Comment: Tiffanie [facility] Phys [id number] [place] [address] Result Comment: CALC ULATIONS OF ESTIMATED GFR ARE PERFORMED USING THE MDRD STUDY EQUATION FOR THE IDMS-TRACEABLE CREATININE METHODS. CLIN CHEM 2007;53:766-72 Performed By: #### C MP #### [facility] [address] [place] [address] GFR-NON AM. >60 Normal >60 [facility] Comment on above: Order Comment: Tiffanie [facility]ON [facility] Phys [address] [place] [address] Performed By: #### C MP #### [facility] [address] [place] [address] Glucose [Mass/Vol] 76 mg/dL Normal 74 - 99 [facility] Comment on above: Order Comment: Tiffanie [facility] [employer] Phys [address] [place] [address] Performed By: #### C MP #### [facility] [address] [place] [address] HCO3 (Bld) [Moles/Vol] 30 mmol/L Normal 21 - 32 [facility] Comment on above: Order Comment: Tiffanie [facility] [employer] Phys [address] [place] [address] Performed By: #### C MP #### [facility] [address] [place] [address] Potassium [Moles/Vol] 4.4 mmol/L Normal 3.5 - 5.3 [facility] Comment on above: Order Comment: Tiffanie [facility] [employer] Phys [address] [place] [address] Performed By: #### C MP #### [facility] [address] [place] [address] Protein [Mass/Vol] 7.3 g/dL Normal 6.4 - 8.2 [facility] Comment on above: Order Comment: Tiffanie [facility] [employer] Phys [id number] [place] [address] Performed By: #### C MP #### [facility] [address] [place] [address] Sodium [Moles/Vol] 140 mmol/L Normal 136 - 145 [facility] Comment on above: Order Comment: Tiffanie [facility] [employer] Phys [address] [address] Performed By: #### C MP #### [facility] [address] [place] [address] Urea nitrogen [Mass/Vol] 18 mg/dL Normal 6 - 23 [facility] Comment on above: Order Comment: Tiffanie [facility] [employer] Phys [address] [place] [address] Performed By: #### C MP #### [facility] [address] [place] [address] HEMOGLOBIN A1Con 03-27-2020 HbA1c (Bld) [Mass fraction] 126 MG/DL Normal [facility] Comment on above: Order Comment: Tiffanie [facility] [employer] Phys [address] [place] [address] Performed By: #### H BA1E #### [facility] [address] [place] [address] HbA1c (Bld) [Mass fraction] 6.0 % Normal [facility] Comment on above: Order Comment: Tiffanie [facility]ON [employer] Phys [address] [place] [address] Result Comment: Diag nosis of Diabetes-Adults Non-Diabetic: < or = 5.6% Increased risk for developing diabetes: 5.7-6.4% Diagnostic of diabetes: > or = 6.5% . Monitoring of Diabetes Age (y) Therapeutic Goal (%) Adults: >18 <7.0 Pediatrics: 13-18 <7.5 7-12 <8.0 0- 6 7.5-8.5 [place] [employer]. Diabetes Care 33(S1), Jun 2009. Performed By: #### H BA1E #### [facility] [id number] [place] [address] LIPID PANEL (CORONARY RISK 2 )on 03-27-2020 Cholesterol [Mass/Vol] 260 mg/dL High 0 - 199 [facility] Comment on above: Order Comment: Tiffanie RICHARDSON MELTER SUPERVISOR [employer] FURNACE Phys [id number] [address] Result Comment: . AGE DESIRABLE BORDERLINE HIGH HIGH 0-19 Y 0 - 169 170 - 199 >/= 200 20-24 Y 0 - 189 190 - 224 >/= 225 >24 Y 0 - 199 200 - 239 >/= 240 All ranges are based on fasting samples. Specific therapeutic targets will vary based on patient-specific cardiac risk. . Pediatric guidelines reference:Pediatrics 2011, 128(S5). Adult guidelines reference: NCEP ATPIII Guidelines, JOSHUA 2001, 258:2486-97 . Venipuncture immediately after or during the administration of Metamizole may lead to falsely low results. Testing should be performed immediately prior to Metamizole dosing. Performed By: #### L IPID #### [facility] [id number] [place] [address] Cholesterol in HDL [Mass/Vol] 48.5 mg/dL Normal [facility] Comment on above: Order Comment: Tiffanie RICHARDSON CNP Phys [id number] [address] Result Comment: . AGE VERY LOW LOW NORMAL HIGH 0-19 Y < 35 < 40 40-45 ---- 20-24 Y ---- < 40 >45 ---- >24 Y ---- < 40 40-60 >60 . Performed By: #### L IPID #### [facility] [id number] [place] [address] Cholesterol in LDL [Mass/Vol] 170 mg/dL High 0 - 99 [facility] Comment on above: Order Comment: Tiffanie RICHARDSON MELTER SUPERVISOR [employer]NA[employer] Phys [id number] [address] Result Comment: . NEAR BORD AGE DESIRABLE OPTIMAL HIGH HIGH VERY HIGH 0-19 Y 0 - 109 --- 110-129 >/= 130 ---- 20-24 Y 0 - 119 --- 120-159 >/= 160 ---- >24 Y 0 - 99 100-129 130-159 160-189 >/=190 . Performed By: #### L IPID #### [facility] [id number] [place] [address] Cholesterol in VLDL [Mass/Vol] 41 mg/dL High 0 - 40 [facility] Comment on above: Order Comment: Tiffanie BrownMeccaCOLLEEN MELTER SUPERVISOR OXY[employer] FURNACE Phys [id number] [address] Performed By: #### L IPID #### [facility] [id number] [place] [address] Cholesterol.total/Ch olesterol in HDL [Mass ratio] 5.4 {ratio} Abnormal [facility] Comment on above: Order Comment: Tiffanie BrownMeccaCOLLEEN [facility] Phys [id number] [place] [address] Result Comment: REF VALUES DESIRABLE < 3.4 HIGH RISK > 5.0 Performed By: #### L IPID #### [facility] [id number] [place] [address] NON-HDL CHOLESTEROL 212 mg/dL Normal [facility] Comment on above: Order Comment: Tiffanie BrownMeccaCOLLEEN MELTER SUPERVISOR [employer] FURNACE Phys [id number] [place] [address] Result Comment: AGE DESIRABLE BORDERLINE HIGH HIGH VERY HIGH 0-19 Y 0 - 119 120 - 144 >/= 145 >/= 160 20-24 Y 0 - 149 150 - 189 >/= 190 ---- >24 Y 30 MG/DL ABOVE LDL CHOLESTEROL GOAL . Performed By: #### L IPID #### [facility] [id number] [place] [address] Triglyceride [Mass/Vol] 207 mg/dL High 0 - 149 [facility] Comment on above: Order Comment: Tiffanie BrownMeccaCOLLEEN MELTER SUPERVISOR [employer]URNACE Phys [id number] [address] Result Comment: . AGE DESIRABLE BORDERLINE HIGH HIGH VERY HIGH 0 D-90 D 19 - 174 ---- ---- ---- 91 D- 9 Y 0 - 74 75 - 99 >/= 100 ---- 10-19 Y 0 - 89 90 - 129 >/= 130 ---- 20-24 Y 0 - 114 115 - 149 >/= 150 ---- >24 Y 0 - 149 150 - 199 200- 499 >/= 500 . Venipuncture immediately after or during the administration of Metamizole may lead to falsely low results. Testing should be performed immediately prior to Metamizole dosing. Performed By: #### L IPID #### [facility] [id number] [place] [address] COVID PCR, SCREENING CONGREG ATEon 12-06-2019 CORONAVIRUS 2019,PCR NOT DETECTED Normal Not Detected [facility] Comment on above: Result Comment: This assay is designed to detect the N, ORF1ab and/or S genes of SARS-CoV-2 via nucleic acid amplification. A Negative (NOT DETECTED) result does not preclude 2019-nCoV infection since the adequacy of sample collection and/or low viral burden may result in presence of viral nucleic acids below the clinical sensitivity of this test method. Negative (NOT DETECTED) result should not be used as the sole basis for treatment or other patient management decisions. Rather negative results should be combined with clinical observations, patient history, and epidemiological information to make patient management decisions. Fact sheet for providers: https://www.fda.gov/media/489854/download Fact sheet for patients: https://www.fda.gov/media/674303/download This test has received FDA Emergency Use Authorization (EUA) and has been verified by [facility]). This test is only authorized for the duration of time that circumstances exist to justify the authorization of the emergency use of in vitro diagnostic tests for the detection of SARS-CoV-2 virus and/or diagnosis of COVID-19 infection under section 564(b)(1) of the Act, 21 U.S.C. 360bbb-3(b)(1), unless the authorization is terminated or revoked sooner. [facility] ([facility]) is certified under CLIA-88 as qualified to perform high complexity testing. This tests analytical performance characteristics have been determined by [facility]. Testing is performed at [facility] is located at [address] [place] [address] (CLIA License #[id number], CAP #[id number]). Performed By: #### C VCLA #### [facility] [address] [place] [address] COVID PCR, SCREENING CONGREG ATEon 12-05-2019 Lab Specimen Source Nasal, Nasopharyngeal Normal [facility] Comment on above: Performed By: #### C VCLA #### [facility] [address] [place] [address] Vital Signs Date Time Vital Sign Value Performing Clinician Facility 07-06-2024 18:36-0500 Body height 149.9 cm Jovani Wormald PA-C Work Phone: [facility] 07-06-2024 18:36-0500 Body mass index (BMI) [Ratio] 34.51 kg/m2 Jovani Wormald PA-C Work Phone: [facility] 07-06-2024 18:36-0500 Body temperature 97.9 [degF] Jovani Wormald PA-C Work Phone: [facility] 07-06-2024 18:36-0500 Body weight 77.5 kg Jovani Wormald PA-C Work Phone: [facility] 07-06-2024 18:36-0500 Diastolic blood pressure 89 mm[Hg] Jovani Wormald PA-C Work Phone: [facility] 07-06-2024 18:36-0500 Heart rate 88 /min Jovani Wormald PA-C Work Phone: [facility] 07-06-2024 18:36-0500 Respiratory rate 18 /min Jovani Wormald PA-C Work Phone: [facility] 07-06-2024 18:36-0500 SaO2% (BldA) [Mass fraction] 97 % Jovani Wormald PA-C Work Phone: [facility] 07-06-2024 18:36-0500 Systolic blood pressure 150 mm[Hg] Jovani Flor PA-C Work Phone: [facility] 05-02-2024 07:24-0500 Body height 149.9 cm Ash King MD Work Phone: [facility] 05-02-2024 07:24-0500 Body mass index (BMI) [Ratio] 32.84 kg/m2 Ash King MD Work Phone[facility] 05-02-2024 07:24-0500 Body weight 73.75 kg Ash King MD Work Phone: [facility] 05-02-2024 07:24-0500 Diastolic blood pressure 74 mm[Hg] Ash King MD Work Phone: [facility] 05-02-2024 07:24-0500 Heart rate 78 /min Ash King MD Work Phone: [facility] 05-02-2024 07:24-0500 SaO2% (BldA) [Mass fraction] 98 % Ash King MD Work Phone: [facility] 05-02-2024 07:24-0500 Systolic blood pressure 113 mm[Hg] Ash King MD Work Phone: [facility] 02-02-2024 08:24-0400 Body height 149.9 cm Priscilladevonte Gooden 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 [employer]CE Work Phone: [facility] 02-02-2024 08:24-0400 Body mass index (BMI) [Ratio] 33.33 kg/m2 Priscilla Roseenthal 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 [employer]NACE Work Phone: [facility] 02-02-2024 08:24-0400 Body temperature 98.71 [degF] Priscilla Roseenthal 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 [employer]CE Work Phone: [facility] 02-02-2024 08:24-0400 Body weight 74.84 kg Priscilla Bridenthal 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 [employer]NACE Work Phone: [facility] 02-02-2024 08:24-0400 Diastolic blood pressure 76 mm[Hg] Priscilla Bridenthal 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 [employer]URNACE Work Phone: [facility] 02-02-2024 08:24-0400 Heart rate 81 /min Priscilla Bridenthal 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 [employer]CE Work Phone: [facility] 02-02-2024 08:24-0400 Respiratory rate 18 /min Priscilla Bridenthal 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 [employer]CE Work Phone: [facility] 02-02-2024 08:24-0400 SaO2% (BldA) [Mass fraction] 98 % Priscilla Roseenthal 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 [employer]URNACE Work Phone: [facility] 02-02-2024 08:24-0400 Systolic blood pressure 125 mm[Hg] Priscilla Roseenthal 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 [employer]NACE Work Phone: [facility] 10-25-2023 07:13-0400 Body height 149.9 cm Ash King MD Work Phone: [facility] 10-25-2023 07:13-0400 Body mass index (BMI) [Ratio] 35.75 kg/m2 Ash King MD Work Phone: [facility] 10-25-2023 07:13-0400 Body temperature 97.59 [degF] Ash King MD Work Phone: [facility] 10-25-2023 07:13-0400 Body weight 80.29 kg Ash King MD Work Phone: [facility] 10-25-2023 07:13-0400 Diastolic blood pressure 79 mm[Hg] Ash King MD Work Phone: [facility] 10-25-2023 07:13-0400 Heart rate 79 /min Ash King MD Work Phone: [facility] 10-25-2023 07:13-0400 SaO2% (BldA) [Mass fraction] 98 % Ash King MD Work Phone: [facility] 10-25-2023 07:13-0400 Systolic blood pressure 120 mm[Hg] Ash King MD Work Phone: [facility] 09-07-2023 15:33-0400 Body height 149.9 cm Asa Betancur MD Work Phone: [facility] 09-07-2023 15:33-0400 Body weight 76.66 kg Asa Betancur MD Work Phone: [facility] 09-07-2023 15:33-0400 Diastolic blood pressure 80 mm[Hg] Asa Betancur MD Work Phone: [facility] 09-07-2023 15:33-0400 Systolic blood pressure 126 mm[Hg] Asa Betancur MD Work Phone: [facility] 09-05-2023 08:40-0400 Body temperature 98.2 [degF] Macho Pendlebury RAMP AGENT.MELTER SUPERVISOR O[employer] FURNACE Work Phone: [facility] 09-05-2023 08:40-0400 Body weight 76.7 kg Macho Pendlebury RAMP AGENT.MELTER SUPERVISOR O[employer]GEN FURNACE Work Phone: [facility] 09-05-2023 08:40-0400 Diastolic blood pressure 84 mm[Hg] Macho Pendlebury RAMP AGENT.MELTER SUPERVISOR O[employer] FURNACE Work Phone: [facility] 09-05-2023 08:40-0400 Heart rate 85 /min Macho Pendlebury RAMP AGENT.MELTER SUPERVISOR O[employer]URNACE Work Phone: [facility] 09-05-2023 08:40-0400 Respiratory rate 18 /min Macho Pendlebury RAMP AGENT.MELTER SUPERVISOR O[employer] FURNACE Work Phone: [facility] 09-05-2023 08:40-0400 SaO2% (BldA) [Mass fraction] 98 % Macho Pendlebury RAMP AGENT.MELTER SUPERVISOR O[employer] FURNACE Work Phone: [facility] 09-05-2023 08:40-0400 Systolic blood pressure 124 mm[Hg] Macho Pendlebury RAMP AGENT.MELTER SUPERVISOR O[employer] FURNACE Work Phone: [facility] 08-02-2023 07:33-0500 Body height 149.9 cm Priscilla Bridenthal 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 [employer]URNACE Work Phone: [facility] 08-02-2023 07:33-0500 Body mass index (BMI) [Ratio] 33.93 kg/m2 Priscilla Bridenthal 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 [employer] FURNACE Work Phone: [facility] 08-02-2023 07:33-0500 Body temperature 98.71 [degF] Priscilla Bridenthal 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 [employer]GEN FURNACE Work Phone: [facility] 08-02-2023 07:33-0500 Body weight 76.2 kg Priscilla Bridenthal 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 [employer] FURNACE Work Phone: [facility] 08-02-2023 07:33-0500 Diastolic blood pressure 81 mm[Hg] Priscilla Bridenthal 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 O[employer]GEN FURNACE Work Phone: [facility] 08-02-2023 07:33-0500 Heart rate 90 /min Priscilla Bridenthal 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 O[employer] FURNACE Work Phone: [facility] 08-02-2023 07:33-0500 Respiratory rate 16 /min Priscilla Bridenthal 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 O[employer]GEN FURNACE Work Phone: [facility] 08-02-2023 07:33-0500 SaO2% (BldA) [Mass fraction] 97 % Priscilla Bridenthal 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 O[employer]GEN FURNACE Work Phone: [facility] 08-02-2023 07:33-0500 Systolic blood pressure 137 mm[Hg] Priscilla Bridenthal 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 OXYGEN FURNACE Work Phone: [facility] 04-12-2023 10:30-0400 Body height 149.86 cm [facility] 04-12-2023 10:30-0400 Body weight 78.74 kg [facility] 03-03-2023 09:39-0400 Body height 149.9 cm Ash King MD Work Phone: [facility] 03-03-2023 09:39-0400 Body mass index (BMI) [Ratio] 35.26 kg/m2 Ash King MD Work Phone: [facility] 03-03-2023 09:39-0400 Body weight 79.2 kg Ash King MD Work Phone: [facility] 03-03-2023 09:39-0400 Diastolic blood pressure 72 mm[Hg] Ash King MD Work Phone: [facility] 03-03-2023 09:39-0400 Heart rate 82 /min Ash King MD Work Phone: [facility] 03-03-2023 09:39-0400 SaO2% (BldA) [Mass fraction] 97 % Ash King MD Work Phone: [facility] 03-03-2023 09:39-0400 Systolic blood pressure 132 mm[Hg] Ash King MD Work Phone: [facility] 08-06-2022 12:39-0500 Body height 149.9 cm Suresh Quinterosa DO Work Phone: [facility] 08-06-2022 12:39-0500 Body mass index (BMI) [Ratio] 38.17 kg/m2 Suresh Snowhuya DO Work Phone: [facility] 08-06-2022 12:39-0500 Body temperature 97.11 [degF] Suresh Snowhuya DO Work Phone: [facility] 08-06-2022 12:39-0500 Body weight 85.73 kg Suresh Snowhuya DO Work Phone: [facility] 08-06-2022 12:39-0500 Diastolic blood pressure 72 mm[Hg] Suresh Snowhuya DO Work Phone: [facility] 08-06-2022 12:39-0500 Heart rate 88 /min Suresh Snowhuya DO Work Phone: [facility] 08-06-2022 12:39-0500 SaO2% (BldA) [Mass fraction] 99 % Suresh Aceves DO Work Phone: [facility] 08-06-2022 12:39-0500 Systolic blood pressure 120 mm[Hg] Suresh Aceves DO Work Phone: [facility] 07-23-2022 11:57-0500 Body height 149.9 cm Priscilla López MD Work Phone: [facility] 07-23-2022 11:57-0500 Body weight 85.28 kg Priscilla López MD Work Phone: [facility] 07-23-2022 11:57-0500 Diastolic blood pressure 66 mm[Hg] Priscilla López MD Work Phone: [facility] 07-23-2022 11:57-0500 Systolic blood pressure 118 mm[Hg] Priscilla López MD Work Phone: [facility] 06-29-2022 07:29-0500 Body height 149.9 cm Karlee Tokie RAMP AGENT - SUPERVISOR [employer] Work Phone: [facility] 06-29-2022 07:29-0500 Body mass index (BMI) [Ratio] 37.81 kg/m2 Karlee Tokie RAMP AGENT - SUPERVISOR [employer] Work Phone: [facility] 06-29-2022 07:29-0500 Body temperature 98.29 [degF] Karlee Tokie RAMP AGENT - SUPERVISOR [employer] Work Phone: [facility] 06-29-2022 07:29-0500 Body weight 84.91 kg Karlee Tokie RAMP AGENT - SUPERVISOR [employer] Work Phone: [facility] 06-29-2022 07:29-0500 Diastolic blood pressure 80 mm[Hg] Karlee Tokie RAMP AGENT - SUPERVISOR [employer] Work Phone: [facility] 06-29-2022 07:29-0500 Heart rate 86 /min Karlee Tokie RAMP AGENT - SUPERVISOR [employer] Work Phone: [facility] 06-29-2022 07:29-0500 SaO2% (BldA) [Mass fraction] 98 % Karlee Patricia RAMP AGENT - SUPERVISOR [employer] Work Phone: [facility] 06-29-2022 07:29-0500 Systolic blood pressure 112 mm[Hg] Karlee Patricia RAMP AGENT - SUPERVISOR [employer]ING Work Phone: [facility] Encounters Encounter Date Encounter Type Care Provider Facility Start: 11-20-2024 ambulatory Prasanna menchacaty:[facility] Start: 10-09-2024 End: 10-09-2024 ambulatory Roque Wolf Facility:[facility] Start: 09-12-2024 End: 09-12-2024 ambulatory Ash King Facility:[facility] Start: 09-01-2024 End: 09-01-2024 ambulatory Ash King Facility:[facility] Start: 08-15-2024 End: 08-15-2024 ambulatory Ash King Facility:[facility] Start: 07-26-2024 End: 07-26-2024 ambulatory Ash King Facility:[facility] Start: 07-10-2024 End: 07-11-2024 Emergency department patient visit Mohan [facility] Facility:[facility] Start: 07-06-2024 End: 07-06-2024 ambulatory SELF Facility:[facility] Start: 07-06-2024 End: 07-06-2024 Patient encounter procedure Jovani Flor PA-C Work Phone: [facility] Comment on above: Fatigue, unspecified type (Primary Dx); Urinary urgency; Urinary frequency Start: 06-17-2024 ambulatory Facility:[facility] Start: 05-18-2024 End: 05-18-2024 ambulatory Roque Winn Seese Facility:[facility] Start: 05-02-2024 End: 05-02-2024 Office outpatient visit 25 minutes Ash King MD Work Phone: [facility] Comment on above: Hypercholesterolemia (Primary Dx); Severe episode of recurrent major depressive disorder, without psychotic features (HCC); Obsessive-compulsive disorder, unspecified type; Anxiety Start: 05-02-2024 End: 05-02-2024 ambulatory ASH KING [facility] Start: 03-02-2024 End: 03-02-2024 ambulatory Roque Wolf Facility:[facility] Start: 02-02-2024 End: 02-02-2024 Office outpatient visit 25 minutes Priscilla Gooden 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 [employer] FURNACE Work Phone: [facility] Comment on above: Prediabetes (Primary Dx); Hypercholesterolemia; Severe episode of recurrent major depressive disorder, without psychotic features (HCC); Class 1 obesity without serious comorbidity with body mass index (BMI) of 33.0 to 33.9 in adult, unspecified obesity type Start: 02-02-2024 End: 02-02-2024 Patient encounter procedure Priscilla Rhoda 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 O[employer]GEN FURNACE Work Phone: [facility] Work Phone: Start: 02-02-2024 End: 02-02-2024 Periodic preventive med est patient 40-64yrs Priscilla Gooden 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 O[employer]GEN FURNACE Work Phone: [facility] Comment on above: Annual physical exam (Primary Dx); Prediabetes; Hypercholesterolemia; Severe episode of recurrent major depressive disorder, without psychotic features (HCC); Class 1 obesity without serious comorbidity with body mass index (BMI) of 33.0 to 33.9 in adult, unspecified obesity type Start: 02-02-2024 End: 02-02-2024 ambulatory ASH CHRISTINE [facility] Start: 02-02-2024 End: 02-02-2024 Encounter for general adult medical examination without abnormal findings PRISCILLA GOODEN [facility] Start: 2023 End: 2023 ambulatory LEONEL BAILEY I [facility] Start: 11-12-2023 End: 11-12-2023 ambulatory ASH [facility] Start: 10-26-2023 Telephone encounter Ash Rose MD Work Phone: [facility] Comment on above: Results Start: 10-25-2023 End: 10-25-2023 Office outpatient visit 25 minutes Ash King MD Work Phone: [facility] Comment on above: Hypercholesterolemia (Primary Dx); Severe episode of recurrent major depressive disorder, without psychotic features (HCC); Prediabetes; Acute non-recurrent frontal sinusitis Start: 10-25-2023 End: 10-25-2023 ambulatory [facility] Start: 10-15-2023 End: 10-15-2023 ambulatory [facility] Start: 10-06-2023 End: 10-07-[address] SURESH ACEVES DO Facility:[facility] Start: 10-06-2023 End: 10-06-2023 Patient encounter procedure LEANDRO UMANA RAMP AGENT-[facility] Start: 09-24-2023 End: 09-24-2023 ambulatory [facility] Start: 09-20-2023 Refill Priscilla cam 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 O[employer]GEN FURNACE Work Phone: [facility] Comment on above: Mixed hyperlipidemia Start: 09-07-2023 End: 09-07-2023 ambulatory ASA BETANCUR Facility:[facility] Start: 09-07-2023 End: 09-07-2023 Patient encounter procedure Asa Betancur MD Work Phone: OB/Gynecology Comment on above: Encounter for gyneco logical examination (general) (routine) without abnormal findings (Primary Dx); Encounter for screening mammogram for breast cancer; Other fatigue; Intermenstrual spotting Start: 09-07-2023 End: 09-07-2023 Patient encounter status Asa Betancur MD Work Phone: [facility] Start: 09-05-2023 End: 09-05-2023 ambulatory Facility:[facility] Start: 09-05-2023 End: 09-05-2023 Office outpatient visit 25 minutes Macho Kline RAMP AGENT.MELTER SUPERVISOR O[employer]GEN FURNACE Work Phone: [facility] Comment on above: Strep throat (Primar y Dx); Pharyngitis, unspecified etiology Start: 09-03-2023 End: 09-03-2023 ambulatory [facility] Start: 09-02-2023 ambulatory Miriam Ragsdale MD Work Phone: OB/Gynecology Comment on above: Hormones Start: 08-25-2023 End: 08-30-2023 Evaluation and management of inpatient [facility] Start: 08-08-2023 End: 08-19-2023 Evaluation and management of inpatient [facility] Start: 08-03-2023 Telephone encounter Priscilla Migdalia woody 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 [employer]NACE Work Phone: [facility] Comment on above: Results Start: 08-03-2023 End: 08-03-2023 ambulatory [facility] Start: 08-02-2023 End: 08-02-2023 Patient encounter procedure Priscilla Bridenthal 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 [employer]CE Work Phone: [facility] Work Phone: Start: 08-02-2023 End: 08-02-2023 Periodic preventive med est patient 18-39 yrs Priscilla Roseenthal 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 [employer] FURNACE Work Phone: [facility] Comment on above: Annual physical exam (Primary Dx); Anxiety; Screening for diabetes mellitus; Screening for deficiency anemia; Screening for cholesterol level Start: 08-02-2023 End: 08-02-2023 ambulatory [facility] Start: 04-12-2023 End: 04-13-2023 ambulatory [facility] Work Phone: Start: 04-12-2023 End: 04-13-2023 Discharged Recurring [facility] Work Phone: Start: 03-03-2023 End: 03-03-2023 Office outpatient visit 15 minutes Ash King MD Work Phone: [facility] Comment on above: Class 2 obesity due to excess calories without serious comorbidity with body mass index (BMI) of 35.0 to 35.9 in adult (Primary Dx) Start: 03-02-2023 Telephone encounter Ash Rose MD Work Phone: [facility] Comment on above: Pre-visit Planning Start: 10-23-2022 ambulatory Miriam Rgasdale MD Work Phone: OB/Gynecology Comment on above: Hormones Start: 10-17-2022 Refill Karlee Patricia A PRN - SUPERVISOR [employer] Work Phone: [facility] Comment on above: Severe episode of re current major depressive disorder, without psychotic features (HCC) Start: 08-21-2022 Orders Only Karlee Juan PRN - SUPERVISOR [employer] Work Phone: [facility] Comment on above: Severe episode of re current major depressive disorder, without psychotic features (HCC) Start: 08-06-2022 End: 08-06-2022 Office outpatient visit 15 minutes Suresh Aceves DO Work Phone: [facility] Comment on above: Posterior tibial ten don dysfunction, right (Primary Dx) Start: 07-23-2022 End: 07-23-2022 Patient encounter procedure Priscilla López MD Work Phone: [facility]/Gynecology Comment on above: Encounter for gyneco logical examination with abnormal finding (Primary Dx); Abnormal uterine bleeding (AUB); Malaise and fatigue Start: 07-23-2022 End: 07-23-2022 Patient encounter status Priscilla López MD Work Phone: [facility]/Gy[facility]cology Start: 07-03-2022 Orders Only Karlee Juan PRN - SUPERVISOR [employer] Work Phone: [facility] Comment on above: Pre-diabetes (Primar y Dx); Class 2 obesity without serious comorbidity with body mass index (BMI) of 37.0 to 37.9 in adult, unspecified obesity type Start: 06-29-2022 End: 06-29-2022 Office outpatient visit 25 minutes Karlee Patricia RAMP AGENT - SUPERVISOR [employer]NING Work Phone: [facility] Comment on above: Acute nonintractable headache, unspecified headache type (Primary Dx); Dizziness; Pre-diabetes; Severe episode of recurrent major depressive disorder, without psychotic features (HCC); History of hypothyroidism; Hypercholesterolemia; Screening for lipid disorders Start: 02-13-2022 ambulatory Miriam Ragsdale MD Work Phone: OB/Gynecology Comment on above: Breast rash Start: 09-29-2021 ambulatory Miriam Ragsdale MD Work Phone: OB/Gynecology Comment on above: Return to work form Start: 09-04-2021 ambulatory Miriam Ragsdale MD Work Phone: OB/Gynecology Comment on above: Tubal Procedures Date Procedure Procedure Detail Performing Clinician Start: 07-06-2024 Urnls dip stick/tabl et rgnt auto w/o microscopy Jovani Flor PA-C Work Phone: Start: 02-02-2024 Hemoglobin glycosylated a1c Priscilla Gooden 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 [employer]CE Work Phone: Start: 10-25-2023 Lipid 1996 panel - S quang or Plasma Ash King MD Work Phone: Start: 09-05-2023 STREP A MOLECULAR (POC) [facility] Provider Start: 08-02-2023 Comprehensive metabo lic panel Priscilla Rhoda 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 [employer] Work Phone: Start: 08-02-2023 Lipid panel Priscilla Migdalia woody 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 [employer] Work Phone: Start: 08-02-2023 Lipid 1996 panel - S quang or Plasma Priscilla Gooden 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 [employer]CE Work Phone: Start: 06-29-2022 Lipid 1996 panel - S quang or Plasma Karlee Patricia RAMP AGENT - SUPERVISOR [employer] Work Phone: Start: 02-04-2021 Microscopic observat ion [Identifier] in Cervix by Cyto stain Ash King MD Work Phone: Start: 01-06-2021 Lipid 1996 panel - S quang or Plasma Karlee Winniejames RAMP AGENT - SUPERVISOR [employer] Work Phone: Start: 03-07-2019 delivery only LEANDRO UMANA RAMP AGENT-CNM Plan of Treatment Date Care Activity Detail Author Start: 12-21-2058 RSV Immunization for Adults (1 - 1-dose 75+ series) RSV Immunization for Adults (1 - 1-dose 75+ series) [facility] Start: 2043 RSV Immunization aged 60 or older (1 - 1-dose 60+ series) RSV Immunization aged 60 or older (1 - 1-dose 60+ series) [facility] Start: 12-21-2033 Zoster Vaccines (1 of 2) Zoster Vaccines (1 of 2) [facility] Start: 08-08-2033 DTaP/Tdap/Td Vaccines (4 - Td or Tdap) DTaP/Tdap/Td Vaccines (4 - Td or Tdap) [facility] Start: 08-08-2033 Urine microalbumin profile DTaP,Tdap,Td Vaccine (4 - Td or Tdap) [facility] Start: 05-15-2031 DTaP/Tdap/Td Vaccines (3 - Td or Tdap) DTaP/Tdap/Td Vaccines (3 - Td or Tdap) [facility] Start: 05-15-2031 Urine microalbumin profile DTAP,TDAP,TD (3 - Td or Tdap) [facility] Start: 10-24-2028 Lipid panel Lipid Panel [facility] Start: 08-02-2028 Lipid panel Lipid Panel [facility] Start: 06-29-2027 Lipid panel Lipid Panel [facility] Start: 02-04-2026 Screening for malignant neoplasm of cervix [facility] Start: 01-31-2026 HPV TESTING HPV TESTING [facility] Start: 01-31-2026 PAP TESTING PAP TESTING [facility] Start: 01-31-2026 Screening for malignant neoplasm of cervix [facility] Start: 01-06-2026 Lipid panel Lipid Panel [facility] Start: 02-01-2025 Diabetes mellitus screening Diabetes Screening [facility] Start: 11-01-2024 End: 11-01-2024 Patient encounter procedure 11/01/2024 9:00 AM EDT Office Visit [facility] [address] [place] [address] [facility] [place] [place] [address] [facility] Start: 10-24-2024 Diabetes mellitus screening Diabetes Screening [facility] Start: 09-08-2024 End: 09-08-2024 Patient encounter procedure 09/08/2024 4:00 PM EDT Office Visit OB/Gynecology [address] [place] [address] Asa Betancur MD [address] [place] [address] Annual OB/Gynecology Comment on above: Annual Start: 08-09-2024 Diabetes mellitus screening Diabetes Screening [facility] Start: 08-09-2024 Hemoglobin A1c measurement Diabetes: Hemoglobin A1C [facility] Start: 08-02-2024 COVID-19 Vaccine ( season) COVID-19 Vaccine ( season) [facility] Comment on above: Postponed from 02/12/2023 (Patient Refus ed) Start: 08-02-2024 Hepatitis B Vaccines (1 of 3 - 19+ 3-dose series) Hepatitis B Vaccines (1 of 3 - 19+ 3-dose series) [facility] Comment on above: Postponed from 12/21/2002 (Patient Refus ed) Start: 08-02-2024 Hepatitis B Vaccines (1 of 3 - 3-dose series) Hepatitis B Vaccines (1 of 3 - 3-dose series) [facility] Comment on above: Postponed from 1983 (Patient Refus ed) Start: 08-02-2024 HIV screening HIV Screening [facility] Comment on above: Postponed from 1983 (Patient Refus ed) Start: 08-02-2024 Lipid panel Lipid Panel [facility] Start: 04-26-2024 Depression Monitoring Depression Monitoring [facility] Start: 04-19-2024 End: 04-19-2024 Patient encounter procedure 04/19/2024 7:00 AM EST Office Visit [facility] [address] [place] [address] Ash King MD [address] [place] [address] [place] [address] [facility] Start: 02-13-2024 COVID-19 Vaccine () COVID-19 Vaccine () [facility] Start: 02-13-2024 Influenza vaccination [facility] Start: 02-06-2024 Depression Monitoring Depression Monitoring [facility] Start: 02-06-2024 Depresssion Monitoring Depresssion Monitoring [facility] Start: 02-02-2024 End: 02-01-2025 Hemoglobin A1c measurement Hemoglobin A1c Lab Routine Prediabetes Expected: 02/02/2024 (Approximate), Expires: 02/01/2025 [facility] Work Phone: Comment on above: Expected: 02/02/2024 (Approximate), Expi res: 02/01/2025 Start: 01-31-2024 Depresssion Monitoring Depresssion Monitoring [facility] Start: 2023 Screening for malignant neoplasm of breast [facility] Start: 12-12-2023 Influenza vaccination Influenza Vaccine (#1) [facility] Comment on above: Postponed from 02/12/2023 (Patient Refus ed) Start: 11-25-2023 End: 11-25-2023 Patient encounter procedure 11/25/2023 10:15 AM EDT Office Visit [address] [place] [address] Ash King MD [address] [place] [address] [place] [address] [facility] Start: 10-25-2023 End: 10-21-2024 Alanine aminotransferase [Enzymatic activity/volume] in Serum or Plasma ALT Lab Routine Hypercholesterolemia Expected: 10/25/2023 (Approximate), Expires: 10/21/2024 [facility] Comment on above: Expected: 10/25/2023 (Approximate), Expi res: 10/21/2024 Start: 10-25-2023 End: 10-21-2024 Aspartate aminotransferase [Enzymatic activity/volume] in Serum or Plasma AST Lab Routine Hypercholesterolemia Expected: 10/25/2023 (Approximate), Expires: 10/21/2024 [facility] Comment on above: Expected: 10/25/2023 (Approximate), Expi res: 10/21/2024 Start: 10-25-2023 End: 10-24-2024 Hemoglobin A1c measurement Hemoglobin A1c Lab Routine Prediabetes Expected: 10/25/2023 (Approximate), Expires: 10/24/2024 [facility] Comment on above: Expected: 10/25/2023 (Approximate), Expi res: 10/24/2024 Start: 10-25-2023 End: 10-21-2024 Lipid 1996 panel - Serum or Plasma Lipid panel Lab Routine Hypercholesterolemia Expected: 10/25/2023 (Approximate), Expires: 10/21/2024 [facility] Work Phone: Comment on above: Expected: 10/25/2023 (Approximate), Expi res: 10/21/2024 Start: 10-25-2023 End: 10-25-2023 Patient encounter procedure 10/25/2023 7:15 AM EDT Office Visit [facility] [address] [place] [address] [id number] Ash King MD [place] [id number] [facility] Start: 09-01-2023 End: 08-03-2024 Alanine aminotransferase [Enzymatic activity/volume] in Serum or Plasma ALT Lab Routine Mixed hyperlipidemia Expected: 09/01/2023 (Approximate), Expires: 08/03/2024 [facility] Comment on above: Expected: 09/01/2023 (Approximate), Expi res: 08/03/2024 Start: 09-01-2023 End: 08-03-2024 Aspartate aminotransferase [Enzymatic activity/volume] in Serum or Plasma AST Lab Routine Mixed hyperlipidemia Expected: 09/01/2023 (Approximate), Expires: 08/03/2024 [facility] Comment on above: Expected: 09/01/2023 (Approximate), Expi res: 08/03/2024 Start: 09-01-2023 End: 08-03-2024 Lipid 1996 panel - Serum or Plasma Lipid panel Lab Routine Mixed hyperlipidemia Expected: 09/01/2023 (Approximate), Expires: 08/03/2024 [employer] Work Phone: Comment on above: Expected: 09/01/2023 (Approximate), Expi res: 08/03/2024 Start: 09-01-2023 End: 09-01-2023 Clinical Support 09/01/2023 8:00 AM EDT Clinical Support [facility] [address] [place] [address] [facility] Start: 08-02-2023 End: 08-02-2024 CBC panel - Blood by Automated count CBC Lab Routine Screening for deficiency anemia Expected: 08/02/2023 (Approximate), Expires: 08/02/2024 [facility] Comment on above: Expected: 08/02/2023 (Approximate), Expi res: 08/02/2024 Start: 08-02-2023 End: 08-02-2024 Comprehensive metabolic 1998 panel - Serum or Plasma Comprehensive metabolic panel Lab Routine Screening for diabetes mellitus Expected: 08/02/2023 (Approximate), Expires: 08/02/2024 [employer] Work Phone: Comment on above: Expected: 08/02/2023 (Approximate), Expi res: 08/02/2024 Start: 08-02-2023 End: 08-02-2024 Lipid 1996 panel - Serum or Plasma Lipid panel Lab Routine Screening for cholesterol level Expected: 08/02/2023 (Approximate), Expires: 08/02/2024 [facility] Comment on above: Expected: 08/02/2023 (Approximate), Expi res: 08/02/2024 Start: 06-29-2023 Diabetes mellitus screening Diabetes Screening [facility] Start: 06-14-2023 Depression Assessment Depression Assessment [facility] Start: 04-02-2023 End: 04-02-2023 Patient encounter procedure 04/02/2023 9:45 AM EDT Office Visit [address] [place] [address] Ash King MD [address] [place] [address] [place] [address] [facility] Start: 04-01-2023 Depresssion Monitoring Depresssion Monitoring [facility] Start: 03-03-2023 End: 03-03-2023 Patient encounter procedure 03/03/2023 9:45 AM EDT Office Visit [address] [place] [address] Ash King MD [address] [place], [place] [address] [address] [facility] Start: 02-12-2023 Covid-19 Vaccine ( season) Covid-19 Vaccine () [facility] Start: 02-12-2023 Influenza vaccination [facility] Start: 11-26-2022 Diabetes mellitus screening Diabetes Screening [facility] Start: 08-06-2022 End: 08-06-2023 XR Ankle - right 3 Views XR ankle 3+ views right Imaging Routine Posterior tibial tendon dysfunction, right Expected: 08/06/2022, Expires: 08/06/2023 [facility] Work Phone: Comment on above: Expected: 08/06/2022, Expires: Start: 07-23-2022 End: 09-22-2022 25-hydroxyvitamin D3 [Mass/volume] in Serum or Plasma [facility] Work Phone: Comment on above: Expected: 07/23/2022, Expires: Start: 07-23-2022 End: 07-23-2023 PELVIC US WHI PELVIC US WHI Anc Imaging Routine Abnormal uterine bleeding (AUB) Expected: 07/23/2022, Expires: 07/23/2023 [facility] Work Phone: Comment on above: Expected: 07/23/2022, Expires: Start: 06-29-2022 End: 08-27-2022 CBC W Auto Differential panel - Blood CBC auto differential Lab Routine Dizziness Expected: 06/29/2022 (Approximate), Expires: 08/27/2022 [facility] Work Phone: Comment on above: Expected: 06/29/2022 (Approximate), Expi res: 08/27/2022 Start: 06-29-2022 End: 06-29-2023 Comprehensive metabolic 1998 panel - Serum or Plasma Comprehensive metabolic panel Lab Routine Acute nonintractable headache, unspecified headache type Dizziness Expected: 06/29/2022 (Approximate), Expires: 06/29/2023 [facility] Comment on above: Expected: 06/29/2022 (Approximate), Expi res: 06/29/2023 Start: 06-29-2022 End: 06-29-2023 Ferritin [Mass/volume] in Serum or Plasma Ferritin Lab Routine Dizziness Expected: 06/29/2022 (Approximate), Expires: 06/29/2023 [facility] Comment on above: Expected: 06/29/2022 (Approximate), Expi res: 06/29/2023 Start: 06-29-2022 End: 06-29-2023 Hemoglobin A1c/Hemoglobin.total in Blood Hemoglobin A1c Lab Routine Pre-diabetes Expected: 06/29/2022 (Approximate), Expires: 06/29/2023 [facility] Comment on above: Expected: 06/29/2022 (Approximate), Expi res: 06/29/2023 Start: 06-29-2022 End: 06-29-2023 Iron and Iron binding capacity panel - Serum or Plasma Iron and TIBC Lab Routine Dizziness Expected: 06/29/2022 (Approximate), Expires: 06/29/2023 [facility] Comment on above: Expected: 06/29/2022 (Approximate), Expi res: 06/29/2023 Start: 06-29-2022 End: 06-29-2023 Lipid 1996 panel - Serum or Plasma Lipid panel Lab Routine Hypercholesterolemia Expected: 06/29/2022 (Approximate), Expires: 06/29/2023 [facility] Comment on above: Expected: 06/29/2022 (Approximate), Expi res: 06/29/2023 Start: 06-29-2022 End: 06-29-2023 Thyrotropin [Units/volume] in Serum or Plasma TSH Lab Routine History of hypothyroidism Expected: 06/29/2022 (Approximate), Expires: 06/29/2023 [facility] Comment on above: Expected: 06/29/2022 (Approximate), Expi res: 06/29/2023 Start: 06-29-2022 End: 06-29-2023 Transferrin [Mass/volume] in Serum or Plasma Transferrin Lab Routine Dizziness Expected: 06/29/2022 (Approximate), Expires: 06/29/2023 [facility] Comment on above: Expected: 06/29/2022 (Approximate), Expi res: 06/29/2023 Start: 06-14-2022 DEPRESSION ASSESSMENT DEPRESSION ASSESSMENT [facility] Start: 02-12-2022 Influenza vaccination [facility] Start: 01-30-2021 COVID-19 VACCINE (3 - Booster for Pfizer series) COVID-19 VACCINE (3 - Booster for Pfizer series) [facility] Start: 10-25-2020 COVID-19 VACCINE (3 - Booster for Pfizer series) COVID-19 VACCINE (3 - Booster for Pfizer series) [facility] Start: 12-21-2013 Screening for malignant neoplasm of cervix [facility] Start: 12-21-2004 Screening for malignant neoplasm of cervix Pap Smear [facility] Start: 12-21-2002 Hepatitis B Vaccine (1 of 3 - 19+ 3-dose series) Hepatitis B Vaccine (1 of 3 - 19+ 3-dose series) [facility] Start: 12-21-2001 Depression Screening Depression Screening [facility] Start: 12-21-2001 Hepatitis C screening Hepatitis C Screening [facility] Start: 1995 Adult depression screening assessment DEPRESSION SCREENING [facility] Start: 12-21-1993 Diabetic foot examination Diabetes: Foot Exam [facility] Start: 12-21-1993 Glaucoma screening Diabetes: Retinopathy Screening [facility] Start: 12-21-1993 Preventive dental service Diabetes: Dental Exam [facility] Start: 12-21-1984 MMR Vaccines (1 of 1 - Standard series) MMR Vaccines (1 of 1 - Standard series) [facility] Start: 12-21-1984 Varicella vaccination Varicella Vaccines (1 of 2 - 2-dose childhood series) [facility] Start: 1983 HEPATITIS B (1 of 3 - 3-dose series) HEPATITIS B (1 of 3 - 3-dose series) [facility] Start: 1983 Hepatitis B Vaccines (1 of 3 - 3-dose series) Hepatitis B Vaccines (1 of 3 - 3-dose series) [facility] Start: 1983 HIV screening HIV Screening [facility] Bacteria identified in Urine by Culture BACTERIAL CULTURE, URINE Microbiology Routine Fatigue, unspecified type Urinary urgency Urinary frequency Ordered: 07/06/2024 [facility] Work Phone: Comment on above: Ordered: 07/06/2024 Endometrial bx w/wo endocervix bx w/o dilat spx ENDOMETRIAL BIOPSY Procedures Routine Abnormal uterine bleeding (AUB) Ordered: 07/23/2022 [facility] Work Phone: Comment on above: Ordered: 07/23/2022 End: 10-06-2024 MG Breast Screening GLORIA SCREENING Radiology Routine Encounter for screening mammogram for breast cancer 1 Occurrences starting 09/07/2023 until 10/06/2024 [facility] Work Phone: Comment on above: 1 Occurrences starting 09/07/2023 until 10/06/2024 End: 10-06-2024 US Pelvis limited US FEMALE PELVIS TRANSABD LTD Radiology Routine Intermenstrual spotting 1 Occurrences starting 09/07/2023 until 10/06/2024 [facility] Work Phone: Comment on above: 1 Occurrences starting 09/07/2023 until 10/06/2024 End: 10-06-2024 US Pelvis transvaginal US FEMALE PELVIS TRANSVAG Radiology Routine Intermenstrual spotting 1 Occurrences starting 09/07/2023 until 10/06/2024 [facility] Work Phone: Comment on above: 1 Occurrences starting 09/07/2023 until 10/06/2024 [facility] Immunizations Immunization Date Immunization Notes Care Provider Fa [facility] 08-08-2023 tetanus toxoid, reduced diphtheria toxoid, and acellular pertussis vaccine, adsorbed Priscilla Bridenthal 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 [employer] Work Phone: [facility] 05-15-2021 RHO(D) immune globulin- IV or IM Miriam Ragsdale MD Work Phone: [facility] 05-15-2021 tetanus toxoid, reduced diphtheria toxoid, and acellular pertussis vaccine, adsorbed Miriam Ragsdale MD Work Phone: [facility] 05-14-2021 Influenza virus vaccine [facility] 05-14-2021 influenza, seasonal, injectable Priscilla Bridenthal 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 Work Phone: [facility] 05-14-2021 tetanus toxoid, reduced diphtheria toxoid, and acellular pertussis vaccine, adsorbed [facility] 05-14-2021 influenza virus vaccine, unspecified formulation Priscilla Bridenthal 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 Work Phone: [facility] 03-04-2021 influenza, injectabl e, quadrivalent, contains preservative Miriam Ragsdale MD Work Phone: [facility] Work Phone: 03-04-2021 influenza virus vaccine, unspecified formulation Karlee Belem RAMP AGENT - SUPERVISOR [employer] Work Phone: [facility] 08-30-2020 COVID-19 vaccine, ag e 12+ yr (PFIZER-BIONTECH - PURPLE TOP) Miriam Ragsdale MD Work Phone: [facility] Work Phone: 08-09-2020 COVID-19 vaccine, ag e 12+ yr (PFIZER-BIONTECH - PURPLE TOP) Miriam Ragsdale MD Work Phone: [facility] Work Phone: 09-12-2016 tetanus toxoid, reduced diphtheria toxoid, and acellular pertussis vaccine, adsorbed Miriam Ragsdale MD Work Phone: [facility] Work Phone: Payers Date Payer Category Payer Self-pay [id number] 2021 [employer] - [facility] [place] [place] [place] [id number] 2021 Unknown [employer] FEP PPO [id number] 2021-Present [phone] [address] [place] [address] O [id number] 2021 Unknown [id number] 2015 Unknown [id number] 1983 Unknown [id number] Private Health Insurance [facility] [id number] Unknown [id number] Unknown [id number] Unknown [id number] Unknown [id number] Unknown [id number] Unknown [id number] Unknown [id number] Unknown [id number] Unknown [id number] Social History Date Type Detail Facility Start: 01-14-2021 End: 07-23-2022 Tobacco smoking status NHIS Never smoked tobacco [facility] Start: 01-14-2021 End: 07-23-2022 Tobacco use and exposure Smokeless tobacco non-user [facility] Start: 09-01-2021 End: 07-06-2024 Alcohol intake Ex-drinker (finding) [facility] Start: 01-30-2021 Education 18 [facility] Start: 1985 Sex Assigned At Not on file C [facility] Start: 06-29-2022 End: 08-06-2022 Alcohol intake Lifetime non-drinker (finding) [facility] Start: 07-23-2022 End: 08-06-2022 Alcohol intake [facility] Start: 1985 Sex Assigned At Female [facility] Start: 06-19-2022 End: 03-03-2023 Exposure to SARS-CoV-2 (event) Not sure [facility] Start: 07-23-2022 End: 03-02-2023 Tobacco use panel [facility] Adolescent depressio n screening assessment 6 [facility] Start: 06-21-2022 Gender identity Identifies as female gender (finding) [facility] Start: 06-21-2022 Sexual orientation Heterosexual (fin ding) [facility] Start: 07-22-2021 [facility] ever smoked [facility] Within the last year , have you been afraid of your partner or ex-partner? No [facility] Are you now , , , , never or living with a partner? [facility] How often to you hav e a drink containing alcohol? Never [facility] Do you feel stress - tense, restless, nervous, or anxious, or unable to sleep at night because your mind is troubled all the time - these days [OSQ] To some extent [facility] (I/We) worried wheth er (my/our) food would run out before (I/we) got money to buy more. Never true [facility] Start: 05-01-2024 Alcohol Comment very rare [facility] Start: 01-12-2022 Sex Female (finding) [facility] Medical Equipment Procedure Code Equipment Code Equipment Origin al Text Equipment Identifier Dates use as directed ONCE DAILY [id number] Start: 07-05-2021 End: 08-06-2022 Clinical Notes 02-03-2021 to 07-06-2024 Patient InstructionsJovani Flor PA-C - 07/06/2024 6:26 PM ESTAssessment & Plan Note - Ash King MD - 05/02/2024 8:31 AM Bailee Quinones MA - 05/02/2024 7:30 AM ESTAttachments Note Date & Type Note Facility 07-06-2024 Instructions Jovani Flor PA-C - 07/06/2024 6:49 PM EST Please follow-up with your primary care provider as needed. documented in this encounter [facility] 07-06-2024 Note HNO ID: [id number] Author: JOVANI FLOR PA-C Service: ? Author Type: Physician Insurance Policy Issue Clerk Type: Progress Notes Filed: 07/06/2024 19:06 Note Text: Alphonso Sunshine is a 38 year old female with a past medical history of Meniere's disease, OCD, and anxiety who presents to [facility] care today for evaluation of fatigue, urinary frequency, and urinary urgency x 6 days. No fevers. Review of Systems Constitutional: Negative for chills, diaphoresis and fever. Genitourinary: Positive for frequency and urgency. Negative for difficulty urinating, dysuria and flank pain. Skin: Negative for rash and wound. All other systems reviewed and are negative. Objective [facility] 08/19/2023 Physical Exam Vitals reviewed. Constitutional: General: She is not in acute distress. Appearance: Normal appearance. She is normal weight. She is not ill-appearing or toxic-appearing. Comments: The patient appears to be non-toxic, in no acute distress, and resting comfortably on the table. HENT: Head: Normocephalic and atraumatic. Eyes: Extraocular Movements: Extraocular movements intact. Cardiovascular: Rate and Rhythm: Normal rate and regular rhythm. Heart sounds: Normal heart sounds. No murmur heard. No friction rub. No gallop. Pulmonary: Effort: Pulmonary effort is normal. No respiratory distress. Breath sounds: Normal breath sounds. No wheezing. Abdominal: Tenderness: There is no right CVA tenderness or left CVA tenderness. Musculoskeletal: General: Normal range of motion. Cervical back: Normal range of motion. Skin: General: Skin is warm and dry. Findings: No erythema or rash. Neurological: General: No focal deficit present. Mental Status: She is alert and oriented to person, place, and time. Mental status is at baseline. Psychiatric: Mood and Affect: Mood normal. Behavior: Behavior normal. Thought Content: Thought content normal. Assessment and Plan UA shows no signs of infection. Urine culture obtained. Results discussed with patient. Patient counseled regarding suspected diagnosis and advised to follow-up with primary care as needed for any new or worsening symptoms. ASSESSMENT/PLAN: 1. Fatigue, unspecified type - ICD9: 780.79, ICD10: R53.83 (primary diagnosis) - UA DIP, URINE (POC) - BACTERIAL CULTURE, URINE 2. Urinary urgency - ICD9: 788.63, ICD10: R39.15 - BACTERIAL CULTURE, URINE 3. Urinary frequency - ICD9: 788.41, ICD10: R35.0 - BACTERIAL CULTURE, URINE Medical Decision Making: Problems: Low: Acute, uncomplicated illness or injury Risk: Minimal: Minimal risk from testing/treatment Moderate: Drug management Medical Decision Making Level: 3 - Low I spent a total of 20 minutes on the date of the service which included preparing to see the patient, [id number] patient care, completing clinical documentation, performing a medically appropriate examination, counseling and educating the patient/family/caregiver, and ordering medications, tests, or procedures. Jovani Flor PA-C [facility] 07-06-2024 History of Present illness Narrative Subjective Tong Sunshine is a 38 year old female with a past medical history of M ni re's disease, OCD, and anxiety who presents to [facility] care today for evaluation of fatigue, urinary frequency, and urinary urgency x 6 days. No fevers. Review of Systems Constitutional: Negative for chills, diaphoresis and fever. Genitourinary: Positive for frequency and urgency. Negative for difficulty urinating, dysuria and flank pain. Skin: Negative for rash and wound. All other systems reviewed and are negative. Objective [facility] 08/19/2023 Physical Exam Vitals reviewed. Constitutional: General: She is not in acute distress. Appearance: Normal appearance. She is normal weight. She is not ill-appearing or toxic-appearing. Comments: The patient appears to be non-toxic, in no acute distress, and resting comfortably on the table. HENT: Head: Normocephalic and atraumatic. Eyes: Extraocular Movements: Extraocular movements intact. Cardiovascular: Rate and Rhythm: Normal rate and regular rhythm. Heart sounds: Normal heart sounds. No murmur heard. No friction rub. No gallop. Pulmonary: Effort: Pulmonary effort is normal. No respiratory distress. Breath sounds: Normal breath sounds. No wheezing. Abdominal: Tenderness: There is no right CVA tenderness or left CVA tenderness. Musculoskeletal: General: Normal range of motion. Cervical back: Normal range of motion. Skin: General: Skin is warm and dry. Findings: No erythema or rash. Neurological: General: No focal deficit present. Mental Status: She is alert and oriented to person, place, and time. Mental status is at baseline. Psychiatric: Mood and Affect: Mood normal. Behavior: Behavior normal. Thought Content: Thought content normal. Assessment and Plan UA shows no signs of infection. Urine culture obtained. Results discussed with patient. Patient counseled regarding suspected diagnosis and advised to follow-up with primary care as needed for any new or worsening symptoms. ASSESSMENT/PLAN: 1. Fatigue, unspecified type - ICD9: 780.79, ICD10: R53.83 (primary diagnosis) - UA DIP, URINE (POC) - BACTERIAL CULTURE, URINE 2. Urinary urgency - ICD9: 788.63, ICD10: R39.15 - BACTERIAL CULTURE, URINE 3. Urinary frequency - ICD9: 788.41, ICD10: R35.0 - BACTERIAL CULTURE, URINE Medical Decision Making: Problems: Low: Acute, uncomplicated illness or injury Risk: Minimal: Minimal risk from testing/treatment Moderate: Drug management Medical Decision Making Level: 3 - Low I spent a total of 20 minutes on the date of the service which included preparing to see the patient, [id number] patient care, completing clinical documentation, performing a medically appropriate examination, counseling and educating the patient/family/caregiver, and ordering medications, tests, or procedures. Jovani Flor PA-C documented in this encounter [facility] 05-02-2024 Evaluation + Plan note Associated Problem(s): Anxiety Remission, continue fluoxetine 80 mg daily and Lamictal 100 mg daily [facility] 05-02-2024 Evaluation + Plan note Associated Problem(s): Severe episode of recurrent major depressive disorder, without psychotic features (HCC) Remission, continue fluoxetine 80 mg daily and Lamictal 100 mg daily [facility] 05-02-2024 Evaluation + Plan note Associated Problem(s): Obsessive-compulsive disorder Remission, continue fluoxetine 80 mg daily and Lamictal 100 mg daily [facility] 05-02-2024 Miscellaneous Notes Associated Problem(s): Anxiety Remission, continue fluoxetine 80 mg daily and Lamictal 100 mg daily Associated Problem(s): Severe episode of recurrent major depressive disorder, without psychotic features (HCC) Remission, continue fluoxetine 80 mg daily and Lamictal 100 mg daily Associated Problem(s): Obsessive-compulsive disorder Remission, continue fluoxetine 80 mg daily and Lamictal 100 mg daily Associated Problem(s): Hypercholesterolemia Controlled, continue rosuvastatin 20 mg daily documented in this encounter [facility] 05-02-2024 Evaluation + Plan note Associated Problem(s): Hypercholesterolemia Controlled, continue rosuvastatin 20 mg daily [facility] 05-02-2024 History of Present illness Narrative Patient verified by last name and date of . Images from the original note were not included. 05/02/2024 Tong Sunshine (: 1985) is a 38 y.o. female , Established patient, here for evaluation of the following chief complaint(s): Depression (Managed by psychiatrist ), Anxiety (Managed by psychiatrist ), Other (Prediabetes /Asking for information to help prevent diabetes ), Hyperlipidemia (Pt wants to know if she can cut cholesterol med in half), Medication Check (Pt has form to be filled out for work), and Health Maintenance (Pap- sees [facility] - pap not done this year - last appt 08/2023/Mammogram- [facility] ordered but not done/Flu vaccine- refuse/3rd covid vaccine- not done) ASSESSMENT/PLAN: 1. Hypercholesterolemia Assessment & Plan: Controlled, continue rosuvastatin 20 mg daily Orders: - rosuvastatin (Crestor) 20 MG tablet; Take 1 tablet (20 mg) by mouth daily., Starting Wed05/02/2024, Normal 2. Severe episode of recurrent major depressive disorder, without psychotic features (HCC) Assessment & Plan: Remission, continue fluoxetine 80 mg daily and Lamictal 100 mg daily 3. Obsessive-compulsive disorder, unspecified type Assessment & Plan: Remission, continue fluoxetine 80 mg daily and Lamictal 100 mg daily 4. Anxiety Assessment & Plan: Remission, continue fluoxetine 80 mg daily and Lamictal 100 mg daily Follow up in about 6 months (around 10/30/2024) for annual. SUBJECTIVE/OBJECTIVE: MALA Kuhn comes in today for 6-month follow-up on her hyperlipidemia, depression anxiety and obsessive-compulsive disorder. Cholesterol seems to be well-controlled on her rosuvastatin and she is seeing psychiatry for her depression and anxiety and OCD. These seem to be well-controlled on her current medications Review of Systems Constitutional: Negative for chills and fever. Respiratory: Negative for shortness of breath. Cardiovascular: Negative for chest pain and palpitations. Gastrointestinal: Negative for abdominal pain, blood in stool, constipation and diarrhea. Genitourinary: Negative for dyspareunia, dysuria, frequency, hematuria and urgency. Neurological: Negative for weakness and numbness. Psychiatric/Behavioral: Negative for dysphoric mood. The patient is not nervous/anxious. Vitals: 05/02/24 0724 BP: 113/74 Pulse: 78 SpO2: 98% Weight: 162 lb 9.6 oz (73.8 kg) Height: 4' 11 (1.499 m) Physical Exam Vitals and nursing note reviewed. Constitutional: General: She is not in acute distress. Appearance: Normal appearance. She is obese. HENT: Head: Normocephalic. Right Ear: Tympanic membrane, ear canal and external ear normal. Left Ear: Tympanic membrane, ear canal and external ear normal. Mouth/Throat: Mouth: Mucous membranes are moist. Pharynx: Oropharynx is clear. Eyes: Extraocular Movements: Extraocular movements intact. Pupils: Pupils are equal, round, and reactive to light. Neck: Thyroid: No thyromegaly. Vascular: No carotid bruit. Cardiovascular: Rate and Rhythm: Normal rate and regular rhythm. Heart sounds: Normal heart sounds. No murmur heard. Pulmonary: Effort: Pulmonary effort is normal. Breath sounds: Normal breath sounds. Abdominal: General: Bowel sounds are normal. Palpations: Abdomen is soft. Musculoskeletal: General: Normal range of motion. Cervical back: Normal range of motion. Lymphadenopathy: Cervical: No cervical adenopathy. Skin: General: Skin is warm and dry. Neurological: General: No focal deficit present. Mental Status: She is alert and oriented to person, place, and time. Psychiatric: Mood and Affect: Mood normal. An electronic signature was used to authenticate this note. Ash King MD 05/02/2024 8:31 AM documented in this encounter [facility] 02-02-2024 Evaluation + Plan note Associated Problem(s): Hypercholesterolemia Controlled. Continue rosuvastatin 20 mg daily. [facility] 02-02-2024 Evaluation + Plan note Associated Problem(s): Severe episode of recurrent major depressive disorder, without psychotic features (HCC) Remission. Managed by psychiatry [facility] 02-02-2024 Miscellaneous Notes Associated Problem(s): Hypercholesterolemia Controlled. Continue rosuvastatin 20 mg daily. Associated Problem(s): Severe episode of recurrent major depressive disorder, without psychotic features (HCC) Remission. Managed by psychiatry Associated Problem(s): Prediabetes Check hemoglobin A1c today. Continue low carb, low fat, low cholesterol diet Associated Problem(s): Obesity, unspecified Congratulated on weight loss of 12 lbs. Continue low carb, low fat, low cholesterol diet and daily exercise. documented in this encounter [facility] 02-02-2024 Miscellaneous Notes Associated Problem(s): Hypercholesterolemia Controlled. Continue rosuvastatin 20 mg daily. Associated Problem(s): Severe episode of recurrent major depressive disorder, without psychotic features (HCC) Remission. Managed by psychiatry Associated Problem(s): Prediabetes Check hemoglobin A1c today. Continue low carb, low fat, low cholesterol diet Associated Problem(s): Obesity, unspecified Congratulated on weight loss of 12 lbs. Continue low carb, low fat, low cholesterol diet and daily exercise. Addended by: PRISCILLA GOODEN on: 02/03/2024 05:13 PM Modules accepted: Level of Service documented in this encounter [facility] 02-02-2024 Evaluation + Plan note Associated Problem(s): Prediabetes Check hemoglobin A1c today. Continue low carb, low fat, low cholesterol diet [employer] [facility] 02-02-2024 Evaluation + Plan note Associated Problem(s): Obesity, unspecified Congratulated on weight loss of 12 lbs. Continue low carb, low fat, low cholesterol diet and daily exercise. [facility] 02-02-2024 History of Present illness Narrative Patient was identified by name and Date of . Health Maintenance Addressed with Patient at Visit: Pap-had completed within the last year-my OBGYN [facility] Mammogram- discuss with provider Images from the original note were not included. 02/02/2024 Tong Sunshine (: 1985) is a 38 y.o. female , Established patient, here for evaluation of the following chief complaint(s): Annual Exam ASSESSMENT/PLAN: 1. Annual physical exam 2. Prediabetes Assessment & Plan: Check hemoglobin A1c today. Continue low carb, low fat, low cholesterol diet Orders: - Hemoglobin A1c 3. Hypercholesterolemia Assessment & Plan: Controlled. Continue rosuvastatin 20 mg daily. 4. Severe episode of recurrent major depressive disorder, without psychotic features (HCC) Assessment & Plan: Remission. Managed by psychiatry 5. Class 1 obesity without serious comorbidity with body mass index (BMI) of 33.0 to 33.9 in adult, unspecified obesity type Assessment & Plan: Congratulated on weight loss of 12 lbs. Continue low fat, low cholesterol diet and daily exercise. Follow up for with primary care provider as scheduled. SUBJECTIVE/OBJECTIVE: HPI - Tong Sunshine (: 1985) is a 38 y.o. female , Established patient, here for the evaluation of the following chief complaint(s): Annual Exam Presents for her annual exam. Denies any acute complaints. Prediabetes. - has been intermittent fasting and exercising 4 days a week weightlifting, 10-15 min cardio, 3 days a week 30 minutes cardio, and abdominal exercises. Previous weight 177 lbs. so she has lost about 12 pounds since we saw her last. Sees [facility] for women's health and reports up to date with preventative care. Hyperlipidemia- taking rosuvastatin daily. Denies any adverse affects of medication. MH- doing well. Se[facility]. Reports work and home is going well. 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 Authorizing Provider FLUoxetine (PROzac) 40 MG capsule Take 2 capsules (80 mg) by mouth daily. 12/22/23 02/20/24 Yes Leonel Cesar MD lamoTRIgine (LaMICtal) 100 MG tablet Take 1 tablet (100 mg) by mouth daily. 01/03/24 03/03/24 Yes Leonel Cesar MD rosuvastatin (Crestor) 20 MG tablet take 1 tablet by mouth once daily 10/29/23 Yes Kathleen Jones APRN - [employer]PER[employer] Semaglutide-Weight Management (Wegovy) 0.25 MG/0.5ML solution auto-injector Inject 0.5 mL (0.25 mg) under the skin every 7 days. Patient not taking: Reported on 02/02/2024 10/27/23 Ash King MD Review of Systems Constitutional: Negative. HENT: Negative. Respiratory: Negative. Cardiovascular: Negative. Gastrointestinal: Negative. Genitourinary: Negative for difficulty urinating and menstrual problem (regular. see building code administrator). Musculoskeletal: Negative. Skin: Negative. Neurological: Positive for dizziness (sometimes). Negative for light-headedness and headaches. Psychiatric/Behavioral: Negative for agitation, behavioral problems, dysphoric mood, self-injury, sleep disturbance (averages aobut 7 hours) and suicidal ideas. The patient is not nervous/anxious. Vitals: 02/02/24 0824 BP: 125/76 Pulse: 81 Resp: 18 Temp: 37.1 C (98.7 F) TempSrc: Infrared SpO2: 98% Weight: 165 lb (74.8 kg) Height: 4' 11 (1.499 m) Physical Exam Constitutional: General: She is not in acute distress. Appearance: Normal appearance. She is normal weight. She is not ill-appearing. HENT: Head: Normocephalic and atraumatic. Right Ear: Tympanic membrane, ear canal and external ear normal. There is no impacted cerumen. Left Ear: Tympanic membrane, ear canal and external ear normal. There is no impacted cerumen. Nose: Nose normal. No congestion or rhinorrhea. Mouth/Throat: Mouth: Mucous membranes are moist. Pharynx: Oropharynx is clear. Uvula midline. No oropharyngeal exudate or posterior oropharyngeal erythema. Eyes: Conjunctiva/sclera: Conjunctivae normal. Pupils: Pupils are equal, round, and reactive to light. Cardiovascular: Rate and Rhythm: Normal rate and regular rhythm. Pulses: Normal pulses. Heart sounds: Normal heart sounds. Pulmonary: Effort: Pulmonary effort is normal. No respiratory distress. Breath sounds: Normal breath sounds. Abdominal: General: Abdomen is flat. Bowel sounds are normal. Palpations: Abdomen is soft. Tenderness: There is no abdominal tenderness. There is no right CVA tenderness or left CVA tenderness. Musculoskeletal: General: Normal range of motion. Cervical back: Normal range of motion and neck supple. No rigidity or tenderness. Lymphadenopathy: Cervical: No cervical adenopathy. Skin: General: Skin is warm and dry. Findings: No erythema or rash. Neurological: General: No focal deficit present. Mental Status: She is alert and oriented to person, place, and time. Psychiatric: Mood and Affect: Mood normal. Behavior: Behavior normal. An electronic signature was used to authenticate this note. FABIAN Sanchez CNP 02/02/2024 9:56 AM documented in this encounter [facility] 02-02-2024 History of Present illness Narrative Patient was identified by name and Date of . Health Maintenance Addressed with Patient at Visit: Pap-had completed within the last year-my OBGYN [facility] Mammogram- discuss with provider Images from the original note were not included. 02/02/2024 Tong Sunshine (: 1985) is a 38 y.o. female , Established patient, here for evaluation of the following chief complaint(s): Annual Exam ASSESSMENT/PLAN: 1. Prediabetes Assessment & Plan: Check hemoglobin A1c today. Continue low carb, low fat, low cholesterol diet Orders: - Hemoglobin A1c 2. Hypercholesterolemia Assessment & Plan: Controlled. Continue rosuvastatin 20 mg daily. 3. Severe episode of recurrent major depressive disorder, without psychotic features (HCC) Assessment & Plan: Remission. Managed by psychiatry 4. Class 1 obesity without serious comorbidity with body mass index (BMI) of 33.0 to 33.9 in adult, unspecified obesity type Assessment & Plan: Congratulated on weight loss of 12 lbs. Continue low carb, low fat, low cholesterol diet and daily exercise. Follow up for with primary care provider as scheduled. SUBJECTIVE/OBJECTIVE: HPI - Tong Sunshine (: 1985) is a 38 y.o. female , Established patient, here for the evaluation of the following chief complaint(s): Annual Exam Presents for her annual exam. Denies any acute complaints. Prediabetes. - has been intermittent fasting and exercising 4 days a week weightlifting, 10-15 min cardio, 3 days a week 30 minutes cardio, and abdominal exercises. Previous weight 177 lbs. so she has lost about 12 pounds since we saw her last. Sees [facility] for women's health and reports up to date with preventative care. Hyperlipidemia- taking rosuvastatin daily. Denies any adverse affects of medication. MH- doing well. [facility]. Reports work and home is going well. 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 Authorizing Provider FLUoxetine (PROzac) 40 MG capsule Take 2 capsules (80 mg) by mouth daily. 12/22/23 02/20/24 Yes Leonel Cesar MD lamoTRIgine (LaMICtal) 100 MG tablet Take 1 tablet (100 mg) by mouth daily. 01/03/24 03/03/24 Yes Leonel Cesar MD rosuvastatin (Crestor) 20 MG tablet take 1 tablet by mouth once daily 10/29/23 Yes Kathleen Jones, 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 [employer] Semaglutide-Weight Management (Wegovy) 0.25 MG/0.5ML solution auto-injector Inject 0.5 mL (0.25 mg) under the skin every 7 days. Patient not taking: Reported on 02/02/2024 10/27/23 Ash King MD Review of Systems Constitutional: Negative. HENT: Negative. Respiratory: Negative. Cardiovascular: Negative. Gastrointestinal: Negative. Genitourinary: Negative for difficulty urinating and menstrual problem (regular. see building code administrator). Musculoskeletal: Negative. Skin: Negative. Neurological: Positive for dizziness (sometimes). Negative for light-headedness and headaches. Psychiatric/Behavioral: Negative for agitation, behavioral problems, dysphoric mood, self-injury, sleep disturbance (averages aobut 7 hours) and suicidal ideas. The patient is not nervous/anxious. Vitals: 02/02/24 0824 BP: 125/76 Pulse: 81 Resp: 18 Temp: 37.1 C (98.7 F) TempSrc: Infrared SpO2: 98% Weight: 165 lb (74.8 kg) Height: 4' 11 (1.499 m) Physical Exam Constitutional: General: She is not in acute distress. Appearance: Normal appearance. She is normal weight. She is not ill-appearing. HENT: Head: Normocephalic and atraumatic. Right Ear: Tympanic membrane, ear canal and external ear normal. There is no impacted cerumen. Left Ear: Tympanic membrane, ear canal and external ear normal. There is no impacted cerumen. Nose: Nose normal. No congestion or rhinorrhea. Mouth/Throat: Mouth: Mucous membranes are moist. Pharynx: Oropharynx is clear. Uvula midline. No oropharyngeal exudate or posterior oropharyngeal erythema. Eyes: Conjunctiva/sclera: Conjunctivae normal. Pupils: Pupils are equal, round, and reactive to light. Cardiovascular: Rate and Rhythm: Normal rate and regular rhythm. Pulses: Normal pulses. Heart sounds: Normal heart sounds. Pulmonary: Effort: Pulmonary effort is normal. No respiratory distress. Breath sounds: Normal breath sounds. Abdominal: General: Abdomen is flat. Bowel sounds are normal. Palpations: Abdomen is soft. Tenderness: There is no abdominal tenderness. There is no right CVA tenderness or left CVA tenderness. Musculoskeletal: General: Normal range of motion. Cervical back: Normal range of motion and neck supple. No rigidity or tenderness. Lymphadenopathy: Cervical: No cervical adenopathy. Skin: General: Skin is warm and dry. Findings: No erythema or rash. Neurological: General: No focal deficit present. Mental Status: She is alert and oriented to person, place, and time. Psychiatric: Mood and Affect: Mood normal. Behavior: Behavior normal. An electronic signature was used to authenticate this note. FABIAN Sanchez CNP 02/03/2024 5:13 PM documented in this encounter [facility] 02-02-2024 Note Addended by: PRISCILLA JARQUIN on: 02/03/2024 05:13 PM Modules accepted: Level of Service [facility] 02-02-2024 Note Addended by: PRISCILLA JARQUIN on: 02/03/2024 05:13 PM Modules accepted: Level of Service [facility] 2023 Note Addended by: LEONEL PERALES on: 01/03/2024 04:12 PM Modules accepted: Orders [facility] 10-27-2023 Telephone encounter Note Images from the original note were not included. Ash King MD Physician Signed 12:30 PM Copy Rx sent, she will need to come in for a weight check in 4 weeks. Left a message to return call. [facility] 10-27-2023 Miscellaneous Notes Images from the original note were not included. Ash King MD Physician Signed 12:30 PM Copy Rx sent, she will need to come in for a weight check in 4 weeks. Left a message to return call. Addended by: ASH KING on: 10/27/2023 12:31 PM Modules accepted: Orders Rx sent, she will need to come in for a weight check in 4 weeks. Pt states, yes, send in the Ozempic to [facility]. Name of caller: Tong Contact phone number: [phone] Relationship to Patient: patient Provider: MD Christine Practice: [facility] Chief Complaint/Reason for Call: Pt returned call during after hours, attempted to reach back line. Please advise. Best time of day caller can be reached: Any Patient advised that office/PCP has 24-48 business hours to return their call: Yes Called pt but call was disconnected. We seems to be having better luck at getting it filled, I can send in what we sent in before if you would like. Message released to patient as written. ----- Message from Ash King MD sent at 10/26/2023 12:36 PM EDT ----- Cholesterol is very good, continue current medications and low-fat low-cholesterol diet. A1c continues to be in prediabetes range, be very very strict on low carb diet Patient's further questions if applicable: Patient stated they would like to know if Ozempic is more readily available now since it was out of stock in the fall. Please advise. Thank you. Were all questions from office addressed or relayed to the patient from encounter: Yes ----- Message from Ash King MD sent at 10/26/2023 12:36 PM EDT ----- Cholesterol is very good, continue current medications and low-fat low-cholesterol diet. A1c continues to be in prediabetes range, be very very strict on low carb diet Left a message to return call. documented in this encounter [facility] 10-27-2023 Note Addended by: ASH KING on: 10/27/2023 12:31 PM Modules accepted: Orders [facility] 10-27-2023 Note Addended by: ASH KING on: 10/27/2023 12:31 PM Modules accepted: Orders [facility] 10-27-2023 Note Addended by: ASH KING on: 10/27/2023 12:31 PM Modules accepted: Orders [facility] 10-27-2023 Note Addended by: ASH KING on: 10/27/2023 12:31 PM Modules accepted: Orders [facility] 10-27-2023 Telephone encounter Note Rx sent, she will need to come in for a weight check in 4 weeks. [facility] 10-27-2023 Telephone encounter Note Pt states, yes, send in the Ozempic to Bernarda Bill in [place]. [facility] 10-26-2023 Telephone encounter Note Name of caller: Tong Contact phone number: [phone] Relationship to Patient: patient Provider: MD Christine Practice: [facility] Chief Complaint/Reason for Call: Pt returned call during after hours, attempted to reach back line. Please advise. Best time of day caller can be reached: Any Patient advised that office/PCP has 24-48 business hours to return their call: [facility] 10-26-2023 Telephone encounter Note Called pt but call was disconnected. [facility] 10-26-2023 Telephone encounter Note We seems to be having better luck at getting it filled, I can send in what we sent in before if you would like. [facility] 10-26-2023 Telephone encounter Note Message released to patient as written. ----- Message from Ash King MD sent at 10/26/2023 12:36 PM EDT ----- Cholesterol is very good, continue current medications and low-fat low-cholesterol diet. A1c continues to be in prediabetes range, be very very strict on low carb diet Patient's further questions if applicable: Patient stated they would like to know if Ozempic is more readily available now since it was out of stock in the fall. Please advise. Thank you. Were all questions from office addressed or relayed to the patient from encounter: Yes [facility] 10-26-2023 Telephone encounter Note ----- Message from Ash King MD sent at 10/26/2023 12:36 PM EDT ----- Cholesterol is very good, continue current medications and low-fat low-cholesterol diet. A1c continues to be in prediabetes range, be very very strict on low carb diet Left a message to return call. [facility] 10-25-2023 Evaluation + Plan note Associated Problem(s): Hypercholesterolemia Uncontrolled, will get repeat lab work today continue rosuvastatin 20 mg [facility] 10-25-2023 Evaluation + Plan note Associated Problem(s): Severe episode of recurrent major depressive disorder, without psychotic features (HCC) Remission, continue current medications fluoxetine and Lamictal per psychiatry. [facility] 10-25-2023 Evaluation + Plan note Associated Problem(s): Acute non-recurrent frontal sinusitis Keflex 500 mg 3 times a day x 10 days. Tessalon Perles 200 mg 3 times a day as needed for cough. Increase fluids rest Tylenol or Advil. [facility] 10-25-2023 Miscellaneous Notes Associated Problem(s): Hypercholesterolemia Uncontrolled, will get repeat lab work today continue rosuvastatin 20 mg Associated Problem(s): Severe episode of recurrent major depressive disorder, without psychotic features (HCC) Remission, continue current medications fluoxetine and Lamictal per psychiatry. Associated Problem(s): Acute non-recurrent frontal sinusitis Keflex 500 mg 3 times a day x 10 days. Tessalon Perles 200 mg 3 times a day as needed for cough. Increase fluids rest Tylenol or Advil. Associated Problem(s): Prediabetes Stable, A1c to be done today continue strict low-carb diet. documented in this encounter [facility] 10-25-2023 Evaluation + Plan note Associated Problem(s): Prediabetes Stable, A1c to be done today continue strict low-carb diet. [facility] 10-25-2023 History of Present illness Narrative Patient verified by last name and date of . Images from the original note were not included. 10/25/2023 Tong Sunshine (: 1985) is a 37 y.o. female , Established patient, here for evaluation of the following chief complaint(s): Anxiety, Depression, Hyperlipidemia, Medication Check (3 month), Blood Work (Pt had A1c done 2 months ago ), and Cough (Congestion, cough up green mucus lost taste and smell neg Covid test over the weekend ) ASSESSMENT/PLAN: 1. Hypercholesterolemia Assessment & Plan: Uncontrolled, will get repeat lab work today continue rosuvastatin 20 mg Orders: - Lipid panel - AST - ALT 2. Severe episode of recurrent major depressive disorder, without psychotic features (HCC) Assessment & Plan: Remission, continue current medications fluoxetine and Lamictal per psychiatry. 3. Prediabetes Assessment & Plan: Stable, A1c to be done today continue strict low-carb diet. Orders: - Hemoglobin A1c 4. Acute non-recurrent frontal sinusitis Assessment & Plan: Keflex 500 mg 3 times a day x 10 days. Tessalon Perles 200 mg 3 times a day as needed for cough. Increase fluids rest Tylenol or Advil. Follow up in about 6 months (around 04/26/2024). SUBJECTIVE/OBJECTIVE: MALA Wright comes in today for a three 3-month follow-up on her hypercholesterolemia, depression anxiety and prediabetes and she is complaining of sinus congestion drainage a cough that is occasionally productive of green sputum and this is been ongoing for about 2 to 3 weeks. She says psychiatry is managing her psych meds and currently she feels like she is in remission. Review of Systems Constitutional: Negative for chills and fever. Respiratory: Positive for cough and wheezing. Negative for shortness of breath. Cardiovascular: Negative for chest pain and palpitations. Gastrointestinal: Negative for abdominal pain, blood in stool, constipation and diarrhea. Genitourinary: Positive for menstrual problem. Negative for dyspareunia, dysuria, frequency, hematuria and urgency. Neurological: Negative for weakness and numbness. Psychiatric/Behavioral: Negative for dysphoric mood. The patient is not nervous/anxious. Vitals: 10/25/23 0713 BP: 120/79 Pulse: 79 Temp: 36.4 C (97.6 F) SpO2: 98% Weight: 177 lb (80.3 kg) Height: 4' 11 (1.499 m) Physical Exam Vitals and nursing note reviewed. Constitutional: General: She is not in acute distress. Appearance: Normal appearance. HENT: Head: Normocephalic. Right Ear: Tympanic membrane, ear canal and external ear normal. Left Ear: Tympanic membrane, ear canal and external ear normal. Nose: Right Sinus: Frontal sinus tenderness present. No maxillary sinus tenderness. Left Sinus: Frontal sinus tenderness present. No maxillary sinus tenderness. Mouth/Throat: Mouth: Mucous membranes are moist. Pharynx: Oropharynx is clear. Eyes: Extraocular Movements: Extraocular movements intact. Pupils: Pupils are equal, round, and reactive to light. Neck: Thyroid: No thyromegaly. Cardiovascular: Rate and Rhythm: Normal rate and regular rhythm. Heart sounds: Normal heart sounds. No murmur heard. Pulmonary: Effort: Pulmonary effort is normal. Breath sounds: Normal breath sounds. Abdominal: General: Bowel sounds are normal. Palpations: Abdomen is soft. Musculoskeletal: General: Normal range of motion. Cervical back: Normal range of motion. Lymphadenopathy: Cervical: No cervical adenopathy. Skin: General: Skin is warm and dry. Neurological: General: No focal deficit present. Mental Status: She is alert and oriented to person, place, and time. Psychiatric: Mood and Affect: Mood normal. An electronic signature was used to authenticate this note. Ash King MD 10/25/2023 7:58 AM documented in this encounter [facility] 09-20-2023 Telephone encounter Note LM to return call to sched lab visit [facility] 09-20-2023 Miscellaneous Notes LM to return call to sched lab visit Rx sent with no refills. Due for repeat blood work for follow up since starting this medication. Active lab orders in place. Please schedule lab visit. Prescription Request: Last medication check: 03/03/2023 Last physical exam: 08/02/2023 Next scheduled appointment: 10/25/2023 Last date of refill on this medication: 08/03/2023 documented in this encounter [facility] 09-20-2023 Telephone encounter Note Rx sent with no refills. Due for repeat blood work for follow up since starting this medication. Active lab orders in place. Please schedule lab visit. [facility] 09-20-2023 Telephone encounter Note Prescription Request: Last medication check: 03/03/2023 Last physical exam: 08/02/2023 Next scheduled appointment: 10/25/2023 Last date of refill on this medication: 08/03/2023 [facility] 09-07-2023 Note HNO ID: [id number] Author: ASA BETANCUR MD Service: ? Author Type: Physician Type: Progress Notes Filed: 09/07/2023 15:56 Note Text: Fire Systems Inspector offered: Patient declines. Tong is a 37 year old who presents for an annual gynecologic exam. Patient reports feeling fatigued and not sleeping well. Her pcp put her back on an antidepressant. She has recently been hospitalized for depression. Menses: cycles every 28-30 and 5-7 days of flow. Over the past year she's began to have intermenstrual spotting. Contraception: vasectomy HPV vaccine: No Last Pap: 02/06/2021 normal HPV: 02/04/2021 negative History of abnormal pap: Yes - abnormal in her early 20's Last mammogram: never OB History T4 L4 SAB0 IAB0 Ectopic0 Multiple0 Live Births4 [employer] History LMP: 08/19/2023, Having periods Age at Menarche: Age at First : Age at Menopause: [employer] History Comments: Sexual Activity: Yes; Male Contraception: Vasectomy PAST MEDICAL HISTORY Diagnosis Date Abnormal glandular Papanicolaou smear of cervix 2014 Anxiety state/depression Gestational diabetes History of depression 01/30/2021 01/31/2021 Discussed r/b/a to medications. SW 01/30/2021 Pt has a history of depression/anxiety/OCD diagnosed 4 years ago and treated by a nurse practitioner in psychiatry Leeanne Cronin. She states that she had tried to change her medication 1 month ago and had suicidal thoughts that required a hospitalization. Denies any suicidal thoughts since then. Does admit to depression after her OCD (obsessive compulsive disorder) depression PAST SURGICAL HISTORY Procedure Laterality Date DELIVERY ONLY REVISE MEDIAN N/CARPAL TUNNEL SURG Bilateral 02/2022 VAGINOSCOPY FAMILY HISTORY Problem Relation Age of Onset Diabetes Mother Depression Mother Anxiety disorder Mother Heart Mother Heart Father Anxiety disorder Father Depression Father COPD Father Emphysema Father Hypertension Sister Hypertension Brother Diabetes Brother Diabetes Maternal Grandmother Schizophrenia Maternal Grandfather Heart Attack Paternal Grandmother Hypertension Paternal Grandfather Stroke Paternal Grandfather No Known Problems Daughter No Known Problems Daughter No Known Problems Son SOCIAL HISTORY Social History Tobacco Use Smoking status: Never Smokeless tobacco: Never Vaping Use Vaping Use: Never used Substance Use Topics Alcohol use: Not Currently Drug use: Never REVIEW OF SYSTEMS Abdomen: No abdominal pain, nausea, vomiting, diarrhea, or constipation. No bloating, early satiety, indigestion, or increased flatulence. Bladder: No dysuria, gross hematuria, urinary urgency, or incontinence; positive urinary frequency. Breast: No breast lumps, nipple d/c, overlying skin changes, redness or skin retraction. Allergies and current medication updated:Yes EXAM: BP 126/80 Ht 4' 11 (1.50m) Wt 169 lb (76.7kg) LMP 08/19/2023 BMI 34.12 kg/(m2). GENERAL: pleasant, female in no apparent distress BREAST: soft, non-tender, symmetric, no dominant mass, normal nipple-areolar complex, no lymphadenopathy, and no nipple discharge CHEST: Normal inspiratory effort ABDOMEN: soft, non-tender, and no masses PELVIC: external genitalia normal, normal Bartholin's glands, urethra, Hypericum's glands, no vulvar lesions, no cervical lesions, good vaginal support, physiologic discharge present, normal appearing perineal body and perianal region BIMANUAL: uterus normal size, shape and consistency, no adnexal masses, and non-tender RECTOVAGINAL: deferred. NEURO: alert and oriented x3,exam grossly non-focal EXTREMITIES: normal ASSESSMENT/PLAN: 1) Health maintenance: Pap/HPV up to date. Mammogram ordered. Nutrition, exercise and routine health maintenance exams reviewed. 2) Contraception: vasectomy. Contraceptive options reviewed and information provided. 3) Fatigue - likely due to depression. Labs ordered. 4) Follow up one year or sooner as needed 5) Intermenstrual spotting - check pelvic US Asa Betancur MD [facility] 09-07-2023 History of Present illness Narrative Fire Systems Inspector offered: Patient declines. Tong is a 37 year old who presents for an annual gynecologic exam. Patient reports feeling fatigued and not sleeping well. Her pcp put her back on an antidepressant. She has recently been hospitalized for depression. Menses: cycles every 28-30 and 5-7 days of flow. Over the past year she's began to have intermenstrual spotting. Contraception: vasectomy HPV vaccine: No Last Pap: 02/06/2021 normal HPV: 02/04/2021 negative History of abnormal pap: Yes - abnormal in her early 20's Last mammogram: never OB History T4 L4 SAB0 IAB0 Ectopic0 Multiple0 Live Births4 [employer] History LMP: 08/19/2023, Having periods Age at Menarche: Age at First : Age at Menopause: [employer] History Comments: Sexual Activity: Yes; Male Contraception: Vasectomy PAST MEDICAL HISTORY Diagnosis Date Abnormal glandular Papanicolaou smear of cervix 2014 Anxiety state/depression Gestational diabetes History of depression 01/30/2021 01/31/2021 Discussed r/b/a to medications. SW 01/30/2021 Pt has a history of depression/anxiety/OCD diagnosed 4 years ago and treated by a nurse practitioner in psychiatry Leeanne Cronin. She states that she had tried to change her medication 1 month ago and had suicidal thoughts that required a hospitalization. Denies any suicidal thoughts since then. Does admit to depression after her OCD (obsessive compulsive disorder) depression PAST SURGICAL HISTORY Procedure Laterality Date DELIVERY ONLY REVISE MEDIAN N/CARPAL TUNNEL SURG Bilateral 02/2022 VAGINOSCOPY FAMILY HISTORY Problem Relation Age of Onset Diabetes Mother Depression Mother Anxiety disorder Mother Heart Mother Heart Father Anxiety disorder Father Depression Father COPD Father Emphysema Father Hypertension Sister Hypertension Brother Diabetes Brother Diabetes Maternal Grandmother Schizophrenia Maternal Grandfather Heart Attack Paternal Grandmother Hypertension Paternal Grandfather Stroke Paternal Grandfather No Known Problems Daughter No Known Problems Daughter No Known Problems Son SOCIAL HISTORY Social History Tobacco Use Smoking status: Never Smokeless tobacco: Never Vaping Use Vaping Use: Never used Substance Use Topics Alcohol use: Not Currently Drug use: Never REVIEW OF SYSTEMS Abdomen: No abdominal pain, nausea, vomiting, diarrhea, or constipation. No bloating, early satiety, indigestion, or increased flatulence. Bladder: No dysuria, gross hematuria, urinary urgency, or incontinence; positive urinary frequency. Breast: No breast lumps, nipple d/c, overlying skin changes, redness or skin retraction. Allergies and current medication updated:Yes EXAM: BP 126/80 Ht 4' 11 (1.50m) Wt 169 lb (76.7kg) LMP 08/19/2023 BMI 34.12 kg/(m^2). GENERAL: pleasant, female in no apparent distress BREAST: soft, non-tender, symmetric, no dominant mass, normal nipple-areolar complex, no lymphadenopathy, and no nipple discharge CHEST: Normal inspiratory effort ABDOMEN: soft, non-tender, and no masses PELVIC: external genitalia normal, normal Bartholin's glands, urethra, Hypericum's glands, no vulvar lesions, no cervical lesions, good vaginal support, physiologic discharge present, normal appearing perineal body and perianal region BIMANUAL: uterus normal size, shape and consistency, no adnexal masses, and non-tender RECTOVAGINAL: deferred. NEURO: alert and oriented x3,exam grossly non-focal EXTREMITIES: normal ASSESSMENT/PLAN: 1) Health maintenance: Pap/HPV up to date. Mammogram ordered. Nutrition, exercise and routine health maintenance exams reviewed. 2) Contraception: vasectomy. Contraceptive options reviewed and information provided. 3) Fatigue - likely due to depression. Labs ordered. 4) Follow up one year or sooner as needed 5) Intermenstrual spotting - check pelvic US Asa Betancur MD documented in this encounter [facility] 09-07-2023 Miscellaneous Notes Patient has appointment in office today. Genie Kumar RN Needs appointment to discuss at that time. Last office visit 07/23/22. Lorie Green RN documented in this encounter [facility] 09-05-2023 History of Present illness Narrative Subjective HPI Nontoxic-appearing female presents urgent care chief plaint pharyngitis fatigue. Duration of symptoms 1 day. Associated symptoms listed above. States individuals in her house recently tested positive for strep throat. Patient states she did have a UTI. Finished antibiotics on Wednesday of last week. Sore throat started 1 day ago. Was on Keflex. No difficulty swallowing and secretions decreased range of motion of neck. Denies any fever body aches chills productive cough chest pain shortness of breath pleuritic pain hemoptysis nausea vomiting abdominal pain change in bowel or bladder habits. Past medical history prescription medication use and allergies reviewed. .Patient presents with: Sore Throat: Fatigue x1 day, strep exposure PAST MEDICAL HISTORY Diagnosis Date Abnormal glandular Papanicolaou smear of cervix 2014 Anxiety state/depression Gestational diabetes History of depression 01/30/2021 01/31/2021 Discussed r/b/a to medications. SW 01/30/2021 Pt has a history of depression/anxiety/OCD diagnosed 4 years ago and treated by a nurse practitioner in psychiatry Leeanne Cronin. She states that she had tried to change her medication 1 month ago and had suicidal thoughts that required a hospitalization. Denies any suicidal thoughts since then. Does admit to depression after her OCD (obsessive compulsive disorder) depression PAST SURGICAL HISTORY Procedure Laterality Date DELIVERY ONLY REVISE MEDIAN N/CARPAL TUNNEL SURG Bilateral 02/2022 VAGINOSCOPY ALLERGIES Sertraline MEDICATIONS rosuvastatin (CRESTOR) 20 mg tablet Take 1 tablet by mouth every afternoon. Cholecalciferol, Vitamin D3, 250 mcg (10,000 unit) cap Take by mouth. fluoxetine HCl (PROZAC ORAL) Take 80 mg by mouth. FAMILY HISTORY Problem Relation Age of Onset Diabetes Mother Depression Mother Anxiety disorder Mother Heart Mother Heart Father Anxiety disorder Father Depression Father COPD Father Emphysema Father Hypertension Sister Hypertension Brother Diabetes Brother Diabetes Maternal Grandmother Schizophrenia Maternal Grandfather Heart Attack Paternal Grandmother Hypertension Paternal Grandfather Stroke Paternal Grandfather No Known Problems Daughter No Known Problems Daughter No Known Problems Son Social History Tobacco Use Smoking status: Never Smokeless tobacco: Never Vaping Use Vaping Use: Never used Substance Use Topics Alcohol use: Not Currently Drug use: Never BP 124/84 Pulse 85 Temp 36.8 C (98.2 F) Resp 18 Wt 76.7 kg (169 lb 1.5 oz) LMP 07/13/2022 SpO2 98% BMI 34.15 kg/m Review of Systems Constitutional: Positive for malaise/fatigue. Negative for chills and fever. HENT: Positive for sore throat. Negative for congestion, ear discharge, ear pain and sinus pain. Eyes: Negative for blurred vision, pain, discharge and redness. Respiratory: Negative for cough, hemoptysis, sputum production, shortness of breath, wheezing and stridor. Cardiovascular: Negative for chest pain. Gastrointestinal: Negative for abdominal pain, diarrhea, nausea and vomiting. Musculoskeletal: Positive for myalgias. Skin: Negative for itching and rash. Neurological: Negative for dizziness and headaches. Objective Physical Exam Constitutional: General: She is not in acute distress. Appearance: She is not diaphoretic. HENT: Head: Normocephalic. Jaw: No trismus, tenderness, swelling or pain on movement. Mouth/Throat: Mouth: Mucous membranes are moist. Pharynx: Oropharynx is clear. Uvula midline. Posterior oropharyngeal erythema present. No pharyngeal swelling, oropharyngeal exudate or uvula swelling. Tonsils: No tonsillar exudate or tonsillar abscesses. Eyes: Conjunctiva/sclera: Conjunctivae normal. Pupils: Pupils are equal, round, and reactive to light. Cardiovascular: Rate and Rhythm: Normal rate and regular rhythm. Heart sounds: Normal heart sounds. Pulmonary: Effort: Pulmonary effort is normal. No tachypnea, accessory muscle usage or respiratory distress. Breath sounds: Normal breath sounds. No stridor. No wheezing, rhonchi or rales. Abdominal: General: There is no distension. Palpations: Abdomen is soft. Tenderness: There is no abdominal tenderness. There is no guarding or rebound. Musculoskeletal: Cervical back: Normal range of motion and neck supple. No edema, erythema, rigidity or tenderness. No pain with movement. Normal range of motion. Lymphadenopathy: Cervical: No cervical adenopathy. Skin: General: Skin is warm and dry. Neurological: Mental Status: She is alert and oriented to person, place, and time. ASSESSMENT/PLAN: 1. Strep throat - ICD9: 034.0, ICD10: J02.0 Strep test positive. Placed on amoxicillin. Patient was educated on supportive therapies. Patient will follow up with primary care provider as needed. Patient was instructed to immediately proceed to emergency room for any new, worsening, or symptoms lasting longer than anticipated. The patient's clinical presentation is otherwise unremarkable at this time. Based on exam and clinical finding, the patient is stable for discharge. Plan of care was discussed with patient. Patient verbalizes understanding and agrees to plan of care. This note was generated using [employer] software. It may contain errors in wording, punctuation, or spelling. Macho Kline APRN.SIDNEY documented in this encounter [facility] 09-05-2023 Note HNO ID: [id number] Author: MACHO KLINE APRN.CNP Service: ? Author Type: Nurse Practitioner Type: Progress Notes Filed: 09/05/2023 09:10 Note Text: Subjective HPI Nontoxic-appearing female presents urgent care chief plaint pharyngitis fatigue. Duration of symptoms 1 day. Associated symptoms listed above. States individuals in her house recently tested positive for strep throat. Patient states she did have a UTI. Finished antibiotics on Wednesday of last week. Sore throat started 1 day ago. Was on Keflex. No difficulty swallowing and secretions decreased range of motion of neck. Denies any fever body aches chills productive cough chest pain shortness of breath pleuritic pain hemoptysis nausea vomiting abdominal pain change in bowel or bladder habits. Past medical history prescription medication use and allergies reviewed. .Patient presents with: Sore Throat: Fatigue x1 day, strep exposure PAST MEDICAL HISTORY Diagnosis Date Abnormal glandular Papanicolaou smear of cervix 2014 Anxiety state/depression Gestational diabetes History of depression 01/30/2021 01/31/2021 Discussed r/b/a to medications. SW 01/30/2021 Pt has a history of depression/anxiety/OCD diagnosed 4 years ago and treated by a nurse practitioner in psychiatry Leeanne Cronin. She states that she had tried to change her medication 1 month ago and had suicidal thoughts that required a hospitalization. Denies any suicidal thoughts since then. Does admit to depression after her OCD (obsessive compulsive disorder) depression PAST SURGICAL HISTORY Procedure Laterality Date DELIVERY ONLY REVISE MEDIAN N/CARPAL TUNNEL SURG Bilateral 02/2022 VAGINOSCOPY ALLERGIES Sertraline MEDICATIONS rosuvastatin (CRESTOR) 20 mg tablet Take 1 tablet by mouth every afternoon. Cholecalciferol, Vitamin D3, 250 mcg (10,000 unit) cap Take by mouth. fluoxetine HCl (PROZAC ORAL) Take 80 mg by mouth. FAMILY HISTORY Problem Relation Age of Onset Diabetes Mother Depression Mother Anxiety disorder Mother Heart Mother Heart Father Anxiety disorder Father Depression Father COPD Father Emphysema Father Hypertension Sister Hypertension Brother Diabetes Brother Diabetes Maternal Grandmother Schizophrenia Maternal Grandfather Heart Attack Paternal Grandmother Hypertension Paternal Grandfather Stroke Paternal Grandfather No Known Problems Daughter No Known Problems Daughter No Known Problems Son Social History Tobacco Use Smoking status: Never Smokeless tobacco: Never Vaping Use Vaping Use: Never used Substance Use Topics Alcohol use: Not Currently Drug use: Never BP 124/84 Pulse 85 Temp 36.8 ?C (98.2 ?F) Resp 18 Wt 76.7 kg (169 lb 1.5 oz) LMP 07/13/2022 SpO2 98% BMI 34.15 kg/m? Review of Systems Constitutional: Positive for malaise/fatigue. Negative for chills and fever. HENT: Positive for sore throat. Negative for congestion, ear discharge, ear pain and sinus pain. Eyes: Negative for blurred vision, pain, discharge and redness. Respiratory: Negative for cough, hemoptysis, sputum production, shortness of breath, wheezing and stridor. Cardiovascular: Negative for chest pain. Gastrointestinal: Negative for abdominal pain, diarrhea, nausea and vomiting. Musculoskeletal: Positive for myalgias. Skin: Negative for itching and rash. Neurological: Negative for dizziness and headaches. Objective Physical Exam Constitutional: General: She is not in acute distress. Appearance: She is not diaphoretic. HENT: Head: Normocephalic. Jaw: No trismus, tenderness, swelling or pain on movement. Mouth/Throat: Mouth: Mucous membranes are moist. Pharynx: Oropharynx is clear. Uvula midline. Posterior oropharyngeal erythema present. No pharyngeal swelling, oropharyngeal exudate or uvula swelling. Tonsils: No tonsillar exudate or tonsillar abscesses. Eyes: Conjunctiva/sclera: Conjunctivae normal. Pupils: Pupils are equal, round, and reactive to light. Cardiovascular: Rate and Rhythm: Normal rate and regular rhythm. Heart sounds: Normal heart sounds. Pulmonary: Effort: Pulmonary effort is normal. No tachypnea, accessory muscle usage or respiratory distress. Breath sounds: Normal breath sounds. No stridor. No wheezing, rhonchi or rales. Abdominal: General: There is no distension. Palpations: Abdomen is soft. Tenderness: There is no abdominal tenderness. There is no guarding or rebound. Musculoskeletal: Cervical back: Normal range of motion and neck supple. No edema, erythema, rigidity or tenderness. No pain with movement. Normal range of motion. Lymphadenopathy: Cervical: No cervical adenopathy. Skin: General: Skin is warm and dry. Neurological: Mental Status: She is alert and oriented to person, place, and time. ASSESSMENT/PLAN: 1. Strep throat - ICD9: 034.0, ICD10: J02.0 Strep test positive. Placed on am (more content not included)... [facility] 08-30-2023 Note Attestation signed by Christiano Negrete MD at 08/30/2023 1:43 PM I saw and evaluated the patient, participating in the sigala portions of the service. I reviewed the resident?s note. I agree with the resident?s findings and plan. Attempt made to contact significant other to review discharge plan at time of discharge. We were able to contact significant other identified. I saw and evaluated the patient. I spent over 30 minutes in conducting discharge services. Christiano Negrete MD DISCHARGE SUMMARY Patient ID: Tong Sunshine [id number] 37 y.o. 1985 Admit date: 08/25/2023 Discharge date: 08/30/23 Admitting Physician: Roly Wilder MD Discharge Diagnoses: Obsessive-compulsive disorder Unspecified mood disorder Discharge Physician: Christiano Negrete MD Admission Diagnoses: Suicidal ideation [R45.851] Anxiety [F41.9] OCD (obsessive compulsive disorder) [F42.9] Admission Condition: Poor Discharged Condition: Stable Examination: BP 122/81 Pulse 82 Temp 36.9 ?C (98.5 ?F) (Temporal) Resp 16 Ht 1.499 m (4' 11) Wt 73.9 kg (163 lb) LMP 07/26/2023 SpO2 98% BMI 32.92 kg/m? HOSPITAL COURSE: A 37-year-old female with history of OCD, anxiety, depression who was recently discharged after admission to [facility] inpatient psychiatry from 08/09 to 08/19/2023, due to suicidal ideations with plan and intrusive thoughts with lutheran preoccupation. Patient had been doing well for 2 days following prior admission and then experienced low mood, anhedonia, fatigue, diminished appetite, crying spells, thoughts of suicide and searching for plans to do so on the Internet. Patient states that she had done well on fluoxetine 80 mg daily for several years, starting in 2022 she felt well enough that she wanted to streamline her medication regimen and slowly started tapering herself off of it. She states that she had fallen off of psychiatric service and would message in with her PCP who then would manage her medications stating that she was trying to wean herself off of it. This occurred gradually until April, when she would only take 20 mg of Prozac intermittently. 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 These intrusive thoughts became difficult for the patient manage and she looked up potential lethal doses of medications with the thought of ending her life. Patient was medically cleared and transferred to psychiatry, Prozac 80 mg daily was continued. Patient also had Klonopin 0.25 mg twice daily as needed ordered. Patient attended groups and engaged in individual counseling while here on the unit. She was adherent with her medications that were restarted. She was able to read books and appreciate analogies of how to manage anxiety. On the day of discharge she shared a particular tactic of thinking of oneself as a house with the door open, stresses, and like the wind, but if you do not give them energy, they will also leave just as easily and spontaneously. Patient had regular phone calls and visits from her family including her . They set up plans for individual counseling for her and him, as well as couples counseling. I also spoke with the patient's and affirmed the utility of [employer] patient verbalizes understanding of staying adherent with medications, on the day of discharge, she feels great, slept well, she feels like her conditions are manageable and that the intrusive thoughts are just thoughts. Patient and family are amenable with plan for discharge. Patient has been feeling better. Significant progress in the symptoms since admission. Mood better No AVH or paranoid thoughts No Hopeless or worthless feeling No active SI/HI Appetite: Normal Sleep: Normal Energy: Normal SI: No HI: No Aggression: No Patient is able to CONTRACT FOR SAFETY Access to Firearms: No Social work charting updated and reflective of inpatient psychiatry Discharge check list, check andrew implies yes. Each of these items was reviewed specifically with patient at time of discharge. [x] Confirmed patient davis (more content not included)... [facility] 08-29-2023 Note Psychiatric Progress Note Interim History: Subjective: Pt is being seen in follow-up for depression and OCD. They have been compliant with Prozac. Denies suicidal ideation. Denies homicidal ideation. Denies auditory hallucinations. Denies visual hallucinations. Denies delusional thinking. Stated her mood was positive. Denied having thoughts about harming others including her children. Pt said her will go to counseling with her as well as get counseling himself. Medication side effects(SE): No Chart reviewed, discussed with staff, pt seen in person Mental Status Examination: Vitals : BP 130/79 (BP Location: Right arm, Patient Position: Sitting) Pulse 96 Temp 36.6 ?C (97.8 ?F) (Temporal) Resp 16 Ht 1.499 m (4' 11) Wt 73.9 kg (163 lb) LMP 07/26/2023 SpO2 97% BMI 32.92 kg/m? Level of consciousness: Alert Appearance: Casually groomed Eye contact: Fair Behavior/Motor: No abnormalities Gait: Normal Involuntary movements: No Attitude toward examiner: Cooperative Speech: Normal rate and volume Mood: Euthymic Affect: Full Associations: Intact Thought processes: Linear Suicidal ideation: No Homicidal ideation: No Auditory Hallucinations: No Visual Hallucinations: No Delusions: No Leti: No Depression: No Anxiety: Yes Preoccupied: Yes Cognition: Intact Concentration: Intact Memory: Intact Insight: Intact Judgement: Impaired Labs: No results for input(s): WBC, HGB, PLT in the last 72 hours. No results for input(s): NA, K, CL, CO2, BUN, CREATININE, GLUCOSE in the last 72 hours. No results for input(s): BILITOT, ALKPHOS, AST, ALT in the last 72 hours. No results found for: LABAMPH, LABBENZ, CANNAB, COCAINESCRN, PPXUR, ETOH No results found for: TSH, FREET4 No results found for: LITHIUM No results found for: VALPROATE, CBMZ No results found for: LITHIUM, VALPROATE Diagnosis: OCD, Depressive Disorder Unspecified Treatment Plan: Medications Scheduled cephalexin, 500 mg, Oral, BID cholecalciferol, 2,000 Units, Oral, Daily FLUoxetine, 80 mg, Oral, Daily magnesium gluconate, 250 mg, Oral, Nightly rosuvastatin, 20 mg, Oral, Daily Medications PRN PRN medications: acetaminophen OR acetaminophen, benztropine, clonazePAM, melatonin, OLANZapine OR OLANZapine (ZyPREXA) 5 mg in sterile water 1 mL injection, ondansetron ODT OR ondansetron, polyethylene glycol (PEG) 3350 Compliance: Yes Consults: SHANELLE Disposition: Home Continue Current Medications as ordered Continue close monitoring of safety, medication side effects, and target symptoms Continue crisis intervention oriented psychotherapy, group and milieu therapies Social work and transitional care continue to assist with necessary family liaison and discharge planning MDM Level: Moderate as evidenced by 2 or more stable chronic illnesses (Moderate) and Prescription drug management, as above (Moderate), Diagnosis and treatment significantly limited by social determinants of health (Moderate) Patient continues to need, on a daily basis, active treatment furnished directly by or requiring the supervision of inpatient psychiatric personnel Electronically signed by RYAN ANDINO DO (Please note that portions of this note may have been completed with a voice recognition program. Efforts were made to edit the dictations but occasionally words are mis-transcribed.) [facility] 08-28-2023 Note Psychiatric Progress Note Interim History: Subjective: Pt is being seen in follow-up for depression and OCD. They have been compliant with Prozac. Denies suicidal ideation. Denies homicidal ideation. Denies auditory hallucinations. Denies visual hallucinations. Denies delusional thinking. Stated mood has improved since admission. Stated things are going better with her . Plans to engage in marriage counseling after discharge. Has been using prn Trazodone, which has been helpful for sleep. Medication side effects(SE): No Chart reviewed, discussed with staff, pt seen in person Mental Status Examination: Vitals : BP 120/75 (BP Location: Right arm, Patient Position: Sitting) Pulse 86 Temp 36.6 ?C (97.8 ?F) (Temporal) Resp 17 Ht 1.499 m (4' 11) Wt 73.9 kg (163 lb) LMP 07/26/2023 SpO2 99% BMI 32.92 kg/m? Level of consciousness: Alert Appearance: Casually groomed Eye contact: Fair Behavior/Motor: No abnormalities Gait: Normal Involuntary movements: No Attitude toward examiner: Cooperative Speech: Normal rate and volume Mood: Euthymic Affect: Full Associations: Intact Thought processes: Linear Suicidal ideation: No Homicidal ideation: No Auditory Hallucinations: No Visual Hallucinations: No Delusions: No Leti: No Depression: No Anxiety: Yes Preoccupied: Yes Cognition: Intact Concentration: Intact Memory: Intact Insight: Intact Judgement: Impaired Labs: No results for input(s): WBC, HGB, PLT in the last 72 hours. No results for input(s): NA, K, CL, CO2, BUN, CREATININE, GLUCOSE in the last 72 hours. No results for input(s): BILITOT, ALKPHOS, AST, ALT in the last 72 hours. No results found for: LABAMPH, LABBENZ, CANNAB, COCAINESCRN, PPXUR, ETOH No results found for: TSH, FREET4 No results found for: LITHIUM No results found for: VALPROATE, CBMZ No results found for: LITHIUM, VALPROATE Diagnosis: OCD, Depressive Disorder Unspecified Treatment Plan: Medications Scheduled cephalexin, 500 mg, Oral, BID cholecalciferol, 2,000 Units, Oral, Daily FLUoxetine, 80 mg, Oral, Daily magnesium gluconate, 250 mg, Oral, Nightly rosuvastatin, 20 mg, Oral, Daily Medications PRN PRN medications: acetaminophen OR acetaminophen, benztropine, clonazePAM, OLANZapine OR OLANZapine (ZyPREXA) 5 mg in sterile water 1 mL injection, ondansetron ODT OR ondansetron, polyethylene glycol (PEG) 3350, traZODone Compliance: Yes Consults: SAHNELLE Disposition: Home Continue Current Medications as ordered Continue close monitoring of safety, medication side effects, and target symptoms Continue crisis intervention oriented psychotherapy, group and milieu therapies Social work and transitional care continue to assist with necessary family liaison and discharge planning MDM Level: Moderate as evidenced by 2 or more stable chronic illnesses (Moderate) and Prescription drug management, as above (Moderate), Diagnosis and treatment significantly limited by social determinants of health (Moderate) Patient continues to need, on a daily basis, active treatment furnished directly by or requiring the supervision of inpatient psychiatric personnel Electronically signed by RYAN ANDINO DO (Please note that portions of this note may have been completed with a voice recognition program. Efforts were made to edit the dictations but occasionally words are mis-transcribed.) [facility] 08-27-2023 Note Individual Therapy P [place] Note Date of Service: 08/27/2023 Start Time: 2:40PM End Time: 3:20PM Summary of [facility]. Pt reported feeling better today, has been journaling this afternoon. Pt reviewed traumatic events she experienced as a child, as well as struggles she is having in her marriage. Provided space for pt to process through thoughts/emotions. Explored coping skills, as well as Pt's goals for over the weekend. Pt indicated she is reading through, The Body Keeps the Score and is finding it useful. She hopes to finish it this weekend. Provided support and encouragement. MENTAL STATUS EXAM General Observations: Appearance: [x] Neatly groomed [] Unkempt [] Disheveled [] Other Demeanor: [x] Spontaneous [] Hostile [] Mistrustful [] Preoccupied [] Demanding Activity: [x] Normal [] Hyperactive [] Hypoactive Speech: [x] Clear [] Slurred []Rapid [] Pressured [] Slow [] Soft spoken [] Loud [] Mute [] Rambling [] Incoherent [] Word salad [] Nonsensical Eye Contact: [x] Average [] Sporadic [] Poor [] Avoidant [] Intense MOOD & AFFECT: Mood: [] Euthymic [x] Depressed [x] Anxious [] Angry [] Euphoric [] Irritable [] Other: Affect: [] congruent [] Blunted [] Constricted [] Flat [] Inappropriate [] Labile BEHAVIOR: [x] Cooperative [] Resistant [] Agitated [] Impulsive [] Hyperactive [] Aggresive [] Assaultive [] Restless [] Anhedonia [] Akathisia [] Dissociating [] Withdrawn [] Irritable [] Relaxed [] Tired/fatigued [] Tearful [] Pacing [] Easily Startled [] Trembling/shaking Grimaces COGNITION: Thought Processes: [x] Logical [] [place] [] Circumstantial [] Tangential [] Loose [] Incoherent [] Blocked [] Racing [] Flight of Ideas Thought Content: Delusions: [] Grandiose [] Persecutory [] Somatic [] Hindu [] Bizarre [] Nihilistic [x] None reported/observed Other: [] Autistic [] Obsessions [] Guilt [] Phobic [] Guarded Preoccupied [] Ideas of Reference [] Preoccupation with Suicidal Ideation [x] None Reported [] Ideation [] Intent [] Plan [] Self abusive behaviors (assess lethality if present) Homicidal Ideation [x] None Reported [] Ideation [] Intent [] Plan [] Aggressive behaviors (assess lethality of present) Perceptions: [x] Within normal limits [] Illusions [] Depersonalization [] Derealization [] Hallucinations: [] Auditory [] Visual [] Olfactory []Gustatory [] Tactile [] Visceral Oriented to: [x] Person [x] Place [x] Time [x] Situation Level of Consciousness: [x] Alert [] Clouded [] Fluctuating Memory Tested: [] Yes [x] No Memory Disturbance: [] Yes [x] No Attention Deficit: [] Yes [x] No Judgment: [] Good [x] Fair [] Poor Insight: [] Good [x] Fair [] Poor Comments re: significant MSE findings: N/A Therapeutic Intervention: Counseling spent focused upon helping educate the subtle and direct ways suffering trauma has impacted her to enhance self compassion. Patient Response to Intervention: receptive Goal(s) Addressed During Session: Control Deterioration of Symptoms, Improve or Maintain Level of Functioning to Avoid future Hospitalizations, and Explore Core Issues Underlying Illness Progress Towards Goal: Moderate progress [facility] 08-27-2023 Note Problem: Potential f or Harm to Self or Others Goal: Denies harm toward self or others Outcome: Progressing [facility] 08-26-2023 Note Individual Therapy P shane Note Date of Service: 08/26/23 Start Time: 1:50 pm End Time: 2:30 PM Summary of Session: Met with pt to discuss reason for readmit into hospital and progress in treatment. Pt spent time processing life events and what happened when she returned home. Pt reported having OCD obsessive racing thoughts that produced feelings of guilt and shame. Pt reported that today she believes her medications are working better today. Discussed thought labeling and emotion noticing to help identify when thoughts are OCD. Pt reported that when she was on medication before the thoughts were easier to ignore. Pt asked for non-fiction books on mental health to read while in the hospital. Gave pt copy of Body Keeps The Score along with a workbook on trauma. Pt had reported that she struggles with unintegrated traumas from childhood that make the OCD worse. MENTAL STATUS EXAM General Observations: Appearance: [x] Neatly groomed [] Unkempt [] Disheveled [] Other Demeanor: [x] Spontaneous [] Hostile [] Mistrustful [] Preoccupied [] Demanding Activity: [x] Normal [] Hyperactive [] Hypoactive Speech: [x] Clear [] Slurred []Rapid [] Pressured [] Slow [] Soft spoken [] Loud [] Mute [] Rambling [] Incoherent [] Word salad [] Nonsensical Eye Contact: [x] Average [] Sporadic [] Poor [] Avoidant [] Intense MOOD & AFFECT: Mood: [] Euthymic [] Depressed [x] Anxious [] Angry [] Euphoric [] Irritable [] Other: Affect: [x] Full [] Blunted [] Constricted [] Flat [] Inappropriate [] Labile BEHAVIOR: [x] Cooperative [] Resistant [] Agitated [] Impulsive [] Hyperactive [] Aggresive [] Assaultive [] Restless [] Anhedonia [] Akathisia [] Dissociating [] Withdrawn [] Irritable [] Relaxed [] Tired/fatigued [] Tearful [] Pacing [] Easily Startled [] Trembling/shaking Grimaces COGNITION: Thought Processes: [x] Logical [] [place] [] Circumstantial [] Tangential [] Loose [] Incoherent [] Blocked [] Racing [] Flight of Ideas Thought Content: Delusions: [] Grandiose [] Persecutory [] Somatic [] Hindu [] Bizarre [] Nihilistic [x] None reported/observed Other: [] Autistic [] Obsessions [] Guilt [] Phobic [] Guarded Preoccupied [] Ideas of Reference [] Preoccupation with Suicidal Ideation [x] None Reported [] Ideation [] Intent [] Plan [] Self abusive behaviors (assess lethality if present) Homicidal Ideation [x] None Reported [] Ideation [] Intent [] Plan [] Aggressive behaviors (assess lethality of present) Perceptions: [x] Within normal limits [] Illusions [] Depersonalization [] Derealization [] Hallucinations: [] Auditory [] Visual [] Olfactory []Gustatory [] Tactile [] Visceral Oriented to: [x] Person [x] Place [x] Time [x] Situation Level of Consciousness: [x] Alert [] Clouded [] Fluctuating Memory Tested: [] Yes [x] No Memory Disturbance: [] Yes [x] No Attention Deficit: [] Yes [x] No Judgment: [] Good [x] Fair [] Poor Insight: [] Good [x] Fair [] Poor Comments re: significant MSE findings: N/A Therapeutic Intervention: CBT Patient Response to Intervention: PT was open to talking Goal(s) Addressed During Session: Mood Stabilization Progress Towards Goal: Minimal progress [facility] 08-26-2023 Note Problem: Potential f or Harm to Self or Others Goal: Denies harm toward self or others 08/26/2023 1248 by Faby Haque RN Outcome: Progressing [facility] 08-26-2023 Note Attestation signed by Christiano Negrete MD at 08/26/2023 12:51 PM I saw and evaluated the patient, participating in the sigala portions of the service. I reviewed the resident?s note. I agree with the resident?s findings and plan. Christiano Negrete MD Department of Psychiatry History and Physical - Adult Chief Complaint: Worsening depression over the past 3 days, hopelessness, I do not really care to live History obtained from: patient, EMR Patient was seen after discussion with staff and reviewing the chart History of Present Illness: The patient is a 37 y.o. female with a history of anxiety, depression, recently discharged from the [facility], presenting due to suicidal ideations with plan and intrusive thoughts with lutheran preoccupation. Patient was discharged from the inpatient psychiatric service last week, and reports doing well for 2 days. Following this, symptoms worsened with low mood, anhedonia, fatigue, diminished appetite, crying spells and thoughts of suicide. She is unable to identify any acute stressors precipitating this worsening of symptoms. She does endorse accompanying shakiness, muscle twitches, dizziness, nausea in the last couple days. She has been compliant with the fluoxetine 80 mg daily and intermittently compliant with quetiapine 25 mg daily that she was discharged on last week. Since then, quetiapine has been switched out with Abilify 2 mg, 3 days ago by Nicolasa Robert, psychometrist. Patient denies HI, AVH. Patient was medically cleared and started on Keflex by the ER due to suspected urinary tract infection. Urine drug screen negative. Psychiatry was consulted on the patient and deemed patient would benefit from inpatient psychiatric admission. She received 0.25 mg Klonopin in the ER for anxiety. Prozac 80 mg daily was continued, Abilify 2 mg daily was held. Klonopin 0.25 mg twice daily as needed also ordered. Patient has had distressing thoughts about her 4 children being sacrificed in the Bible similar to the way Ferny was almost sacrificed by Jose G. She denies any active thoughts of acting on these thoughts and finds them distressing. Patient was concerned that this made her psychopath and spent excessive amounts of times looking up relevant information which provoked thoughts of anxiety and depression, resulting heard in her making several superficial lacerations to her left wrist. Patient also admits to searching on the Internet different ways to end her life via overdose and did gather home medications together, before flushing them down the toilet the night before presenting to the ER. This morning patient she was found attending groups. She affirms the above history and states that she has had struggles with OCD all her life. This manifested as her being a perfectionist and needing control, needing cleanliness. She explained that she had done very well for several years on Prozac 80 mg daily. She was discharged from psychiatric follow-up last summer, and her medication was managed by her primary care physician. She thought she was doing well enough that she could start to wean off her medications and sent in my chart messages to gradually wean the medication down to the point in April, she was only taking Prozac 20 mg intermittently, every 3 to 4 days on average. 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 She explains that her episodes usually consist of stress, anxiety, obsessional thoughts, depression in that order. She also explains that her mental health needs have created some stress on her family. She was amenable to speaking with a counselor in the afternoon about past trauma. Notably, patient was recently discharged 1 week ago after a psychiatric admission here at [facility] from 08/09/2023 to 08/19/2023 for similar presentation consisting of suicidal ideations and thoughts of hurting her children related to lutheran preoccupation. Collateral Call: Ruddy Sunshine, , left a voicemail regarding current treatment plan and assessment. Medications Prior to Admission: Medications Prior to Admission Medication Sig Dispense Refill Last Dose ARIPiprazole (Abilify) 2 MG tablet Take 1 tablet (2 mg) by mouth daily. 30 tablet 0 famciclovir (Famvir) 500 MG tablet Take 1 tablet (500 mg) by mouth 2 times daily for 13 dos (more content not included)... [facility] 08-25-2023 Note Department of Psychi atry Attending Emergency Psychiatric Evaluation CHIEF COMPLAINT: Chief Complaint Patient presents with Depression Pt states that she has had worsening depression over the past 3 days, pt states that she has thoughts of hopelessness and is unable to care for herself or her children at this time. Pt states, I don't really care to live. Pt denies HI. HISTORY OF PRESENT ILLNESS: The patient is a 37 y.o. yo female with significant past medical history of depression and OCD presenting to the ED for worsening depression and anxiety. She was just discharged from [facility] for similar symptoms on 08/18. Reports she felt well for about 2 days but her symptoms worsened, with low mood, anhedonia, fatigue, low appetite, crying spells and thoughts of suicide. Admits that she researched possible lethal doses of her medications online and considered overdosing before flushing a handful of pills down the toilet last night. Also notes worsening obsessive thoughts with lutheran themes, including ego-dystonic thoughts of her children being sacrificed a la Jose G sacrificing Ferny, which are extremely distressing to her. She denies any acute stressors precipitating the change in symptoms, but does note recent side effects of shakiness, rare muscle twitches, dizziness and nausea in recent days. She has been fully compliant with fluoxetine 80mg daily, partially compliant with quetiapine 25mg. Quetiapine was changed to aripiprazole 2mg 2 days ago by her outpatient provider. Denies any plan/intent/desire to harm anyone. She denies symptoms consistent with leti and psychosis. Denies illicit drug or alcohol use. Collateral was obtained from the following individual: chart review, called Ruddy Sunshine at [phone], message left. REVIEW OF SYSTEMS: Medical Review Of Systems: A comprehensive review of systems was negative except for: Constitutional: positive for fatigue Gastrointestinal: positive for nausea Neurological: positive for Symptoms; Neuro: dizziness and tremors Behavioral/Psych: positive for Symptoms; Pyschiatric: anorexia, depression, and obsessive compulsive disorder PAST PSYCHIATRIC HISTORY: The patient is currently receiving care for the above psychiatric illness with Charmaine Richardson at [facility]. 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 Ivan SECTION (HISTORICAL) WISDOM TOOTH EXTRACTION CURRENT MEDICATIONS/ALLERGIES: Current Facility-Administered Medications Medication Dose Route Frequency Provider Last Rate Last Admin clonazePAM (KlonoPIN) tablet 0.25 mg 0.25 mg Oral Once Parish Ba MD Current Outpatient Medications Medication Sig Dispense Refill ARIPiprazole (Abilify) 2 MG tablet Take 1 tablet (2 mg) by mouth daily. 30 tablet 0 famciclovir (Famvir) 500 MG tablet Take 1 tablet (500 mg) by mouth 2 times daily for 13 doses. 13 tablet 0 FLUoxetine (PROzac) 40 MG capsule Take 2 capsules (80 mg) by mouth daily. 60 capsule 0 rosuvastatin (Crestor) 20 MG tablet Take 1 tablet (20 mg) by mouth daily. 30 tablet 0 Allergies: Allergies Allergen Reactions Sertraline Other SI thoughts. 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 Behavior/motor: Fine tremor to palpation of bilateral hands and forearms. No observed or induced myoclonus. No rigidity Spee (more content not included)... [facility] 08-19-2023 Note Discharge Summary Patient ID: Tong Sunshine [id number] 37 y.o. 1985 Admit date: 08/08/2023 Discharge date: 08/19/2023 Admitting Physician: Davey Hsu MD Discharge Diagnoses: OCD, Depressive Disorder Unspecified Discharge Physician: Ryan Andino DO Admission Diagnoses: Suicidal ideation [R45.851] Homicidal ideation [R45.850] Discharged Condition: Good Examination: BP 126/87 Pulse 105 Temp 37.6 ?C (99.6 ?F) (Temporal) Resp 16 Ht 1.499 m (4' 11) Wt 73.5 kg (162 lb) LMP 07/26/2023 SpO2 97% BMI 32.72 kg/m? Hospital Course: Pt was admitted to [facility] for safety and stabilization. They were treated with Seroquel, Prozac. Mood improved, affect brightened. Pt was compliant with medications and maintained safety on the unit. Pt consistently denied suicidal or homicidal ideation. On the day of discharge, the pt denied suicidal or homicidal ideation, AVH, or delusional beliefs. They were future oriented. Pt was willing to follow-up on an outpatient basis and continue taking medications. On the day of discharge, I spoke with the pt's , Ruddy, at [phone], with pt's permission. He denied safety concerns about the pt being discharged and felt she was back to baseline. Pt's denied that the pt had access to firearms and did not feel like she was a risk to her children. Patient has been feeling better. Significant progress in the symptoms since admission. Mood better No AVH or paranoid thoughts No Hopeless or worthless feeling No active SI/HI Appetite: Normal Sleep: Normal Energy: Normal SI: No HI: No Aggression: No Patient is able to CONTRACT FOR SAFETY Medication side effects(SE): No Access to Firearms: Pt denied Mental Status Examination on discharge: Vitals : BP 126/87 Pulse 105 Temp 37.6 ?C (99.6 ?F) (Temporal) Resp 16 Ht 1.499 m (4' 11) Wt 73.5 kg (162 lb) LMP 07/26/2023 SpO2 97% BMI 32.72 kg/m? Level of consciousness: Alert Appearance: Casually groomed Eye contact: Fair Behavior/Motor: No abnormalities Gait: Normal Involuntary movements: No Attitude toward examiner: Cooperative Speech: Normal rate and volume Mood: Euthymic Affect: Full Associations: Intact Thought processes: Linear Thought content Suicidal ideation: No Homicidal ideation: No Auditory Hallucinations: No Visual Hallucinations: No Delusions: No Leti: No Depression: No Anxiety: No Preoccupied: No Cognition: Intact Concentration: Intact Memory: Intact Insight: Intact Judgement: Intact Assessment: Patient symptoms are: Well-controlled Suicide Risk Assessment Chronic Factors: history of psychiatric illness, relationship stressors, and familial stressors Protective Factors: desire to improve condition, external support, treatment compliance, access to outpatient treatment, and coping skills displayed Risk Assessment: Low Modifiable Factors: no access to firearms, access removed, or removal was refused, psychiatric medication: pt received/was offered, psychiatric disorder/symptoms: address with counseling/medication during admission, outpatient treatment access: pt set-up with outpatient follow-up for psychiatric outpatient/addiction treatment, stressors: discussed in-depth, including potential solutions/coping skills, and external support: family/friends contact for collateral information and discharge planning Diet: Regular Activity: As tolerated Labs: No results for input(s): WBC, HGB, PLT in the last 72 hours. No results for input(s): NA, K, CL, CO2, BUN, CREATININE, GLUCOSE in the last 72 hours. No results for input(s): BILITOT, ALKPHOS, AST, ALT in the last 72 hours. No results found for: LABAMPH, LABBENZ, CANNAB, COCAINESCRN, PPXUR, ETOH No results found for: TSH, FREET4 No results found for: LITHIUM No results found for: VALPROATE, CBMZ RISK ASSESSMENT AT DISCHARGE: Low risk for suicide and homicide. They deny SI/HI/AVH/delusions. Pt is forward thinking. Pt is able to contract for safety. Safety plan was discussed with the pt, about pt calling 911 or reporting to the ED if they felt like a risk to themselves or others. Pt expressed agreement and understanding of treatment plan. Consults: Social Work Treatment Plan: Reviewed current Medications with the patient. Education provided on the complaince with treatment. Risks, benefits, side effects, [id number] interactions and alternatives to treatment were discussed. Continue medications per medical reconciliation Encourage patient to attend outpatient follow up appointment and therapy. Discharge planning discussed with the patient and treatment team. Follow-up with [facility] IOP per discharge instructions I saw and evaluated the patient. I spent greater than 35 minutes, over 51% in direct patient care and counseling, mental status examination and evaluation, diagnostic as (more content not included)... [facility] 08-19-2023 Note Discharge Summary Patient ID: Tong Sunshine [id number] 37 y.o. 1985 Admit date: 08/08/2023 Discharge date: 08/19/2023 Admitting Physician: Davey Hsu MD Discharge Diagnoses: OCD, Depressive Disorder Unspecified Discharge Physician: Ryan Andino DO Admission Diagnoses: Suicidal ideation [R45.851] Homicidal ideation [R45.850] Discharged Condition: Good Examination: BP 126/87 Pulse 105 Temp 37.6 ?C (99.6 ?F) (Temporal) Resp 16 Ht 1.499 m (4' 11) Wt 73.5 kg (162 lb) LMP 07/26/2023 SpO2 97% BMI 32.72 kg/m? Hospital Course: Pt was admitted to [facility] for safety and stabilization. They were treated with Seroquel, Prozac. Mood improved, affect brightened. Pt was compliant with medications and maintained safety on the unit. Pt consistently denied suicidal or homicidal ideation. On the day of discharge, the pt denied suicidal or homicidal ideation, AVH, or delusional beliefs. They were future oriented. Pt was willing to follow-up on an outpatient basis and continue taking medications. On the day of discharge, I spoke with the pt's , Ruddy, at [phone], with pt's permission. He denied safety concerns about the pt being discharged and felt she was back to baseline. Pt's denied that the pt had access to firearms and did not feel like she was a risk to her children. Patient has been feeling better. Significant progress in the symptoms since admission. Mood better No AVH or paranoid thoughts No Hopeless or worthless feeling No active SI/HI Appetite: Normal Sleep: Normal Energy: Normal SI: No HI: No Aggression: No Patient is able to CONTRACT FOR SAFETY Medication side effects(SE): No Access to Firearms: Pt denied Mental Status Examination on discharge: Vitals : BP 126/87 Pulse 105 Temp 37.6 ?C (99.6 ?F) (Temporal) Resp 16 Ht 1.499 m (4' 11) Wt 73.5 kg (162 lb) LMP 07/26/2023 SpO2 97% BMI 32.72 kg/m? Level of consciousness: Alert Appearance: Casually groomed Eye contact: Fair Behavior/Motor: No abnormalities Gait: Normal Involuntary movements: No Attitude toward examiner: Cooperative Speech: Normal rate and volume Mood: Euthymic Affect: Full Associations: Intact Thought processes: Linear Thought content Suicidal ideation: No Homicidal ideation: No Auditory Hallucinations: No Visual Hallucinations: No Delusions: No Leti: No Depression: No Anxiety: No Preoccupied: No Cognition: Intact Concentration: Intact Memory: Intact Insight: Intact Judgement: Intact Assessment: Patient symptoms are: Well-controlled Suicide Risk Assessment Chronic Factors: history of psychiatric illness, relationship stressors, and familial stressors Protective Factors: desire to improve condition, external support, treatment compliance, access to outpatient treatment, and coping skills displayed Risk Assessment: Low Modifiable Factors: no access to firearms, access removed, or removal was refused, psychiatric medication: pt received/was offered, psychiatric disorder/symptoms: address with counseling/medication during admission, outpatient treatment access: pt set-up with outpatient follow-up for psychiatric outpatient/addiction treatment, stressors: discussed in-depth, including potential solutions/coping skills, and external support: family/friends contact for collateral information and discharge planning Diet: Regular Activity: As tolerated Labs: No results for input(s): WBC, HGB, PLT in the last 72 hours. No results for input(s): NA, K, CL, CO2, BUN, CREATININE, GLUCOSE in the last 72 hours. No results for input(s): BILITOT, ALKPHOS, AST, ALT in the last 72 hours. No results found for: LABAMPH, LABBENZ, CANNAB, COCAINESCRN, PPXUR, ETOH No results found for: TSH, FREET4 No results found for: LITHIUM No results found for: VALPROATE, CBMZ RISK ASSESSMENT AT DISCHARGE: Low risk for suicide and homicide. They deny SI/HI/AVH/delusions. Pt is forward thinking. Pt is able to contract for safety. Safety plan was discussed with the pt, about pt calling 911 or reporting to the ED if they felt like a risk to themselves or others. Pt expressed agreement and understanding of treatment plan. Consults: Social Work Treatment Plan: Reviewed current Medications with the patient. Education provided on the complaince with treatment. Risks, benefits, side effects, [id number] interactions and alternatives to treatment were discussed. Continue medications per medical reconciliation Encourage patient to attend outpatient follow up appointment and therapy. Discharge planning discussed with the patient and treatment team. Follow-up with [facility] per discharge instructions I saw and evaluated the patient. I spent greater than 35 minutes, over 51% in direct patient care and counseling, mental status examination and evaluation, diagnostic as (more content not included)... [facility] 08-19-2023 Note Problem: Potential f or Harm to Self or Others Goal: Denies harm toward self or others Outcome: Progressing [facility] 08-18-2023 Note Psychiatric Progress Note Interim History: Subjective: Pt is being seen in follow-up for depression and anxiety. They have been complaint with Monique Walls. Denies suicidal ideation. Denies homicidal ideation. Denies auditory hallucinations. Denies visual hallucinations. Denies delusional thinking. Pt stated she feels better today. Denied thoughts about harming others including her children. I spoke with pt's , Ruddy Sunshine, at [phone], with pt's permission. Ruddy expressed frustration with the pt's lack of contact over the past few days. He stated he did not feel safe with the pt around their children at this time due to her thoughts of harming them returning prior to DC at the end of last week. Pt spoke with her afterward and the conversation did not go well. Pt was tearful, stated he felt a lack of support from her . She stated she would never hurt her children and was upset her would doubt her. Medication side effects(SE): No Chart reviewed, discussed with staff, pt seen in person Mental Status Examination: Vitals : BP 128/88 Pulse 85 Temp 37.1 ?C (98.8 ?F) (Temporal) Resp 18 Ht 1.499 m (4' 11) Wt 73.5 kg (162 lb) LMP 07/26/2023 SpO2 96% BMI 32.72 kg/m? Level of consciousness: Alert Appearance: Casually groomed Eye contact: Fair Behavior/Motor: No abnormalities Gait: Normal Involuntary movements: No Attitude toward examiner: Cooperative Speech: Normal rate and volume Mood: Depressed Affect: Restricted Associations: Intact Thought processes: Circumstantial Suicidal ideation: No Homicidal ideation: No Auditory Hallucinations: No Visual Hallucinations: No Delusions: No Leti: No Depression: Yes Anxiety: Yes Preoccupied: Yes Cognition: Intact Concentration: Intact Memory: Intact Insight: Intact Judgement: Intact Labs: No results for input(s): WBC, HGB, PLT in the last 72 hours. No results for input(s): NA, K, CL, CO2, BUN, CREATININE, GLUCOSE in the last 72 hours. No results for input(s): BILITOT, ALKPHOS, AST, ALT in the last 72 hours. No results found for: LABAMPH, LABBENZ, CANNAB, COCAINESCRN, PPXUR, ETOH No results found for: TSH, FREET4 No results found for: LITHIUM No results found for: VALPROATE, CBMZ No results found for: LITHIUM, VALPROATE Diagnosis: OCD, Depressive Disorder Unspecified Treatment Plan: Medications Scheduled FLUoxetine, 80 mg, Oral, Daily QUEtiapine, 25 mg, Oral, Nightly rosuvastatin, 20 mg, Oral, Daily Medications PRN PRN medications: acetaminophen OR acetaminophen, clonazePAM, diphenhydrAMINE AND haloperidol AND LORazepam, diphenhydrAMINE AND haloperidol lactate AND LORazepam, hydrOXYzine pamoate, ondansetron ODT OR ondansetron, polyethylene glycol (PEG) 3350 Compliance: Yes Consults: SW Disposition: Home Continue Current Medications as ordered Continue close monitoring of safety, medication side effects, and target symptoms Continue crisis intervention oriented psychotherapy, group and milieu therapies Social work and transitional care continue to assist with necessary family liaison and discharge planning MDM Level: Moderate as evidenced by 2 or more stable chronic illnesses (Moderate) and Prescription drug management, as above (Moderate), Diagnosis and treatment significantly limited by social determinants of health (Moderate) Patient continues to need, on a daily basis, active treatment furnished directly by or requiring the supervision of inpatient psychiatric personnel Electronically signed by RYAN ANDINO DO (Please note that portions of this note may have been completed with a voice recognition program. Efforts were made to edit the dictations but occasionally words are mis-transcribed.) [facility] 08-18-2023 Note Individual Therapy P shane Note Date of Service: 08/18/23 Start Time: 11:15 am End Time: 11:30 am Summary of Session: Met with pt after group. Discussed pt's struggle with anxiety related to guilt/shame. Pt reported that when she feels shame about the past she feels compelled to admit and discuss it with others. Pt reported that she believes this is related to her OCD and perfectionism. Discussed positive affirmations and thought diffusion. MENTAL STATUS EXAM General Observations: Appearance: [x] Neatly groomed [] Unkempt [] Disheveled [] Other Demeanor: [x] Spontaneous [] Hostile [] Mistrustful [] Preoccupied [] Demanding Activity: [x] Normal [] Hyperactive [] Hypoactive Speech: [x] Clear [] Slurred []Rapid [] Pressured [] Slow [] Soft spoken [] Loud [] Mute [] Rambling [] Incoherent [] Word salad [] Nonsensical Eye Contact: [x] Average [] Sporadic [] Poor [] Avoidant [] Intense MOOD & AFFECT: Mood: [] Euthymic [x] Depressed [x] Anxious [] Angry [] Euphoric [] Irritable [] Other: Affect: [x] Full [] Blunted [] Constricted [] Flat [] Inappropriate [] Labile BEHAVIOR: [x] Cooperative [] Resistant [] Agitated [] Impulsive [] Hyperactive [] Aggresive [] Assaultive [] Restless [] Anhedonia [] Akathisia [] Dissociating [] Withdrawn [] Irritable [] Relaxed [] Tired/fatigued [] Tearful [] Pacing [] Easily Startled [] Trembling/shaking Grimaces COGNITION: Thought Processes: [x] Logical [] [place] [] Circumstantial [] Tangential [] Loose [] Incoherent [] Blocked [] Racing [] Flight of Ideas Thought Content: Delusions: [] Grandiose [] Persecutory [] Somatic [] Hindu [] Bizarre [] Nihilistic [x] None reported/observed Other: [] Autistic [] Obsessions [] Guilt [] Phobic [] Guarded Preoccupied [] Ideas of Reference [] Preoccupation with Suicidal Ideation [x] None Reported [] Ideation [] Intent [] Plan [] Self abusive behaviors (assess lethality if present) Homicidal Ideation [x] None Reported [] Ideation [] Intent [] Plan [] Aggressive behaviors (assess lethality of present) Perceptions: [x] Within normal limits [] Illusions [] Depersonalization [] Derealization [] Hallucinations: [] Auditory [] Visual [] Olfactory []Gustatory [] Tactile [] Visceral Oriented to: [x] Person [x] Place [x] Time [x] Situation Level of Consciousness: [x] Alert [] Clouded [] Fluctuating Memory Tested: [] Yes [x] No Memory Disturbance: [] Yes [x] No Attention Deficit: [] Yes [x] No Judgment: [] Good [x] Fair [] Poor Insight: [] Good [x] Fair [] Poor Comments re: significant MSE findings: N/A Therapeutic Intervention: CBT Patient Response to Intervention: Pt was open to talking Goal(s) Addressed During Session: Mood Stabilization Progress Towards Goal: Minimal progress [facility] 08-17-2023 Note Psychiatric Progress Note Interim History: Subjective: Pt is being seen in follow-up for depression and OCD. They have been compliant with Prozac and Seroquel. Denies suicidal ideation. Denies homicidal ideation. Denies auditory hallucinations. Denies visual hallucinations. Denies delusional thinking. Denied having thoughts of harming her children. Stated her has been less supportive the longer she has been admitted. Denied medication side effects from increased doses. Medication side effects(SE): No Chart reviewed, discussed with staff, pt seen in person Mental Status Examination: Vitals : BP 132/85 Pulse 87 Temp 36.6 ?C (97.9 ?F) (Temporal) Resp 18 Ht 1.499 m (4' 11) Wt 73.5 kg (162 lb) LMP 07/26/2023 SpO2 97% BMI 32.72 kg/m? Level of consciousness: Alert Appearance: Casually groomed Eye contact: Fair Behavior/Motor: No abnormalities Gait: Normal Involuntary movements: No Attitude toward examiner: Cooperative Speech: Normal rate and volume Mood: Euthymic Affect: Restricted Associations: Intact Thought processes: Circumstantial Suicidal ideation: No Homicidal ideation: No Auditory Hallucinations: No Visual Hallucinations: No Delusions: No Leti: No Depression: No Anxiety: Yes Preoccupied: Yes Cognition: Intact Concentration: Intact Memory: Intact Insight: Intact Judgement: Impaired Labs: No results for input(s): WBC, HGB, PLT in the last 72 hours. No results for input(s): NA, K, CL, CO2, BUN, CREATININE, GLUCOSE in the last 72 hours. No results for input(s): BILITOT, ALKPHOS, AST, ALT in the last 72 hours. No results found for: LABAMPH, LABBENZ, CANNAB, COCAINESCRN, PPXUR, ETOH No results found for: TSH, FREET4 No results found for: LITHIUM No results found for: VALPROATE, CBMZ No results found for: LITHIUM, VALPROATE Diagnosis: OCD, Depressive Disorder Unspecified Treatment Plan: Medications Scheduled FLUoxetine, 80 mg, Oral, Daily QUEtiapine, 25 mg, Oral, Nightly rosuvastatin, 20 mg, Oral, Daily Medications PRN PRN medications: acetaminophen OR acetaminophen, clonazePAM, diphenhydrAMINE AND haloperidol AND LORazepam, diphenhydrAMINE AND haloperidol lactate AND LORazepam, hydrOXYzine pamoate, ondansetron ODT OR ondansetron, polyethylene glycol (PEG) 3350 Compliance: Yes Consults: SW Disposition: TBD Continue Current Medications as ordered Continue close monitoring of safety, medication side effects, and target symptoms Continue crisis intervention oriented psychotherapy, group and milieu therapies Social work and transitional care continue to assist with necessary family liaison and discharge planning MDM Level: Moderate as evidenced by 2 or more stable chronic illnesses (Moderate) and Prescription drug management, as above (Moderate), Diagnosis and treatment significantly limited by social determinants of health (Moderate) Patient continues to need, on a daily basis, active treatment furnished directly by or requiring the supervision of inpatient psychiatric personnel Electronically signed by RYAN ANDINO DO (Please note that portions of this note may have been completed with a voice recognition program. Efforts were made to edit the dictations but occasionally words are mis-transcribed.) [facility] 08-16-2023 Note Psychiatric Progress Note Interim History: Subjective: Pt is being seen in follow-up for depression and OCD. They have been compliant with Prozac and Seroquel. Denies suicidal ideation. Denies homicidal ideation. Denies auditory hallucinations. Denies visual hallucinations. Denies delusional thinking. Stated she started having thoughts of harming her children prior to discharge on 08/12 after being reminded of story of a woman who hurt her children. Pt stated she felt depressed the day following and better yesterday. Pt endorsed anxiety about being discharged and how she would adapt to being out of the hospital. Pt was agreeable to increasing Prozac and Seroquel. Medication side effects(SE): No Chart reviewed, discussed with staff, pt seen in person Mental Status Examination: Vitals : BP 140/84 Pulse 101 Temp 36.3 ?C (97.3 ?F) (Temporal) Resp 17 Ht 1.499 m (4' 11) Wt 73.5 kg (162 lb) LMP 07/26/2023 SpO2 99% BMI 32.72 kg/m? Level of consciousness: Alert Appearance: Casually groomed Eye contact: Fair Behavior/Motor: No abnormalities Gait: Normal Involuntary movements: No Attitude toward examiner: Cooperative Speech: Normal rate and volume Mood: Euthymic Affect: Restricted Associations: Intact Thought processes: Circumstantial Suicidal ideation: No Homicidal ideation: No Auditory Hallucinations: No Visual Hallucinations: No Delusions: No Leti: No Depression: No Anxiety: Yes Preoccupied: Yes Cognition: Intact Concentration: Intact Memory: Intact Insight: Intact Judgement: Impaired Labs: No results for input(s): WBC, HGB, PLT in the last 72 hours. No results for input(s): NA, K, CL, CO2, BUN, CREATININE, GLUCOSE in the last 72 hours. No results for input(s): BILITOT, ALKPHOS, AST, ALT in the last 72 hours. No results found for: LABAMPH, LABBENZ, CANNAB, COCAINESCRN, PPXUR, ETOH No results found for: TSH, FREET4 No results found for: LITHIUM No results found for: VALPROATE, CBMZ No results found for: LITHIUM, VALPROATE Diagnosis: OCD, Depressive Disorder Unspecified Treatment Plan: Increase Prozac to 80 mg daily and Seroquel to 25 mg at bedtime Medications Scheduled FLUoxetine, 20 mg, Oral, Once [START ON 08/17/2023] FLUoxetine, 80 mg, Oral, Daily QUEtiapine, 25 mg, Oral, Nightly rosuvastatin, 20 mg, Oral, Daily Medications PRN PRN medications: acetaminophen OR acetaminophen, clonazePAM, diphenhydrAMINE AND haloperidol AND LORazepam, diphenhydrAMINE AND haloperidol lactate AND LORazepam, hydrOXYzine pamoate, ondansetron ODT OR ondansetron, polyethylene glycol (PEG) 3350 Compliance: Yes Consults: SHANELLE Disposition: TBD Continue Current Medications as ordered Continue close monitoring of safety, medication side effects, and target symptoms Continue crisis intervention oriented psychotherapy, group and milieu therapies Social work and transitional care continue to assist with necessary family liaison and discharge planning MDM Level: Moderate as evidenced by 2 or more stable chronic illnesses (Moderate) and Prescription drug management, as above (Moderate), Diagnosis and treatment significantly limited by social determinants of health (Moderate) Patient continues to need, on a daily basis, active treatment furnished directly by or requiring the supervision of inpatient psychiatric personnel Electronically signed by RYAN ANDINO DO (Please note that portions of this note may have been completed with a voice recognition program. Efforts were made to edit the dictations but occasionally words are mis-transcribed.) [facility] 08-16-2023 Note Problem: Potential f or Harm to Self or Others Goal: Participates in unit activities Outcome: Progressing Problem: Potential for Harm to Self or Others Goal: Identifies deescalation techniques Outcome: Progressing [facility] 08-13-2023 Note Psychiatric Progress Note Interim History: Subjective: Pt is being seen in follow-up for obsessive disorder and depression. They have been compliant with Prozac. Denies suicidal ideation. Denies homicidal ideation. Denies auditory hallucinations. Denies visual hallucinations. Denies delusional thinking. Plan was to discharge the pt today. To which she was receptive. I spoke with the pt's , Ruddy, . He felt the pt was doing better and did not feel she was a risk to their children. 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 When pt's arrived, she stated to nursing that intrusive thoughts had returned and she did not feel safe. Discharge was cancelled. Medication side effects(SE): No Chart reviewed, discussed with staff, pt seen in person Mental Status Examination: Vitals : BP 136/88 Pulse 85 Temp 36.4 ?C (97.6 ?F) (Temporal) Resp 17 Ht 1.499 m (4' 11) Wt 73.5 kg (162 lb) LMP 07/26/2023 SpO2 98% BMI 32.72 kg/m? Level of consciousness: Alert Appearance: Casually groomed Eye contact: Fair Behavior/Motor: No abnormalities Gait: Normal Involuntary movements: No Attitude toward examiner: Cooperative Speech: Normal rate and volume Mood: Euthymic Affect: Restricted Associations: Intact Thought processes: Circumstantial Suicidal ideation: No Homicidal ideation: No Auditory Hallucinations: No Visual Hallucinations: No Delusions: No Leti: No Depression: No Anxiety: Yes Preoccupied: Yes Cognition: Intact Concentration: Intact Memory: Intact Insight: Impaired Judgement: Impaired Labs: No results for input(s): WBC, HGB, PLT in the last 72 hours. No results for input(s): NA, K, CL, CO2, BUN, CREATININE, GLUCOSE in the last 72 hours. No results for input(s): BILITOT, ALKPHOS, AST, ALT in the last 72 hours. No results found for: LABAMPH, LABBENZ, CANNAB, COCAINESCRN, PPXUR, ETOH No results found for: TSH, FREET4 No results found for: LITHIUM No results found for: VALPROATE, CBMZ No results found for: LITHIUM, VALPROATE Diagnosis: OCD, Depressive Disorder Unspecified Treatment Plan: Medications Scheduled FLUoxetine, 60 mg, Oral, Daily QUEtiapine, 12.5 mg, Oral, Nightly rosuvastatin, 20 mg, Oral, Daily Medications PRN PRN medications: acetaminophen OR acetaminophen, clonazePAM, diphenhydrAMINE AND haloperidol AND LORazepam, diphenhydrAMINE AND haloperidol lactate AND LORazepam, hydrOXYzine pamoate, ondansetron ODT OR ondansetron, polyethylene glycol (PEG) 3350 Compliance: Yes Consults: SW Disposition: TBD Continue Current Medications as ordered Continue close monitoring of safety, medication side effects, and target symptoms Continue crisis intervention oriented psychotherapy, group and milieu therapies Social work and transitional care continue to assist with necessary family liaison and discharge planning MDM Level: Moderate as evidenced by 2 or more stable chronic illnesses (Moderate) and Prescription drug management, as above (Moderate), Diagnosis and treatment significantly limited by social determinants of health (Moderate) Patient continues to need, on a daily basis, active treatment furnished directly by or requiring the supervision of inpatient psychiatric personnel Electronically signed by RYAN ANDINO DO (Please note that portions of this note may have been completed with a voice recognition program. Efforts were made to edit the dictations but occasionally words are mis-transcribed.) [facility] 08-13-2023 Note DISCHARGE SUMMARY Patient ID: Tong Sunshine [id number] y.o. 1985 Admit date: 08/08/2023 Discharge date: 08/12/2023 Admitting Physician: Davey Hsu MD Discharge Diagnoses: OCD, Depressive Disorder Unspecified Discharge Physician: Ryan Andino DO Admission Diagnoses: Suicidal ideation [R45.851] Homicidal ideation [R45.850] Admission Condition: poor Discharged Condition: good Examination: BP 126/85 Pulse 100 Temp 36.8 ?C (98.2 ?F) (Temporal) Resp 16 Ht 1.499 m (4' 11) Wt 73.5 kg (162 lb) LMP 07/26/2023 SpO2 97% BMI 32.72 kg/m? Hospital Course: Pt was admitted to [facility] for safety and stabilization. They were treated with Prozac. Mood improved, affect brightened. Pt's preoccupation with harming others and lutheran preoccupation improved significantly. She consistently Pt was compliant with medications and maintained safety on the unit. Pt consistently denied suicidal homicidal ideation. On the day of discharge, the pt denied suicidal or homicidal ideation, AVH, or delusional beliefs. They were future oriented. Pt was willing to follow-up on an outpatient basis and continue taking medications. On the day of discharge, I spoke with the pt's , Ruddy Sunshine, , with pt's permission. Ruddy felt the pt was doing better since admission and denied safety concerns about the pt being discharged. Ruddy denied concerns that the pt was a risk to herself or herchildren. Patient has been feeling better. Significant progress in the symptoms since admission. Mood better No AVH or paranoid thoughts No Hopeless or worthless feeling No active SI/HI Appetite: Normal Sleep: Normal Energy: Normal SI: No HI: No Aggression: No Patient is able to CONTRACT FOR SAFETY Medication side effects(SE): No Access to Firearms: Pt denied Mental Status Examination on discharge: Level of consciousness: within normal limits Appearance: well-appearing Behavior/Motor: no abnormalities noted Attitude toward examiner: attentive and good eye contact Speech: spontaneous, normal rate and normal volume Gait: Normal Mood: euthymic Affect: mood congruent Thought processes: linear Thought content: No evidence of suicidal or homicidal ideation, AVH, or delusions Cognition: oriented to person, place, and time Concentration intact Memory intact Insight good Judgement fair Fund of Knowledge adequate Assessment: Patient symptoms are: Well controlled Diet: Regular Activity: As tolerated Suicide Risk Assessment Chronic Factors: history of psychiatric illness, past suicide attempts, employment stressors, and familial stressors Protective Factors: desire to improve condition, external support, treatment compliance, access to outpatient treatment, coping skills displayed, and lutheran beliefs Risk Assessment: Moderate Modifiable Factors: no access to firearms, access removed, or removal was refused, psychiatric medication: pt received/was offered, psychiatric disorder/symptoms: address with counseling/medication during admission, outpatient treatment access: pt set-up with outpatient follow-up for psychiatric outpatient/addiction treatment, stressors: discussed in-depth, including potential solutions/coping skills, and external support: family/friends contact for collateral information and discharge planning Labs: No results for input(s): WBC, HGB, PLT in the last 72 hours. No results for input(s): NA, K, CL, CO2, BUN, CREATININE, GLUCOSE in the last 72 hours. No results for input(s): BILITOT, ALKPHOS, AST, ALT in the last 72 hours. No results found for: LABAMPH, LABBENZ, CANNAB, COCAINESCRN, PPXUR, ETOH No results found for: TSH, FREET4 No results found for: LITHIUM No results found for: VALPROATE, CBMZ RISK ASSESSMENT AT DISCHARGE: Low risk for suicide and homicide. They deny SI/HI/AVH/delusions. Pt is forward thinking. Pt is able to contract for safety. Safety plan was discussed with the pt, about pt calling 911 or reporting to the ED if they felt like a risk to themselves or others. Pt expressed agreement and understanding of treatment plan. Consults: Social Work Treatment Plan: Reviewed current Medications with the patient. Education provided on the complaince with treatment. Risks, benefits, side effects, [id number] interactions and alternatives to treatment were discussed. Continue medications per medical reconciliation Encourage patient to attend outpatient follow up appointment and therapy. Discharge planning discussed with the patient and treatment team. Follow-up with Charmaine Richardson per discharge instructions Proper PPE was worn during the entirety of the encounter. I saw and evaluated the patient. I spent 35 minutes, over 51% in direct patient care and counseling, mental status examination and evaluation, diagnostic assessment and progress updat (more content not included)... [facility] 08-13-2023 Note Problem: Potential f or Harm to Self or Others Goal: Participates in unit activities Outcome: Progressing Problem: Potential for Harm to Self or Others Goal: Identifies deescalation techniques Outcome: Progressing [facility] 08-12-2023 Note Psychiatric Progress Note Interim History: Subjective: Pt is being seen in follow-up for obsessive disorder and depression. They have been compliant with Prozac. Denies suicidal ideation. Denies homicidal ideation. Denies auditory hallucinations. Denies visual hallucinations. Denies delusional thinking. Stated she is no longer having thoughts about harming her children. Endorsed improvement in her mood. Feels safe with herself. Medication side effects(SE): No Chart reviewed, discussed with staff, pt seen in person Mental Status Examination: Vitals : BP 140/85 Pulse 94 Temp 36.9 ?C (98.4 ?F) (Temporal) Resp 18 Ht 1.499 m (4' 11) Wt 73.5 kg (162 lb) LMP 07/26/2023 SpO2 97% BMI 32.72 kg/m? Level of consciousness: Alert Appearance: Casually groomed Eye contact: Fair Behavior/Motor: No abnormalities Gait: Normal Involuntary movements: No Attitude toward examiner: Cooperative Speech: Normal rate and volume Mood: Euthymic Affect: Restricted Associations: Intact Thought processes: Circumstantial Suicidal ideation: No Homicidal ideation: No Auditory Hallucinations: No Visual Hallucinations: No Delusions: No Leti: No Depression: No Anxiety: Yes Preoccupied: Yes Cognition: Intact Concentration: Intact Memory: Intact Insight: Impaired Judgement: Impaired Labs: No results for input(s): WBC, HGB, PLT in the last 72 hours. No results for input(s): NA, K, CL, CO2, BUN, CREATININE, GLUCOSE in the last 72 hours. No results for input(s): BILITOT, ALKPHOS, AST, ALT in the last 72 hours. No results found for: LABAMPH, LABBENZ, CANNAB, COCAINESCRN, PPXUR, ETOH No results found for: TSH, FREET4 No results found for: LITHIUM No results found for: VALPROATE, CBMZ No results found for: LITHIUM, VALPROATE Diagnosis: OCD, Depressive Disorder Unspecified Treatment Plan: Medications Scheduled FLUoxetine, 60 mg, Oral, Daily QUEtiapine, 12.5 mg, Oral, Nightly rosuvastatin, 20 mg, Oral, Daily Medications PRN PRN medications: acetaminophen OR acetaminophen, clonazePAM, diphenhydrAMINE AND haloperidol AND LORazepam, diphenhydrAMINE AND haloperidol lactate AND LORazepam, hydrOXYzine pamoate, ondansetron ODT OR ondansetron, polyethylene glycol (PEG) 3350 Compliance: Yes Consults: SHANELLE Disposition: TBD Continue Current Medications as ordered Continue close monitoring of safety, medication side effects, and target symptoms Continue crisis intervention oriented psychotherapy, group and milieu therapies Social work and transitional care continue to assist with necessary family liaison and discharge planning MDM Level: Moderate as evidenced by 2 or more stable chronic illnesses (Moderate) and Prescription drug management, as above (Moderate), Diagnosis and treatment significantly limited by social determinants of health (Moderate) Patient continues to need, on a daily basis, active treatment furnished directly by or requiring the supervision of inpatient psychiatric personnel Electronically signed by RYAN ANDINO DO (Please note that portions of this note may have been completed with a voice recognition program. Efforts were made to edit the dictations but occasionally words are mis-transcribed.) [facility] 08-11-2023 Note Psychiatric Progress Note Interim History: Subjective: Pt is being seen in follow-up for depression and anxiety. They have been compliant with Prozac and Seroquel. Denies suicidal ideation. Denies homicidal ideation. Denies auditory hallucinations. Denies visual hallucinations. Denies delusional thinking. Stated she is less preoccupied with intrusive thoughts about harming her children. She finds these thoughts distressing and she has no desire to act on them. Stated these thoughts are less sticky. Medication side effects(SE): No Chart reviewed, discussed with staff, pt seen in person Mental Status Examination: Vitals : BP 127/84 Pulse 101 Temp 37 ?C (98.6 ?F) (Temporal) Resp 16 Ht 1.499 m (4' 11) Wt 73.5 kg (162 lb) [facility] 07/26/2023 SpO2 98% BMI 32.72 kg/m? Level of consciousness: Alert Appearance: Casually groomed Eye contact: Fair Behavior/Motor: No abnormalities Gait: Normal Involuntary movements: No Attitude toward examiner: Cooperative Speech: Normal rate and volume Mood: Anxiety Affect: Restricted Associations: Intact Thought processes: Circumstantial Suicidal ideation: No Homicidal ideation: No Auditory Hallucinations: No Visual Hallucinations: No Delusions: No Leti: No Depression: Yes Anxiety: Yes Preoccupied: Yes Cognition: Intact Concentration: Intact Memory: Intact Insight: Impaired Judgement: Impaired Labs: No results for input(s): WBC, HGB, PLT in the last 72 hours. No results for input(s): NA, K, CL, CO2, BUN, CREATININE, GLUCOSE in the last 72 hours. No results for input(s): BILITOT, ALKPHOS, AST, ALT in the last 72 hours. No results found for: LABAMPH, LABBENZ, CANNAB, COCAINESCRN, PPXUR, ETOH No results found for: TSH, FREET4 No results found for: LITHIUM No results found for: VALPROATE, CBMZ No results found for: LITHIUM, VALPROATE Diagnosis: OCD, Depressive Disorder Unspecified Treatment Plan: Medications Scheduled FLUoxetine, 60 mg, Oral, Daily QUEtiapine, 12.5 mg, Oral, Nightly rosuvastatin, 20 mg, Oral, Daily Medications PRN PRN medications: acetaminophen OR acetaminophen, clonazePAM, diphenhydrAMINE AND haloperidol AND LORazepam, diphenhydrAMINE AND haloperidol lactate AND LORazepam, hydrOXYzine pamoate, ondansetron ODT OR ondansetron, polyethylene glycol (PEG) 3350 Compliance: Yes Consults: SW Disposition: Home Continue Current Medications as ordered Continue close monitoring of safety, medication side effects, and target symptoms Continue crisis intervention oriented psychotherapy, group and milieu therapies Social work and transitional care continue to assist with necessary family liaison and discharge planning MDM Level: Moderate as evidenced by 1 or more chronic illness with exacerbation progression or side effects (Moderate) and Prescription drug management, as above (Moderate), Diagnosis and treatment significantly limited by social determinants of health (Moderate) Patient continues to need, on a daily basis, active treatment furnished directly by or requiring the supervision of inpatient psychiatric personnel Electronically signed by RYAN ANDINO DO (Please note that portions of this note may have been completed with a voice recognition program. Efforts were made to edit the dictations but occasionally words are mis-transcribed.) [facility] 08-11-2023 Note Individual Therapy P shane Note Date of Service: 08/11/23 Start Time: 1:30 pm End Time: 2:15pm Summary of Session: Met with pt to discuss progress in treatment. Pt reported reading a few chapters in the OCD workbook and shared examples of her ability to identify OCD thinking vs healthy thinking. Pt reports that she has an OCD support group that she uses online. Discussed diffusion techniques to help pt detach from OCD Obsessive thoughts and focus on meaningful action. 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 Pt reported that when she was on her medications her OCD symptoms were manageable. MENTAL STATUS EXAM General Observations: Appearance: [x] Neatly groomed [] Unkempt [] Disheveled [] Other Demeanor: [x] Spontaneous [] Hostile [] Mistrustful [] Preoccupied [] Demanding Activity: [x] Normal [] Hyperactive [] Hypoactive Speech: [x] Clear [] Slurred []Rapid [] Pressured [] Slow [] Soft spoken [] Loud [] Mute [] Rambling [] Incoherent [] Word salad [] Nonsensical Eye Contact: [x] Average [] Sporadic [] Poor [] Avoidant [] Intense MOOD & AFFECT: Mood: [] Euthymic [] Depressed [x] Anxious [] Angry [] Euphoric [] Irritable [] Other: Affect: [x] Full [] Blunted [] Constricted [] Flat [] Inappropriate [] Labile BEHAVIOR: [x] Cooperative [] Resistant [] Agitated [] Impulsive [] Hyperactive [] Aggresive [] Assaultive [] Restless [] Anhedonia [] Akathisia [] Dissociating [] Withdrawn [] Irritable [] Relaxed [] Tired/fatigued [] Tearful [] Pacing [] Easily Startled [] Trembling/shaking Grimaces COGNITION: Thought Processes: [x] Logical [] [place] [] Circumstantial [] Tangential [] Loose [] Incoherent [] Blocked [] Racing [] Flight of Ideas Thought Content: Delusions: [] Grandiose [] Persecutory [] Somatic [] Hindu [] Bizarre [] Nihilistic [] None reported/observed Other: [] Autistic [x] Obsessions [] Guilt [] Phobic [] Guarded Preoccupied [] Ideas of Reference [] Preoccupation with Suicidal Ideation [x] None Reported [] Ideation [] Intent [] Plan [] Self abusive behaviors (assess lethality if present) Homicidal Ideation [x] None Reported [] Ideation [] Intent [] Plan [] Aggressive behaviors (assess lethality of present) Perceptions: [x] Within normal limits [] Illusions [] Depersonalization [] Derealization [] Hallucinations: [] Auditory [] Visual [] Olfactory []Gustatory [] Tactile [] Visceral Oriented to: [x] Person [x] Place [x] Time [x] Situation Level of Consciousness: [x] Alert [] Clouded [] Fluctuating Memory Tested: [] Yes [x] No Memory Disturbance: [] Yes [x] No Attention Deficit: [] Yes [x] No Judgment: [] Good [x] Fair [] Poor Insight: [] Good [x] Fair [] Poor Comments re: significant MSE findings: N/A Therapeutic Intervention: Acceptance and Commitment Therapy Patient Response to Intervention: Pt was open to talking Goal(s) Addressed During Session: Mood Stabilization Progress Towards Goal: Minimal progress [facility] 08-10-2023 Note Psychiatric Progress Note Interim History: Subjective: Pt is being seen in follow-up for depression and anxiety. They have been compliant with Prozac and Seroquel. Denies suicidal ideation. Denies homicidal ideation. Denies auditory hallucinations. Denies visual hallucinations. Denies delusional thinking. Preoccupation with thoughts of harming her children which she finds distressing. Denied any plan or specifics. Endorsed some improvement from yesterday. Medication side effects(SE): No Chart reviewed, discussed with staff, pt seen in person Mental Status Examination: Vitals : BP 132/79 (BP Location: Right arm, Patient Position: Sitting) Pulse 103 Temp 37.1 ?C (98.8 ?F) (Temporal) Resp 16 Ht 1.499 m (4' 11) Wt 73.5 kg (162 lb) LMP 07/26/2023 SpO2 97% BMI 32.72 kg/m? Level of consciousness: Alert Appearance: Casually groomed Eye contact: Fair Behavior/Motor: No abnormalities Gait: Normal Involuntary movements: No Attitude toward examiner: Cooperative Speech: Normal rate and volume Mood: Depressed, anxiety Affect: Restricted Associations: Intact Thought processes: Circumstantial Suicidal ideation: No Homicidal ideation: No Auditory Hallucinations: No Visual Hallucinations: No Delusions: No Leti: No Depression: Yes Anxiety: Yes Preoccupied: Yes Cognition: Intact Concentration: Intact Memory: Intact Insight: Impaired Judgement: Impaired Labs: Recent Labs 08/08/23 1331 WBC 11.1* HGB 15.0 PLT 326 Recent Labs 08/08/23 1331 NA 138 K 3.9 CL 104 CO2 25 BUN 9 CREATININE 0.47* GLUCOSE 125* Recent Labs 08/08/23 1331 BILITOT 0.6 ALKPHOS 63 AST 24 ALT 21 Lab Results Component Value Date COCAINESCRN Negative 08/08/2023 No results found for: TSH, FREET4 No results found for: LITHIUM No results found for: VALPROATE, CBMZ No results found for: LITHIUM, VALPROATE Diagnosis: OCD, Depressive Disorder Unspecified Treatment Plan: Medications Scheduled FLUoxetine, 20 mg, Oral, Daily FLUoxetine, 40 mg, Oral, Daily QUEtiapine, 25 mg, Oral, Nightly rosuvastatin, 20 mg, Oral, Daily Medications PRN PRN medications: acetaminophen OR acetaminophen, clonazePAM, diphenhydrAMINE AND haloperidol AND LORazepam, diphenhydrAMINE AND haloperidol lactate AND LORazepam, hydrOXYzine pamoate, ondansetron ODT OR ondansetron, polyethylene glycol (PEG) 3350 Compliance: Yes Consults: SW Disposition: Home Continue Current Medications as ordered Continue close monitoring of safety, medication side effects, and target symptoms Continue crisis intervention oriented psychotherapy, group and milieu therapies Social work and transitional care continue to assist with necessary family liaison and discharge planning MDM Level: Moderate as evidenced by 1 or more chronic illness with exacerbation progression or side effects (Moderate) and Prescription drug management, as above (Moderate), Diagnosis and treatment significantly limited by social determinants of health (Moderate) Patient continues to need, on a daily basis, active treatment furnished directly by or requiring the supervision of inpatient psychiatric personnel Electronically signed by RYAN ANDINO DO (Please note that portions of this note may have been completed with a voice recognition program. Efforts were made to edit the dictations but occasionally words are mis-transcribed.) [facility] 08-10-2023 Note Individual Therapy P rogress Note Date of Service: 08/10/23 Start Time: 2:00 pm End Time: 3:00 pm Summary of Session: Met with pt to discuss progress in treatment and reason for admission. Pt shared that she had tapered herself off of her medications that were treating her OCD and had a return of similar symptoms including fear of harming her children. Pt reported that last time she was in the hospital the medication helped her to be able to ignore the OCD thoughts. Pt denied any prior behavior that would be harmful to her children. Pt reports being troubled and disgusted by the thoughts she has about harming her children. Pt reports that the thoughts are more of a fear of what if I had the thought that God wanted meto sacrifice my children; I know the God of Yazidism would not ask me to do this but the fear is still there that I could have the thought Discussed Pure O OCD and gave pt OCD workbook to read while in the hospital. Discussed Acceptance and Commitment Therapy and diffusing from thoughts that are leading pt away from activity that helps pt have a meaningful life. 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 Gave pt copy of The Happiness [employer] book on Acceptance and Commitment Therapy. MENTAL STATUS EXAM General Observations: Appearance: [x] Neatly groomed [] Unkempt [] Disheveled [] Other Demeanor: [x] Spontaneous [] Hostile [] Mistrustful [] Preoccupied [] Demanding Activity: [x] Normal [] Hyperactive [] Hypoactive Speech: [x] Clear [] Slurred []Rapid [] Pressured [] Slow [] Soft spoken [] Loud [] Mute [] Rambling [] Incoherent [] Word salad [] Nonsensical Eye Contact: [x] Average [] Sporadic [] Poor [] Avoidant [] Intense MOOD & AFFECT: Mood: [] Euthymic [x] Depressed [x] Anxious [] Angry [] Euphoric [] Irritable [] Other: Affect: [x] Full [] Blunted [] Constricted [] Flat [] Inappropriate [] Labile BEHAVIOR: [x] Cooperative [] Resistant [] Agitated [] Impulsive [] Hyperactive [] Aggresive [] Assaultive [] Restless [] Anhedonia [] Akathisia [] Dissociating [] Withdrawn [] Irritable [] Relaxed [] Tired/fatigued [] Tearful [] Pacing [] Easily Startled [] Trembling/shaking Grimaces COGNITION: Thought Processes: [] Logical [] [place] [] Circumstantial [] Tangential [] Loose [] Incoherent [] Blocked [] Racing [] Flight of Ideas Thought Content: Delusions: [] Grandiose [] Persecutory [] Somatic [] Hindu [] Bizarre [] Nihilistic [x] None reported/observed Other: [] Autistic [] Obsessions [] Guilt [] Phobic [] Guarded Preoccupied [] Ideas of Reference [] Preoccupation with Suicidal Ideation [x] None Reported [] Ideation [] Intent [] Plan [] Self abusive behaviors (assess lethality if present) Homicidal Ideation [x] None Reported [] Ideation [] Intent [] Plan [] Aggressive behaviors (assess lethality of present) Perceptions: [x] Within normal limits [] Illusions [] Depersonalization [] Derealization [] Hallucinations: [] Auditory [] Visual [] Olfactory []Gustatory [] Tactile [] Visceral Oriented to: [x] Person [x] Place [x] Time [x] Situation Level of Consciousness: [x] Alert [] Clouded [] Fluctuating Memory Tested: [] Yes [x] No Memory Disturbance: [] Yes [x] No Attention Deficit: [] Yes [x] No Judgment: [] Good [x] Fair [] Poor Insight: [] Good [x] Fair [] Poor Comments re: significant MSE findings: N/A Therapeutic Intervention: Acceptance and Commitment Therapy, CBT Patient Response to Intervention: Pt was open to talking Goal(s) Addressed During Session: Mood Stabilization Progress Towards Goal: Minimal progress [facility] 08-09-2023 Note Department of Psychi atry History and Physical - Adult Chief Complaint: Depression History obtained from: patient, EMR Patient was seen after discussion with staff and reviewing the chart History of Present Illness: The patient is a 37 y.o. female who presented to the ED complaining of suicidal ideations and thoughts of harming others. Pt stated she has been preoccupied with thoughts of hurting her children related to lutheran preoccupation. 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 She became preoccupied with the thought of children being sacrificed in the Bible. Pt has 4 children. Denied thoughts of acting on hurting her children or any plan. Pt finds these thoughts distressing and was concerned she was a psychopath, spending time online looking up relevant information. Pt stated these thoughts and anxiety made her depressed and she superficially cut her wrists, denied suicidal intent but endorsed frustration with intrusive thoughts. Pt stated she was on Prozac 80 mg but weaned herself down. Pt feels like this has made her feel worse and would like to increase her Prozac. Medications Prior to Admission: Medications Prior to Admission Medication Sig Dispense Refill Last Dose cholecalciferol (Vitamin D-3) 250 MCG (14788 UT) capsule Take by mouth. 08/07/2023 FLUoxetine (PROzac) 20 MG capsule Take 1 capsule (20 mg) by mouth daily. 08/07/2023 QUEtiapine (SEROquel) 25 MG tablet Take 1 tablet (25 mg) by mouth Nightly. 30 tablet 0 08/07/2023 rosuvastatin (Crestor) 20 MG tablet Take 1 tablet (20 mg) by mouth daily. 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 Ivan SECTION (HISTORICAL) WISDOM TOOTH EXTRACTION Allergies: Sertraline Family History: Family History Problem Relation Name Age of Onset Diabetes type II Brother Cancer Father age 71 fall 2020 of Bile duct CA Diabetes Mother 60.00 acutely during CABG, age 60 in 2013 Breast cancer Sister 29.00 Coronary artery disease Mother Hypertension Sister Diabetes type II Sister diet controlled Social History: Education: Post-college degree Employment: Yes Relationships: Yes Children: Yes Legal Hx: No History: No Substance Abuse History: ETOH: No Illicit Drugs: No Tobacco: No Mental Status Examination Vitals : BP 135/93 Pulse 106 Temp 36.3 ?C (97.3 ?F) (Temporal) Resp 16 Ht 1.499 m (4' 11) Wt 73.5 kg (162 lb) LMP 07/26/2023 SpO2 96% BMI 32.72 kg/m? Level of consciousness: Alert Appearance: Casually groomed Eye contact: Fair Behavior/Motor: No abnormalities Gait: Normal Involuntary movements: No Attitude toward examiner: Cooperative Speech: Normal rate and volume Mood: Euthymic Affect: Restricted Associations: Intact Thought processes: Circumstantial Thought content Suicidal ideation: No Homicidal ideation: No Auditory Hallucinations: No Visual Hallucinations: No Delusions: No Leti: No Depression: No Anxiety: Yes Preoccupied: Yes Cognition: Intact Concentration: Intact Memory: Intact Insight: Intact Judgement: Impaired Diagnosis: OCD, Depressive Disorder Unspecified Labs: Recent Labs 08/08/23 1331 WBC 11.1* HGB 15.0 PLT 326 Recent Labs 08/08/23 1331 NA 138 K 3.9 CL 104 CO2 25 BUN 9 CREATININE 0.47* GLUCOSE 125* Recent Labs 08/08/23 1331 BILITOT 0.6 ALKPHOS 63 AST 24 ALT 21 Lab Results Component Value Date COCAINESCRN Negative 08/08/2023 No results found for: TSH, FREET4 No results found for: LITHIUM No results found for: VALPROATE, CBMZ No results found for: LITHIUM, VALPROATE Treatment Plan: Pt will remain on BHP 6 for safety and stabilization. Will start Klonopin prn for anxiety. Increase Prozac to 40 mg daily. Pt will be (more content not included)... [facility] 08-08-2023 Note Department of Psychi atry Nurse Practitioner Emergency Psychiatric Evaluation CHIEF COMPLAINT: Chief Complaint Patient presents with Suicidal Pt came from home via self and family. Pt states that she started to have an obsession with work and anxiety 3 weeks ago and then within the past 3-4 days increased depression and SI thoughts. Pt stated that she felt triggered when she read an article about a mom killing her kids. Pt is afraid she'll hurt her kids. Pt then took scissors and started to make shallow lacerations on her L wrist. Pt is not currently bleeding. Pt is A&OX3 and alert. Pt has even and unlabored breathing. HISTORY OF PRESENT ILLNESS: The patient is a 37 y.o. yo female with significant past medical history of anxiety, MDD, OCD, Meniere's Disease, hypothyroidism, hypercholesterolemia who arrived by family after having suicidal and homicidal thoughts. Pt reports she has been in the process of figuring out her psychiatric medications. She states she has been waking up with anxiety in the morning and will have obsessions over work and spiritual situations. She states she has been obsessively researching things on [employer] and came upon an article about a woman that got a message from god that she should kill her children so she did. Patient had intrusive thoughts that she may be able to do this to her own children and admits that a couple years ago she had a thought that Jose G sacrificed his son for god, what if I would do the same thing. She states she feels she may be delusional and is having brain fog. Patient superficially cut her left wrist and states she just wanted the pain to stop. She denies any leti or hypomania. She denies any hallucinations. Collateral was obtained from the following individual: Yes - Ruddy - - [phone]. Ruddy states he knows she loves the kids and would never intentionally hurt them but states that the most recent comments she made about not knowing if she truly is delusional makes him worry about the safety of the kids. REVIEW OF SYSTEMS: Medical Review Of Systems: Pertinent items are noted in HPI. Psychiatric Review Of Systems: Depressed mood: Yes. Decreased appetite, fatigue, poor concentration, guilt Sleep changes: has not wanted to get out of bed the last 2 days Appetite changes: decreased Weight changes: reports losing 8lbs in 1 week Energy changes: ftigue Loss of interest/anhedonia: yes Somatic symptoms:Denies Libido changes: defer Anxiety/panic: yes Guilty/hopeless: yes Self-injurious/risky behavior: superficial cuts to left wrist Suicidal ideation: Yes. With no plan or intent Homicidal ideation: believes she has the ability to harm her children if she is truly delusional Access to weapons:Denies Lifetime Psychiatric Review Of Systems: Leti or hypomania:Denies Panic attacks: Yes Phobias: reports fear that she could harm her children PTSD:Denies Obsessions/compulsions: obsessions Hallucinations:Denies Delusions:Denies PAST PSYCHIATRIC HISTORY: The patient is currently receiving care for the above psychiatric illness with [facility]. Past mental health outpatient care includes: [facility] Nunes and Dr King, PCP Previous psychiatric hospitalizations: 2020 and January 2021 - [facility] Previous diagnoses: MDD, OCD, anxiety, Borderline Personality disorder Previous suicide attempts: Yes. 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 Ivan SECTION (HISTORICAL) WISDOM TOOTH EXTRACTION CURRENT MEDICATIONS/ALLERGIES: No current facility-administered medications for this encounter. Current Outpatient Medications Medication Sig Dispense Refill cholecalciferol (Vitamin D-3) 250 MCG (78667 UT) capsule Take by mouth. FLUoxetine (PROzac) 20 MG capsule Take 1 capsule (20 mg) by mouth daily. QUEtiapine (SEROquel) 25 MG tablet Take 1 tablet (25 mg) by mouth Nightly. 30 tablet 0 rosuvastatin (Crestor) 20 MG tablet Take 1 tablet (20 mg) by mouth daily. 30 tablet 0 Allergies: Allergies Allergen Reactions Sertraline Other SI thoughts. FAMILY HISTORY: Psychiatric Family History: mother - depression, sister - anxiety; father - depression and anxiety Family hist (more content not included)... [facility] 08-03-2023 Telephone encounter Note Message released to patient as written. CBC- normal cell counts. Lipid panel- total cholesterol elevated 272, HDL good at 54, triglycerides elevated at 121, LDL cholesterol elevated at 193, recommend starting rosuvastatin 20 mg daily, low fat, low cholesterol diet and rechecking in 4 weeks CMP-glucose slightly elevated at 121, otherwise normal electrolytes, normal kidney and liver functioning. Recommend checking hemoglobin A1c next visit (will give us an idea of what the glucose has been over a 3 month period) Patient's further questions if applicable: Patient verbalized understanding and is agreeable to starting the rosuvastatin 20 MG medication and would like this sent to [facility]. Patient has also been scheduled for a Nurse Visit to repeat their labs in 4 weeks on 09/01/23 at 8:00 AM. FYI Please advise. Were all questions from office addressed or relayed to the patient from encounter: Yes [facility] 08-03-2023 Miscellaneous Notes Message released to patient as written. CBC- normal cell counts. Lipid panel- total cholesterol elevated 272, HDL good at 54, triglycerides elevated at 121, LDL cholesterol elevated at 193, recommend starting rosuvastatin 20 mg daily, low fat, low cholesterol diet and rechecking in 4 weeks CMP-glucose slightly elevated at 121, otherwise normal electrolytes, normal kidney and liver functioning. Recommend checking hemoglobin A1c next visit (will give us an idea of what the glucose has been over a 3 month period) Patient's further questions if applicable: Patient verbalized understanding and is agreeable to starting the rosuvastatin 20 MG medication and would like this sent to [facility]. Patient has also been scheduled for a Nurse Visit to repeat their labs in 4 weeks on 09/01/23 at 8:00 AM. FYI Please advise. Were all questions from office addressed or relayed to the patient from encounter: Yes ----- Message from FABIAN Florentino CNP sent at 08/03/2023 6:49 AM EST ----- CBC- normal cell counts. Lipid panel- total cholesterol elevated 272, HDL good at 54, triglycerides elevated at 121, LDL cholesterol elevated at 193, recommend starting rosuvastatin 20 mg daily, low fat, low cholesterol diet and rechecking in 4 weeks CMP-glucose slightly elevated at 121, otherwise normal electrolytes, normal kidney and liver functioning. Recommend checking hemoglobin A1c next visit (will give us an idea of what the glucose has been over a 3 month period) Left a message to return call. Directions for CAC in the event patient calls back: If the patient is agreeable to starting the new medication, please: 1. Verify what pharmacy RX will be sent to. 2. Schedule patient for nurse visit to repeat labs in 4 weeks. 3. Route this TE back to the office clinical pool so we can place lab orders and send in rx. If the patient is not agreeable to starting the new medication then no nurse visit is needed. Thanks! documented in this encounter [facility] 08-03-2023 Telephone encounter Note ----- Message from FABIAN Florentino CNP sent at 08/03/2023 6:49 AM EST ----- CBC- normal cell counts. Lipid panel- total cholesterol elevated 272, HDL good at 54, triglycerides elevated at 121, LDL cholesterol elevated at 193, recommend starting rosuvastatin 20 mg daily, low fat, low cholesterol diet and rechecking in 4 weeks CMP-glucose slightly elevated at 121, otherwise normal electrolytes, normal kidney and liver functioning. Recommend checking hemoglobin A1c next visit (will give us an idea of what the glucose has been over a 3 month period) Left a message to return call. Directions for CAC in the event patient calls back: If the patient is agreeable to starting the new medication, please: 1. Verify what pharmacy RX will be sent to. 2. Schedule patient for nurse visit to repeat labs in 4 weeks. 3. Route this TE back to the office clinical pool so we can place lab orders and send in rx. If the patient is not agreeable to starting the new medication then no nurse visit is needed. Thanks! [facility] 08-02-2023 Evaluation + Plan note Associated Problem(s): Anxiety Poorly controlled. Just recently started back on fluoxetine 40 mg, denies any suicidal or homicidal ideation. Recommend continue fluoxetine 40 mg daily, will add hydroxyzine 25 mg every 8 hours as needed for anxiety, recommend reestablishing with counseling services and following up with psychiatry [facility] 08-02-2023 Miscellaneous Notes Associated Problem(s): Anxiety Poorly controlled. Just recently started back on fluoxetine 40 mg, denies any suicidal or homicidal ideation. Recommend continue fluoxetine 40 mg daily, will add hydroxyzine 25 mg every 8 hours as needed for anxiety, recommend reestablishing with counseling services and following up with psychiatry documented in this encounter [facility] 08-02-2023 History of Present illness Narrative Patient was identified by name and Date of . HM: Hep B-declined HIV/Hep C-declined Pap-needs to [facility] ([facility] weber) [facility] Covid-declined PHQ-completed DM Screen-today Images from the original note were not included. 08/02/2023 Tong Sunshine (: 1985) is a 37 y.o. female , Established patient, here for evaluation of the following chief complaint(s): Annual Exam, Health Maintenance (Hep B-declined/HIV/Hep C-declined/Pap-needs to neil/Covid-declined/PHQ-completed/D M Screen-today), and Anxiety ASSESSMENT/PLAN: 1. Annual physical exam 2. Anxiety Assessment & Plan: Poorly controlled. Just recently started back on fluoxetine 40 mg, denies any suicidal or homicidal ideation. Recommend continue fluoxetine 40 mg daily, will add hydroxyzine 25 mg every 8 hours as needed for anxiety, recommend reestablishing with counseling services and following up with psychiatry Orders: - hydrOXYzine HCl (Atarax) 25 MG tablet; Take 1 tablet (25 mg) by mouth 3 times daily for 15 days., Starting 08/02/2023, Until Tu08/17/2023, Normal 3. Screening for diabetes mellitus - Comprehensive metabolic panel 4. Screening for deficiency anemia - CBC 5. Screening for cholesterol level - Lipid panel Follow up for 3 month [facility], as directed pending test results. SUBJECTIVE/OBJECTIVE: MALA - Tong Sunshine (: 1985) is a 37 y.o. female , Established patient, here for the evaluation of the following chief complaint(s): Annual Exam, Health Maintenance (Hep B-declined/HIV/Hep C-declined/Pap-needs to [facility]/Covid-declined/PHQ-completed/D M Screen-today), and Anxiety Patient presents for annual exam. 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 has vasectomy. Patient follows with [facility] and needs to schedule her Pap. Reports menses regular. Reports that she has had increased anxiety over the past month or so and obsessive compulsive thoughts. States that she has a history of anxiety depression and was previously on Prozac 60 mg and previously established with psychiatry. Also was seeing a counselor. Was doing very well over the past year or so and self tapered discontinued her Prozac. Reports she was doing pretty well up until about a month or so ago so she restarted the Prozac 20 mg for a few days and then asked to increase it to 40 mg daily states she has been taking 40 mg daily for about a week and a half and states she continues to struggle with anxiety and intrusive thoughts. Denies any suicidal or homicidal ideation. Reports that she has scheduled to see psychiatry this . Prior to Admission medications Medication Sig Start Date End Date Taking? Authorizing Provider cholecalciferol (Vitamin D-3) 250 MCG (17420 UT) capsule Take by mouth. Yes Historical Provider, FLUoxetine (PROzac) 40 MG capsule Take 1 capsule (40 mg) by mouth daily. 07/28/23 01/24/24 Yes Ash King MD fluticasone (Flonase) 50 MCG/ACT nasal spray SPRAY 1 SPRAY INTO EACH NOSTRIL TWICE A DAY 10/15/22 Historical Provider, phentermine (Adipex-P) 37.5 MG tablet Take 1 tablet (37.5 mg) by mouth every morning (before breakfast). 03/19/23 04/18/23 Kathleen Jones APRN - [employer] Probiotic Product (PROBIOTIC DAILY PO) Take by mouth. Historical Provider, FLUoxetine (PROzac) 20 MG capsule Take 1 capsule (20 mg) by mouth daily. 04/23/23 07/28/23 Priscilla Gooden APRN - [employer] Review of Systems Constitutional: Negative. HENT: Negative. Eyes: Negative for visual disturbance. Last eye exam- about 1 year ago Respiratory: Negative. Cardiovascular: Negative. Gastrointestinal: Positive for nausea. Negative for abdominal pain, constipation, diarrhea and vomiting. Genitourinary: Negative for difficulty urinating and menstrual problem (regular, LMP 07/18/2023). Musculoskeletal: Negative. Skin: Negative. Neurological: Positive for dizziness (occasional) and headaches (2-3 times per week- tension type- acetaminophen or ibuprofen). Negative for syncope and light-headedness. Psychiatric/Behavioral: The patient is nervous/anxious. Reports that anxiety Was seeing psychiatrist couple years ago. Prozac to 20 mg back in April 2023. States that the anxiety was starting to no si/hi. Reports that she is not sleeping well at all. Reports that she is fearful. 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 Vitals: 08/02/23 0733 BP: 137/81 Pulse: 90 Resp: 16 Temp: 37.1 C (98.7 F) TempSrc: Infrared SpO2: 97% Weight: 168 lb (76.2 kg) Height: 4' 11 (1.499 m) Physical Exam Constitutional: General: She is not in acute distress. Appearance: Normal appearance. She is obese. She is not ill-appearing. HENT: Head: Normocephalic and atraumatic. Right Ear: Tympanic membrane, ear canal and external ear normal. There is no impacted cerumen. Left Ear: Tympanic membrane, ear canal and external ear normal. There is no impacted cerumen. Nose: Nose normal. No congestion or rhinorrhea. Mouth/Throat: Mouth: Mucous membranes are moist. Pharynx: Oropharynx is clear. Uvula midline. No oropharyngeal exudate or posterior oropharyngeal erythema. Eyes: Conjunctiva/sclera: Conjunctivae normal. Pupils: Pupils are equal, round, and reactive to light. Cardiovascular: Rate and Rhythm: Normal rate and regular rhythm. Pulses: Normal pulses. Heart sounds: Normal heart sounds. Pulmonary: Effort: Pulmonary effort is normal. No respiratory distress. Breath sounds: Normal breath sounds. Abdominal: General: Abdomen is flat. Bowel sounds are normal. Palpations: Abdomen is soft. Tenderness: There is no abdominal tenderness. There is no right CVA tenderness or left CVA tenderness. Musculoskeletal: General: Normal range of motion. Cervical back: Normal range of motion and neck supple. No rigidity or tenderness. Lymphadenopathy: Cervical: No cervical adenopathy. Skin: General: Skin is warm and dry. Findings: No erythema or rash. Neurological: General: No focal deficit present. Mental Status: She is alert and oriented to person, place, and time. Psychiatric: Mood and Affect: Mood normal. Behavior: Behavior normal. Thought Content: Thought content normal. Judgment: Judgment normal. An electronic signature was used to authenticate this note. FABIAN Florentino CNP 08/02/2023 8:25 AM documented [facility] 08-02-2023 Instructions FABIAN Florentino CNP - 08/02/2023 7:40 AM EST Counseling documented in this encounter [facility] 03-03-2023 Evaluation + Plan note Associated Problem(s): Class 2 obesity due to excess calories without serious comorbidity with body mass index (BMI) of 35.0 to 35.9 in adult We will start her on Wegovy 0.25 mg once a week providing her insurance approves it. She is to continue her exercise 5 days a week for 30 to 40 minutes both aerobic and resistance exercising. Recommend increasing fluids [facility] 03-03-2023 Miscellaneous Notes Associated Problem(s): Class 2 obesity due to excess calories without serious comorbidity with body mass index (BMI) of 35.0 to 35.9 in adult We will start her on Wegovy 0.25 mg once a week providing her insurance approves it. She is to continue her exercise 5 days a week for 30 to 40 minutes both aerobic and resistance exercising. Recommend increasing fluids documented in this encounter [facility] 03-03-2023 History of Present illness Narrative Patient verified by last name and date of . Waist 41 Images from the original note were not included. 03/03/2023 Tong Sunshine (: 1985) is a 37 y.o. female , Established patient, here for evaluation of the following chief complaint(s): Obesity (Discuss possible Ozempic) and Health Maintenance (Flu vaccine- refuse/Mmr vaccine- done as a child/Varicella vaccine- had chicken pox) ASSESSMENT/PLAN: 1. Class 2 obesity due to excess calories without serious comorbidity with body mass index (BMI) of 35.0 to 35.9 in adult Assessment & Plan: We will start her on Wegovy 0.25 mg once a week providing her insurance approves it. She is to continue her exercise 5 days a week for 30 to 40 minutes both aerobic and resistance exercising. Recommend increasing fluids Follow up in about 4 weeks (around 03/31/2023). SUBJECTIVE/OBJECTIVE: MALA Kuhn comes in today concerned about her weight she says she is not losing it very fast she has lost about 16 pounds in the last 14 to 15 months. She is wondering about starting a medication to help her with her appetite she says she always feels hungry. We discussed some options and she would like to try Wegovy. She says she is exercising 5 days a week 30 to 40 minutes at the gym doing both aerobic and resistance exercises, she is trying to avoid eating the wrong foods and she has been eating more fruits and vegetables. Review of Systems Constitutional: Negative for chills and fever. Respiratory: Negative for shortness of breath. Cardiovascular: Negative for chest pain and palpitations. Gastrointestinal: Negative for abdominal pain, blood in stool, constipation and diarrhea. Genitourinary: Negative for dyspareunia, dysuria, frequency, hematuria and urgency. Neurological: Negative for weakness and numbness. Psychiatric/Behavioral: Negative for dysphoric mood. The patient is not nervous/anxious. Vitals: 03/03/23 0939 BP: 132/72 Pulse: 82 SpO2: 97% Weight: 174 lb 9.6 oz (79.2 kg) Height: 4' 11 (1.499 m) Physical Exam Vitals and nursing note reviewed. Constitutional: General: She is not in acute distress. Appearance: Normal appearance. HENT: Head: Normocephalic and atraumatic. Mouth/Throat: Mouth: Mucous membranes are moist. Pharynx: Oropharynx is clear. Eyes: Extraocular Movements: Extraocular movements intact. Pupils: Pupils are equal, round, and reactive to light. Cardiovascular: Rate and Rhythm: Normal rate and regular rhythm. Heart sounds: Normal heart sounds. No murmur heard. Pulmonary: Effort: Pulmonary effort is normal. Breath sounds: Normal breath sounds. Abdominal: General: Bowel sounds are normal. Palpations: Abdomen is soft. Tenderness: There is no abdominal tenderness. Musculoskeletal: Cervical back: Neck supple. Lymphadenopathy: Cervical: No cervical adenopathy. Neurological: Mental Status: She is alert. An electronic signature was used to authenticate this note. Ash King MD 03/03/2023 11:08 AM documented in this encounter [facility] 03-02-2023 Telephone encounter Note Message released to patient as written. Patient's further questions if applicable: Pt transferred to office. Were all questions from office addressed or relayed to the patient from encounter: Yes [facility] 03-02-2023 Miscellaneous Notes Message released to patient as written. Patient's further questions if applicable: Pt transferred to office. Were all questions from office addressed or relayed to the patient from encounter: Yes LM to pre-visit plan for appointment with DR KING on 03/03/23 9:45. Please ask patient to arrive 15 minutes early with Photo ID, insurance card Fasting: NO PUT CALL THROUGH TO OFFICE FOR PVP documented in this encounter [facility] 03-02-2023 Telephone encounter Note LM to pre-visit plan for appointment with DR KING on 03/03/23 9:45. Please ask patient to arrive 15 minutes early with Photo ID, insurance card Fasting: NO PUT CALL THROUGH TO OFFICE FOR PVP [facility] 10-19-2022 Telephone encounter Note Last appointment 09/30/22 , Next appointment is Visit date not found Last filled 08/21/22 #30 with 1 refill [facility] 10-19-2022 Miscellaneous Notes Last appointment 09/30/22 , Next appointment is Visit date not found Last filled 08/21/22 #30 with 1 refill documented in this encounter [facility] 08-06-2022 History of Present illness Narrative Images from the original note were not included. [facility] [address] [place] [address] [phone] Visit type: Established Patient Reason for Visit: Foot Pain (In heal, mostly right foot) Assessment / Plan: Tong was seen today for foot pain. Diagnoses and all orders for this visit: Posterior tibial tendon dysfunction, right (Primary) - XR ankle 3+ views right; Future Other orders - methylPREDNISolone (Medrol Dospak) 4 MG tablets; Take as directed on package. Subjective: Patient ID: Tong Sunshine is a 36 y.o. female. HPI patient with a few days of heel and lateral ankle pain on the right side. No recent falls or trauma. Trying to work on exercise. No chronic complaints. Review of Systems overall feeling well. Status post bilateral carpal tunnel surgery and that was successful. No history of excessive stress like a new workout or risk for stress fractures. History of sciatica but this feels different. No low back or radicular symptoms. No Known Allergies Current Outpatient Medications on File Prior to Visit Medication Sig Dispense Refill cholecalciferol (Vitamin D-3) 250 MCG (06055 UT) capsule Take by mouth. FLUoxetine (PROzac) 20 MG capsule Take 1 capsule (20 mg) by mouth daily. Take with 40 mg for total of 60 mg daily 30 capsule 1 FLUoxetine (PROzac) 40 MG capsule Take 1 capsule (40 mg) by mouth daily. Take with 20 mg for total of 60 mg daily 30 capsule 1 [DISCONTINUED] Droplet Pen [place] 31G X 8 MM misc use as directed ONCE DAILY [DISCONTINUED] FeroSul 325 (65 Fe) MG tablet Take 1 tablet by mouth every other day. No current facility-administered medications on file prior to visit. Patient Active Problem List Diagnosis Family history of breast cancer in sister Family history of cervical cancer Family history of diabetes mellitus Hypercholesterolemia Severe episode of recurrent major depressive disorder, without psychotic features (HCC) Meniere disease History of hypothyroidism Obsessive-compulsive disorder Social History Tobacco Use Smoking status: Never Smokeless tobacco: Never Substance Use Topics Alcohol use: Never Alcohol/week: 0.0 standard drinks Past Surgical History: Procedure Laterality Date CARPAL TUNNEL RELEASE Bilateral 2021 Dr. Ivan SECTION (HISTORICAL) WISDOM TOOTH EXTRACTION Family History Problem Relation Name Age of Onset Diabetes type II Brother Cancer Father age 71 fall 2020 of Bile duct CA Diabetes Mother 60.00 acutely during CABG, age 60 in 2013 Breast cancer Sister 29.00 Coronary artery disease Mother Hypertension Sister Diabetes type II Sister diet controlled Objective: BP 120/72 Pulse 88 Temp 36.2 C (97.1 F) (Temporal) Ht 4' 11 (1.499 m) Wt 189 lb (85.7 kg) SpO2 99% BMI 38.17 kg/m Physical Exam pain inferior to the lateral malleolus along the posterior tibial tendon body. No disruption in strength. Full range of motion of the ankle and foot. No weakness of the Achilles. She is somewhat tender in the posterior superior aspect of the distal Achilles tendon. However there is no disruption. Nontender palpation of the heel. Pulse color and temperature of the foot and toes is normal. She can walk on her heels and toes but painful. There is no weakness with plantarflexion. documented in this encounter [facility] 07-23-2022 History of Present illness Narrative Tong is a 36 year old who presents for an annual gynecologic exam with complaints, cramping, bloating, spotting 4-5 days before menses. Some low back pain. Fatigue . Eats healthy, exercise regularly. Sleeps well. Some nausea. DAVIS intermittently. More tired and mood around menses. Has been trying to lose wt and struggling w/ this as well Sleeps 1030-530. Doesn't feel well rested. Menses: cycles every 28-30 days and 5 days of flow. 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 LMP: 10/26/2020, Unknown Age at Menarche: Age at First : Age at Menopause: [employer] History Comments: Sexual Activity: Yes; Male Contraception: Vasectomy PAST MEDICAL HISTORY Diagnosis Date Abnormal glandular Papanicolaou smear of cervix 2014 Anxiety state/depression Gestational diabetes OCD (obsessive compulsive disorder) depression PAST SURGICAL HISTORY Procedure Laterality Date DELIVERY ONLY REVISE MEDIAN N/CARPAL TUNNEL SURG Bilateral 02/2022 VAGINOSCOPY FAMILY HISTORY Problem Relation Age of Onset Diabetes Mother Depression Mother Anxiety disorder Mother Heart Mother Heart Father Anxiety disorder Father Depression Father COPD Father Emphysema Father Hypertension Sister Hypertension Brother Diabetes Brother Diabetes Maternal Grandmother Schizophrenia Maternal Grandfather Heart Attack Paternal Grandmother Hypertension Paternal Grandfather Stroke Paternal Grandfather No Known Problems Daughter No Known Problems Daughter No Known Problems Son SOCIAL HISTORY Social History Tobacco Use Smoking status: Never Smokeless tobacco: Never Vaping Use Vaping Use: Never used Substance Use Topics Alcohol use: Not Currently Drug use: Never REVIEW OF SYSTEMS Abdomen: No abdominal pain, nausea, vomiting, diarrhea, or constipation. No bloating, early satiety, indigestion, or increased flatulence. Bladder: frequency of urination and bladder pressure. Empties and feels urge again soon. Doesn't get up in the middle of the night. Sometimes feels urge w/ small amount. Breast: No breast lumps, nipple d/c, overlying skin changes, redness or skin retraction. Allergies and current medication updated:Yes EXAM: LMP 10/26/2020 GENERAL: pleasant, female in no apparent distress HEENT: Normocephalic, atraumatic, mucus membranes moist, and no lesions NECK: Supple, full range of motion, no adenopathy, and thyroid normal DERMATOLOGY: Normal, without lesions, non-icteric, and non-hirsute BREAST: soft, non-tender, symmetric, no dominant mass, normal nipple-areolar complex, no lymphadenopathy, and no nipple discharge CHEST: Normal inspiratory effort ABDOMEN: soft, non-tender, and no masses PELVIC: external genitalia normal, normal Bartholin's glands, urethra, Hypericum's glands, no vulvar lesions, no cervical lesions, physiologic discharge present, normal appearing perineal body and perianal region, cystocele 1st degree BIMANUAL: uterus normal size, shape and consistency, no adnexal masses, and non-tender RECTOVAGINAL: deferred. NEURO: alert and oriented x3,exam grossly non-focal EXTREMITIES: normal Reviewed labs by PCP. ASSESSMENT/PLAN: 1) Health maintenance: Pap/HPV up to date. Mammogram starting age 40. 2) Contraception: vasectomy. Contraceptive options reviewed and information provided. 3) STD screening: Declined STD check. 4) Follow up one year or sooner as needed see labs. reviewed labs from PCP Given info on mirena, suspect adenomyosis Priscilla López MD documented in this encounter [facility] 06-29-2022 History of Present illness Narrative Images from the original note were not included. [facility] [address] [facility] [facility] [address] Dept: [phone] Dept Loc: [phone] Visit type: Established Patient Reason for Visit: Gynecologic Exam (Wellness ), Headache, and Vertigo Assessment and Plan 1. Acute nonintractable headache, unspecified headache type Comments: Acute Tylenol/IBU Ice packs Labs ordered Orders: - Comprehensive metabolic panel 2. Dizziness Comments: Chronic, acute worsening Flonase and OTC antihistamine daily x2 weeks Change positions slowly Continue to monitor glucose level Orders: - CBC auto differential - Iron and TIBC - Ferritin - Transferrin - Comprehensive metabolic panel 3. Pre-diabetes Comments: Chronic A1c ordered Discussed risks of intermittent fasting Orders: - Hemoglobin A1c 4. Severe episode of recurrent major depressive disorder, without psychotic features (HCC) Comments: Chronic, controlled Decrease Prozac to 60 mg daily per patient request Monitor for worsening of symptoms Orders: - FLUoxetine (PROzac) 20 MG capsule; Take 1 capsule (20 mg) by mouth daily. Take with 40 mg for total of 60 mg daily, Starting Wed06/29/2022, Normal - FLUoxetine (PROzac) 40 MG capsule; Take 1 capsule (40 mg) by mouth daily. Take with 20 mg for total of 60 mg daily, Starting 06/29/2022, Until Wed08/28/2022, Normal 5. History of hypothyroidism Comments: Repeat level ordered Orders: - TSH 6. Hypercholesterolemia Comments: Chronic, status unknown Fasting lipids ordered Orders: - Lipid panel 7. Screening for lipid disorders Follow up if symptoms worsen or fail to improve. Reviewed use, side effects, and benefits of prescribed medication. Barriers to compliance addressed. All questions answered. Verbalized understanding Educated on follow up criteria Subjective MALA Rosario is a 36-year-old female. Presents today for multiple complaints. Patient was originally scheduled for wellness exam. Explained to patient that due to the number of complaints she has, will need to reschedule female exam. Headaches Patient states for the last few months she has been having headaches about 5 of 7 days/week. States that she usually wakes up with the pain first thing in the morning, sometimes the pain improves in the evening time. Pain is located in the frontal region as well as bilateral temples. Pain when it comes is usually a 7/10. Patient has tried Tylenol in the past, states it does not help. Patient drinks 1 cup of coffee or preworkout per day that contains caffeine. Denies any associated symptoms with the headaches. Dizziness Patient states she has had intermittent vertigo for years, however over the last 1-2 months it has become more frequent. Symptoms are occurring 2 to 3 days/week. Describes it as a room spinning sensation. Does seem to be worse with change in position. No other associated symptoms with dizziness. Denies ear pain, drainage, SOB, CP, lightheadedness, and/V/D. Of note patient donates plasma 1-2 times per week. States when she donates, she is told that her iron levels are borderline. Patient also using intermittent fasting 16:8. Usually eats between 11-7p or 12-8p. Patient has a history of gestational diabetes. Is almost a year out from delivering her last baby. Does check her fasting glucose before she eats at noon. Glucose has been running in the 90s. Last A1c in November was prediabetic range. Educated on risks of intermittent fasting with diabetic patients. Patient states she drinks 100-120 ounces of water daily. States that when she does eat she eats a generally healthy diet with fruits and vegetables. Patient works out 4 to 5 days/week in the morning. States she has been trying to lose weight consistently for the last 3 months, has lost 4 pounds in total. Also of note patient states she is tired all the time. Having daytime drowsiness despite getting 7-8 hours of sleep per night. Does state sleep is interrupted, has 4 small children. 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 Patient also requested decreasing her Prozac dosing. Currently taking 80 mg daily. States she feels her depression is better managed. States she was put on a high dose due to and depression symptoms. Would like to try to wean down on dosage if possible. Patient is fasting today Review of Systems Constitutional: Positive for fatigue. Negative for fever. HENT: Negative for ear discharge, ear pain and hearing loss. Respiratory: Negative for shortness of breath. Cardiovascular: Negative for chest pain. Gastrointestinal: Negative for abdominal pain, diarrhea, nausea and vomiting. Neurological: Positive for dizziness and headaches. Negative for light-headedness. Psychiatric/Behavioral: Positive for sleep disturbance. Negative for suicidal ideas. All other systems reviewed and are negative. No Known Allergies Outpatient Medications Prior to Visit Medication Sig Dispense Refill cholecalciferol (Vitamin D-3) 250 MCG (46666 UT) capsule Take by mouth. FeroSul 325 (65 Fe) MG tablet Take 1 tablet by mouth every other day. FLUoxetine (PROzac) 40 MG capsule Droplet Pen [place] 31G X 8 MM misc use as directed ONCE DAILY No facility-administered medications prior to visit. Past Medical History: Diagnosis Date Bulging lumbar disc 2006 Family history of breast cancer in sister Family history of cervical cancer Family history of diabetes mellitus parents History of depression 2010 Hx gestational diabetes [address] Foss, ENT in [place] depression 2016 rx per OB Visit for routine rn gynecology exam Angela Lowe Social History Tobacco Use Smoking status: Never Smokeless tobacco: Never Substance Use Topics Alcohol use: Never Alcohol/week: 0.0 standard drinks Past Surgical History: Procedure Laterality Date SECTION (HISTORICAL) WISDOM TOOTH EXTRACTION Family History Problem Relation Name Age of Onset Diabetes type II Brother Cancer Father age 71 fall 2020 of Bile duct CA Diabetes Mother 60.00 acutely during CABG, age 60 in 2013 Breast cancer Sister 29.00 Coronary artery disease Mother Hypertension Sister Diabetes type II Sister diet controlled Objective BP 112/80 (BP Location: Right arm, Patient Position: Sitting, BP Cuff Size: Large adult) Pulse 86 Temp 36.8 C (98.3 F) (Temporal) Ht 4' 11 (1.499 m) Wt 187 lb 3.2 oz (84.9 kg) SpO2 98% BMI 37.81 kg/m Physical Exam Vitals reviewed. Constitutional: General: She is not in acute distress. Appearance: Normal appearance. HENT: Right Ear: Hearing, tympanic membrane, ear canal and external ear normal. Tympanic membrane is not perforated or erythematous. Left Ear: Hearing, ear canal and external ear normal. A middle ear effusion is present. Tympanic membrane is not perforated or erythematous. Ears: Comments: Clear effusion to left TM Eyes: Conjunctiva/sclera: Conjunctivae normal. Pupils: Pupils are equal, round, and reactive to light. Neck: Vascular: No carotid bruit. Cardiovascular: Rate and Rhythm: Normal rate and regular rhythm. Pulses: Normal pulses. Pulmonary: Effort: Pulmonary effort is normal. No respiratory distress. Breath sounds: Normal breath sounds. No wheezing. Abdominal: General: Bowel sounds are normal. Skin: General: Skin is warm and dry. Neurological: General: No focal deficit present. Mental Status: She is alert. Psychiatric: Mood and Affect: Mood normal. Behavior: Behavior normal. Data Reviewed and Summarized Labs: Imaging/Testing: FABIAN Marin NP documented in [facility] 06-29-2022 Instructions FABIAN Marin NP - 06/29/2022 7:20 AM EST Flonase 1 spray each nostril daily Zyrtec, Claritin or maya Tylenol or Ibuprofen for headaches Ice pack to forehead The following attachments cannot be sent through Care Everywhere.Dizziness, Adult ED (Kiswahili)documented in this encounter [facility] 02-13-2022 Miscellaneous Notes Patient notified It is likely a yeast infection. Rx nystatin given. I would try to not have anything rub on this area if possible. Asa Betancur MD documented in this encounter [facility] 06-11-2021 History of Past i llness Narrative Problem Noted Date Resolved Date Pruritic urticarial papules and plaques of pregn shannon 06/11/2021 07/23/2022 care 04/10/2021 07/23/2022 Last Assessment & Plan: Travel precautions reviewed. Third trimester counseling provided. Continue routine OB care with primary OB. Class 2 obesity due to exces s calories without serious comorbidity with body mass index (BMI) of 35.0 to 35.9 in adult 02/03/2021 02/03/2021 Obesity complicating , second trimester 02/03/2021 07/23/2022 Overview: 01/31/2021 Pt reports she has been checking fasting BG that have been elevated at [facility]. Signing records release for early glucola screening. To send my chart message with BG log. Last Assessment & Plan: Gestational weight gain and BP remain appropriate. IOM guidelines reviewed. Pre- E sx/precuatiosn reviewed. with care elsewhere, [facility] 01/30/2021 07/23/2022 Overview: 01/29/2021 Patient has been receiving care at [facility] in [place]. She is 13 weeks 5 days . Patient previously signed a release form when she was in the office on January 14 for her OB records. I have asked her to call the office and have them faxed here tomorrow for her OB appointment. She states she is transferring care because the doctor asked her to transfer due to the medications she is taking for her depression. The doctor had discussed the risks of the medications during third trimester and delivery. TKRN History of depression 01/30/2021 07/23/2022 Overview: 01/31/2021 Discussed r/b/a to medications. SW 01/30/2021 Pt has a history of depression/anxiety/OCD diagnosed 4 years ago and treated by a nurse practitioner in psychiatry Leeanne Cronin. She states that she had tried to change her medication 1 month ago and had suicidal thoughts that required a hospitalization. Denies any suicidal thoughts since then. Does admit to depression after her last 2 deliveries. Discussed increased risks of depression during and and importance of reporting the development or worsening of symptoms should they occur.Pt denies ever having any suicidal thoughts or tendencies or thoughts of hurting others. TKRN Last Assessment & Plan: Currently coping well with end of life care for her father. Mood overall stable on prozac/seroquel. Does not desire additional psychiatric support at this time. Continue serial mood assessment and mood precautions were reviewed. Multigravida of advanced maternal age in third t rimester 01/30/2021 07/23/2022 Overview: 01/31/2021 Declines NIPT. Baby ASA. 01/30/2021 Patient is 35 years old. She declines any aneuploidy screening. TKRN 03/04/21 Anatomy US within normal limits no markers for aneuploidy Last Assessment & Plan: Growth/ surveillance as per GDM. Continue ASA. with history of section, ante 01/30/2021 07/23/2022 Overview: 01/31/2021 Discussed r/b to TOLAC vs repeat section. Will need op note to review. 1Patient has a history of a after 2 vaginal births. I have asked her to contact [facility] to have her operative report faxed to our office before tomorrow's appointment if possible. She desires a .EMMIs on and ordered and patient is asked to watch them prior to her appointment tomorrow with Dr. Nichols. TKRN Bleeding in early 01/30/2021 02/0 02/2023 Overview: 01/30/2021atisam was seen January [address] Betancur for ED follow-up for bleeding during . She denies any bleeding since then. Patient states she received RhoGam at her ED visit on 01/04/2021. Natali Shelton RN documented as of this encounter (statuses as of 07/23/2022) [facility]12-29-2021 History of Past illness Narrative* Problem Noted Date Resolved Date Pruritic urticarial papules and plaques of pregn shannon 06/11/2021 07/23/2022 care 04/10/2021 07/23/2022 Last Assessment & Plan: Travel precautions reviewed. Third trimester counseling provided. Continue routine OB care with primary OB. Class 2 obesity due to exces s calories without serious comorbidity with body mass index (BMI) of 35.0 to 35.9 in adult 02/03/2021 02/03/2021 Obesity complicating , second trimester 02/03/2021 07/23/2022 Overview: 01/31/2021 Pt reports she has been checking fasting BG that have been elevated at [facility]. Signing records release for early glucola screening. To send my chart message with BG log. SW Last Assessment & Plan: Gestational weight gain and BP remain appropriate. IOM guidelines reviewed. Pre- E sx/precuatiosn reviewed. with care elsewhere, antepart um 01/30/2021 07/23/2022 Overview: 01/29/2021 Patient has been receiving care at [facility] in [place]. She is 13 weeks 5 days . Patient previously signed a release form when she was in the office on January 14 for her OB records. I have asked her to call the office and have them faxed here tomorrow for her OB appointment. She states she is transferring care because the doctor asked her to transfer due to the medications she is taking for her depression. The doctor had discussed the risks of the medications during third trimester and delivery. TKRN History of depression 01/30/2021 07/23/2022 Overview: 01/31/2021 Discussed r/b/a to medications. SW 01/30/2021 Pt has a history of depression/anxiety/OCD diagnosed 4 years ago and treated by a nurse practitioner in psychiatry Leeanne Cronin. She states that she had tried to change her medication 1 month ago and had suicidal thoughts that required a hospitalization. Denies any suicidal thoughts since then. Does admit to depression after her last 2 deliveries. Discussed increased risks of depression during and and importance of reporting the development or worsening of symptoms should they occur.Pt denies ever having any suicidal thoughts or tendencies or thoughts of hurting others. TKRN Last Assessment & Plan: Currently coping well with end of life care for her father. Mood overall stable on prozac/seroquel. Does not desire additional psychiatric support at this time. Continue serial mood assessment and mood precautions were reviewed. Multigravida of advanced maternal age in third t rimester 01/30/2021 07/23/2022 Overview: 01/31/2021 Declines NIPT. Baby ASA. 01/30/2021 Patient is 35 years old. She declines any aneuploidy screening. TKRN 03/04/21 Anatomy US within normal limits no markers for aneuploidy Last Assessment & Plan: Growth/ surveillance as per GDM. Continue ASA. with history of section, ante 01/30/2021 07/23/2022 Overview: 01/31/2021 Discussed r/b to TOLAC vs repeat section. Will need op note to review. 01/30/2021atient has a history of a after 2 vaginal births. I have asked her to contact [facility] to have her operative report faxed to our office before tomorrow's appointment if possible. She desires a .EMMIs on and ordered and patient is asked to watch them prior to her appointment tomorrow with Dr. Nichols. TKRN Bleeding in early 01/30/2021 02/0 02/2023 Overview: 01/30/2021atisam was seen January [address] Betancur for ED follow-up for bleeding during . She denies any bleeding since then. Patient states she received RhoGam at her ED visit on 01/04/2021. Natali Shelton RN documented as of this encounter (statuses as of 10/26/2022) [facility]12-29-2021 History of Past illness Narrative* Problem Noted Date Diagnosed Date Resolved Date Pruritic urticarial papules and plaques of 06/11/2021 07/23/2022 care 04/10/2021 07/23/2022 Last Assessment & Plan: Travel precautions reviewed. Third trimester counseling provided. Continue routine OB care with primary OB. Class 2 obesity due to exces s calories without serious comorbidity with body mass index (BMI) of 35.0 to 35.9 in adult 02/03/2021 Obesity complicating pregnan cy, second trimester 02/03/2021 07/23/2022 Overview: 01/31/2021 Pt reports she has been checking fasting BG that have been elevated at [facility]. Signing records release for early glucola screening. To send my chart message with BG log. Last Assessment & Plan: Gestational weight gain and BP remain appropriate. IOM guidelines reviewed. Pre- E sx/precuatiosn reviewed. with care elsewhere, antepartum 01/30/2021 07/23/2022 Overview: 01/29/2021 Patient has been receiving care at [facility] in [place]. She is 13 weeks 5 days . Patient previously signed a release form when she was in the office on January 14 for her OB records. I have asked her to call the office and have them faxed here tomorrow for her OB appointment. She states she is transferring care because the doctor asked her to transfer due to the medications she is taking for her depression. The doctor had discussed the risks of the medications during third trimester and delivery. TKRN History of depression 01/30/20212022 Overview: 01/31/2021 Discussed r/b/a to medications. SW 01/30/2021 Pt has a history of depression/anxiety/OCD diagnosed 4 years ago and treated by a nurse practitioner in psychiatry Leeanne Cronin. She states that she had tried to change her medication 1 month ago and had suicidal thoughts that required a hospitalization. Denies any suicidal thoughts since then. Does admit to depression after her last 2 deliveries. Discussed increased risks of depression during and and importance of reporting the development or worsening of symptoms should they occur.Pt denies ever having any suicidal thoughts or tendencies or thoughts of hurting others. TKRN Last Assessment & Plan: Currently coping well with end of life care for her father. Mood overall stable on prozac/seroquel. Does not desire additional psychiatric support at this time. Continue serial mood assessment and mood precautions were reviewed. Multigravida of advanced mat ernal age in third trimester 01/30/2021 07/23/2022 Overview: 01/31/2021 Declines NIPT. Baby ASA. 01/30/2021 Patient is 35 years old. She declines any aneuploidy screening. TKRN 03/04/21 Anatomy US within normal limits no markers for aneuploidy Last Assessment & Plan: Growth/ surveillance as per GDM. Continue ASA. with history of ce sarean section, antepartum 01/30/2021 07/23/2022 Overview: 01/31/2021 Discussed r/b to TOLAC vs repeat section. Will need op note to review. 01/30/2021atient has a history of a after 2 vaginal births. I have asked her to contact [facility] to have her operative report faxed to our office before tomorrow's appointment if possible. She desires a .EMMIs on and ordered and patient is asked to watch them prior to her appointment tomorrow with Dr. Nichols. TKRN Bleeding in early 01/30/2021 07/23/2022 Overview: 1Patient was seen January [address] Betancur for ED follow-up for bleeding during . She denies any bleeding since then. Patient states she received RhoGam at her ED visit on 01/04/2021. Natali Shelton RN documented as of this encounter (statuses as of 09/05/2023) [facility]12-29-2021 History of Past illness Narrative* Problem Noted Date Diagnosed Date Resolved Date Pruritic urticarial papules and plaques of 06/11/2021 07/23/2022 care 04/10/2021 07/23/2022 Last Assessment & Plan: Travel precautions reviewed. Third trimester counseling provided. Continue routine OB care with primary OB. Class 2 obesity due to exces s calories without serious comorbidity with body mass index (BMI) of 35.0 to 35.9 in adult 02/03/2021 Obesity complicating pregnan cy, second trimester 02/03/2021 07/23/2022 Overview: 01/31/2021 Pt reports she has been checking fasting BG that have been elevated at [facility]. Signing records release for early glucola screening. To send my chart message with BG log. Last Assessment & Plan: Gestational weight gain and BP remain appropriate. IOM guidelines reviewed. Pre- E sx/precuatiosn reviewed. with care elsewhere, antepartum 01/30/2021 07/23/2022 Overview: 01/29/2021 Patient has been receiving care at [facility] in [place]. She is 13 weeks 5 days . Patient previously signed a release form when she was in the office on January 14 for her OB records. I have asked her to call the office and have them faxed here tomorrow for her OB appointment. She states she is transferring care because the doctor asked her to transfer due to the medications she is taking for her depression. The doctor had discussed the risks of the medications during third trimester and delivery. TKRN History of depression 01/30/20212022 Overview: 01/31/2021 Discussed r/b/a to medications. SW 01/30/2021 Pt has a history of depression/anxiety/OCD diagnosed 4 years ago and treated by a nurse practitioner in psychiatry Leeanne Cronin. She states that she had tried to change her medication 1 month ago and had suicidal thoughts that required a hospitalization. Denies any suicidal thoughts since then. Does admit to depression after her last 2 deliveries. Discussed increased risks of depression during and and importance of reporting the development or worsening of symptoms should they occur.Pt denies ever having any suicidal thoughts or tendencies or thoughts of hurting others. TKRN Last Assessment & Plan: Currently coping well with end of life care for her father. Mood overall stable on prozac/seroquel. Does not desire additional psychiatric support at this time. Continue serial mood assessment and mood precautions were reviewed. Multigravida of advanced mat ernal age in third trimester 01/30/2021 07/23/2022 Overview: 01/31/2021 Declines NIPT. Baby ASA. 01/30/2021 Patient is 35 years old. She declines any aneuploidy screening. TKRN 03/04/21 Anatomy US within normal limits no markers for aneuploidy Last Assessment & Plan: Growth/ surveillance as per GDM. Continue ASA. with history of ce sarean section, antepartum 01/30/2021 07/23/2022 Overview: 01/31/2021 Discussed r/b to TOLAC vs repeat section. Will need op note to review. 01/30/2021atisam has a history of a after 2 vaginal births. I have asked her to contact [facility] to have her operative report faxed to our office before tomorrow's appointment if possible. She desires a .EMMIs on and ordered and patient is asked to watch them prior to her appointment tomorrow with Dr. Nichols. TKRN Bleeding in early 01/30/2021 07/23/2022 Overview: 01/30/2021arslan was seen January [address] Betancur for ED follow-up for bleeding during . She denies any bleeding since then. Patient states she received RhoGam at her ED visit on 01/04/2021. Natali Shelton RN documented as of this encounter (statuses as of 09/07/2023) [facility]12[facility]-2021 History of Past illness Narrative* Problem Noted Date Diagnosed Date Resolved Date Pruritic urticarial papules and plaques of 06/11/2021 07/23/2022 care 04/10/2021 07/23/2022 Last Assessment & Plan: Travel precautions reviewed. Third trimester counseling provided. Continue routine OB care with primary OB. Class 2 obesity due to exces s calories without serious comorbidity with body mass index (BMI) of 35.0 to 35.9 in adult 02/03/2021 Obesity complicating pregnan cy, second trimester 02/03/2021 07/23/2022 Overview: 01/31/2021 Pt reports she has been checking fasting BG that have been elevated at [facility]. Signing records release for early glucola screening. To send my chart message with BG log. SHANELLE Last Assessment & Plan: Gestational weight gain and BP remain appropriate. IOM guidelines reviewed. Pre- E sx/precuatiosn reviewed. with care elsewhere, antepartum 01/30/2021 07/23/2022 Overview: 01/29/2021 Patient has been receiving care at [facility] in [place]. She is 13 weeks 5 days . Patient previously signed a release form when she was in the office on January 14 for her OB records. I have asked her to call the office and have them faxed here tomorrow for her OB appointment. She states she is transferring care because the doctor asked her to transfer due to the medications she is taking for her depression. The doctor had discussed the risks of the medications during third trimester and delivery. TKRN History of depression 01/30/20212022 Overview: 01/31/2021 Discussed r/b/a to medications. SW 01/30/2021 Pt has a history of depression/anxiety/OCD diagnosed 4 years ago and treated by a nurse practitioner in psychiatry Leeanne Cronin. She states that she had tried to change her medication 1 month ago and had suicidal thoughts that required a hospitalization. Denies any suicidal thoughts since then. Does admit to depression after her last 2 deliveries. Discussed increased risks of depression during and and importance of reporting the development or worsening of symptoms should they occur.Pt denies ever having any suicidal thoughts or tendencies or thoughts of hurting others. TKRN Last Assessment & Plan: Currently coping well with end of life care for her father. Mood overall stable on prozac/seroquel. Does not desire additional psychiatric support at this time. Continue serial mood assessment and mood precautions were reviewed. Multigravida of advanced mat ernal age in third trimester 01/30/2021 07/23/2022 Overview: 01/31/2021 Declines NIPT. Baby ASA. 01/30/2021 Patient is 35 years old. She declines any aneuploidy screening. TKRN 03/04/21 Anatomy US within normal limits no markers for aneuploidy Last Assessment & Plan: Growth/ surveillance as per GDM. Continue ASA. with history of ce sarean section, antepartum 01/30/2021 07/23/2022 Overview: 01/31/2021 Discussed r/b to TOLAC vs repeat section. Will need op note to review. 01/30/2021atisam has a history of a after 2 vaginal births. I have asked her to contact [facility] to have her operative report faxed to our office before tomorrow's appointment if possible. She desires a .EMMIs on and ordered and patient is asked to watch them prior to her appointment tomorrow with Dr. Nichols. TKRN Bleeding in early 01/30/2021 07/23/2022 Overview: 01/30/2021arslan was seen January [address] Betancur for ED follow-up for bleeding during . She denies any bleeding since then. Patient states she received RhoGam at her ED visit on 01/04/2021. Natali Shelton RN documented as of this encounter (statuses as of 09/07/2023) [facility]08-[facility]-2021 History of Past illness Narrative* Problem Noted Date Resolved Date Class 2 obesity due to exces s calories without serious comorbidity with body mass index (BMI) of 35.0 to 35.9 in adult 02/03/2021 02/03/2021 documented as of this encounter (statuses as of 09/05/2021) [facility]-2021 History of Past illness Narrative* Problem Noted Date Resolved Date Class 2 obesity due to exces s calories without serious comorbidity with body mass index (BMI) of 35.0 to 35.9 in adult 02/03/2021 02/03/2021 documented as of this encounter (statuses as of 09/30/2021) [facility]2021 History of Past illness Narrative* Problem Noted Date Resolved Date Class 2 obesity due to exces s calories without serious comorbidity with body mass index (BMI) of 35.0 to 35.9 in adult 02/03/2021 02/03/2021 documented as of this encounter (statuses as of 02/13/2022) [facility] + Plan note No data available for this section [facility] Evaluation note* Diagnosis Encounter for gynecological examination with abnormal finding- Primary Routine gynecological examination Abnormal uterine bleeding (AUB) Malaise and fatigue Other malaise and fatigue documented in this encounter [facility] note* Diagnosis Severe episode of recurrent major depressive disorder, without psychotic features (HCC) [facility] Diagnosis Severe episode of recurrent major depressive disorder, without psychotic features (HCC) [facility]* Diagnosis Class 2 obesity due to excess calories without serious comorbidity with body mass index (BMI) of 35.0 to 35.9 in adult- Primary documented in this encounter [facility] noteNo assessment information availableWOhio [facility] Work [facility]: Evaluation note* Diagnosis Annual physical exam- Primary Routine general medical examination at a health care facility Anxiety Anxiety state, unspecified Screening for diabetes mellitus Screening for deficiency anemia Screening for other and unspecified deficiency anemia Screening for cholesterol level [facility]* Diagnosis Mixed hyperlipidemia- Primary documented in this encounter [facility] note* Diagnosis Strep throat- Primary Streptococcal sore throat Pharyngitis, unspecified etiology documented in this encounter [facility] note* Diagnosis Encounter for gynecological examination (general) (routine) without abnormal findings- Primary Encounter for screening mammogram for breast cancer Other fatigue Intermenstrual spotting Metrorrhagia documented in this encounter [facility] note* Diagnosis Mixed hyperlipidemia documented in this encounter [facility] note* Diagnosis Hypercholesterolemia- Primary Pure hypercholesterolemia Severe episode of recurrent major depressive disorder, without psychotic features (HCC) Prediabetes Other abnormal glucose Acute non-recurrent frontal sinusitis documented in this encounter [facility] note* Diagnosis Annual physical exam- Primary Routine general medical examination at a health care facility Prediabetes Other abnormal glucose Hypercholesterolemia Pure hypercholesterolemia Severe episode of recurrent major depressive disorder, without psychotic features (HCC) Class 1 obesity without serious comorbidity with body mass index (BMI) of 33.0 to 33.9 in adult, unspecified obesity type documented in this encounter [facility] note* Diagnosis Prediabetes- Primary Other abnormal glucose Hypercholesterolemia Pure hypercholesterolemia Severe episode of recurrent major depressive disorder, without psychotic features (HCC) Class 1 obesity without serious comorbidity with body mass index (BMI) of 33.0 to 33.9 in adult, unspecified obesity type documented in this encounter [facility] note* Diagnosis Benign paroxysmal positional vertigo due to bilateral vestibular disorder- Primary Chronic fatigue Other malaise and fatigue Hypersomnolence Hypersomnia, unspecified Class 2 obesity due to excess calories without serious comorbidity with body mass index (BMI) of 35.0 to 35.9 in adult- Primary Annual physical exam- Primary Routine general medical examination at a health care facility Anxiety Anxiety state, unspecified Screening for diabetes mellitus Screening for deficiency anemia Screening for other and unspecified deficiency anemia Screening for cholesterol level Hypercholesterolemia- Primary Pure hypercholesterolemia Severe episode of recurrent major depressive disorder, without psychotic features (HCC) Prediabetes Other abnormal glucose Acute non-recurrent frontal sinusitis Prediabetes- Primary Other abnormal glucose Hypercholesterolemia Pure hypercholesterolemia Severe episode of recurrent major depressive disorder, without psychotic features (HCC) Class 1 obesity without serious comorbidity with body mass index (BMI) of 33.0 to 33.9 in adult, unspecified obesity type Hypercholesterolemia- Primary Pure hypercholesterolemia Severe episode of recurrent major depressive disorder, without psychotic features (HCC) Obsessive-compulsive disorder, unspecified type Anxiety Anxiety state, unspecified [facility] Acute nonintractable headache, unspecified headache type- Primary Dizziness Dizziness and giddiness Pre-diabetes Other abnormal glucose Severe episode of recurrent major depressive disorder, without psychotic features (HCC) History of hypothyroidism Personal history of endocrine, metabolic, and immunity disorders Hypercholesterolemia Pure hypercholesterolemia Screening for lipid disorders documented in this encounter [facility] note* Diagnosis Pre-diabetes- Primary Other abnormal glucose Class 2 obesity without serious comorbidity with body mass index (BMI) of 37.0 to 37.9 in adult, unspecified obesity type [facility]* Diagnosis Posterior tibial tendon dysfunction, right- Primary [facility] Diagnosis Gestational diabetes mellitus (GDM) requiring insulin- Primary Obesity complicating , second trimester Antepartum multigravida of advanced maternal age History of depression Personal history of other mental disorder Supervision of high risk in second trimester Unspecified high-risk Fatigue, unspecified type- Primary Urinary urgency Urgency of urination Urinary frequency documented in this encounter [facility] Discharge instructions No data available for this section [facility] Progress note No data available for this section [facility] Reason for referral (narrative)* Outpatient Procedure (Routine) - Authorized Specialty Diagnoses / Procedures Referred By Gena higginbotham Referred To Contact [facility] Diagnoses Abnormal uterine bleeding (AUB) Procedures ENDOMETRIAL BIOPSY ENDOMETRIAL BX W/WO ENDOCERVIX BX W/O DILAT SPX Priscilla López MD [address] [place] [id number] [address] Referral ID Status Reason Start Date Expiration Date Visits Requested Visits Authorized [id number] Authorized Auto-Generat ed Referral 07/23/2022 07/23/2023 1 1 * Diagnostic Procedure Only (Routine) - Authorized Specialty Diagnoses / Procedures Referred By Contavel t Referred To Contact [facility] Diagnoses Abnormal uterine bleeding (AUB) Procedures PELVIC US WHI US PELVIC NONOBSTETRIC REAL-TIME IMAGE COMPLETE Priscilla López MD [address] [place] [address] [facility] [address] [place] [address] Referral ID Status Reason Start Date Expiration Date Visits Requested Visits Authorized [id number] Authorized Auto-Generat ed Referral 07/23/2022 07/23/2023 1 1 [facility] for referral (narrative)* Diagnostic Procedure Only (Routine) - Pending Review Specialty Diagnoses / Procedures Referred By Contac t Referred To Contact US IMAGING Diagnoses Intermenstrual spotting Procedures US FEMALE PELVIS TRANSABD LTD US PELVIC NONOBSTETRIC IMAGE DCMTN LIMITED/F/U Asa Betancur MD [address] [place] [address] Us Imaging [id number] Referral ID Status Reason Start Date Expiration Date Visits Requested Visits Authorized [id number] Pending Review Auto-Generat ed Referral 09/07/2023 10/06/2024 1 1 * Diagnostic Procedure Only (Routine) - Pending Review Specialty Diagnoses / Procedures Referred By Gena higginbotham Referred To Contact US IMAGING Diagnoses Intermenstrual spotting Procedures US FEMALE PELVIS TRANSVAG US TRANSVAGINAL Asa Betancur MD [address] [place] [address] Us Imaging [facility] Referral ID Status Reason Start Date Expiration Date Visits Requested Visits Authorized [id number] Pending Review Auto-Generat ed Referral 09/07/2023 10/06/2024 1 1 * Diagnostic Procedure Only (Routine) - Pending Review Specialty Diagnoses / Procedures Referred By Gena higginbotham Referred To Contact [facility] IMAGING Diagnoses Encounter for screening mammogram for breast cancer Procedures GLORIA SCREENING SCREENING MAMMOGRAPHY BI 2-VIEW BREAST INC CAD Asa Betancur MD [address] [place] [address] [facility] [address] [place] [address] Referral ID Status Reason Start Date Expiration Date Visits Requested Visits Authorized [id number] Pending Review Auto-Generat ed Referral 09/07/2023 10/06/2024 1 1 [facility] for referral (narrative)* Consultation (Routine) - Pending Review Specialty Diagnoses / Procedures Referred By Gena higginbotham Referred To Contact Bariatrics Diagnoses Pre-diabetes Class 2 obesity without serious comorbidity with body mass index (BMI) of 37.0 to 37.9 in adult, unspecified obesity type Procedures TX OFFICE/OUTPATIENT NEW HIGH MDM 60-74 MINUTES Karlee Patricia APRN - NP [address] [place] [address] [facility] [address] [place] [address] Referral ID Status Reason Start Date Expiration Date Visits Requested Visits Authorized [id number] Pending Review Specialty Services Required 07/03/2022 07/03/2023 1 1 [facility] Health Summary Purpose Family History No Family History Records FoundNo Family History Records FoundNo Family History Records Found No data available for this section No Family History Records FoundNo Family History Records FoundNo Family History Records FoundNo Family History Records Found Advance Directives No Advanced Directives Records Found Advance Directive Response Recorded Date/ Time Living Will Yes July 22 3:47am Power of Aad[employer] 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 Yes July 22, 2021 3:47am Latest Code Status on File Code Status Date Activated Date Inactivated Comments Full Code 08/25/2023 3:14 PM 08/30/2023 7:54 PM Code Status History Code Status Date Activated Date Inactivated Comments Full Code 08/08/2023 3:23 PM 08/19/2023 8:27 PM Latest Code Status on File Code Status Date Activated Date Inactivated Comments Full Code 08/25/2023 3:14 PM 08/30/2023 7:54 PM Code Status History Code Status Date Activated Date Inactivated Comments Full Code 08/08/2023 3:23 PM 08/19/2023 8:27 PM Date Activated Date Inactivated Comments 08/25/2023 3:14 PM 08/30/2023 7:54 PM Date Activated Date Inactivated Comments 08/08/2023 3:23 PM 08/19/2023 8:27 PM Reason for Referral Specialty Diagnoses / Procedures Referred By Gena t Referred To Contact Ash King MD [address] [place] [address], [address] [place] [phone] Referral ID Status Reason Start Date Expiration Date V isits Requested Visits Authorized [id number] Authorized 02/01/2023 08/30/2023 1 1 Referral ID Status Reason Start Date Expiration Date V isits Requested Visits Authorized [id number] Pending Review 1 1 Chief Complaint and Reason for Visit Chief Complaint OBESITY Additional Source Comments INFORMATION SOURCE (unrecogn ized section and content) DATE CREATED AUTHOR 03/27/2020 [facility] DATE CREATED AUTHOR AUTHOR'S ORGANIZ ATION 01/18/2021 [facility] DATE CREATED AUTHOR AUTHOR'S ORGANIZ ATION 12/31/2021 [facility] DATE CREATED AUTHOR AUTHOR'S ORGANIZ ATION 10/08/2023 [facility] DATE CREATED AUTHOR AUTHOR'S ORGANIZ ATION 05/04/2024 [facility] DATE CREATED AUTHOR AUTHOR'S ORGANIZ ATION 07/08/2024 [facility] DATE CREATED AUTHOR AUTHOR'S ORGANIZ ATION 11/17/2024 [facility] Source Comments (unrecognize d section and content) In the event this informatio n is protected by the Federal Confidentiality of Alcohol and Drug Abuse Patient Records regulations: The Federal rules restrict any use of the information to criminally investigate or prosecute any alcohol or drug abuse patient.[facility]bleIn the event this information is protected by the Federal Confidentiality of Alcohol and Drug Abuse Patient Records regulations: The Federal rules restrict any use of the information to criminally investigate or prosecute any alcohol or drug abuse patient.[facility] PrebleIn the event this information is protected by the Federal Confidentiality of Alcohol and Drug Abuse Patient Records regulations: The Federal rules restrict any use of the information to criminally investigate or prosecute any alcohol or drug abuse patient.[facility]bleIn the event this information is protected by the Federal Confidentiality of Alcohol and Drug Abuse Patient Records regulations: The Federal rules restrict any use of the information to criminally investigate or prosecute any alcohol or drug abuse patient.[facility]bleIn the event this information is protected by the Federal Confidentiality of Alcohol and Drug Abuse Patient Records regulations: The Federal rules restrict any use of the information to criminally investigate or prosecute any alcohol or drug abuse patient.[facility]bleIn the event this information is protected by the Federal Confidentiality of Alcohol and Drug Abuse Patient Records regulations: The Federal rules restrict any use of the information to criminally investigate or prosecute any alcohol or drug abuse patient.[facility]bleIn the event this information is protected by the Federal Confidentiality of Alcohol and Drug Abuse Patient Records regulations: The Federal rules restrict any use of the information to criminally investigate or prosecute any alcohol or drug abuse patient.[facility]bleIn the event this information is protected by the Federal Confidentiality of Alcohol and Drug Abuse Patient Records regulations: The Federal rules restrict any use of the information to criminally investigate or prosecute any alcohol or drug abuse patient.[facility]bleIn the event this information is protected by the Federal Confidentiality of Alcohol and Drug Abuse Patient Records regulations: The Federal rules restrict any use of the information to criminally investigate or prosecute any alcohol or drug abuse patient.[facility] Reason for Visit (unrecogniz ed section and content) Reason Comments Yearly Exam Reason Comments Med Refill Reason Onset Date Comments Pre-visit Planning 03/02/2023 Reason Comments Obesity Discuss possible Oze [facility] Health Maintenance Flu vaccine- refuseM mr vaccine- done as a childVaricella vaccine- had chicken pox Reason Comments Annual Exam Health Maintenance Hep B-declinedHIV/He p G-aqtzhmsgMra-kniqh to [id number]-[id number] Screen-today Anxiety Reason Onset Date Comments Results 08/03/2023 Reason Comments Sore Throat Fatigue x1 day, stre p exposure Reason Comments Well Woman Reason Onset Date Comments Med Refill 09/20/2023 Reason Comments Anxiety Depression Hyperlipidemia Medication Check 3 month Blood Work Pt had A1c done 2 mo nths ago Cough Congestion, cough up green mucus lost taste and smell neg Covid test over the weekend Reason Onset Date Comments Results 10/26/2023 Reason Comments Annual Exam Reason Comments Depression Managed by psychiatr ist Anxiety Managed by psychiatr ist Other Prediabetes Asking f or information to help prevent diabetes Hyperlipidemia Pt wants to know if she can cut cholesterol med in half Medication Check Pt has form to be fi lled out for work Health Maintenance Pap- sees [facility] - pap not done this year - last appt 08/2023Mammogram- [facility] ordered but not doneFlu vaccine- [id number] covid vaccine- not done Reason Comments Gynecologic Exam Wellness Headache Vertigo Reason Comments Foot Pain In heal, mostly righ t foot Reason Comments UTI Extremely tired, low er back pain that wraps around to pelvis going on since Wednesday, frequency, urgency, no hx of kidney stones, possibly odor, has taken ibuprofen, mood changes of anxiety and depression, [facility] 06/29/24, pt has CGM due to being prediabetic, has done UTI test at home + for leuks and neg for nitrates Care Teams (unrecognized sec tion and content) Bingo Cashier Relationship Specialty Start Date End Date Suresh Aceves DO [address] [place] [address] PCP - General 09/30/15 Bingo Cashier Relationship Specialty Start Date End Date [facility] [place] [address] PCP - General Family Medicine 09/30/22 Bingo Cashier Relationship Specialty Start Date End Date Ash [facility] [place] [address] PCP - General Family Medicine 09/30/22 Bingo Cashier Relationship Specialty Start [place] [address] PCP - General Family Medicine 09/30/22 Team Status: Active Member Role Status Dates Dr. Suresh Aceves DO Family Provider Active Dr. Suresh Aceves DO Primary Care Provider Active Team Status: Inactive Member Role Status Dates Dr. Suresh Aceves DO Primary Care Pr ovider, Attending Provider, Referring Provider Active Bingo Cashier Relationship Specialty Start [place] [address] PCP - General Family Medicine 09/30/22 Bingo Cashier Relationship Specialty Start Date End Date Ash [facility] [place] [address] PCP - General Family Medicine 09/30/22 Bingo Cashier Relationship Specialty Start [place] [address] PCP - General Family Medicine 09/30/22 Bingo Cashier Relationship Specialty Start Date End Date Ash King MD [address] [facility] [place] [address] PCP - General Family Medicine 09/30/22 Bingo Cashier Relationship Specialty Start Date End Date Ash King MD [address] [facility] [place] [address] PCP - General Family Medicine 09/30/22 Bingo Cashier Relationship Specialty Start Date End Date Ash King MD [address] [place] [address] [address] PCP - General Family Medicine 09/30/22 Bingo Cashier Relationship Specialty Start Date End Date Ash King MD [address] [place] [address] [address] PCP - General Family Medicine 09/30/22 Bingo Cashier Relationship Specialty Start Date End Date Ash King MD [address] [place] [address] [address] PCP - General Family Medicine 09/30/22 Bingo Cashier Relationship Specialty Start Date End Date Suresh Aceves, DO [address] [place] [address] PCP - General 09/30/15 Bingo Cashier Relationship Specialty Start Date End Date Suresh Aceves, DO [address] [place] [address] PCP - General 09/30/15 Bingo Cashier Relationship Specialty Start Date End Date Suresh Aceves, DO [address] [place] [address] PCP - General 09/30/15 Bingo Cashier Relationship Specialty Start Date End Date Ash King [address] [facility] [place] [address] PCP - General Family Medicine 07/06/24 Goals (unrecognized section and content) Goals may be documented in a n alternate section No data available for this section FOR RECORDS PERTAINING TO PATIENTS WHO ARE OR HAVE BEEN ENROLLED IN A CHEMICAL DEPENDENCY/SUBSTANCEABUSE PROGRAM, SOME INFORMATION MAY BE OMITTED. This clinical summary was aggregated from multiple sources. Caution should be exercised in using it in the provision of clinical care. This summary normalizes information from multiple sources, and as a consequence, information in this document may materially change the coding, format and clinical context of patient data. In addition, data may be omitted in some cases. CLINICAL DECISIONS SHOULD BE BASED ON THE PRIMARY CLINICAL RECORDS. [facility] [employer] [facility] provides no warranty or guarantee of the accuracy or completeness of information in this document.
== END | disposition home or self-care (01) ==
PROVIDERS: PCP Family Medicine; Referring Provider Otolaryngology; Visit Provider Otolaryngology
DX: R42 Dizziness and giddiness (principal)
CPT/HCPCS: 70553; A9575